=== PATIENT | female | born 1955 | race Caucasian/White ===

== ENCOUNTER 2020-05-07 14:37 | Outpatient (REF) | payer MEDICAID, SELFPAY ==
[2020-05-07 16:17] LABS: MANUAL DIFF FLAG NO
[2020-05-07 16:21] LABS: Basophils Absolute Auto 0.1 X10*3/uL (0.0-0.2); Basophils Percent Auto 0.7 % (0-2); Eosinophils Absolute Auto 0.2 X10*3/uL (0.0-0.4); Eosinophils Percent Auto 2.3 % (0-4); Hematocrit 40.5 % (37-47); Hemoglobin 13.3 g/dl (12.0-16.0); Imm Gran Abs Auto 0.03 X10*3/uL (0.00-0.03); Imm Gran Pct Auto 0.3 % (0.0-0.4); Lymphocytes Absolute Auto 1.9 X10*3/uL (1.2-4.9); Lymphocytes Percent Auto 21.7 % (20-40); Mean Corpuscular HGB Conc 32.8 g/dl (31.0-35.0); Mean Corpuscular Hemoglobin 29.1 pg (27.0-33.0); Mean Corpuscular Volume 88.6 fL (80-98); Mean Platelet Volume 10.9 fL (9.4-12.3); Monocytes Absolute Auto 0.7 X10*3/uL (0.1-1.2); Monocytes Percent Auto 7.9 % (2-11); Neutrophils Absolute Auto 5.8 X10*3/uL (2.0-8.3); Neutrophils Percent Auto 67.1 % (45-73); Platelet Count 181 X10*3/uL (160-400); Red Blood Count 4.57 X10*6/uL (4.20-5.50); Red Cell Distribution Width 13.6 % (11.0-16.0); White Blood Count 8.6 X10*3/uL (4.8-10.8)
[2020-05-07 16:51] LABS: Alanine Aminotransferase 21 U/L (0-31); Albumin Level 3.9 g/dL (3.5-5.0); Alkaline Phosphatase 86 U/L (39-117); Anion Gap 12 (12-20); Aspartate Amino Transferase 28 U/L (5-31); Bilirubin Total 0.6 mg/dL (0.0-1.0); Blood Urea Nitrogen 20 mg/dL (9-16); C Reactive Protein 0.75 mg/dL (< or = 0.50); Calcium 9.4 mg/dL (8.4-10.2); Carbon Dioxide 30 mmol/L (22-29); Chloride 102 mmol/L (96-108); Estimated Glomerular Filt Rate 50; Glucose Random 200 mg/dL (60-115); Potassium 4.4 mmol/L (3.3-5.1); Sodium 140 mmol/L (135-145); Total Protein 6.9 g/dL (6.5-8.0)
[2020-05-07 16:57] LABS: Erythrocyte Sedimentation Rate 18 MM/HR (0-20)
[2020-05-11 14:16] LABS: Vitamin D 25-OH, D2 <4 ng/mL; Vitamin D 25-OH, D3 58 ng/mL; Vitamin D 25-OH, Total 58 ng/mL (30-100)
== END 2020-05-07 14:38 | disposition home or self-care (01) ==
LOC: HO.LAB 14:37
PROVIDERS: PCP Family Medicine; Visit Provider Student in an Organized Health Care Education/Training Program
DX: M05.9 Rheumatoid arthritis with rheumatoid factor, unspecified (principal); M81.0 Age-related osteoporosis without current pathological fracture; I25.10 Atherosclerotic heart disease of native coronary artery without angina pectoris; Z79.52 Long term (current) use of systemic steroids; Z79.899 Other long term (current) drug therapy
CPT/HCPCS: 20610; 36415; 80053; 82306; 85025; 85652; 86140; 99212

== ENCOUNTER 2020-05-29 14:41 | Outpatient (REF) | payer MEDICAID, SELFPAY ==
--- NOTE | ~2020-05-29 | MM_ITS ---
EXAMINATION: BONE DENSITOMETRY CLINICAL INDICATION: Age-related osteoporosis without current pathological fracture. COMPARISON: This is the patient's baseline examination. TECHNIQUE: Using a [employer] DXA System (software version: 13.1) manufactured by [employer], dual-energy x-ray absorptiometry was performed of the lumbar spine and left hip. The images are of good technical quality. Summary results are attached. FINDINGS: AP SPINE L1-L4: BMD 1.402 g/cm2, Z-score 2.5, T-score 1.8, normal. LEFT FEMUR, NECK: BMD 1.051 g/cm2, Z-score 1.0, T-score 0.1, normal. LEFT FEMUR, TOTAL: BMD 0.941 g/cm2, Z-score 0.0, T-score -0.5, normal. IDENTIFIED RISK FACTORS: Rheumatoid arthritis, osteoporosis, recurrent falls, height loss, family history (parental hip fracture), history of fracture (adult), anticonvulsants, glucocorticoids (chronic), menopause. HISTORY OF FRACTURE: Other. MEDICATIONS: Calcium supplements or multivitamin, vitamin D. MM/XR DEXA axial skeleton IMPRESSION: 1. DIAGNOSIS: Normal bone density based on the lowest T-score value of -0.5 in the total femur applying World Health Organization criteria. 2. 10-YEAR FRACTURE RISK PREDICTION, FRAX: Major osteoporotic fracture (clinical spine, forearm, hip or shoulder) 36.6%. Hip fracture 0.6%. 3. Treatment Recommendations: NOF guidelines recommend consideration for treatment in postmenopausal women and men age 50 and older presenting with the following: -A hip or vertebral (clinical or morphometric) fracture. -T-score less than or equal to -2.5 at the femoral neck or spine after appropriate evaluation to exclude secondary causes. -Low bone mass at the hip or spine and a 10-year fracture probability by FRAX of greater than or equal to 3% for hip fracture or greater than or equal to 20% for major osteoporotic fracture based on the [place] adapted WHO algorithm. 4. Other Recommendations: All treatment decisions require clinical judgment and consideration of individual patient factors, including patient preferences, comorbidities, previous drug use, risk factors not captured in the FRAX model (e.g. frailty, falls, vitamin D deficiency, increased bone turnover, interval significant decline in bone density) and possible under or overestimation of fracture risk by FRAX. FUTURE SCAN RECOMMENDATION: People with diagnosed cases of osteoporosis or at high risk for fracture should have regular bone mineral density tests. For patients eligible for Medicare, routine testing is allowed once every 2 years. The testing frequency can be increased to one year for patients who have rapidly progressing disease, those who are receiving or discontinuing medical therapy to restore bone mass, or have additional risk factors.
== END 2020-05-29 14:42 | disposition home or self-care (01) ==
LOC: HO.MAMMO 14:41
PROVIDERS: Visit Provider Student in an Organized Health Care Education/Training Program
DX: M81.0 Age-related osteoporosis without current pathological fracture (principal); Z78.0 Asymptomatic menopausal state
CPT/HCPCS: 77080

== ENCOUNTER → 2020-06-16 14:04 | Outpatient (BNVA) | payer MEDICAID, SELFPAY | PROVIDERS: PCP Family Medicine; Visit Provider Internal Medicine | DX: R07.2 Precordial pain (principal); I25.10 Atherosclerotic heart disease of native coronary artery without angina pectoris; E11.8 Type 2 diabetes mellitus with unspecified complications; I10 Essential (primary) hypertension; M05.9 Rheumatoid arthritis with rheumatoid factor, unspecified | CPT/HCPCS: 93005; 99202 ==

== ENCOUNTER 2020-07-23 08:35 | Outpatient (REF) | payer MEDICAID, SELFPAY ==
--- NOTE | ~2020-07-23 | XR_ITS ---
EXAMINATION: XR HIP, LEFT XR KNEE, BILATERAL CLINICAL INFORMATION: Rheumatoid arthritis. Pain. COMPARISON: None TECHNIQUE: 2 views left hip. 3 views each bilateral knee. FINDINGS: LEFT HIP: There is severe loss of left hip joint space with subchondral cystic changes along the femoral head and the acetabulum and secondary periarticular spurring. There is no fracture or dislocation seen yet. The soft tissues are normal. There is atherosclerotic calcification of the vascular system. RIGHT KNEE: There is moderate loss of lateral compartment right knee joint space. The medial and patellofemoral compartment joint space is maintained. There is likely an old healed right proximal fibular fracture. There is an intramedullary femoral poncho and a cancellous screw through the proximal tibia for a fracture not seen on this exam. No abnormal joint effusion seen. There is a small anterior superior patellar enthesophyte. LEFT KNEE: There is mild reduction in tricompartment joint space. No bony erosive changes, fracture or dislocation seen. There is mild osteopenia. No abnormal joint effusion seen. XR/XR knee RT 3V IMPRESSION: Severe degenerative arthritic changes left hip joint without acute fracture or dislocation. Moderate degenerative arthritic changes lateral compartment right knee with an old healed proximal fibular fracture. There is intramedullary femoral poncho and a solitary cancellous screw through the proximal tibia for tibial fracture not in the [id number]. Mild degenerative changes in the tricompartments of left knee. No visible acute fracture or dislocation. Mild osteopenia.
--- NOTE | ~2020-07-23 | XR_ITS ---
EXAMINATION: XR HIP, LEFT XR KNEE, BILATERAL CLINICAL INFORMATION: Rheumatoid arthritis. Pain. COMPARISON: None TECHNIQUE: 2 views left hip. 3 views each bilateral knee. FINDINGS: LEFT HIP: There is severe loss of left hip joint space with subchondral cystic changes along the femoral head and the acetabulum and secondary periarticular spurring. There is no fracture or dislocation seen yet. The soft tissues are normal. There is atherosclerotic calcification of the vascular system. RIGHT KNEE: There is moderate loss of lateral compartment right knee joint space. The medial and patellofemoral compartment joint space is maintained. There is likely an old healed right proximal fibular fracture. There is an intramedullary femoral poncho and a cancellous screw through the proximal tibia for a fracture not seen on this exam. No abnormal joint effusion seen. There is a small anterior superior patellar enthesophyte. LEFT KNEE: There is mild reduction in tricompartment joint space. No bony erosive changes, fracture or dislocation seen. There is mild osteopenia. No abnormal joint effusion seen. XR/XR knee LT 3V IMPRESSION: Severe degenerative arthritic changes left hip joint without acute fracture or dislocation. Moderate degenerative arthritic changes lateral compartment right knee with an old healed proximal fibular fracture. There is intramedullary femoral poncho and a solitary cancellous screw through the proximal tibia for tibial fracture not in the [id number]. Mild degenerative changes in the tricompartments of left knee. No visible acute fracture or dislocation. Mild osteopenia.
--- NOTE | ~2020-07-23 | XR_ITS ---
EXAMINATION: XR HIP, LEFT XR KNEE, BILATERAL CLINICAL INFORMATION: Rheumatoid arthritis. Pain. COMPARISON: None TECHNIQUE: 2 views left hip. 3 views each bilateral knee. FINDINGS: LEFT HIP: There is severe loss of left hip joint space with subchondral cystic changes along the femoral head and the acetabulum and secondary periarticular spurring. There is no fracture or dislocation seen yet. The soft tissues are normal. There is atherosclerotic calcification of the vascular system. RIGHT KNEE: There is moderate loss of lateral compartment right knee joint space. The medial and patellofemoral compartment joint space is maintained. There is likely an old healed right proximal fibular fracture. There is an intramedullary femoral poncho and a cancellous screw through the proximal tibia for a fracture not seen on this exam. No abnormal joint effusion seen. There is a small anterior superior patellar enthesophyte. LEFT KNEE: There is mild reduction in tricompartment joint space. No bony erosive changes, fracture or dislocation seen. There is mild osteopenia. No abnormal joint effusion seen. XR/XR hip LT min 2V IMPRESSION: Severe degenerative arthritic changes left hip joint without acute fracture or dislocation. Moderate degenerative arthritic changes lateral compartment right knee with an old healed proximal fibular fracture. There is intramedullary femoral poncho and a solitary cancellous screw through the proximal tibia for tibial fracture not in the [id number]. Mild degenerative changes in the tricompartments of left knee. No visible acute fracture or dislocation. Mild osteopenia.
[2020-07-23 10:13] LABS: MANUAL DIFF FLAG NO
[2020-07-23 10:21] LABS: Basophils Absolute Auto 0.1 X10*3/uL (0.0-0.2); Basophils Percent Auto 0.7 % (0-2); Eosinophils Absolute Auto 0.1 X10*3/uL (0.0-0.4); Eosinophils Percent Auto 1.9 % (0-4); Hematocrit 39.7 % (37-47); Hemoglobin 12.8 g/dl (12.0-16.0); Imm Gran Abs Auto 0.03 X10*3/uL (0.00-0.03); Imm Gran Pct Auto 0.4 % (0.0-0.4); Lymphocytes Absolute Auto 1.5 X10*3/uL (1.2-4.9); Lymphocytes Percent Auto 21.4 % (20-40); Mean Corpuscular HGB Conc 32.2 g/dl (31.0-35.0); Mean Corpuscular Hemoglobin 29.5 pg (27.0-33.0); Mean Corpuscular Volume 91.5 fL (80-98); Mean Platelet Volume 10.4 fL (9.4-12.3); Monocytes Absolute Auto 0.6 X10*3/uL (0.1-1.2); Monocytes Percent Auto 8.4 % (2-11); Neutrophils Absolute Auto 4.7 X10*3/uL (2.0-8.3); Neutrophils Percent Auto 67.2 % (45-73); Platelet Count 135 X10*3/uL (160-400); Red Blood Count 4.34 X10*6/uL (4.20-5.50); Red Cell Distribution Width 13.5 % (11.0-16.0); White Blood Count 6.9 X10*3/uL (4.8-10.8)
[2020-07-23 10:52] LABS: Alanine Aminotransferase 22 U/L (0-31); Albumin Level 3.8 g/dL (3.5-5.0); Alkaline Phosphatase 82 U/L (39-117); Anion Gap 14 (12-20); Aspartate Amino Transferase 29 U/L (5-31); Bilirubin Total 0.6 mg/dL (0.0-1.0); Blood Urea Nitrogen 27 mg/dL (9-16); C Reactive Protein 0.95 mg/dL (< or = 0.50); Calcium 9.2 mg/dL (8.4-10.2); Carbon Dioxide 27 mmol/L (22-29); Chloride 106 mmol/L (96-108); Estimated Glomerular Filt Rate 49; Glucose Random 134 mg/dL (60-115); Potassium 4.4 mmol/L (3.3-5.1); Sodium 143 mmol/L (135-145); Total Protein 6.6 g/dL (6.5-8.0)
[2020-07-23 11:38] LABS: Erythrocyte Sedimentation Rate 23 MM/HR (0-20)
== END 2020-07-23 08:36 | disposition home or self-care (01) ==
LOC: HO.LAB 08:35
PROVIDERS: PCP Family Medicine; Visit Provider Student in an Organized Health Care Education/Training Program
DX: M05.9 Rheumatoid arthritis with rheumatoid factor, unspecified (principal); M81.0 Age-related osteoporosis without current pathological fracture
CPT/HCPCS: 36415; 73502; 73562; 80053; 85025; 85652; 86140; 99212

== ENCOUNTER 2020-08-06 10:01 | Outpatient (REF) | payer MEDICAID, SELFPAY ==
--- NOTE | ~2020-08-06 | XR_ITS ---
EXAMINATION: XR PELVIS CLINICAL INFORMATION: Pain COMPARISON: Previous left hip x-ray 07/23/2020 TECHNIQUE: AP view of the pelvis. FINDINGS: There is severe left hip arthritis with joint space narrowing, osteophyte formation and some subchondral cyst formation. There is mild arthritis of the right hip joint with small osteophytes. No fracture or dislocation is seen. Bones of the pelvis are unremarkable. There is evidence of atherosclerotic disease. XR/XR pelvis 1-2V IMPRESSION: Severe left hip arthritis.
== END 2020-08-06 10:02 | disposition home or self-care (01) ==
LOC: HO.HOSX 10:01
PROVIDERS: Visit Provider Orthopaedic Surgery
DX: M16.12 Unilateral primary osteoarthritis, left hip (principal); M25.562 Pain in left knee; M25.561 Pain in right knee; Z87.891 Personal history of nicotine dependence
CPT/HCPCS: 72170; 99202

== ENCOUNTER 2020-08-27 13:33 | Outpatient (REF) | payer MEDICAID, SELFPAY ==
[2020-08-27 14:52] LABS: MANUAL DIFF FLAG NO
[2020-08-27 14:55] LABS: Basophils Percent Auto 0.4 % (0-2); Eosinophils Absolute Auto 0.2 X10*3/uL (0.0-0.4); Eosinophils Percent Auto 2.2 % (0-4); Hematocrit 39.3 % (37-47); Hemoglobin 12.5 g/dl (12.0-16.0); Imm Gran Abs Auto 0.04 X10*3/uL (0.00-0.03); Imm Gran Pct Auto 0.5 % (0.0-0.4); Lymphocytes Absolute Auto 1.8 X10*3/uL (1.2-4.9); Lymphocytes Percent Auto 24.7 % (20-40); Mean Corpuscular HGB Conc 31.8 g/dl (31.0-35.0); Mean Corpuscular Volume 94.2 fL (80-98); Mean Platelet Volume 10.3 fL (9.4-12.3); Monocytes Absolute Auto 0.7 X10*3/uL (0.1-1.2); Neutrophils Absolute Auto 4.7 X10*3/uL (2.0-8.3); Neutrophils Percent Auto 63.2 % (45-73); Platelet Count 144 X10*3/uL (160-400); Red Blood Count 4.17 X10*6/uL (4.20-5.50); Red Cell Distribution Width 14.2 % (11.0-16.0); White Blood Count 7.4 X10*3/uL (4.8-10.8)
[2020-08-27 15:25] LABS: Alanine Aminotransferase 21 U/L (0-31); Albumin Level 3.9 g/dL (3.5-5.0); Alkaline Phosphatase 88 U/L (39-117); Anion Gap 11 (12-20); Aspartate Amino Transferase 35 U/L (5-31); Bilirubin Total 0.4 mg/dL (0.0-1.0); Blood Urea Nitrogen 28 mg/dL (9-16); C Reactive Protein 0.53 mg/dL (< or = 0.50); Calcium 9.5 mg/dL (8.4-10.2); Carbon Dioxide 29 mmol/L (22-29); Chloride 106 mmol/L (96-108); Estimated Glomerular Filt Rate 46; Glucose Random 70 mg/dL (60-115); Potassium 5.1 mmol/L (3.3-5.1); Sodium 141 mmol/L (135-145); Total Protein 6.8 g/dL (6.5-8.0)
[2020-08-27 15:39] LABS: Erythrocyte Sedimentation Rate 18 MM/HR (0-20)
== END 2020-08-27 13:34 | disposition home or self-care (01) ==
LOC: HO.LAB 13:33
PROVIDERS: PCP Family Medicine; Visit Provider Student in an Organized Health Care Education/Training Program
DX: M17.12 Unilateral primary osteoarthritis, left knee (principal); M17.11 Unilateral primary osteoarthritis, right knee; M16.12 Unilateral primary osteoarthritis, left hip; M05.9 Rheumatoid arthritis with rheumatoid factor, unspecified; F17.210 Nicotine dependence, cigarettes, uncomplicated; Z79.899 Other long term (current) drug therapy
CPT/HCPCS: 20610; 36415; 80053; 85025; 85652; 86140; 99212

== ENCOUNTER → 2020-09-25 08:31 | Outpatient (REF) | payer MEDICAID, SELFPAY ==
--- NOTE | ~2020-09-25 | NM_ITS ---
Myocardial perfusion study Indication: Precordial chest pain to evaluate for myocardial ischemia Technique: The patient was brought in for a Lexiscan perfusion study on 09/25/2020. Patient performed low-level exercise and was injected 0.4 mg of Lexiscan intravenously. Within a minute of injection, 25 mCi of sestamibi was given intravenously. Images were obtained using the SPECT gamma camera interlaced with the gating device. Images were obtained in supine position. Resting perfusion study was performed on 09/28/2020. Patient was administered 25 mCi of sestamibi intravenously at rest. Images were then obtained in supine position. Images obtained with and without CT attenuation. Total DLP 155 mGy-cm. Images were processed with the software and compared side to side in short axis, horizontal long axis and vertical long axis views. Findings: The stress perfusion study showed nonattenuated images show thinning and minimally reduced uptake in the distal anterior wall of the LV myocardium. Remainder of the LV myocardium is normally perfused. Attenuation corrected images show moderately reduced uptake in the apex and the distal anterior wall of the LV myocardium. The gated study shows normal LV systolic function with visually estimated LVEF of greater than 55%. LV cavity is normal in size. The gated study shows normal systolic wall thickening and contraction of segments. Resting study shows no change in perfusion pattern compared to stress perfusion study. Gating at rest reveals normal systolic wall motion with visually estimated ejection fraction at greater than 55%. The findings are consistent with no clear reversible defect suggestive of ischemia. Most likely normal myocardial perfusion. NM/NM lillie perf SPECT rest & str Impression: 1. Myocardial perfusion imaging study shows likely normal myocardial perfusion 2. Gated LVEF is greater than 55% 3. Transient ischemic dilatation not present EKG is nondiagnostic
--- NOTE | 2020-09-25 08:40 | CA_ITS ---
Transthoracic Echocardiogram Patient (Last, First, Middle): Lynda Horvath, Gender: Female Date of : 1955 Age: 64 Procedure Date: 09/25/2020 Procedure Type: Transthoracic Echocardiogram Location: OP Height: 154.94 cm Weight: 88.45 kg BSA: 1.87 m2 Heart Rate: bpm BP: 188 / 72 mmHg [place]: [facility] MD: Dimitrios Choudhary MD Symptoms: I25.10 - Atherosclerotic heart disease of [place] coronary... Study Quality: Fair ECG Rhythm: Sinus Conclusions: - The left ventricular systolic function is normal. The calculated ejection fraction is 61% by biplane method. - There is mild calcification of the aortic valve. - There is moderate posterior mitral annular calcification. Findings Procedure Information Contrast agent, definity, is being given per protocol without apparent complications. Left Ventricle Normal left ventricular cavity size. There is mildly increased left ventricular wall thickness. The left ventricular systolic function is normal. The calculated ejection fraction is 61% by biplane method. There is no evidence of regional wall motion abnormalities. E/E prime ratio is between 8 and 15 consistent with indeterminate filling pressures. Evidence suggests grade I (mild) diastolic dysfunction. Right Ventricle Normal right ventricular cavity size and systolic function. Atria Both atria are normal in size. Aortic Valve There is a normal trileaflet aortic valve. There is mild calcification of the aortic valve. There is no aortic valve stenosis. There is no aortic valve regurgitation. Mitral Valve There is moderate posterior mitral annular calcification. There is trace mitral valve regurgitation. There is no mitral valve stenosis. Pulmonic Valve The pulmonic valve was not well visualized. Tricuspid Valve There is trace tricuspid valve regurgitation. The pulmonary artery systolic pressure is normal. Great Vessels The aortic annulus, sinuses of valsalva, asc aorta, and aortic arch are normal in size. Venous The inferior vena cava is normal in size and collapses greater than 50% with inspiration. Pericardium/Pleural There is no evidence of pericardial effusion. Prior Study Comparison No prior study available for comparison. Measurements 2D Linear Measurements RVIDd: 2.76 RVIDd Index: 1.48 IVSd: 1.05 0.6-0.9/0.6-1.0 cm LVIDd: 4.63 3.9-5.3/4.2-5.9 cm LVIDd Index: 2.48 2.4-3.2/2.2-3.1 cm/m2 LVIDs: 3.14 2.0-3.6 cm LVPWd: 1.26 0.7-1.1 cm Ao Root: 2.70 2.1-3.5 cm LA Diam: 3.60 2.7-3.8/3.0-4.0 cm LAIDs Index: 1.93 1.5-2.3 cm/m2 LV Mass: 244.40 67-162/88-224 g LV Mass Index: 130.70 43-95/49-115 g/m2 LVOT Diam: 2.10 3.0+(-)1.3 cm 2D Systolic Function EF 4C: 53.40 >55% EF 2C: 68.80 >55% EF BiP: 61.20 >55% Mitral Valve MV Pk E: 0.78 MV PK A: 0.67 MV Decel Time: 281.00 E/A: 1.20 E'Lateral: 6.96 E'Medial: 5.33 E/E' Med: 14.60 E/E' Lat: 11.20 Aortic Valve AoV Pk Jonathon: 1.19 AoV Mn Jonathon: 0.87 AoV VTI: 0.29 AoV Pk Grad: 6.00 Aov Mn Grad: 3.00 CORBIN Cont.VTI: 2.01 LVOT LVOT Pk Jonathon: 0.72 LVOT Mn Jonathon: 0.48 LVOT VTI: 0.17 LVOT Pk Grad: 2.00 LVOT Mn Grad: 1.00 LVOT Diam: 2.10 LVOT Area: 3.46 Diastolic Function MV Pk E: 0.78 MV Pk A: 0.67 E/A: 1.20 E'Medial: 5.33 E/E' Med: 14.60 E' Laterial: 6.96 E/E' Lat: 11.20 Tricuspid Valve RA Press: 3.00 Great Vessels Aorta Ao Root-2D: 2.70 2.0-3.7 cm Ao Asc: 3.10 2.1-3.4 cm Ao Arch: 2.40 Updated in Other Vendor System with Status of Final Dimitrios Choudhary MD electronically signed on 09/26/2020 12:18:25 PM with status of Final
--- NOTE | 2020-09-25 08:40 | CA_ITS ---
Acquisition Time: 2020-09-25 09:50:34 Total Exercise Time: 00:02:00 Test Indications: Precordial Pain Medications: See Med Sheet Protocol: LEXISCAN Max HR: 082 BPM 52% of Pred: 157 BPM Max BP: 138/074 mmHG Max Work Load: 1.0 METS Pharmacological stress test with Lexiscan injection, while sitting and kicking her legs without anginal symptoms, without arrythmia, with normotensive response to injection, with nondiagnostic EKG for ischemia. In recovery she had shaking of her upper body and head that was treated wit Aminphylline 75mg IVP and 4 oz caffinated cola with resolution of symptom. Nuclear images pending. Test reviewed with Dr Choudhary. Referred By: Dimitrios Choudhary Overread By: YASHIRA MITCHELL
== END ==
LOC: HO.CARD 08:31
PROVIDERS: Visit Provider Internal Medicine
DX: R07.2 Precordial pain (principal); I25.10 Atherosclerotic heart disease of native coronary artery without angina pectoris
CPT/HCPCS: 78452; 93017; 93306; A9500; J0280; J2785; Q9957

== ENCOUNTER → 2020-10-26 10:45 | Outpatient (BNVA) | payer MEDICAID, SELFPAY | PROVIDERS: PCP Family Medicine; Visit Provider Internal Medicine | DX: I25.10 Atherosclerotic heart disease of native coronary artery without angina pectoris (principal); I10 Essential (primary) hypertension; R07.2 Precordial pain; E11.8 Type 2 diabetes mellitus with unspecified complications; M05.9 Rheumatoid arthritis with rheumatoid factor, unspecified | CPT/HCPCS: 99212 ==

== ENCOUNTER 2020-12-14 09:44 | Outpatient (REF) | payer MEDICAID, SELFPAY ==
[2020-12-14 12:12] LABS: MANUAL DIFF FLAG NO
[2020-12-14 12:29] LABS: Basophils Percent Auto 0.6 % (0-2); Eosinophils Absolute Auto 0.1 X10*3/uL (0.0-0.4); Hematocrit 34.9 % (37-47); Hemoglobin 10.9 g/dl (12.0-16.0); Imm Gran Abs Auto 0.03 X10*3/uL (0.00-0.03); Imm Gran Pct Auto 0.5 % (0.0-0.4); Lymphocytes Absolute Auto 1.2 X10*3/uL (1.2-4.9); Lymphocytes Percent Auto 17.9 % (20-40); Mean Corpuscular HGB Conc 31.2 g/dl (31.0-35.0); Mean Corpuscular Hemoglobin 30.7 pg (27.0-33.0); Mean Corpuscular Volume 98.3 fL (80-98); Mean Platelet Volume 10.6 fL (9.4-12.3); Monocytes Absolute Auto 0.5 X10*3/uL (0.1-1.2); Monocytes Percent Auto 7.9 % (2-11); Neutrophils Absolute Auto 4.6 X10*3/uL (2.0-8.3); Neutrophils Percent Auto 71.1 % (45-73); Platelet Count 167 X10*3/uL (160-400); Red Blood Count 3.55 X10*6/uL (4.20-5.50); Red Cell Distribution Width 12.8 % (11.0-16.0); White Blood Count 6.4 X10*3/uL (4.8-10.8)
[2020-12-14 13:02] LABS: Alanine Aminotransferase 23 U/L (0-31); Albumin Level 3.7 g/dL (3.5-5.0); Alkaline Phosphatase 105 U/L (39-117); Anion Gap 13 (12-20); Aspartate Amino Transferase 33 U/L (5-31); Bilirubin Total 0.3 mg/dL (0.0-1.0); Blood Urea Nitrogen 23 mg/dL (9-16); C Reactive Protein 0.82 mg/dL (< or = 0.50); Calcium 9.8 mg/dL (8.4-10.2); Carbon Dioxide 27 mmol/L (22-29); Chloride 103 mmol/L (96-108); Estimated Glomerular Filt Rate 40; Glucose Random 240 mg/dL (60-115); Sodium 137 mmol/L (135-145); Total Protein 6.4 g/dL (6.5-8.0)
[2020-12-14 13:11] LABS: Erythrocyte Sedimentation Rate 29 MM/HR (0-20)
== END 2020-12-14 09:45 | disposition home or self-care (01) ==
LOC: HO.LAB 09:44
PROVIDERS: PCP Family Medicine; Visit Provider Nurse Practitioner Family
DX: M05.9 Rheumatoid arthritis with rheumatoid factor, unspecified (principal); M81.0 Age-related osteoporosis without current pathological fracture
CPT/HCPCS: 36415; 80048; 80053; 85025; 85652; 86140; 93005; 99212; 99283

== ENCOUNTER 2020-12-14 14:39 | Emergency (ER) | payer MEDICAID, SELFPAY ==
[2020-12-14 15:25] VITALS: BP 169/60; PULSE 57; RESP 16; TEMP 36.2; O2SAT 95; BMI 36.6
--- NOTE | 2020-12-14 15:55 | PC.NURSE ---
PT DECLINES GETTING INTO HOSPITAL ATTIRE AND ED STRETCHER
--- NOTE | 2020-12-14 15:59 | ED.RECABL ---
HPI - Recheck/Abnormal Lab/Rx General Chief Complaint: Recheck/Abnormal Lab/Rx Stated Complaint: abnormal labs Time Seen by Provider: 12/14/20 15:58 Source: patient Mode of arrival: ambulatory Limitations: no limitations History of Present Illness HPI narrative: Potassium level was 6.0. as outpatient. No change in medications. Symptoms since prior visit: no new symptoms Related Data Home Medications Medication Instructions Recorded Confirmed acetaminophen 650 mg 650 mg PO Q8H 05/07/20 10/26/20 tablet,extended release (Tylenol Arthritis Pain) ascorbic acid (vitamin C) 250 mg 250 mg PO DAILY 05/07/20 10/26/20 tablet aspirin 81 mg tablet,delayed 81 mg PO DAILY 05/07/20 10/26/20 release (Adult Low Dose Aspirin) buspirone 7.5 mg tablet 7.5 mg PO BID 05/07/20 10/26/20 cholecalciferol (vitamin D3) 25 25 mcg PO DAILY 05/07/20 10/26/20 mcg (1,000 unit) capsule dicyclomine 20 mg tablet 20 mg PO QID 05/07/20 10/26/20 ezetimibe 10 mg tablet (Zetia) 10 mg PO DAILY 05/07/20 10/26/20 ferrous sulfate 325 mg (65 mg 325 mg PO DAILY 05/07/20 10/26/20 iron) tablet fluticasone propionate 110 2 puff INHALATION BID 05/07/20 10/26/20 mcg/actuation HFA aerosol inhaler (Flovent HFA) fluticasone propionate 50 2 spray INTRANASAL DAILY 05/07/20 10/26/20 mcg/actuation nasal spray,suspension gabapentin 300 mg capsule 300 mg PO TID 05/07/20 10/26/20 (Neurontin) insulin detemir U-100 100 unit/mL 10 unit SUBCUT DIRECTED ml 05/07/20 10/26/20 subcutaneous solution (Levemir U-100 Insulin) levothyroxine 200 mcg tablet 200 mcg PO DAILY 05/07/20 10/26/20 lisinopril 5 mg tablet 5 mg PO DAILY 05/07/20 10/26/20 metoprolol succinate 50 mg 50 mg PO DAILY 05/07/20 10/26/20 tablet,extended release 24 hr omeprazole 40 mg capsule,delayed 40 mg PO DAILY 05/07/20 10/26/20 release simvastatin 20 mg tablet 20 mg PO DAILY 05/07/20 10/26/20 Previous Rx's Medication Instructions Recorded prednisone 5 mg tablet 5 mg PO DAILY #30 tab 08/25/20 calcium carbonate-vitamin D3 600 1 tab PO DAILY #30 ea 09/22/20 mg (1,500 mg)-800 unit tablet baclofen 10 mg tablet 10 mg PO BID #60 tab 10/22/20 sulfasalazine 500 mg tablet 500 mg PO BID #60 tab 11/23/20 Allergies Allergy/AdvReac Type Severity Reaction Status Date / Time hydrocodone [From VICODIN] Allergy Severe vomiting Verified 12/14/20 10:35 metoclopramide [From REGLAN] Allergy Severe Anxiety Verified 12/14/20 10:35 oxycodone [OXYCODONE] Allergy Severe vomiting Verified 12/14/20 10:35 Penicillins [PENICILLINS] Allergy Severe swelling Verified 12/14/20 10:35 tramadol [From ULTRAM] Allergy Severe Vomiting Verified 12/14/20 10:35 codeine [Tylenol-Codeine] Allergy Intermediate vomiting Verified 12/14/20 10:35 Pt states no known food Allergy Unknown none Uncoded 12/14/20 10:35 allerg Review of Systems Constitutional: Constitutional: Reports no additional constitutional complaints Eyes: Eyes: Reports no additional eye complaints ENT: Denies dizziness Cardiovascular: Cardiovascular: Reports no additional cardiovascular complaints Respiratory: Respiratory: Reports as per HPI Gastrointestinal: Gastrointestinal: Reports no additional gastrointestinal complaints Genitourinary: Genitourinary: Reports no additional female genitourinary complaints Musculoskeletal: Musculoskeletal: Reports no additional musculoskeletal complaints Integumentary/Breasts: Skin/Breast: Denies rash Neurologic: Reports system reviewed and no additional complaints, except as documented, Denies dizziness and Denies Sensory deficit (Neuro) Psychiatric: Psychiatric: Denies anxiety [facility] Past Medical History Medical History Atherosclerotic cardiovascular disease COPD (chronic obstructive pulmonary disease) Coronary artery disease Essential hypertension Osteoporosis Seropositive rheumatoid arthritis Type 2 diabetes mellitus with unspecified complications Surgical History History of heart artery stent (~2005) Family History Family History Father CVD (cardiovascular disease) Mother CVD (cardiovascular disease) Heart attack Social History Social History Alcohol intake: former Patient Tobacco Use Status: Former Tobacco user Cigarettes Per Day: 20 Years Smoked: 15 e-Cigarette/Vaping Use: Never Used Advance Directives: No Advance Directives Information Provided: No Physical Exam Vital Signs: Vital Signs: Last Vital Signs Temp 97.1 F 12/14/20 15:25 Pulse 57 12/14/20 15:25 Resp 16 12/14/20 15:25 BP 169/60 H 12/14/20 15:25 Pulse Ox 95 12/14/20 15:25 Body Mass Index 36.6 Const: General: healthy appearing Nutritional Appearance: average body habitus Orientation/consciousness: oriented to person and patient oriented x3 Limitations: no limitations HENMT: Head: Yes normal to inspection Ears: external ears normal General nose exam: Normal external nose present Mouth: Normal oral and palatal mucosa present and oropharynx normal Throat: Yes posterior oropharynx normal Eyes: General: appearance normal, both eyes and all related structures Neck: Other: supple Neck: Yes normal visual inspection Chest: Chest palpation & inspection: normal inspection of the chest Resp: Auscultation: clear to auscultation bilaterally Cardio: Jugular venous distension: no JVD Rate: regular rate Rhythm: regular rhythm Heart sounds: S1 normal heart sound present and S2 normal heart sound present GI: Inspection: Yes normal to inspection Palpation (GI): Soft to palpation, nontender and No hepatosplenomegaly present Auscultation: normal bowel sounds : General: Yes no CVA tenderness Back/Spine/Pelvis: Back: no CVA tenderness Skin: Other: multiple areas of ecchymosis arms and legs Neuro: General: oriented to person and patient oriented x3 Cranial nerves: Yes CN's II-XII intact bilaterally Motor exam (neuro): 5/5 motor strength present throughout Sensory Exam: No Sensory deficit (Neuro) Extrem: General: Yes normal to inspection Psych: Appearance: grossly normal Course Reevaluation(s) Reevaluation #1: patient with no evidence of hyperkalemia, potassium is down Time: 17:44 MDM - Recheck/Abnormal Lab/Rx Lab Data Result diagrams: 12/14/20 16:27 Labs: Lab Results 12/14/20 Range/Units 16:27 Sodium 137 (135-145) mmol/L Potassium 5.1 (3.3-5.1) mmol/L Chloride 102 (96-108) mmol/L Carbon Dioxide 28 (22-29) mmol/L Anion Gap 12 (12-20) BUN 21 H (9-16) mg/dL Creatinine 1.33 (0.5-1.4) mg/dL Estim Creat Clear Calc 43.0 Estimated GFR 40 Random Glucose 280 H (60-115) mg/dL Calcium 9.4 (8.4-10.2) mg/dL Discharge Plan Discharge Clinical Impression: At high risk for hyperkalemia Patient Disposition: Home, Self-Care Instructions: Hyperkalemia (ED) Additional Instructions: i would discuss with your doctor stopping your lisinopril Prescriptions: No Action prednisone 5 mg tablet 5 mg PO DAILY Qty: 30 RF: 3 calcium carbonate-vitamin D3 600 mg(1,500mg) -800 unit tablet 1 tab PO DAILY Qty: 30 RF: 5 baclofen 10 mg tablet 10 mg PO BID Qty: 60 RF: 6 sulfasalazine 500 mg tablet 500 mg PO BID Qty: 60 RF: 3 aspirin [Adult Low Dose Aspirin] 81 mg tablet,delayed release (DR/EC) 81 mg PO DAILY RF: 0 buspirone 7.5 mg tablet 7.5 mg PO BID RF: 0 ferrous sulfate 325 mg (65 mg iron) tablet 325 mg PO DAILY RF: 0 cholecalciferol (vitamin D3) 25 mcg (1,000 unit) capsule 25 mcg PO DAILY RF: 0 ascorbic acid (vitamin C) 250 mg tablet 250 mg PO DAILY RF: 0 fluticasone propionate 50 mcg/actuation spray,suspension 2 spray intranasal DAILY RF: 0 Flovent HFA 110 mcg/actuation HFA aerosol inhaler 2 puff inhalation BID RF: 0 Levemir U-100 Insulin 100 unit/mL solution 10 unit subcut DIRECTED RF: 0 dicyclomine 20 mg tablet 20 mg PO QID RF: 0 omeprazole 40 mg capsule,delayed release(DR/EC) 40 mg PO DAILY RF: 0 gabapentin [Neurontin] 300 mg capsule 300 mg PO TID RF: 0 lisinopril 5 mg tablet 5 mg PO DAILY RF: 0 ezetimibe [Zetia] 10 mg tablet 10 mg PO DAILY RF: 0 simvastatin 20 mg tablet 20 mg PO DAILY RF: 0 levothyroxine 200 mcg tablet 200 mcg PO DAILY RF: 0 metoprolol succinate 50 mg tablet extended release 24 hr 50 mg PO DAILY RF: 0 acetaminophen [Tylenol Arthritis Pain] 650 mg tablet extended release 650 mg PO Q8H RF: 0
--- NOTE | 2020-12-14 16:02 | ECG_ITS ---
Test Reason : ABNORMAL LABS Blood Pressure : / mmHG Vent. Rate : 056 BPM Atrial Rate : 056 BPM P-R Int : 162 ms QRS Dur : 108 ms QT Int : 440 ms P-R-T Axes : 061 -40 040 degrees QTc Int : 424 ms Sinus bradycardia Left axis deviation Voltage criteria for left ventricular hypertrophy Abnormal ECG When compared with ECG of 28-OCT-2018 21:34, No significant change was found Referred By: Kevin Wyatt Electronically Signed By:DANIE RESENDEZ
[2020-12-14 16:54] LABS: Anion Gap 12 (12-20); Blood Urea Nitrogen 21 mg/dL (9-16); Calcium 9.4 mg/dL (8.4-10.2); Carbon Dioxide 28 mmol/L (22-29); Chloride 102 mmol/L (96-108); Estimated Glomerular Filt Rate 40; Glucose Random 280 mg/dL (60-115); Potassium 5.1 mmol/L (3.3-5.1); Sodium 137 mmol/L (135-145)
== END 2020-12-14 18:14 | disposition home or self-care (01) ==
PROVIDERS: Emergency Provider Emergency Medicine
DX: R79.89 Other specified abnormal findings of blood chemistry (principal); E11.9 Type 2 diabetes mellitus without complications; I25.10 Atherosclerotic heart disease of native coronary artery without angina pectoris; Z87.891 Personal history of nicotine dependence; Z79.4 Long term (current) use of insulin; Z79.899 Other long term (current) drug therapy
CPT/HCPCS: 36415; 80048; 93005; 99283

== ENCOUNTER 2020-12-21 12:48 | Outpatient (REF) | payer MEDICAID, SELFPAY ==
[2020-12-21 15:32] LABS: Estimated Average Glucose 189 mg/dL; Hemoglobin A1c % 8.2 %
== END 2020-12-21 12:49 | disposition home or self-care (01) ==
LOC: HO.LAB 12:48
PROVIDERS: PCP Family Medicine; Visit Provider Orthopaedic Surgery
DX: M16.12 Unilateral primary osteoarthritis, left hip (principal); E11.8 Type 2 diabetes mellitus with unspecified complications
CPT/HCPCS: 36415; 83036; 99212

== ENCOUNTER 2021-03-08 12:45 | Outpatient (REF) | payer MEDICAID, SELFPAY ==
[2021-03-08 12:57] LABS: MANUAL DIFF FLAG NO
[2021-03-08 13:32] LABS: Basophils Absolute Auto 0.1 X10*3/uL (0.0-0.2); Basophils Percent Auto 0.8 % (0-2); Eosinophils Absolute Auto 0.3 X10*3/uL (0.0-0.4); Eosinophils Percent Auto 3.4 % (0-4); Hematocrit 37.9 % (37.0-47.0); Hemoglobin 11.7 g/dl (12.0-16.0); Imm Gran Abs Auto 0.03 X10*3/uL (0.00-0.03); Imm Gran Pct Auto 0.3 % (0.0-0.4); Lymphocytes Absolute Auto 2.7 X10*3/uL (1.2-4.9); Lymphocytes Percent Auto 29.4 % (20-40); Mean Corpuscular HGB Conc 30.9 g/dl (31.0-35.0); Mean Corpuscular Hemoglobin 29.8 pg (27.0-33.0); Mean Corpuscular Volume 96.7 fL (80.0-98.0); Mean Platelet Volume 10.6 fL (9.4-12.3); Monocytes Absolute Auto 0.8 X10*3/uL (0.1-1.2); Monocytes Percent Auto 8.3 % (2-11); Neutrophils Absolute Auto 5.2 x10*3/uL (2.0-8.3); Neutrophils Percent Auto 57.8 % (45-73); Platelet Count 176 X10*3/uL (160-400); Red Blood Count 3.92 X10*6/uL (4.20-5.50); Red Cell Distribution Width 13.4 % (11.0-16.0); White Blood Count 9.1 X10*3/uL (4.8-10.8)
[2021-03-08 14:03] LABS: Alanine Aminotransferase 22 U/L (0-31); Albumin Level 3.9 g/dL (3.5-5.0); Alkaline Phosphatase 82 U/L (39-117); Anion Gap 11 (12-20); Aspartate Amino Transferase 33 U/L (5-31); Bilirubin Total 0.4 mg/dL (0.0-1.0); Blood Urea Nitrogen 20 mg/dL (9-16); C Reactive Protein 0.72 mg/dL (< or = 0.50); Calcium 9.2 mg/dL (8.4-10.2); Carbon Dioxide 29 mmol/L (22-29); Chloride 107 mmol/L (96-108); Estimated Glomerular Filt Rate 46; Glucose Random 51 mg/dL (60-115); Potassium 4.2 mmol/L (3.3-5.1); Sodium 143 mmol/L (135-145); Total Protein 6.7 g/dL (6.5-8.0)
[2021-03-08 14:18] LABS: Erythrocyte Sedimentation Rate 18 MM/HR (0-20)
== END 2021-03-08 12:46 | disposition home or self-care (01) ==
LOC: HO.LAB 12:45
PROVIDERS: Visit Provider Nurse Practitioner Family
DX: M05.9 Rheumatoid arthritis with rheumatoid factor, unspecified (principal)
CPT/HCPCS: 36415; 80053; 85025; 85652; 86140

== ENCOUNTER 2021-04-07 13:47 | Outpatient (REF) | payer MEDICAID, SELFPAY ==
[2021-04-08 05:03] LABS: HBS Num1 113.65 mIU/mL (0-7.99); ~HepC Num1 10.47 S/CO (0.00-0.79); ~Hepatitis B Surface Antibody REACTIVE (Nonreactive); ~Hepatitis C Antibody Reactive (Nonreactive)
[2021-04-08 05:17] LABS: HBc Num1 8.99 S/CO (0.00-0.79); HBsAGNum1 0.19 S/CO (0.00-0.99); Hepatitis A Antibody IgM 0.16 Index (0-0.79); Hepatitis B Surface Antigen Negative (Negative); ~Hepatitis A Antibody IgM Nonreactive (Nonreactive)
[2021-04-08 05:56] LABS: HBc Num2 8.89 S/CO
[2021-04-08 05:57] LABS: HBc Num3 9.05 S/CO; Hepatitis B Core Antibody Reactive (Nonreactive)
[2021-04-09 20:55] LABS: TS Negative Control Passed; TS Panel A 0; TS Panel B 0; TS Positive Control Passed; TSpotTB Negative (Negative)
== END 2021-04-07 13:48 | disposition home or self-care (01) ==
LOC: HO.LAB 13:47
PROVIDERS: PCP Family Medicine; Visit Provider Nurse Practitioner Family
DX: Z11.1 Encounter for screening for respiratory tuberculosis (principal); M05.9 Rheumatoid arthritis with rheumatoid factor, unspecified; M81.0 Age-related osteoporosis without current pathological fracture
CPT/HCPCS: 36415; 86481; 86704; 86706; 86709; 86803; 87340; 99212

== ENCOUNTER 2021-05-01 10:52 | Outpatient (REF) | payer MEDICAID, SELFPAY ==
[2021-05-01 11:38] LABS: Estimated Average Glucose 180 mg/dL; Hemoglobin A1c % 7.9 %
== END 2021-05-01 10:53 | disposition home or self-care (01) ==
LOC: HO.LAB 10:52
PROVIDERS: Visit Provider Orthopaedic Surgery
DX: Z01.812 Encounter for preprocedural laboratory examination (principal)
CPT/HCPCS: 36415; 83036

== ENCOUNTER → 2021-05-28 11:07 | Outpatient (BNVA) | payer MEDICAID, SELFPAY | PROVIDERS: PCP Internal Medicine Hypertension Specialist; Visit Provider Orthopaedic Surgery | DX: M16.12 Unilateral primary osteoarthritis, left hip (principal); I25.10 Atherosclerotic heart disease of native coronary artery without angina pectoris; E11.8 Type 2 diabetes mellitus with unspecified complications | CPT/HCPCS: 99212 ==

== ENCOUNTER 2021-06-24 04:10 | Emergency (ER) | payer MEDICAID, SELFPAY ==
--- NOTE | ~2021-06-24 | CT_ITS ---
EXAMINATION: CT ANGIOGRAM OF THE CHEST WITH AND WITHOUT CONTRAST (CT PULMONARY ANGIOGRAM FOR PE) CLINICAL INFORMATION: Reason for Exam L sided chest pain post fall 2 weeks ago COMPARISON: Chest x-ray 06/13/2016 TECHNIQUE: Prior to contrast administration, noncontrast localization images were obtained. Subsequently, multidetector volumetric imaging was performed from the thoracic inlet to below the diaphragms following the administration of 65 mL Omnipaque 350 intravenous contrast. No contrast reaction reported Sagittal, coronal, and MIP oblique sagittal reformatted images were obtained on the CT workstation, uploaded to PACS, and reviewed. This CT examination was performed using dose optimization techniques as appropriate, variously including the following: *Automated exposure control *Adjustment of mA and/or kV according to patient size (this includes techniques or standardized protocols for targeted exams where dose is matched to indication/reason for exam; i.e. extremities or head) *Use of iterative reconstruction technique Total exam dose-length product 470 mGy-cm FINDINGS: QUALITY OF STUDY/CONTRAST BOLUS: Satisfactory. PULMONARY ARTERIES: No central or segmental pulmonary emboli. THORACIC AORTA: No aneurysm or dissection. Scattered atherosclerotic calcifications noted. LUNG: There is curvilinear atelectasis in the right middle lobe. Thin wall cysts are noted in the right upper lobe. There is a 4 mm right middle lobe nodule on image [id number], unchanged from 06/20/2008 and consistent with a benign etiology. PLEURA: No pleural effusion or pneumothorax. MEDIASTINUM: Patient appears to be status post thyroidectomy. There are subcentimeter mediastinal lymph nodes within the range of normal variation. Cardiac size is within normal limits; no pericardial effusion. Coronary artery calcifications are present. CHEST WALL/AXILLA: No axillary or internal mammary lymphadenopathy. OSSEOUS STRUCTURES: Multilevel degenerative endplate changes are present in the spine. UPPER ABDOMEN: Thick-walled appearance of the stomach is nonspecific in the setting of luminal collapse. No reflux of contrast into the hepatic veins to suggest elevated right heart pressures. CT/CT angio chest PE protocol IMPRESSION: 1. No pulmonary embolus identified. 2. Thick-walled appearance of the collapsed stomach is nonspecific. In the proper clinical setting, gastritis can have this appearance. 3. Coronary artery calcifications. Correlation with cardiac risk factors is recommended. VTE: negative
[2021-06-24 04:13] VITALS: BP 165/70; PULSE 77; O2SAT 98
--- NOTE | 2021-06-24 04:26 | ECG_ITS ---
Test Reason : CHEST PAIN Blood Pressure : / mmHG Vent. Rate : 060 BPM Atrial Rate : 060 BPM P-R Int : 170 ms QRS Dur : 110 ms QT Int : 432 ms P-R-T Axes : 063 -36 036 degrees QTc Int : 432 ms Normal sinus rhythm Left axis deviation Incomplete right bundle branch block Moderate voltage criteria for LVH, may be normal variant ( R in aVL , [place] product ) Possible Anteroseptal infarct , age undetermined Abnormal ECG When compared with ECG of 14-DEC-2020 16:19, No significant change was found Referred By: Jessica Abrams Electronically Signed By:VANESSA MONTANO MD
[2021-06-24 04:27] VITALS: BMI 37.8
--- NOTE | 2021-06-24 04:27 | ED.CHESTPAIN ---
HPI - Chest Pain General Chief Complaint: Chest Pain Stated Complaint: cp Time Seen by Provider: 06/24/21 04:21 Source: patient Mode of arrival: EMS Limitations: no limitations History of Present Illness MD complaint: chest pain (L rib pain under breast after fall 2 weeks ago struck on table) Pertinent past history: coronary artery disease Onset (ago): week(s) (2) Timing of current episode: increasing Prior episodes: Yes Onset: during rest, during exertion and other (after fall) Pain location: left chest Pain radiation: none Severity: severe Quality: sharp Relieving factors: nothing Exacerbating factors: inspiration and palpation Context: trauma/injury Associated symptoms: dyspnea Treatment prior to arrival: none Related Data Home Medications Medication Instructions Recorded Confirmed acetaminophen 650 mg 650 mg PO Q8H 05/07/20 10/26/20 tablet,extended release (Tylenol Arthritis Pain) ascorbic acid (vitamin C) 250 mg 250 mg PO DAILY 05/07/20 10/26/20 tablet aspirin 81 mg tablet,delayed 81 mg PO DAILY 05/07/20 10/26/20 release (Adult Low Dose Aspirin) buspirone 7.5 mg tablet 7.5 mg PO BID 05/07/20 10/26/20 cholecalciferol (vitamin D3) 25 25 mcg PO DAILY 05/07/20 10/26/20 mcg (1,000 unit) capsule dicyclomine 20 mg tablet 20 mg PO QID 05/07/20 10/26/20 ezetimibe 10 mg tablet (Zetia) 10 mg PO DAILY 05/07/20 10/26/20 ferrous sulfate 325 mg (65 mg 325 mg PO DAILY 05/07/20 10/26/20 iron) tablet fluticasone propionate 110 2 puff INHALATION BID 05/07/20 10/26/20 mcg/actuation HFA aerosol inhaler (Flovent HFA) fluticasone propionate 50 2 spray INTRANASAL DAILY 05/07/20 10/26/20 mcg/actuation nasal spray,suspension gabapentin 300 mg capsule 300 mg PO TID 05/07/20 10/26/20 (Neurontin) levothyroxine 200 mcg tablet 200 mcg PO DAILY 05/07/20 10/26/20 lisinopril 5 mg tablet 5 mg PO DAILY 05/07/20 10/26/20 metoprolol succinate 50 mg 50 mg PO DAILY 05/07/20 10/26/20 tablet,extended release 24 hr omeprazole 40 mg capsule,delayed 40 mg PO DAILY 05/07/20 10/26/20 release simvastatin 20 mg tablet 20 mg PO DAILY 05/07/20 10/26/20 insulin aspart U-100 100 unit/mL 5 unit SUBCUT TID 04/07/21 (3 mL) subcutaneous pen (Novolog Flexpen U-100 Insulin aspart) Previous Rx's Medication Instructions Recorded nitroglycerin 0.4 mg sublingual 0.4 mg SUBLINGUAL Q5M PRN #20 tab 03/23/21 tablet calcium carbonate 600 mg-vitamin 1 tab PO DAILY #30 ea 04/07/21 D3 20 mcg (800 unit) tablet sulfasalazine 500 mg tablet 500 mg PO BID #60 tab 04/14/21 baclofen 10 mg tablet 10 mg PO BID #30 tab 05/25/21 prednisone 5 mg tablet 5 mg PO DAILY #30 tab 05/25/21 Allergies Allergy/AdvReac Type Severity Reaction Status Date / Time hydrocodone [From VICODIN] Allergy Severe vomiting Verified 04/07/21 14:12 metoclopramide [From REGLAN] Allergy Severe Anxiety Verified 04/07/21 14:12 oxycodone [OXYCODONE] Allergy Severe vomiting Verified 04/07/21 14:12 Penicillins [PENICILLINS] Allergy Severe swelling Verified 04/07/21 14:12 tramadol [From ULTRAM] Allergy Severe Vomiting Verified 04/07/21 14:12 codeine [Tylenol-Codeine] Allergy Intermediate vomiting Verified 04/07/21 14:12 Pt states no known food Allergy Unknown none Uncoded 04/07/21 14:12 allerg Review of Systems Review of Systems: Constitutional : No Weight loss, No Fever, No Chills ENT/Mouth : No sore throat, No Rhinorrhea Eyes: No Eye Pain, No Swelling Cardiovascular : pos Chest Pain, pos SOB, pos Dyspnea on Exertion, No Orthopnea, No Edema, No Palpitations Respiratory : No Cough, No Sputum Gastrointestinal : no Nausea, No Vomiting, No Diarrhea, No abdominal Pain, No Hematochezia, No Melena Genitourinary : No Dysuria, No Urinary Frequency Musculoskeletal : pos joint pain, No Myalgias, No Joint Swelling Skin : No Skin Lesions, No rash Neuro : pos Weakness, No Numbness, No Dizziness, No Headache, pos falls Psych : No Anxiety/Panic, No Depression Heme/Lymph: No Bruising, No Lymphadenopathy Endocrine : No Polyuria, No Polydipsia All other systems reviewed and are negative [facility] Past Medical History Medical History Atherosclerotic cardiovascular disease COPD (chronic obstructive pulmonary disease) Coronary artery disease Essential hypertension Osteoporosis Seropositive rheumatoid arthritis Type 2 diabetes mellitus with unspecified complications Surgical History History of heart artery stent (~2005) Family History Family History Father CVD (cardiovascular disease) Mother CVD (cardiovascular disease) Heart attack Social History Social History Alcohol intake: former Patient Tobacco Use Status: Former Tobacco user Cigarettes Per Day: 20 Years Smoked: 15 e-Cigarette/Vaping Use: Never Used Advance Directives: No Advance Directives Information Provided: No Physical Exam Vital Signs: Vital Signs: Last Vital Signs Temp 98.5 F 06/24/21 04:31 Pulse 58 06/24/21 04:31 Resp 18 06/24/21 05:02 BP 180/70 H 06/24/21 04:31 Pulse Ox 95 06/24/21 05:11 BMI result Body Mass Index 37.8 Appearance: Alert. Oriented X3. No acute distress. Eyes: Pupils equal, round and reactive to light. ENT: Pharynx normal. Neck: Normal inspection. Neck supple. CVS: Normal heart rate and rhythm. Pulses normal. Chest: ttp along L chest wall no trauma seen - under L breast lateral area Respiratory: No respiratory distress. Breath sounds diminished L base - splinting Abdomen: Soft and non-tender. Skin: Skin warm and dry. pale skin color. Normal skin turgor. bruises noted on both extremities new and old - states she falls a lot Extremities: trace pitting lower extremity edema. No calf ttp Neuro: Oriented X 3. No motor deficit. No sensory deficit. Course Course Course Narrative: K 5.8, will hydrate and given calcium and lokelma hx of same in past no acute findings on CTA to give reason for pain - repeat K and trop ordered for 8am will sign out to Dr. Aparicio MDM - Chest Pain MDM Narrative Medical decision making narrative: 65 yo female with hx of DM, OA, fatty liver, CAD here with c/o frequent falls - states two weeks ago she slipped and fell striking L ribs on a table it has become more painful and increasingly harder to breathe. She denies fever/cough. At this time she denies head injury or LOC - no other injuries she is not on oral anti-coagulants. At this time will obtain labs, EKG, IV morphine for pain - CTA given 2 weeks of symptoms to evaluate for rib fracture, pneumonia, possible VTE - dispo per results and findings. Lab Data Result diagrams: 06/24/21 04:43 06/24/21 04:43 Labs: Lab Results 06/24/21 06/24/21 06/24/21 Range/Units 04:38 04:43 04:43 WBC 4.9 (4.8-10.8) X10*3/uL RBC 4.01 L (4.20-5.50) X10*6/uL Hgb 12.1 (12.0-16.0) g/dl Hct 38.1 (37.0-47.0) % MCV 95.0 (80.0-98.0) fL MCH 30.2 (27.0-33.0) pg MCHC 31.8 (31.0-35.0) g/dl RDW 13.3 (11.0-16.0) % Plt Count 156 L (160-400) X10*3/uL MPV 9.5 (9.4-12.3) fL Immature Gran % (Auto) 0.4 (0.0-0.4) % Neut % (Auto) 74.7 H (45-73) % Lymph % (Auto) 15.0 L (20-40) % [place] % (Auto) 7.0 (2-11) % Eos % (Auto) 2.3 (0-4) % Baso % (Auto) 0.6 (0-2) % Lymph # (Auto) 0.7 L (1.2-4.9) X10*3/uL [place] # (Auto) 0.3 (0.1-1.2) X10*3/uL Eos # (Auto) 0.1 (0.0-0.4) X10*3/uL Baso # (Auto) 0.0 (0.0-0.2) X10*3/uL Abs Immat Gran (auto) 0.02 (0.00-0.03) X10*3/uL Absolute Neuts (auto) 3.6 (2.0-8.3) x10*3/uL Absolute Nucleated RBC 0.000 (0.0-0.012) X10*3/uL Nucleated RBC % (auto) 0.0 (0.0-0.2) /100WBC PT (9.9-13.0) SEC INR (0.9-1.1) APTT (24.1-38.0) SEC Sodium 138 (135-145) mmol/L Potassium 5.8 H D (3.3-5.1) mmol/L Chloride 106 (96-108) mmol/L Carbon Dioxide 22 (22-29) mmol/L Anion Gap 16 (12-20) BUN 31 H D (9-16) mg/dL Creatinine 1.39 (0.5-1.4) mg/dL Estim Creat Clear Calc 41.9 Estimated GFR 38 Random Glucose 224 H (60-115) mg/dL Calcium 9.3 (8.4-10.2) mg/dL Magnesium 2.0 (1.6-2.6) mg/dL Total Bilirubin 0.5 (0.0-1.0) mg/dL Direct Bilirubin 0.2 (0.0-0.5) mg/dL AST 32 H (5-31) U/L ALT 20 (0-31) U/L Alkaline Phosphatase 75 (39-117) U/L Troponin I High Sens (<3.5-17.0) ng/L Total Protein 6.9 (6.5-8.0) g/dL Albumin 4.0 (3.5-5.0) g/dL Lipase 11 (8-78) U/L COVID-19 (TARA) Negative (Negative) COVID-19 Clin Com See Note 06/24/21 06/24/21 Range/Units 04:43 04:43 WBC (4.8-10.8) X10*3/uL RBC (4.20-5.50) X10*6/uL Hgb (12.0-16.0) g/dl Hct (37.0-47.0) % MCV (80.0-98.0) fL MCH (27.0-33.0) pg MCHC (31.0-35.0) g/dl RDW (11.0-16.0) % Plt Count (160-400) X10*3/uL MPV (9.4-12.3) fL Immature Gran % (Auto) (0.0-0.4) % Neut % (Auto) (45-73) % Lymph % (Auto) (20-40) % [place] % (Auto) (2-11) % Eos % (Auto) (0-4) % Baso % (Auto) (0-2) % Lymph # (Auto) (1.2-4.9) X10*3/uL [place] # (Auto) (0.1-1.2) X10*3/uL Eos # (Auto) (0.0-0.4) X10*3/uL Baso # (Auto) (0.0-0.2) X10*3/uL Abs Immat Gran (auto) (0.00-0.03) X10*3/uL Absolute Neuts (auto) (2.0-8.3) x10*3/uL Absolute Nucleated RBC (0.0-0.012) X10*3/uL Nucleated RBC % (auto) (0.0-0.2) /100WBC PT 11.3 (9.9-13.0) SEC INR 1.0 (0.9-1.1) APTT 34.6 (24.1-38.0) SEC Sodium (135-145) mmol/L Potassium (3.3-5.1) mmol/L Chloride (96-108) mmol/L Carbon Dioxide (22-29) mmol/L Anion Gap (12-20) BUN (9-16) mg/dL Creatinine (0.5-1.4) mg/dL Estim Creat Clear Calc Estimated GFR Random Glucose (60-115) mg/dL Calcium (8.4-10.2) mg/dL Magnesium (1.6-2.6) mg/dL Total Bilirubin (0.0-1.0) mg/dL Direct Bilirubin (0.0-0.5) mg/dL AST (5-31) U/L ALT (0-31) U/L Alkaline Phosphatase (39-117) U/L Troponin I High Sens 6.1 (<3.5-17.0) ng/L Total Protein (6.5-8.0) g/dL Albumin (3.5-5.0) g/dL Lipase (8-78) U/L COVID-19 (TARA) (Negative) COVID-19 Clin Com ECG Data ECG #1: Attestation: I personally reviewed and interpreted this ECG as follows: ECG interpretation date: 06/24/21 ECG interpretation time: 04:28 Interpretation: Rate:60 Rhythm: NSR [place]: left, LVH Normal P waves. Normal JOSE FRANCISCO. Normal QRS complex. ST T wave : no ELIAS, nonspecific qTC: normal prior studies: no change from 11/2020 The study has been interpreted contemporaneously by me. Discharge Plan Discharge Clinical Impression: Rib pain, Acute hyperkalemia Patient Disposition: Still a Patient Additional Instructions: PULMONARY ARTERIES: No central or segmental pulmonary emboli.? THORACIC AORTA: No aneurysm or dissection. Scattered atherosclerotic calcifications noted. LUNG: There is curvilinear atelectasis in the right middle lobe. Thin wall cysts are noted in the right upper lobe. There is a 4 mm right middle lobe nodule on image [id number], unchanged from 06/20/2008 and consistent with a benign etiology. PLEURA: No pleural effusion or pneumothorax. MEDIASTINUM: Patient appears to be status post thyroidectomy. There are subcentimeter mediastinal lymph nodes within the range of normal variation. Cardiac size is within normal limits; no pericardial effusion. Coronary artery calcifications are present. CHEST WALL/AXILLA: No axillary or internal mammary lymphadenopathy. OSSEOUS STRUCTURES: Multilevel degenerative endplate changes are present in the spine.? UPPER ABDOMEN: Thick-walled appearance of the stomach is nonspecific in the setting of luminal collapse. No reflux of contrast into the hepatic veins to suggest elevated right heart pressures. Prescriptions: No Action nitroglycerin 0.4 mg tablet, sublingual 0.4 mg sublingual Q5M PRN (Reason: chest pain) Qty: 20 3RF Rx Instructions: do not exceed 3 doses per episode calcium carbonate-vitamin D3 600 mg-20 mcg (800 unit) tablet 1 tab PO DAILY Qty: 30 5RF sulfasalazine 500 mg tablet 500 mg PO BID Qty: 60 2RF prednisone 5 mg tablet 5 mg PO DAILY Qty: 30 3RF baclofen 10 mg tablet 10 mg PO BID Qty: 30 0RF aspirin [Adult Low Dose Aspirin] 81 mg tablet,delayed release (DR/EC) 81 mg PO DAILY 0RF buspirone 7.5 mg tablet 7.5 mg PO BID 0RF ferrous sulfate 325 mg (65 mg iron) tablet 325 mg PO DAILY 0RF cholecalciferol (vitamin D3) 25 mcg (1,000 unit) capsule 25 mcg PO DAILY 0RF ascorbic acid (vitamin C) 250 mg tablet 250 mg PO DAILY 0RF fluticasone propionate 50 mcg/actuation spray,suspension 2 spray intranasal DAILY 0RF Rx Instructions: administer into each nostril Flovent HFA 110 mcg/actuation HFA aerosol inhaler 2 puff inhalation BID 0RF dicyclomine 20 mg tablet 20 mg PO QID 0RF omeprazole 40 mg capsule,delayed release(DR/EC) 40 mg PO DAILY 0RF gabapentin [Neurontin] 300 mg capsule 300 mg PO TID 0RF lisinopril 5 mg tablet 5 mg PO DAILY 0RF ezetimibe [Zetia] 10 mg tablet 10 mg PO DAILY 0RF simvastatin 20 mg tablet 20 mg PO DAILY 0RF levothyroxine 200 mcg tablet 200 mcg PO DAILY 0RF metoprolol succinate 50 mg tablet extended release 24 hr 50 mg PO DAILY 0RF acetaminophen [Tylenol Arthritis Pain] 650 mg tablet extended release 650 mg PO Q8H 0RF insulin aspart U-100 [Novolog Flexpen U-100 Insulin] 100 unit/mL (3 mL) insulin pen 5 unit subcut TID 0RF
[2021-06-24 04:31] VITALS: BP 180/70; PULSE 58; RESP 14; TEMP 36.9; O2SAT 95
[2021-06-24 04:48] LABS: Basophils Percent Auto 0.6 % (0-2); Eosinophils Absolute Auto 0.1 X10*3/uL (0.0-0.4); Eosinophils Percent Auto 2.3 % (0-4); Hematocrit 38.1 % (37.0-47.0); Hemoglobin 12.1 g/dl (12.0-16.0); Imm Gran Abs Auto 0.02 X10*3/uL (0.00-0.03); Imm Gran Pct Auto 0.4 % (0.0-0.4); Lymphocytes Absolute Auto 0.7 X10*3/uL (1.2-4.9); MANUAL DIFF FLAG NO; Mean Corpuscular HGB Conc 31.8 g/dl (31.0-35.0); Mean Corpuscular Hemoglobin 30.2 pg (27.0-33.0); Mean Platelet Volume 9.5 fL (9.4-12.3); Monocytes Absolute Auto 0.3 X10*3/uL (0.1-1.2); Neutrophils Absolute Auto 3.6 x10*3/uL (2.0-8.3); Neutrophils Percent Auto 74.7 % (45-73); Platelet Count 156 X10*3/uL (160-400); Red Blood Count 4.01 X10*6/uL (4.20-5.50); Red Cell Distribution Width 13.3 % (11.0-16.0); White Blood Count 4.9 X10*3/uL (4.8-10.8)
[2021-06-24 04:53] LABS: Prothrombin Time 11.3 SEC (9.9-13.0)
[2021-06-24 04:56] LABS: Partial Thromboplastin Time 34.6 SEC (24.1-38.0)
[2021-06-24 05:02] VITALS: RESP 18
[2021-06-24] MEDS: Morphine Sulfate 4 MG/ML CARTRIDGE IVPUSH (05:02)
[2021-06-24] MEDS: ondansetron HCL 4 MG/2 ML VIAL IVPUSH (05:02)
[2021-06-24 05:06] LABS: COVID-19 Test Negative (Negative)
[2021-06-24 05:09] VITALS: O2SAT 91
[2021-06-24 05:10] LABS: Troponin-I High Sensitivity 6.1 ng/L (<3.5-17.0)
[2021-06-24 05:11] VITALS: O2SAT 95
[2021-06-24 05:13] LABS: Alanine Aminotransferase 20 U/L (0-31); Alkaline Phosphatase 75 U/L (39-117); Anion Gap 16 (12-20); Aspartate Amino Transferase 32 U/L (5-31); Bilirubin Direct 0.2 mg/dL (0.0-0.5); Bilirubin Total 0.5 mg/dL (0.0-1.0); Blood Urea Nitrogen 31 mg/dL (9-16); Calcium 9.3 mg/dL (8.4-10.2); Carbon Dioxide 22 mmol/L (22-29); Chloride 106 mmol/L (96-108); Creatinine Clr Calc Pharmacy 41.9; Estimated Glomerular Filt Rate 38; Glucose Random 224 mg/dL (60-115); Lipase 11 U/L (8-78); Potassium 5.8 mmol/L (3.3-5.1); Sodium 138 mmol/L (135-145); Total Protein 6.9 g/dL (6.5-8.0)
[2021-06-24] MEDS: Calcium Gluconate/NaCl,Iso-Osm 2 GM/100 ML PLAST..BAG IV (05:31)
[2021-06-24] MEDS: Sodium Zirconium Cyclosilicate 5 GM POWD.PACK PO (05:32)
[2021-06-24] MEDS: 0.9 % Sodium Chloride 500 ML IV (05:32)
[2021-06-24] MEDS: iohexoL 350 MG/ML 100 ML INFUS..BTL 65 ML IV (06:15)
[2021-06-24 07:06] VITALS: BP 169/60; PULSE 65; RESP 17; TEMP 36.8; O2SAT 97
[2021-06-24] MEDS: Lidocaine 4 % Patch ADH..PATCH 1 PATCH TRANSDERMA (07:19)
[2021-06-24 08:44] LABS: Troponin-I High Sensitivity 6.3 ng/L (<3.5-17.0)
== END 2021-06-24 10:19 | disposition home or self-care (01) ==
PROVIDERS: Emergency Medicine; Emergency Provider Emergency Medicine Emergency Medical Services; PCP Family Medicine
DX: R07.81 Pleurodynia (principal); E87.5 Hyperkalemia; Z91.81 History of falling; Z20.822 Contact with and (suspected) exposure to COVID-19; E11.9 Type 2 diabetes mellitus without complications; I10 Essential (primary) hypertension; Z79.4 Long term (current) use of insulin; Z79.02 Long term (current) use of antithrombotics/antiplatelets; Z79.899 Other long term (current) drug therapy
CPT/HCPCS: 36415; 71275; 80048; 80076; 83690; 83735; 84132; 84484; 85025; 85610; 85730; 87635; 93005; 96365; 96366; 96375; 99212; 99284; J0610; J2270; J2405; Q9967

== ENCOUNTER 2021-07-08 19:55 | Emergency (ER) | payer MEDICAID, SELFPAY ==
--- NOTE | ~2021-07-08 | CT_ITS ---
EXAMINATION: CT ABDOMEN AND PELVIS WITHOUT CONTRAST CLINICAL INFORMATION: Flank pain COMPARISON: 06/20/2008 TECHNIQUE: Multidetector volumetric imaging was performed from the superior aspect of the liver through the pubic symphysis. Sagittal and coronal reformatted images were obtained on the technologist's workstation. This CT examination was performed using dose optimization techniques as appropriate, variously including the following: *Automated exposure control *Adjustment of mA and/or kV according to patient size (this includes techniques or standardized protocols for targeted exams where dose is matched to indication/reason for exam; i.e. extremities or head) *Use of iterative reconstruction technique DLP: 1199 mGy-cm FINDINGS: LUNG BASES: 3 mm nodule image 2 left lung base. 1 cm area density right lung base anterior. This could be part of thickened atelectasis. Coronary calcifications are seen. LIVER, GALLBLADDER, AND BILIARY TREE: Corrugated liver. May be consistent with cirrhosis. No convincing evidence for lesion. Status post cholecystectomy PANCREAS: Calcifications in the head of the pancreatic region. There is some fullness in the body the pancreas. Image 23. Some of this could be due to adjacent vasculature. SPLEEN: Mild splenomegaly ADRENAL GLANDS: Unremarkable. KIDNEYS AND URETERS: The kidneys are nonhydronephrotic. Probable cystic change on the left BLADDER: Small air density within the bladder. Anterior. GASTROINTESTINAL TRACT: The bowel pattern is felt to be nonobstructing. There is no free fluid. ABDOMINAL WALL: There is herniation of omental fat. This is occurring approximately 4.5 cm above the umbilicus to the left of midline. The orifice is measuring 1.6 cm. LYMPH NODES: Normal. VASCULAR: Atherosclerotic change. No aneurysmal change PELVIC VISCERA: Unremarkable. OSSEOUS STRUCTURES: Degenerative change left greater than right hip CT/CT abdomen pelvis wo con IMPRESSION: No evidence of ureteral stone or obstruction. The bowel pattern is nonobstructing. There is no free fluid. Some nodular change in the lungs. On the right may be nodule associated with scarring. Recommend CT of the chest to fully evaluate. This may be done on an outpatient basis. Coronary calcifications extensive are noted. In the abdomen pelvis corrugated appearance to the liver most most consistent with cirrhosis. The spleen demonstrates mild splenomegaly. No free fluid. Calcification in the pancreatic head and some fullness in the region of the body the pancreas. Some of this could represent adjacent vasculature. Ultrasound would be recommended to fully evaluate versus MRI. Some air within the bladder of uncertain etiology. May represent recent catheterization. Cystitis cannot be excluded. Herniation of omental fat anterior abdominal wall as described. Again there is no obstruction. Fleischner guidelines were followed.
[2021-07-08 20:04] VITALS: BP 188/84; PULSE 70; O2SAT 95
[2021-07-08 20:08] VITALS: BP 193/70; PULSE 62; RESP 18; TEMP 37; O2SAT 94; BMI 27.6
--- NOTE | 2021-07-08 20:25 | ED.BACK ---
HPI - Back Pain/Injury General Chief Complaint: Back Pain/Injury Stated Complaint: pain Time Seen by Provider: 07/08/21 20:25 Source: patient Mode of arrival: EMS Limitations: no limitations History of Present Illness HPI Narrative: Patient complaining of left flank pain abdominal pain for last 2 days with nausea slight burning in the urine no diarrhea no vomiting no fever no chills no history of kidney stone Related Data Home Medications Medication Instructions Recorded Confirmed acetaminophen 650 mg 650 mg PO Q8H 05/07/20 06/24/21 tablet,extended release (Tylenol Arthritis Pain) ascorbic acid (vitamin C) 250 mg 250 mg PO DAILY 05/07/20 06/24/21 tablet aspirin 81 mg tablet,delayed 81 mg PO DAILY 05/07/20 06/24/21 release (Adult Low Dose Aspirin) buspirone 7.5 mg tablet 7.5 mg PO BID 05/07/20 06/24/21 cholecalciferol (vitamin D3) 25 25 mcg PO DAILY 05/07/20 06/24/21 mcg (1,000 unit) capsule dicyclomine 20 mg tablet 20 mg PO QID 05/07/20 06/24/21 ezetimibe 10 mg tablet (Zetia) 10 mg PO DAILY 05/07/20 06/24/21 ferrous sulfate 325 mg (65 mg 325 mg PO DAILY 05/07/20 06/24/21 iron) tablet fluticasone propionate 110 2 puff INHALATION BID 05/07/20 06/24/21 mcg/actuation HFA aerosol inhaler (Flovent HFA) fluticasone propionate 50 2 spray INTRANASAL DAILY 05/07/20 06/24/21 mcg/actuation nasal spray,suspension gabapentin 300 mg capsule 300 mg PO TID 05/07/20 06/24/21 (Neurontin) levothyroxine 200 mcg tablet 200 mcg PO DAILY 05/07/20 06/24/21 metoprolol succinate 50 mg 50 mg PO DAILY 05/07/20 06/24/21 tablet,extended release 24 hr omeprazole 40 mg capsule,delayed 40 mg PO DAILY 05/07/20 06/24/21 release simvastatin 20 mg tablet 20 mg PO DAILY 05/07/20 06/24/21 insulin aspart U-100 100 unit/mL 5 unit SUBCUT TID 04/07/21 06/24/21 (3 mL) subcutaneous pen (Novolog Flexpen U-100 Insulin aspart) Previous Rx's Medication Instructions Recorded nitroglycerin 0.4 mg sublingual 0.4 mg SUBLINGUAL Q5M PRN #20 tab 03/23/21 tablet calcium carbonate 600 mg-vitamin 1 tab PO DAILY #30 ea 04/07/21 D3 20 mcg (800 unit) tablet sulfasalazine 500 mg tablet 500 mg PO BID #60 tab 04/14/21 baclofen 10 mg tablet 10 mg PO BID #30 tab 05/25/21 prednisone 5 mg tablet 5 mg PO DAILY #30 tab 05/25/21 cefpodoxime 200 mg tablet 200 mg PO BID #14 tab 07/09/21 oxycodone-acetaminophen 5 mg-325 1 tab PO Q6H PRN #20 tab 07/09/21 mg tablet (Percocet) Allergies Allergy/AdvReac Type Severity Reaction Status Date / Time metoclopramide [From REGLAN] Allergy Severe Anxiety Verified 06/24/21 14:52 Penicillins [PENICILLINS] Allergy Severe swelling Verified 06/24/21 14:52 tramadol [From ULTRAM] Allergy Severe Vomiting Verified 06/24/21 14:52 codeine [Tylenol-Codeine] Allergy Intermediate vomiting Verified 06/24/21 14:52 Pt states no known food Allergy Unknown none Uncoded 06/24/21 14:52 allerg Review of Systems Review of Systems: Yes all other systems are reviewed and are negative PMFSH Past Medical History Medical History Atherosclerotic cardiovascular disease COPD (chronic obstructive pulmonary disease) Coronary artery disease Essential hypertension Osteoporosis Seropositive rheumatoid arthritis Type 2 diabetes mellitus with unspecified complications Surgical History History of heart artery stent (~2005) Family History Family History Father CVD (cardiovascular disease) Mother CVD (cardiovascular disease) Heart attack Social History Social History Alcohol intake: former Patient Tobacco Use Status: Former Tobacco user Cigarettes Per Day: 20 Years Smoked: 15 e-Cigarette/Vaping Use: Never Used Advance Directives: No Physical Exam Vital Signs: Vital Signs: Last Vital Signs Temp 98.1 F 07/08/21 22:45 Pulse 64 07/08/21 22:45 Resp 17 07/08/21 22:45 BP 175/75 H 07/08/21 22:45 Pulse Ox 94 07/08/21 22:45 BMI result Body Mass Index 27.6 Appearance: Alert. Oriented X3. No acute distress. ENT: Pharynx normal. Oral Mucosa moist Neck: Normal inspection. Neck supple. CVS: Normal heart rate and rhythm. Pulses normal. Respiratory: No respiratory distress. Equal air entry bilateral, no wheezing/rales/rhonchi Abdomen: Soft and nontender. Bowel sounds are present, no mass palpable, mild left CVA tenderness Skin: Skin warm and dry. Normal skin color. Normal skin turgor. Extremities: No lower extremity edema. No calf tenderness Neuro: Oriented X 3. MDM - Back Pain/Injury MDM Narrative Medical decision making narrative: Patient's CT scan negative for any acute pathology urine shows slight UTI patient was given IV Rocephin discharged on cefpodoxime Lab Data Attestation: I reviewed the patient's lab results. Result diagrams: 07/08/21 21:17 07/08/21 21:17 Labs: Lab Results 07/08/21 07/08/21 07/08/21 Range/Units 21:17 21:17 22:19 WBC 5.2 (4.8-10.8) X10*3/uL RBC 3.76 L (4.20-5.50) X10*6/uL Hgb 11.4 L (12.0-16.0) g/dl Hct 36.2 L (37.0-47.0) % MCV 96.3 (80.0-98.0) fL MCH 30.3 (27.0-33.0) pg MCHC 31.5 (31.0-35.0) g/dl RDW 13.8 (11.0-16.0) % Plt Count 128 L (160-400) X10*3/uL MPV 9.7 (9.4-12.3) fL Immature Gran % (Auto) 0.2 (0.0-0.4) % Neut % (Auto) 57.7 (45-73) % Lymph % (Auto) 26.6 (20-40) % [place] % (Auto) 10.1 (2-11) % Eos % (Auto) 4.4 H (0-4) % Baso % (Auto) 1.0 (0-2) % Lymph # (Auto) 1.4 (1.2-4.9) X10*3/uL [place] # (Auto) 0.5 (0.1-1.2) X10*3/uL Eos # (Auto) 0.2 (0.0-0.4) X10*3/uL Baso # (Auto) 0.1 (0.0-0.2) X10*3/uL Abs Immat Gran (auto) 0.01 (0.00-0.03) X10*3/uL Absolute Neuts (auto) 3.0 (2.0-8.3) x10*3/uL Absolute Nucleated RBC 0.000 (0.0-0.012) X10*3/uL Nucleated RBC % (auto) 0.0 (0.0-0.2) /100WBC Sodium 141 (135-145) mmol/L Potassium 4.4 D (3.3-5.1) mmol/L Chloride 108 (96-108) mmol/L Carbon Dioxide 27 (22-29) mmol/L Anion Gap 10 L (12-20) BUN 21 H (9-16) mg/dL Creatinine 1.09 (0.5-1.4) mg/dL Estim Creat Clear Calc 45.4 Estimated GFR 51 Random Glucose 137 H (60-115) mg/dL Calcium 8.9 (8.4-10.2) mg/dL Total Bilirubin 0.3 (0.0-1.0) mg/dL AST 25 (5-31) U/L ALT 15 (0-31) U/L Alkaline Phosphatase 61 (39-117) U/L Total Protein 5.8 L (6.5-8.0) g/dL Albumin 3.3 L (3.5-5.0) g/dL Lipase 9 (8-78) U/L Urine Color YELLOW Urine Appearance HAZY Urine pH 5.5 (5.0-8.0) Ur Specific [place] 1.015 (1.005-1.025) Urine Protein NEG (NEG-TRACE) MG/DL Urine Glucose (UA) NEG (NEG) MG/DL Urine Ketones NEG (NEG) MG/DL Urine Blood NEG (NEG) Urine Nitrite POS H (NEG) Ur Leukocyte Esterase TRACE H (NEG) Urine RBC 0 (0) /HPF Urine WBC 5-9 H (0-4) /HPF Ur Squamous Epith Cells 1+ /LPF Urine Bacteria 4+ /LPF Discharge Plan Discharge Clinical Impression: Renal colic, UTI (urinary tract infection) Patient Disposition: Home, Self-Care Instructions: Urinary Tract Infection in Women (ED), Renal Colic (ED) Additional Instructions: Drink plenty of fluids Take antibiotics as advised Take pain medication also Report to the ER/to PCP if not better Prescriptions: New cefpodoxime 200 mg tablet 200 mg PO BID Qty: 14 0RF Rx Instructions: must administer with a meal/food oxycodone-acetaminophen [Percocet] 5-325 mg tablet 1 tab PO Q6H PRN (Reason: pain) Qty: 20 0RF No Action nitroglycerin 0.4 mg tablet, sublingual 0.4 mg sublingual Q5M PRN (Reason: chest pain) Qty: 20 3RF Rx Instructions: do not exceed 3 doses per episode calcium carbonate-vitamin D3 600 mg-20 mcg (800 unit) tablet 1 tab PO DAILY Qty: 30 5RF sulfasalazine 500 mg tablet 500 mg PO BID Qty: 60 2RF prednisone 5 mg tablet 5 mg PO DAILY Qty: 30 3RF baclofen 10 mg tablet 10 mg PO BID Qty: 30 0RF aspirin [Adult Low Dose Aspirin] 81 mg tablet,delayed release (DR/EC) 81 mg PO DAILY 0RF buspirone 7.5 mg tablet 7.5 mg PO BID 0RF ferrous sulfate 325 mg (65 mg iron) tablet 325 mg PO DAILY 0RF cholecalciferol (vitamin D3) 25 mcg (1,000 unit) capsule 25 mcg PO DAILY 0RF ascorbic acid (vitamin C) 250 mg tablet 250 mg PO DAILY 0RF fluticasone propionate 50 mcg/actuation spray,suspension 2 spray intranasal DAILY 0RF Rx Instructions: administer into each nostril Flovent HFA 110 mcg/actuation HFA aerosol inhaler 2 puff inhalation BID 0RF dicyclomine 20 mg tablet 20 mg PO QID 0RF omeprazole 40 mg capsule,delayed release(DR/EC) 40 mg PO DAILY 0RF gabapentin [Neurontin] 300 mg capsule 300 mg PO TID 0RF ezetimibe [Zetia] 10 mg tablet 10 mg PO DAILY 0RF simvastatin 20 mg tablet 20 mg PO DAILY 0RF levothyroxine 200 mcg tablet 200 mcg PO DAILY 0RF metoprolol succinate 50 mg tablet extended release 24 hr 50 mg PO DAILY 0RF acetaminophen [Tylenol Arthritis Pain] 650 mg tablet extended release 650 mg PO Q8H 0RF insulin aspart U-100 [Novolog Flexpen U-100 Insulin] 100 unit/mL (3 mL) insulin pen 5 unit subcut TID 0RF Interventions: ED Discharge Assessment Last Done: 07/09/21 00:01 Discharge Date/Time: 07/09/21 00:25
[2021-07-08 20:28] VITALS: BP 179/54; PULSE 61; RESP 16; TEMP 37.1; O2SAT 94
[2021-07-08 21:20] LABS: MANUAL DIFF FLAG NO
[2021-07-08 21:22] VITALS: RESP 15
[2021-07-08 21:22] LABS: Basophils Absolute Auto 0.1 X10*3/uL (0.0-0.2); Eosinophils Absolute Auto 0.2 X10*3/uL (0.0-0.4); Eosinophils Percent Auto 4.4 % (0-4); Hematocrit 36.2 % (37.0-47.0); Hemoglobin 11.4 g/dl (12.0-16.0); Imm Gran Abs Auto 0.01 X10*3/uL (0.00-0.03); Imm Gran Pct Auto 0.2 % (0.0-0.4); Lymphocytes Absolute Auto 1.4 X10*3/uL (1.2-4.9); Lymphocytes Percent Auto 26.6 % (20-40); Mean Corpuscular HGB Conc 31.5 g/dl (31.0-35.0); Mean Corpuscular Hemoglobin 30.3 pg (27.0-33.0); Mean Corpuscular Volume 96.3 fL (80.0-98.0); Mean Platelet Volume 9.7 fL (9.4-12.3); Monocytes Absolute Auto 0.5 X10*3/uL (0.1-1.2); Monocytes Percent Auto 10.1 % (2-11); Neutrophils Percent Auto 57.7 % (45-73); Platelet Count 128 X10*3/uL (160-400); Red Blood Count 3.76 X10*6/uL (4.20-5.50); Red Cell Distribution Width 13.8 % (11.0-16.0); White Blood Count 5.2 X10*3/uL (4.8-10.8)
[2021-07-08] MEDS: ondansetron HCL 4 MG/2 ML VIAL IVPUSH (21:22)
[2021-07-08] MEDS: Morphine Sulfate 4 MG/ML CARTRIDGE IVPUSH (21:22)
[2021-07-08] MEDS: 0.9 % Sodium Chloride 1,000 ML 999 ML IV (21:23)
[2021-07-08 21:45] LABS: Alanine Aminotransferase 15 U/L (0-31); Albumin Level 3.3 g/dL (3.5-5.0); Alkaline Phosphatase 61 U/L (39-117); Anion Gap 10 (12-20); Aspartate Amino Transferase 25 U/L (5-31); Bilirubin Total 0.3 mg/dL (0.0-1.0); Blood Urea Nitrogen 21 mg/dL (9-16); Calcium 8.9 mg/dL (8.4-10.2); Carbon Dioxide 27 mmol/L (22-29); Chloride 108 mmol/L (96-108); Creatinine Clr Calc Pharmacy 45.4; Estimated Glomerular Filt Rate 51; Glucose Random 137 mg/dL (60-115); Lipase 9 U/L (8-78); Potassium 4.4 mmol/L (3.3-5.1); Sodium 141 mmol/L (135-145); Total Protein 5.8 g/dL (6.5-8.0)
[2021-07-08 22:28] LABS: Appearance Urine HAZY; Color Urine YELLOW; Glucose Urine UA NEG (NEG); Leukocyte Esterase Urine TRACE (NEG); Nitrite Urine POS (NEG); PH 5.5 (5.0-8.0); Specific Gravity - Urine 1.015 (1.005-1.025); UACC Culture Trigger YES; Urine Blood NEG (NEG); Urine Ketones NEG (NEG); Urine Protein NEG (NEG-TRACE)
[2021-07-08 22:38] LABS: Bacteria Urine 4+ /LPF; RBC Urine 0 /HPF (0); Squamous Epithelial Cell Urine 1+ /LPF
[2021-07-08 22:45] VITALS: BP 175/75; PULSE 64; RESP 17; TEMP 36.7; O2SAT 94
[2021-07-08] MEDS: cefTRIAXone sodium 1 GM in 0.9 % Sodium Chloride 50 ML IV (23:35)
== END 2021-07-09 00:25 | disposition home or self-care (01) ==
PROVIDERS: Emergency Provider Internal Medicine
DX: N23 Unspecified renal colic (principal); N39.0 Urinary tract infection, site not specified; M54.50 Low back pain, unspecified; Z79.899 Other long term (current) drug therapy; Z87.891 Personal history of nicotine dependence
CPT/HCPCS: 36415; 74176; 80053; 81001; 83690; 85025; 87086; 96361; 96365; 96375; 99284; J0696; J2270; J2405

== ENCOUNTER → 2021-07-20 10:32 | Outpatient (BNVA) | payer MEDICAID, SELFPAY | PROVIDERS: PCP Family Medicine; Visit Provider Nurse Practitioner Family | DX: M05.9 Rheumatoid arthritis with rheumatoid factor, unspecified (principal); M81.0 Age-related osteoporosis without current pathological fracture; Z79.52 Long term (current) use of systemic steroids; Z79.899 Other long term (current) drug therapy | CPT/HCPCS: 99212 ==

== ENCOUNTER → 2021-07-21 09:25 | Outpatient (BNVA) | payer MEDICAID, SELFPAY | PROVIDERS: PCP Internal Medicine; Visit Provider Orthopaedic Surgery | DX: Z13.89 Encounter for screening for other disorder (principal) ==

== ENCOUNTER → 2021-07-21 09:25 | Outpatient (BNVA) | payer MEDICAID, SELFPAY | PROVIDERS: PCP Internal Medicine; Visit Provider Orthopaedic Surgery | DX: Z13.89 Encounter for screening for other disorder (principal) ==

== ENCOUNTER 2021-07-23 18:13 | Emergency (ER) | payer MEDICAID, SELFPAY ==
--- NOTE | 2021-07-23 18:44 | ECG_ITS ---
Test Reason : CHEST PAIN Blood Pressure : / mmHG Vent. Rate : 064 BPM Atrial Rate : 064 BPM P-R Int : 150 ms QRS Dur : 112 ms QT Int : 410 ms P-R-T Axes : 071 -43 020 degrees QTc Int : 422 ms Normal sinus rhythm with sinus arrhythmia Left axis deviation Incomplete right bundle branch block Moderate voltage criteria for LVH, may be normal variant ( R in aVL , [place] product ) Cannot rule out Anteroseptal infarct (cited on or before 24-JUN-2021) Abnormal ECG When compared with ECG of 24-JUN-2021 04:21, No significant change was found Referred By: Lin Chapman Electronically Signed By:Edwardo Machado
[2021-07-23 18:45] VITALS: BP 202/62; PULSE 88; O2SAT 97
--- NOTE | 2021-07-23 18:46 | ED_ITS ---
HPI - General Adult General Chief complaint: Chest Pain Stated complaint: hyperkalemia - cp Time Seen by Provider: 07/23/21 18:40 Source: patient and EMS Mode of arrival: EMS Limitations: no limitations History of Present Illness HPI narrative: Patient comes to the emergency room complaining of chest pain. Patient has history of hyperkalemia. Patient called EMS due to chest pain, they are EKG showed peaked T-waves, she was given a g of calcium gluconate. When patient arrived to the emergency room, an EKG was done, there are no peaked T-waves on our EKG. I did not see the patient's EKG that EMS performed prior to arrival to the emergency room. Patient complaining of anxiety as well. Related Data Home Medications Medication Instructions Recorded Confirmed acetaminophen 650 mg 650 mg PO Q8H 05/07/20 07/21/21 tablet,extended release (Tylenol Arthritis Pain) ascorbic acid (vitamin C) 250 mg 250 mg PO DAILY 05/07/20 07/21/21 tablet aspirin 81 mg tablet,delayed 81 mg PO DAILY 05/07/20 07/21/21 release (Adult Low Dose Aspirin) buspirone 7.5 mg tablet 7.5 mg PO BID 05/07/20 07/21/21 cholecalciferol (vitamin D3) 25 25 mcg PO DAILY 05/07/20 07/21/21 mcg (1,000 unit) capsule dicyclomine 20 mg tablet 20 mg PO QID 05/07/20 07/21/21 ezetimibe 10 mg tablet (Zetia) 10 mg PO DAILY 05/07/20 07/21/21 ferrous sulfate 325 mg (65 mg 325 mg PO DAILY 05/07/20 07/21/21 iron) tablet fluticasone propionate 110 2 puff INHALATION BID 05/07/20 07/21/21 mcg/actuation HFA aerosol inhaler (Flovent HFA) fluticasone propionate 50 2 spray INTRANASAL DAILY 05/07/20 07/21/21 mcg/actuation nasal spray,suspension gabapentin 300 mg capsule 300 mg PO TID 05/07/20 07/21/21 (Neurontin) levothyroxine 200 mcg tablet 200 mcg PO DAILY 05/07/20 07/21/21 metoprolol succinate 50 mg 50 mg PO DAILY 05/07/20 07/21/21 tablet,extended release 24 hr omeprazole 40 mg capsule,delayed 40 mg PO DAILY 05/07/20 07/21/21 release simvastatin 20 mg tablet 20 mg PO DAILY 05/07/20 07/21/21 insulin aspart U-100 100 unit/mL 5 unit SUBCUT TID 04/07/21 07/21/21 (3 mL) subcutaneous pen (Novolog Flexpen U-100 Insulin aspart) Previous Rx's Medication Instructions Recorded nitroglycerin 0.4 mg sublingual 0.4 mg SUBLINGUAL Q5M PRN #20 tab 03/23/21 tablet calcium carbonate 600 mg-vitamin 1 tab PO DAILY #30 ea 04/07/21 D3 20 mcg (800 unit) tablet sulfasalazine 500 mg tablet 500 mg PO BID #60 tab 04/14/21 prednisone 5 mg tablet 5 mg PO DAILY #30 tab 05/25/21 baclofen 10 mg tablet 10 mg PO BID #60 tab 07/20/21 levofloxacin 500 mg tablet 500 mg PO DAILY #7 tab 07/24/21 Allergies Allergy/AdvReac Type Severity Reaction Status Date / Time metoclopramide [From REGLAN] Allergy Severe Anxiety Verified 07/20/21 11:03 Penicillins [PENICILLINS] Allergy Severe swelling Verified 07/20/21 11:03 tramadol [From ULTRAM] Allergy Severe Vomiting Verified 07/20/21 11:03 codeine [Tylenol-Codeine] Allergy Intermediate vomiting Verified 07/20/21 11:03 Pt states no known food Allergy Unknown none Uncoded 07/20/21 11:03 allerg Review of Systems Review of Systems: Constitutional : No Weight loss, No Fever, No Chills, No Night Sweats, No Fatigue, No Malaise ENT/Mouth : No Hearing loss, No Ear Pain, No Nasal Congestion, No Sinus Pain, No Hoarseness, No sore throat, No Rhinorrhea, No Swallowing Difficulty Eyes: No Eye Pain, No Swelling, No Redness, No Foreign Body, No Discharge, No Vision Changes Cardiovascular : No Chest Pain, No SOB, No Dyspnea on Exertion, No Orthopnea, No Edema, No Palpitations Respiratory : No Cough, No Sputum, No Wheezing, No Smoke Exposure, No Dyspnea Gastrointestinal : No Nausea, No Vomiting, No Diarrhea, No Constipation, No abdominal Pain, No Hematochezia, No Melena Genitourinary : no irregular bleeding, No Dysuria, No Urinary Frequency, No Hematuria, No Urinary Incontinence, No Urgency, No Flank Pain, No Urinary Flow Changes, No Hesitancy Musculoskeletal : No joint pain, No Myalgias, No Joint Swelling Skin : No Skin Lesions, No rash Neuro : No Weakness, No Numbness, No Paresthesias, No Loss of Consciousness, No Dizziness, No Headache Psych : No Anxiety/Panic, No Depression, No SI/HI/AH/VH, No Social Issues, Heme/Lymph: No Bruising, No Bleeding,No Lymphadenopathy Endocrine : No Polyuria, No Polydipsia, No Temperature Intolerance [facility] Past Medical History Medical History Atherosclerotic cardiovascular disease COPD (chronic obstructive pulmonary disease) Coronary artery disease Essential hypertension Osteoporosis Seropositive rheumatoid arthritis Type 2 diabetes mellitus with unspecified complications Surgical History History of heart artery stent (~2005) Family History Family History Father CVD (cardiovascular disease) Mother CVD (cardiovascular disease) Heart attack Social History Social History Alcohol intake: former Patient Tobacco Use Status: Former Tobacco user Cigarettes Per Day: 20 Years Smoked: 15 e-Cigarette/Vaping Use: Never Used Advance Directives: No Advance Directives Information Provided: Yes Patient : No Physical Exam ED Vital Signs: Vital Signs - 24 hr 07/23/21 18:54 07/23/21 22:08 07/23/21 23:57 Temperature 98.3 F 98.3 F Pulse Rate 69 78 66 Respiratory Rate 18 17 14 Blood Pressure 200/69 H 194/78 H 185/83 H Pulse Oximetry 96 93 93 07/23/21 23:58 Temperature 98.2 F Pulse Rate 66 Respiratory Rate 14 Blood Pressure 185/66 H Pulse Oximetry 91 L BMI result Body Mass Index 36.8 Const Other: Appearance: Alert. Oriented X3. No acute distress. Eyes: Pupils equal, round and reactive to light. ENT: Pharynx normal. Neck: Normal inspection. Neck supple. No lymph nodes noted. No crepitus CVS: Normal heart rate and rhythm. Pulses normal. Normal S1 and S2 Respiratory: No respiratory distress. Breath sounds normal. No Wheezing. No rales Abdomen: Soft and nontender. No rigidity. No distention. Skin: Skin warm and dry. Patient looks tanned Extremities: No lower extremity edema. No Lacerations. No Rash Neuro: Oriented X 3. No motor deficit. No sensory deficit. Moving all extremities. No slurred speech. CN 2 through 12 grossly intact Psych: calm, cooperative, anxious Course Course Course Narrative: Patient's potassium is within normal limits, EKG does not show any peaked T- waves. However, patient has hypoglycemia, and ongoing UTI, hypomagnesemia and hypertension. Patient has not taking any of her medications today. Patient's potassium was repleted. Patient was given IV ceftriaxone for UTI. Patient's blood glucose improved with food. Patient was given 2.5 mg of IV metoprolol, blood pressure in the 160s, heart rate 66. Patient instructed to start taking his medications tomorrow. Medical Decision Making Lab Data Result diagrams: 07/23/21 19:32 07/23/21 19:32 Labs: Lab Results 07/23/21 07/23/21 07/23/21 Range/Units 19:32 19:32 19:32 WBC 6.0 (4.8-10.8) X10*3/uL RBC 3.98 L (4.20-5.50) X10*6/uL Hgb 11.8 L (12.0-16.0) g/dl Hct 37.8 (37.0-47.0) % MCV 95.0 (80.0-98.0) fL MCH 29.6 (27.0-33.0) pg MCHC 31.2 (31.0-35.0) g/dl RDW 13.2 (11.0-16.0) % Plt Count 145 L (160-400) X10*3/uL MPV 10.1 (9.4-12.3) fL Immature Gran % (Auto) 0.3 (0.0-0.4) % Neut % (Auto) 58.2 (45-73) % Lymph % (Auto) 27.3 (20-40) % [place] % (Auto) 9.3 (2-11) % Eos % (Auto) 4.1 H (0-4) % Baso % (Auto) 0.8 (0-2) % Lymph # (Auto) 1.7 (1.2-4.9) X10*3/uL [place] # (Auto) 0.6 (0.1-1.2) X10*3/uL Eos # (Auto) 0.3 (0.0-0.4) X10*3/uL Baso # (Auto) 0.1 (0.0-0.2) X10*3/uL Abs Immat Gran (auto) 0.02 (0.00-0.03) X10*3/uL Absolute Neuts (auto) 3.5 (2.0-8.3) x10*3/uL Absolute Nucleated RBC 0.000 (0.0-0.012) X10*3/uL Nucleated RBC % (auto) 0.0 (0.0-0.2) /100WBC Sodium 143 (135-145) mmol/L Potassium 4.4 (3.3-5.1) mmol/L Chloride 109 H (96-108) mmol/L Carbon Dioxide 27 (22-29) mmol/L Anion Gap 11 L (12-20) BUN 17 H (9-16) mg/dL Creatinine 0.93 (0.5-1.4) mg/dL Estim Creat Clear Calc 61.8 Estimated GFR > 60 POC Glucose (60-115) mg/dL Random Glucose 59 L* (60-115) mg/dL Calcium 10.1 D (8.4-10.2) mg/dL Magnesium 1.4 L* (1.6-2.6) mg/dL Total Bilirubin 0.4 (0.0-1.0) mg/dL Direct Bilirubin 0.2 (0.0-0.5) mg/dL AST 21 (5-31) U/L ALT 12 (0-31) U/L Alkaline Phosphatase 63 (39-117) U/L Troponin I High Sens 27.8 H D (<3.5-17.0) ng/L Total Protein 5.8 L (6.5-8.0) g/dL Albumin 3.3 L (3.5-5.0) g/dL TSH 0.35 (0.32-4.0) uIU/mL Random Cortisol ug/dL Urine Color Urine Appearance Urine pH (5.0-8.0) Ur Specific [place] (1.005-1.025) Urine Protein (NEG-TRACE) MG/DL Urine Glucose (UA) (NEG) MG/DL Urine Ketones (NEG) MG/DL Urine Blood (NEG) Urine Nitrite (NEG) Ur Leukocyte Esterase (NEG) Urine RBC (0) /HPF Urine WBC (0-4) /HPF Ur Squamous Epith Cells /LPF Urine Bacteria /LPF COVID-19 ([facility]ARA) (Negative) COVID-19 Clin Com 07/23/21 07/23/21 07/23/21 Range/Units 19:32 19:32 20:42 WBC (4.8-10.8) X10*3/uL RBC (4.20-5.50) X10*6/uL Hgb (12.0-16.0) g/dl Hct (37.0-47.0) % MCV (80.0-98.0) fL MCH (27.0-33.0) pg MCHC (31.0-35.0) g/dl RDW (11.0-16.0) % Plt Count (160-400) X10*3/uL MPV (9.4-12.3) fL Immature Gran % (Auto) (0.0-0.4) % Neut % (Auto) (45-73) % Lymph % (Auto) (20-40) % [place] % (Auto) (2-11) % Eos % (Auto) (0-4) % Baso % (Auto) (0-2) % Lymph # (Auto) (1.2-4.9) X10*3/uL [place] # (Auto) (0.1-1.2) X10*3/uL Eos # (Auto) (0.0-0.4) X10*3/uL Baso # (Auto) (0.0-0.2) X10*3/uL Abs Immat Gran (auto) (0.00-0.03) X10*3/uL Absolute Neuts (auto) (2.0-8.3) x10*3/uL Absolute Nucleated RBC (0.0-0.012) X10*3/uL Nucleated RBC % (auto) (0.0-0.2) /100WBC Sodium (135-145) mmol/L Potassium (3.3-5.1) mmol/L Chloride (96-108) mmol/L Carbon Dioxide (22-29) mmol/L Anion Gap (12-20) BUN (9-16) mg/dL Creatinine (0.5-1.4) mg/dL Estim Creat Clear Calc Estimated GFR POC Glucose (60-115) mg/dL Random Glucose (60-115) mg/dL Calcium (8.4-10.2) mg/dL Magnesium (1.6-2.6) mg/dL Total Bilirubin (0.0-1.0) mg/dL Direct Bilirubin (0.0-0.5) mg/dL AST (5-31) U/L ALT (0-31) U/L Alkaline Phosphatase (39-117) U/L Troponin I High Sens (<3.5-17.0) ng/L Total Protein (6.5-8.0) g/dL Albumin (3.5-5.0) g/dL TSH (0.32-4.0) uIU/mL Random Cortisol 6.5 ug/dL Urine Color YELLOW Urine Appearance CLEAR Urine pH 6.0 (5.0-8.0) Ur Specific [place] 1.015 (1.005-1.025) Urine Protein TRACE (NEG-TRACE) MG/DL Urine Glucose (UA) NEG (NEG) MG/DL Urine Ketones NEG (NEG) MG/DL Urine Blood NEG (NEG) Urine Nitrite POS H (NEG) Ur Leukocyte Esterase NEG (NEG) Urine RBC 0-2 (0) /HPF Urine WBC 0-2 (0-4) /HPF Ur Squamous Epith Cells 2+ /LPF Urine Bacteria 1+ /LPF COVID-19 (TARA) Negative (Negative) COVID-19 Clin Com See Note 07/23/21 07/24/21 Range/Units 21:58 00:02 WBC (4.8-10.8) X10*3/uL RBC (4.20-5.50) X10*6/uL Hgb (12.0-16.0) g/dl Hct (37.0-47.0) % MCV (80.0-98.0) fL MCH (27.0-33.0) pg MCHC (31.0-35.0) g/dl RDW (11.0-16.0) % Plt Count (160-400) X10*3/uL MPV (9.4-12.3) fL Immature Gran % (Auto) (0.0-0.4) % Neut % (Auto) (45-73) % Lymph % (Auto) (20-40) % [place] % (Auto) (2-11) % Eos % (Auto) (0-4) % Baso % (Auto) (0-2) % Lymph # (Auto) (1.2-4.9) X10*3/uL [place] # (Auto) (0.1-1.2) X10*3/uL Eos # (Auto) (0.0-0.4) X10*3/uL Baso # (Auto) (0.0-0.2) X10*3/uL Abs Immat Gran (auto) (0.00-0.03) X10*3/uL Absolute Neuts (auto) (2.0-8.3) x10*3/uL Absolute Nucleated RBC (0.0-0.012) X10*3/uL Nucleated RBC % (auto) (0.0-0.2) /100WBC Sodium (135-145) mmol/L Potassium (3.3-5.1) mmol/L Chloride (96-108) mmol/L Carbon Dioxide (22-29) mmol/L Anion Gap (12-20) BUN (9-16) mg/dL Creatinine (0.5-1.4) mg/dL Estim Creat Clear Calc Estimated GFR POC Glucose 100 190 H (60-115) mg/dL Random Glucose (60-115) mg/dL Calcium (8.4-10.2) mg/dL Magnesium (1.6-2.6) mg/dL Total Bilirubin (0.0-1.0) mg/dL Direct Bilirubin (0.0-0.5) mg/dL AST (5-31) U/L ALT (0-31) U/L Alkaline Phosphatase (39-117) U/L Troponin I High Sens (<3.5-17.0) ng/L Total Protein (6.5-8.0) g/dL Albumin (3.5-5.0) g/dL TSH (0.32-4.0) uIU/mL Random Cortisol ug/dL Urine Color Urine Appearance Urine pH (5.0-8.0) Ur Specific [place] (1.005-1.025) Urine Protein (NEG-TRACE) MG/DL Urine Glucose (UA) (NEG) MG/DL Urine Ketones (NEG) MG/DL Urine Blood (NEG) Urine Nitrite (NEG) Ur Leukocyte Esterase (NEG) Urine RBC (0) /HPF Urine WBC (0-4) /HPF Ur Squamous Epith Cells /LPF Urine Bacteria /LPF COVID-19 ([facility]ARA) (Negative) COVID-19 Clin Com Discharge Plan Discharge Clinical Impression: Hypoglycemia, Urinary tract infection, Hypomagnesemia, Hypertension Patient Disposition: Home, Self-Care Instructions: Urinary Tract Infection in Women (ED), Hypertension (ED) Additional Instructions: Please follow-up with your primary care physician tomorrow. If you have any worsening or new symptoms, please return to the emergency room or call 911 Prescriptions: New levofloxacin 500 mg tablet 500 mg PO DAILY Qty: 7 0RF No Action nitroglycerin 0.4 mg tablet, sublingual 0.4 mg sublingual Q5M PRN (Reason: chest pain) Qty: 20 3RF Rx Instructions: do not exceed 3 doses per episode calcium carbonate-vitamin D3 600 mg-20 mcg (800 unit) tablet 1 tab PO DAILY Qty: 30 5RF sulfasalazine 500 mg tablet 500 mg PO BID Qty: 60 2RF prednisone 5 mg tablet 5 mg PO DAILY Qty: 30 3RF aspirin [Adult Low Dose Aspirin] 81 mg tablet,delayed release (DR/EC) 81 mg PO DAILY 0RF buspirone 7.5 mg tablet 7.5 mg PO BID 0RF ferrous sulfate 325 mg (65 mg iron) tablet 325 mg PO DAILY 0RF cholecalciferol (vitamin D3) 25 mcg (1,000 unit) capsule 25 mcg PO DAILY 0RF ascorbic acid (vitamin C) 250 mg tablet 250 mg PO DAILY 0RF fluticasone propionate 50 mcg/actuation spray,suspension 2 spray intranasal DAILY 0RF Rx Instructions: administer into each nostril Flovent HFA 110 mcg/actuation HFA aerosol inhaler 2 puff inhalation BID 0RF dicyclomine 20 mg tablet 20 mg PO QID 0RF omeprazole 40 mg capsule,delayed release(DR/EC) 40 mg PO DAILY 0RF gabapentin [Neurontin] 300 mg capsule 300 mg PO TID 0RF ezetimibe [Zetia] 10 mg tablet 10 mg PO DAILY 0RF simvastatin 20 mg tablet 20 mg PO DAILY 0RF levothyroxine 200 mcg tablet 200 mcg PO DAILY 0RF metoprolol succinate 50 mg tablet extended release 24 hr 50 mg PO DAILY 0RF acetaminophen [Tylenol Arthritis Pain] 650 mg tablet extended release 650 mg PO Q8H 0RF insulin aspart U-100 [Novolog Flexpen U-100 Insulin] 100 unit/mL (3 mL) insulin pen 5 unit subcut TID 0RF baclofen 10 mg tablet 10 mg PO BID Qty: 60 2RF
[2021-07-23 18:54] VITALS: BP 200/69; PULSE 69; RESP 18; TEMP 36.8; O2SAT 96; BMI 36.8
[2021-07-23] MEDS: 0.9 % Sodium Chloride 1,000 ML 999 ML IVCONT (18:59)
[2021-07-23 19:38] LABS: MANUAL DIFF FLAG NO
[2021-07-23 19:42] LABS: Basophils Absolute Auto 0.1 X10*3/uL (0.0-0.2); Basophils Percent Auto 0.8 % (0-2); Eosinophils Absolute Auto 0.3 X10*3/uL (0.0-0.4); Eosinophils Percent Auto 4.1 % (0-4); Hematocrit 37.8 % (37.0-47.0); Hemoglobin 11.8 g/dl (12.0-16.0); Imm Gran Abs Auto 0.02 X10*3/uL (0.00-0.03); Imm Gran Pct Auto 0.3 % (0.0-0.4); Lymphocytes Absolute Auto 1.7 X10*3/uL (1.2-4.9); Lymphocytes Percent Auto 27.3 % (20-40); Mean Corpuscular HGB Conc 31.2 g/dl (31.0-35.0); Mean Corpuscular Hemoglobin 29.6 pg (27.0-33.0); Mean Platelet Volume 10.1 fL (9.4-12.3); Monocytes Absolute Auto 0.6 X10*3/uL (0.1-1.2); Monocytes Percent Auto 9.3 % (2-11); Neutrophils Absolute Auto 3.5 x10*3/uL (2.0-8.3); Neutrophils Percent Auto 58.2 % (45-73); Platelet Count 145 X10*3/uL (160-400); Red Blood Count 3.98 X10*6/uL (4.20-5.50); Red Cell Distribution Width 13.2 % (11.0-16.0)
[2021-07-23 19:55] LABS: COVID-19 Test Negative (Negative)
[2021-07-23 20:00] VITALS: PULSE 67
[2021-07-23 20:01] LABS: Troponin-I High Sensitivity 27.8 ng/L (<3.5-17.0)
[2021-07-23 20:03] LABS: Alanine Aminotransferase 12 U/L (0-31); Albumin Level 3.3 g/dL (3.5-5.0); Alkaline Phosphatase 63 U/L (39-117); Anion Gap 11 (12-20); Aspartate Amino Transferase 21 U/L (5-31); Bilirubin Direct 0.2 mg/dL (0.0-0.5); Bilirubin Total 0.4 mg/dL (0.0-1.0); Blood Urea Nitrogen 17 mg/dL (9-16); Calcium 10.1 mg/dL (8.4-10.2); Carbon Dioxide 27 mmol/L (22-29); Chloride 109 mmol/L (96-108); Creatinine Clr Calc Pharmacy 61.8; Estimated Glomerular Filt Rate > 60; Glucose Random 59 mg/dL (60-115); Magnesium 1.4 mg/dL (1.6-2.6); Potassium 4.4 mmol/L (3.3-5.1); Sodium 143 mmol/L (135-145); Total Protein 5.8 g/dL (6.5-8.0)
[2021-07-23 20:36] LABS: Cortisol Random 6.5 ug/dL
[2021-07-23 20:40] LABS: TSH reflex Free T4 0.35 uIU/mL (0.32-4.0)
[2021-07-23 20:52] LABS: Appearance Urine CLEAR; Color Urine YELLOW; Glucose Urine UA NEG (NEG); Leukocyte Esterase Urine NEG (NEG); Nitrite Urine POS (NEG); Specific Gravity - Urine 1.015 (1.005-1.025); UACC Culture Trigger YES; Urine Blood NEG (NEG); Urine Ketones NEG (NEG); Urine Protein TRACE MG/DL (NEG-TRACE)
[2021-07-23 21:01] LABS: Bacteria Urine 1+ /LPF; RBC Urine 0-2 /HPF (0); Squamous Epithelial Cell Urine 2+ /LPF
[2021-07-23 21:02] LABS: WBC Urine 0-2 /HPF (0-4)
[2021-07-23] MEDS: Acetaminophen 325 MG TABLET 650 MG PO (21:03)
[2021-07-23] MEDS: Magnesium Sulfate/H2O 2 GM/50 ML PIGGYBACK IV (21:57)
[2021-07-23 22:02] LABS: Glucose, Whole Blood 100 mg/dL (60-115)
[2021-07-23 22:08] VITALS: BP 194/78; PULSE 78; RESP 17; TEMP 36.8; O2SAT 93
[2021-07-23] MEDS: levoFLOXacin/D5W 500 MG/100 ML PIGGYBACK 100 MG IV (22:15)
[2021-07-23] MEDS: Metoprolol Tartrate 5 MG/5 ML VIAL 2.5 MG IVPUSH (22:15)
[2021-07-23 23:57] VITALS: BP 185/83; PULSE 66; RESP 14; O2SAT 93
[2021-07-23 23:58] VITALS: BP 185/66; PULSE 66; RESP 14; TEMP 36.8; O2SAT 91
[2021-07-24 00:06] LABS: Glucose, Whole Blood 190 mg/dL (60-115)
[2021-07-24] MEDS: oxyCODONE HCl Immed Release 5 MG TABLET PO (00:29)
== END 2021-07-24 00:39 | disposition home or self-care (01) ==
PROVIDERS: Emergency Provider Emergency Medicine
DX: E11.649 Type 2 diabetes mellitus with hypoglycemia without coma (principal); N39.0 Urinary tract infection, site not specified; E83.42 Hypomagnesemia; I10 Essential (primary) hypertension; I25.10 Atherosclerotic heart disease of native coronary artery without angina pectoris; J44.9 Chronic obstructive pulmonary disease, unspecified; Z79.82 Long term (current) use of aspirin; Z79.899 Other long term (current) drug therapy; Z95.5 Presence of coronary angioplasty implant and graft; Z20.822 Contact with and (suspected) exposure to COVID-19
CPT/HCPCS: 36415; 80048; 80076; 81001; 82088; 82533; 82947; 83735; 84443; 84484; 85025; 87086; 87635; 93005; 96361; 96365; 96366; 96375; 99284; J1956; J3475

== ENCOUNTER 2021-08-12 09:32 | Outpatient (REF) | payer MEDICAID, SELFPAY | END 2021-08-12 09:33 | disposition home or self-care (01) | LOC: HO.HOSX 09:32 | PROVIDERS: Visit Provider Physician Assistant | DX: Z01.818 Encounter for other preprocedural examination (principal); M16.12 Unilateral primary osteoarthritis, left hip | CPT/HCPCS: 99212 ==

== ENCOUNTER 2021-08-17 06:17 | Inpatient (IN) | payer MEDICAID, SELFPAY ==
[2021-08-10 13:01] VITALS: BP 186/77; PULSE 58; RESP 16; O2SAT 94; BMI 35.9
--- NOTE | 2021-08-10 13:27 | P.CONAN_ITS ---
Documented by User: Jyoti Medina NP 08/13/21 08:38 HPI - Anesthesia Eval Consult details Narrative: 65yo F for Left Hip Total Replacement PCP cleared Cardiology cleared BP up at [facility]. Recently had lisinopril D/C'd d/t hyperkalemia. Pt has reached out to PCP for adjusting regimen. (BP at recent office visits WNL). Also instructed patient to record home BP's and bring DOS. PMFSH Active Problems Active Problems: All Active Problems (Updated 08/10/21 @ 13:26 by Becca Rios RN) Precordial chest pain (Acute) Osteoarthritis of left hip (Acute) Osteoarthritis of left hip (Acute) Osteoarthritis of left knee (Acute) Osteoarthritis of right knee (Acute) Osteoarthritis of right hip (Acute) Preoperative cardiovascular examination (Acute) Hyperkalemia (Acute) Essential hypertension (Acute) Type 2 diabetes mellitus with unspecified complications (Acute) Atherosclerotic cardiovascular disease (Acute) Coronary artery disease (Acute) Osteoporosis (Acute) Seropositive rheumatoid arthritis (Acute) Past Medical History Medical History Atherosclerotic cardiovascular disease COPD (chronic obstructive pulmonary disease) Coronary artery disease Edema Essential hypertension Osteoporosis Seropositive rheumatoid arthritis Type 2 diabetes mellitus with unspecified complications Ventral hernia Family History Family History Father CVD (cardiovascular disease) Mother CVD (cardiovascular disease) Heart attack Family history of problems with anesthesia: No Surgical History Surgical History History of heart artery stent (~2005) History of partial hysterectomy History of surgery on lower extremity Hx laparoscopic cholecystectomy Hx of appendectomy Hx of colonoscopy Hx of hernia repair Hx of partial thyroidectomy History of Problems with Anesthesia: No Social History Social History Housing Other:: mobile home Are you a primary director of medicare to a significant other at home: No Do you presently have visiting nurse or other home services: No Alcohol intake: former Patient Tobacco Use Status: Former Tobacco user Quit Date: 2005 Tobacco use type: Cigarette Cigarettes Per Day: 20 Years Smoked: 15 e-Cigarette/Vaping Use: Never Used Substance Use Frequency: Daily Have you been hit, kicked, punched, or otherwise hurt by someone within the past year? If so, by whom?: No Spiritual Healthcare Practices: no Zoroastrianism Healthcare Practices: no Cultural Healthcare Practices: no Are you DNR?: No Advance Directives: No Advance Directives Information Provided: Yes Advance Directives on File: No Recently lost weight without trying: No Narrative Narrative: No recent illness No CP/SOB with minimal activity. Activity limited to pain Meds Allergies Allergy/AdvReac Type Severity Reaction Status Date / Time metoclopramide [From REGLAN] Allergy Severe Anxiety Verified 08/17/21 07:35 Penicillins [PENICILLINS] Allergy Severe swelling Verified 08/17/21 07:35 tramadol [From ULTRAM] Allergy Severe Vomiting Verified 08/17/21 07:35 codeine [Tylenol-Codeine] Allergy Intermediate vomiting Verified 08/17/21 07:35 Home Medications Medication Instructions Recorded Confirmed Last Taken Type acetaminophen 650 mg 650 mg PO Q6H PRN 05/07/20 08/10/21 Unknown History tablet,extended release (Tylenol Arthritis Pain) ascorbic acid (vitamin C) 250 mg 250 mg PO DAILY 05/07/20 08/10/21 Unknown History tablet aspirin 81 mg tablet,delayed 81 mg PO DAILY 05/07/20 08/10/21 08/10/21 History release (Adult Low Dose Aspirin) buspirone 7.5 mg tablet 7.5 mg PO BID 05/07/20 08/10/21 08/17/21 05:30 History cholecalciferol (vitamin D3) 25 25 mcg PO DAILY 05/07/20 08/10/21 Unknown History mcg (1,000 unit) capsule dicyclomine 20 mg tablet 20 mg PO QID 05/07/20 08/10/21 08/17/21 05:30 History ezetimibe 10 mg tablet (Zetia) 10 mg PO DAILY 05/07/20 08/10/21 Unknown History ferrous sulfate 325 mg (65 mg 325 mg PO DAILY 05/07/20 08/10/21 Unknown History iron) tablet fluticasone propionate 110 2 puff INHALATION BID 05/07/20 08/10/21 Unknown History mcg/actuation HFA aerosol inhaler (Flovent HFA) fluticasone propionate 50 2 spray INTRANASAL DAILY 05/07/20 08/10/21 Unknown History mcg/actuation nasal spray,suspension gabapentin 300 mg capsule 300 mg PO TID 05/07/20 08/10/21 08/17/21 05:30 History (Neurontin) metoprolol succinate 50 mg 50 mg PO DAILY 05/07/20 08/10/21 08/17/21 05:30 History tablet,extended release 24 hr omeprazole 40 mg capsule,delayed 40 mg PO DAILY 05/07/20 08/10/21 08/17/21 05:30 History release simvastatin 20 mg tablet 20 mg PO BEDTIME 05/07/20 08/10/21 Unknown History insulin aspart U-100 100 unit/mL 5 unit SUBCUT TID 04/07/21 08/10/21 Unknown History (3 mL) subcutaneous pen (Novolog Flexpen U-100 Insulin aspart) insulin degludec 100 unit/mL (3 65 unit SUBCUT BEDTIME 08/10/21 08/10/21 Unknown History mL) subcutaneous pen (Tresiba FlexTouch U-100 insulin) magnesium citrate 125 mg capsule 250 mg PO DAILY 08/10/21 08/10/21 Unknown History levothyroxine 125 mcg tablet 250 mcg PO DAILY 08/17/21 08/17/21 08/17/21 05:30 History Exam Exam Date and Time: August 10, 2021 1327 Height,Weight and Vital Signs: Height 5 ft 1 in Weight 86.2 kg Last Vital Signs Pulse 58 08/10/21 13:01 Resp 16 08/10/21 13:01 BP 186/77 H 08/10/21 13:01 Pulse Ox 94 08/10/21 13:01 Pertinent Lab Results Pertinent Lab Results: Laboratory Tests 07/23/21 07/23/21 08/10/21 19:32 19:32 14:24 WBC 6.0 Hgb 11.8 L Hct 37.8 Plt Count 145 L Sodium 141 Potassium 4.7 Chloride 105 Carbon Dioxide 30 H BUN 17 H Creatinine 0.93 Narrative Narrative: EKG 07/2021 Vent. Rate : 064 BPM ? ? Atrial Rate : 064 BPM ?? P-R Int : 150 ms? QRS Dur : 112 ms ? ? QT Int : 410 ms ? ? ? P-R-T Axes : 071 -43 020 degrees ?? QTc Int : 422 ms ? Normal sinus rhythm with sinus arrhythmia Left axis deviation Incomplete right bundle branch block Moderate voltage criteria for LVH, may be normal variant ( R in aVL , Steens product ) Cannot rule out Anteroseptal infarct (cited on or before 24-JUN-2021) Abnormal ECG When compared with ECG of 24-JUN-2021 04:21, No significant change was found Airway Mallampati Class: I TM Dist: >3cm Neck ROM: Full Loose/Missing/Broken Teeth: Yes (Edentulous) Heart: RRR Lungs: CTAB Assessment and Plan Assessment Anesthesia Assessment: Anesthesia Plan Discussed and PAT Visit Final Anesthetic Review Family History of Problems with Anesthesia: No History of Problems with Anesthesia: No Documented by User: Duc Mitchell MD 08/17/21 08:53 [facility] Past Medical History Medical History Atherosclerotic cardiovascular disease COPD (chronic obstructive pulmonary disease) Coronary artery disease Edema Essential hypertension Osteoporosis Seropositive rheumatoid arthritis Type 2 diabetes mellitus with unspecified complications Ventral hernia Family History Family History Father CVD (cardiovascular disease) Mother CVD (cardiovascular disease) Heart attack Surgical History Surgical History History of heart artery stent (~2005) History of partial hysterectomy History of surgery on lower extremity Hx laparoscopic cholecystectomy Hx of appendectomy Hx of colonoscopy Hx of hernia repair Hx of partial thyroidectomy Social History Social History Housing Other:: mobile home Are you a primary director of medicare to a significant other at home: No Do you presently have visiting nurse or other home services: No Alcohol intake: former Patient Tobacco Use Status: Former Tobacco user Quit Date: 2005 Tobacco use type: Cigarette Cigarettes Per Day: 20 Years Smoked: 15 e-Cigarette/Vaping Use: Never Used Substance Use Frequency: Daily Have you been hit, kicked, punched, or otherwise hurt by someone within the past year? If so, by whom?: No Spiritual Healthcare Practices: no Zoroastrianism Healthcare Practices: no Cultural Healthcare Practices: no Are you DNR?: No Advance Directives: No Advance Directives Information Provided: Yes Advance Directives on File: No Recently lost weight without trying: No Meds Allergies Allergy/AdvReac Type Severity Reaction Status Date / Time metoclopramide [From REGLAN] Allergy Severe Anxiety Verified 08/17/21 07:35 Penicillins [PENICILLINS] Allergy Severe swelling Verified 08/17/21 07:35 tramadol [From ULTRAM] Allergy Severe Vomiting Verified 08/17/21 07:35 codeine [Tylenol-Codeine] Allergy Intermediate vomiting Verified 08/17/21 07:35 Home Medications Medication Instructions Recorded Confirmed Last Taken Type acetaminophen 650 mg 650 mg PO Q6H PRN 05/07/20 08/10/21 Unknown History tablet,extended release (Tylenol Arthritis Pain) ascorbic acid (vitamin C) 250 mg 250 mg PO DAILY 05/07/20 08/10/21 Unknown History tablet aspirin 81 mg tablet,delayed 81 mg PO DAILY 05/07/20 08/10/21 08/10/21 History release (Adult Low Dose Aspirin) buspirone 7.5 mg tablet 7.5 mg PO BID 05/07/20 08/10/21 08/17/21 05:30 History cholecalciferol (vitamin D3) 25 25 mcg PO DAILY 05/07/20 08/10/21 Unknown History mcg (1,000 unit) capsule dicyclomine 20 mg tablet 20 mg PO QID 05/07/20 08/10/21 08/17/21 05:30 History ezetimibe 10 mg tablet (Zetia) 10 mg PO DAILY 05/07/20 08/10/21 Unknown History ferrous sulfate 325 mg (65 mg 325 mg PO DAILY 05/07/20 08/10/21 Unknown History iron) tablet fluticasone propionate 110 2 puff INHALATION BID 05/07/20 08/10/21 Unknown History mcg/actuation HFA aerosol inhaler (Flovent HFA) fluticasone propionate 50 2 spray INTRANASAL DAILY 05/07/20 08/10/21 Unknown History mcg/actuation nasal spray,suspension gabapentin 300 mg capsule 300 mg PO TID 05/07/20 08/10/21 08/17/21 05:30 History (Neurontin) metoprolol succinate 50 mg 50 mg PO DAILY 05/07/20 08/10/21 08/17/21 05:30 History tablet,extended release 24 hr omeprazole 40 mg capsule,delayed 40 mg PO DAILY 05/07/20 08/10/21 08/17/21 05:30 History release simvastatin 20 mg tablet 20 mg PO BEDTIME 05/07/20 08/10/21 Unknown History insulin aspart U-100 100 unit/mL 5 unit SUBCUT TID 04/07/21 08/10/21 Unknown History (3 mL) subcutaneous pen (Novolog Flexpen U-100 Insulin aspart) insulin degludec 100 unit/mL (3 65 unit SUBCUT BEDTIME 08/10/21 08/10/21 Unknown History mL) subcutaneous pen (Tresiba FlexTouch U-100 insulin) magnesium citrate 125 mg capsule 250 mg PO DAILY 08/10/21 08/10/21 Unknown History levothyroxine 125 mcg tablet 250 mcg PO DAILY 08/17/21 08/17/21 08/17/21 05:30 History Exam Airway Denture: Upper and Lower Assessment and Plan Final Anesthetic Review NPO: Yes ASA Class: III Final Preanesthetic Review: No Changes in Pt Med Stat, Meds/Allgs Chart Reviewed, Consent Obtained/Reviewed and Anes Risks/Benef Reviewed Patient Risk: Intermediate Procedure Risk: Low Anesthetic Plan Anesthetic Plan: GA Disposition: Standard PACU
[2021-08-10 15:17] LABS: Anion Gap 11 (12-20); Carbon Dioxide 30 mmol/L (22-29); Chloride 105 mmol/L (96-108); Potassium 4.7 mmol/L (3.3-5.1); Sodium 141 mmol/L (135-145)
[2021-08-10 15:46] LABS: MRSA Nasal PCR NEGATIVE (Negative); SA Nasal PCR NEGATIVE (Negative)
[2021-08-17] VITALS (15 sets, daily range): BP systolic 130–198; BP diastolic 58–113; PULSE 62–98; RESP 12–20; TEMP 36.1–37.1; O2SAT 95–99
--- NOTE | ~2021-08-17 | XR_ITS ---
EXAMINATION: XR CHEST CLINICAL INFORMATION: Atelectasis COMPARISON: 06/13/2016 TECHNIQUE: Frontal view of the chest was obtained. FINDINGS: Lung volumes are low. Streaky opacities at the bases favor atelectasis. No dense consolidation. No effusion. No pneumothorax. The cardiomediastinal silhouette is within normal limits. XR/XR chest 1V IMPRESSION: Streaky basilar atelectasis. No dense consolidation.
--- NOTE | ~2021-08-17 | XR_ITS ---
EXAMINATION: XR PELVIS CLINICAL INFORMATION: Evaluation of total hip arthroplasty COMPARISON: None TECHNIQUE: AP view of the pelvis. FINDINGS: Total left hip bipolar prosthesis present. No fracture or destructive lesion. Alignment is anatomic. Vascular calcifications are noted. XR/XR pelvis 1-2V IMPRESSION: Unremarkable left ROMIE.
--- NOTE | ~2021-08-17 | XR_ITS ---
EXAMINATION: XR CHEST CLINICAL INFORMATION: Shortness of breath COMPARISON: 08/20/2021 TECHNIQUE: Frontal view of the chest was obtained. FINDINGS: The lungs are mildly hypoinflated. No focal consolidation is seen. No evidence of pneumothorax, pleural effusion, or overt pulmonary edema. The cardiomediastinal contour is unremarkable. No acute osseous findings are seen. XR/XR chest 1V IMPRESSION: No acute cardiopulmonary findings.
[2021-08-17 06:58] LABS: COVID-19 Test Negative (Negative)
[2021-08-17] MEDS: oxyCODONE HCl ER 10 MG TAB.ER.12H PO ×2 (07:07→19:50)
--- NOTE | 2021-08-17 07:15 | PHA.MEDREC ---
Pharmacy Consult ? Medication Reconciliation Pharmacy has reviewed the medication reconciliation completed by nursing. Sangeeta Bland, BonnieD
[2021-08-17 07:25] LABS: Glucose, Whole Blood 211 mg/dL (60-115)
--- NOTE | 2021-08-17 07:31 | MHC.SHP ---
Pre-Procedural Eval Section A Date of Service: 08/17/21 The patient is an INPATIENT: No Changes since office visit: Yes Patient answered all questions; No Cold of Flu in the past 2 weeks, No New Medical Problems and No Changes in Medication The History & Physical has been completed within 30 days and I have reviewed it.: Yes Section B Chief Complaint: LT ROMIE Allergies: Allergies Allergy/AdvReac Type Severity Reaction Status Date / Time metoclopramide [From REGLAN] Allergy Severe Anxiety Verified 08/12/21 09:46 Penicillins [PENICILLINS] Allergy Severe swelling Verified 08/12/21 09:46 tramadol [From ULTRAM] Allergy Severe Vomiting Verified 08/12/21 09:46 codeine [Tylenol-Codeine] Allergy Intermediate vomiting Verified 08/12/21 09:46 Plan I have reviewed the history and physical and performed a pertinent physical examination on my patient. No changes have occurred unless specified.
[2021-08-17] MEDS: Lactated Ringers 1,000 ML 100 ML IVCONT ×3 (07:33→19:48)
--- NOTE | 2021-08-17 09:22 | P.BOP_ITS ---
Brief Operative Note Date of Service: 08/17/21 Pre-op diagnosis: Left hip OA Post-op diagnosis: same Procedure: Left ROMIE Implants: [place] Trident2 48 MDM with Accolade 2 #4 127deg + 3 MDM Surgeon: Kingsley Robles MD Anesthesia: GETA and local Was an Armature And Rotor Winder used for this Procedure?: Yes Armature And Rotor Winder: Lucero Castrejon Estimated blood loss (mL): 150 IV fluids (mL): 1,000 Pathology: other Condition: stable Disposition: PACU
--- NOTE | 2021-08-17 09:47 | P.OP_ITS ---
Operative Note Operative Note Date of Service: 08/17/21 Narrative: Date of Service: 08/17/21 Pre-op diagnosis: Left hip OA Post-op diagnosis: same Procedure: Left ROMIE Implants: [place] Trident2 48 MDM with Accolade 2 #4 127deg + 3 MDM Surgeon: Kingsley Robles MD Anesthesia: GETA and local Was an Roof Service Technician used for this Procedure?: Yes Roof Service Technician: Lucero Castrejon Estimated blood loss (mL): 150 IV fluids (mL): 1,000 Pathology: other Condition: stable Disposition: PACU Procedure in detail: Patient was brought into the operating room and placed in the right lateral decubitus position. All bony prominences were well padded and the limb was prepped and draped in standard sterile fashion. Time-out was called to identify proper site procedure proper surgeon IV antibiotics and 1 g of transaxemic acid were administered. I began by making a curvilinear incision over the posterolateral aspect of the greater trochanter. Dissection was taken down to the tensor fascia which was incised in line with the incision and a Charnley retractor was placed. Cautery was used to maintain hemostasis. A werewolf device was also used. The hip was internally rotated and the external rotators were identified. The vessels were cauterized and a full-thickness capsular/external rotator layer was developed starting just proximal to the piriformis. This layer was tagged and a dull Hohmann retractor was placed underneath the neck in the hip was dislocated. A neck cut was made 1 cm proximal to the lesser trochanter and the head and neck were removed and measured as a 44mm on the back table. The head was eburnated and deformed.I started with a 40 mm reamer and sequentially reamed up to a size 47 and impacted a 48mm at approximately 45 degrees of inclination and 25 degrees of version. I then placed a MDM liner and turned my attention to the femur. I identified the piriformis insertion and used this as a starting point for my mahinie cutter. The medius tendon was protected with a Hibs retractor. I then used a Charnley awl to identify the canal and a curved curette to remove the lateral bone. I irrigated copiously. I then sequentially broached in the patient's natural version to a size #4 and placed my trial implants. Using a trail head I took the hip through range of motion. I was very satisfied with the stability and length. Therefore I removed all instrumentation and copiously irrigated. I placed my final femoral implant and again took the hip through range of motion and was satisfied with the stability and length using a + 3 MDM. I then irrigated for 3 minutes with iodine and placed 1 g of local tranaxemic acid. I then performed a capsular closure with 2.0 fiberwire, Adria's fascia with 0 Vicryl, subcuticular with 2-0 Vicryl and the skin with constanza. Patient was placed into a sterile dressing. Radiographs were obtained at the completion of the case and I was satisfied with the component position. Patient was extubated brought to the recovery room in stable condition.
[2021-08-17] MEDS: Ketorolac Tromethamine 30 MG/ML VIAL 15 MG IVPUSH (09:59)
--- NOTE | 2021-08-17 12:47 | HO.PM.IMCN ---
History of Present Illness Data of Consult Service Date: 08/17/21 <Chey Molina NP - Last Filed: 08/17/21 13:54> Primary Care Provider: Cristina Christopher MD <Chey Molina NP - Last Filed: 08/17/21 13:54> HPI 65-year-old woman with history of coronary artery disease, hypertension, diabetes admitted by Orthopedic surgery and is status post left total hip arthroplasty. She is fresh postop and still quite sleepy she denies pain at this time her vital signs are stable she is currently resting comfortably in bed. <Chey Molina NP - Last Filed: 08/17/21 13:54> Review of Systems Review of Systems: Denies any recent fever chills or decrease in appetite respiratory denies any shortness of breath coverage production cardiovascular denies chest pain gastrointestinal denies any dysphagia abdominal pain nausea vomiting or diarrhea genitourinary denies any dysuria frequency or hematuria musculoskeletal minimal pain at this time, fresh postop neuropsych denies any weakness or seizures all other systems reviewed are negative <Chey Molina NP - Last Filed: 08/17/21 13:54> [facility] Medical History: Medical History Atherosclerotic cardiovascular disease COPD (chronic obstructive pulmonary disease) Coronary artery disease Edema Essential hypertension Osteoporosis Seropositive rheumatoid arthritis Type 2 diabetes mellitus with unspecified complications Ventral hernia <Chey Molina NP - Last Filed: 08/17/21 13:54> Family History: Family History Father CVD (cardiovascular disease) Mother CVD (cardiovascular disease) Heart attack <Chey Molina NP - Last Filed: 08/17/21 13:54> Surgical History: Surgical History History of heart artery stent (~2005) History of partial hysterectomy History of surgery on lower extremity Hx laparoscopic cholecystectomy Hx of appendectomy Hx of colonoscopy Hx of hernia repair Hx of partial thyroidectomy <Chey Molina NP - Last Filed: 08/17/21 13:54> Social History: Social History (Reviewed 08/17/21 @ 08:52 by DucMARCO A Paige Household Members: Spouse Housing: House Housing Other:: mobile home Are you a primary patient care nursing assistant to a significant other at home: No Do you presently have visiting nurse or other home services: No Alcohol intake: former Patient Tobacco Use Status: Former Tobacco user Quit Date: 2005 Tobacco use type: Cigarette Cigarettes Per Day: 20 Years Smoked: 15 e-Cigarette/Vaping Use: Never Used Use of substances other than those prescribed or required for medical reasons: No Substance Use Frequency: Daily Currently Displaying Signs/Symptoms of Drug Intoxication Withdrawal: No Have you been hit, kicked, punched, or otherwise hurt by someone within the past year? If so, by whom?: No Do you feel safe in your current relationship?: Yes Is there a partner from a previous relationship who is making you feel unsafe now?: No Are you made to feel afraid or neglected: No Spiritual Healthcare Practices: no Mandaen Healthcare Practices: no Cultural Healthcare Practices: no Are you DNR?: No Advance Directives: No Advance Directives Information Provided: Yes Advance Directives on File: No Do you have thoughts of harming others: None Do you have a plan to hurt others: No Plan Recently lost weight without trying: No Nutrition Risks: No Nutritional Risk Patient : No : No Poor oral hygiene: No service: No Current occupational status: disabled <Chey Molina NP - Last Filed: 08/17/21 13:54> Meds Allergies/Adverse reactions: Allergies Allergy/AdvReac Type Severity Reaction Status Date / Time metoclopramide [From REGLAN] Allergy Severe Anxiety Verified 08/17/21 07:35 Penicillins [PENICILLINS] Allergy Severe swelling Verified 08/17/21 07:35 tramadol [From ULTRAM] Allergy Severe Vomiting Verified 08/17/21 07:35 codeine [Tylenol-Codeine] Allergy Intermediate vomiting Verified 08/17/21 07:35 <Chey Molina NP - Last Filed: 08/17/21 13:54> Active Medications: Current Medications Acetaminophen (Acetaminophen 325 Mg Tablet) 650 mg PO Q6H PRN PRN Reason: Pain, Mild (Pain Scale 1-3) Aspirin (Aspirin 325 Mg Tablet) 325 mg PO BID RASHIDA Celecoxib (Celecoxib 200 Mg Capsule) 200 mg PO BID RASHIDA Docusate Sodium (Docusate Sodium 100 Mg Capsule) 100 mg PO BID RASHIDA Hydromorphone HCl (Hydromorphone Hcl 0.5 Mg/0.5 Ml Syringe) 0.25 mg IVPUSH Q4H PRN; Protocol PRN Reason: Pain, Severe (Pain Scale 7-10) Lactated Ringer's (Lr) 1,000 mls @ 100 mls/hr IVCONT .Q10H [facility] Last Admin: 08/17/21 10:21 Dose: 100 mls/hr Documented by: Cefazolin Sodium/Dextrose (Ancef) 2 gm in 50 mls @ 100 mls/hr IV POSTOP [facility] Ondansetron HCl (Ondansetron Hcl 4 Mg/2 Ml Vial) 4 mg IVPUSH Q8H PRN PRN Reason: Nausea and Vomiting Oxycodone HCl (Oxycodone Hcl Immed Release 5 Mg Tablet) 10 mg PO Q4H PRN PRN Reason: Pain, Moderate (Pain Scale 4-6 Oxycodone HCl (Oxycodone Hcl Er 10 Mg Tab.Er.12h) 10 mg PO BID [facility] Sodium Chloride (0.9 % Sodium Chloride Flush 3 Ml Syringe) 3 ml IVFLUSH QSHIFT [facility] <Chey Molina NP - Last Filed: 08/17/21 13:54> Home medications: Home Medications Medication Instructions Recorded Confirmed Last Taken Type acetaminophen 650 mg 650 mg PO Q6H PRN 05/07/20 08/10/21 Unknown History tablet,extended release (Tylenol Arthritis Pain) ascorbic acid (vitamin C) 250 mg 250 mg PO DAILY 05/07/20 08/10/21 Unknown History tablet aspirin 81 mg tablet,delayed 81 mg PO DAILY 05/07/20 08/10/21 08/10/21 History release (Adult Low Dose Aspirin) buspirone 7.5 mg tablet 7.5 mg PO BID 05/07/20 08/10/21 08/17/21 05:30 History cholecalciferol (vitamin D3) 25 25 mcg PO DAILY 05/07/20 08/10/21 Unknown History mcg (1,000 unit) capsule dicyclomine 20 mg tablet 20 mg PO QID 05/07/20 08/10/21 08/17/21 05:30 History ezetimibe 10 mg tablet (Zetia) 10 mg PO DAILY 05/07/20 08/10/21 Unknown History ferrous sulfate 325 mg (65 mg 325 mg PO DAILY 05/07/20 08/10/21 Unknown History iron) tablet fluticasone propionate 110 2 puff INHALATION BID 05/07/20 08/10/21 Unknown History mcg/actuation HFA aerosol inhaler (Flovent HFA) fluticasone propionate 50 2 spray INTRANASAL DAILY 05/07/20 08/10/21 Unknown History mcg/actuation nasal spray,suspension gabapentin 300 mg capsule 300 mg PO TID 05/07/20 08/10/21 08/17/21 05:30 History (Neurontin) metoprolol succinate 50 mg 50 mg PO DAILY 05/07/20 08/10/21 08/17/21 05:30 History tablet,extended release 24 hr omeprazole 40 mg capsule,delayed 40 mg PO DAILY 05/07/20 08/10/21 08/17/21 05:30 History release simvastatin 20 mg tablet 20 mg PO BEDTIME 05/07/20 08/10/21 Unknown History insulin aspart U-100 100 unit/mL 5 unit SUBCUT TID 04/07/21 08/10/21 Unknown History (3 mL) subcutaneous pen (Novolog Flexpen U-100 Insulin aspart) insulin degludec 100 unit/mL (3 65 unit SUBCUT BEDTIME 08/10/21 08/10/21 Unknown History mL) subcutaneous pen (Tresiba FlexTouch U-100 insulin) magnesium citrate 125 mg capsule 250 mg PO DAILY 08/10/21 08/10/21 Unknown History levothyroxine 125 mcg tablet 250 mcg PO DAILY 08/17/21 08/17/21 08/17/21 05:30 History <Chey Molina NP - Last Filed: 08/17/21 13:54> Physical Exam Vital Signs and Narrative: Vital Signs: Last Vital Signs Temp 97.9 F 08/17/21 11:57 Pulse 68 08/17/21 11:57 Resp 18 08/17/21 11:57 BP 140/76 H 08/17/21 11:57 Pulse Ox 98 08/17/21 11:57 BMI result Body Mass Index 35.9 <Chey Molina NP - Last Filed: 08/17/21 13:54> Appearing in no acute distress, sleepy head is normocephalic atraumatic eyes pupils are PERRLA sclera is anicteric mouth throat mucous membranes are intact and moist neck is supple no lymphadenopathy, no JVD noted lung sounds are clear to auscultation heart regular rate rhythm, clear S1, S2 positive bowel sounds, abdomen is soft, nontender neuro patient is alert x3, no focal deficits surgical dressing in place, surgical wound not visualized <Chey Molina NP - Last Filed: 08/17/21 13:54> Results Labs CBC and Chem 7: : 08/19/21 06:17 08/19/21 06:17 <Chey Molina NP - Last Filed: 08/17/21 13:54> Labs: Laboratory Results - last 24 hr 08/17/21 08/17/21 06:25 06:50 POC Glucose 211 H COVID-19 (TARA) Negative COVID-19 Clin Com See Note <Chey Molina NP - Last Filed: 08/17/21 13:54> Assessment and Plan (1) S/P total hip arthroplasty: Status: Acute <Chey Molina NP - Last Filed: 08/17/21 13:54> Plan 65 yea old women admitted by orthopedic surgery and is status post LTHA Left total hip arthroplasty. Management as per surgical team Pain management Diabetes mellitus Sliding scale, ADA diet Hypothyroidism Continue levothyroxine CAD Continue BB GERD PPI DVT prophyalxis with full dose aspirin Full code <Chey Molina NP - Last Filed: 08/17/21 13:54>
[2021-08-17 16:17] LABS: Glucose, Whole Blood 210 mg/dL (60-115)
[2021-08-17] MEDS: Dicyclomine HCl 10 MG CAPSULE 20 MG PO ×2 (17:22→19:49)
[2021-08-17] MEDS: Gabapentin 300 MG CAPSULE PO ×2 (17:22→19:50)
[2021-08-17] MEDS: Insulin Lispro 100 UNIT/ML 3 ML VIAL SUBCUT ×3 (17:23→21:00)
[2021-08-17] MEDS: oxyCODONE HCl Immed Release 5 MG TABLET 10 MG PO (17:24)
[2021-08-17] MEDS: busPIRone HCl 5 MG TABLET 7.5 MG PO (19:49)
[2021-08-17] MEDS: Celecoxib 200 MG CAPSULE PO (19:50)
[2021-08-17] MEDS: Docusate Sodium 100 MG CAPSULE PO (19:50)
[2021-08-17] MEDS: 0.9 % Sodium Chloride Flush 3 ML SYRINGE IVFLUSH (19:51)
[2021-08-17 20:06] LABS: Glucose, Whole Blood 287 mg/dL (60-115)
[2021-08-17] MEDS: Insulin Glargine,Hum.rec.anlog 100 UNIT/ML 10 ML VIAL 45 UNIT SUBCUT (21:01)
[2021-08-18] VITALS (9 sets, daily range): BP systolic 117–147; BP diastolic 56–66; PULSE 80–98; RESP 17–20; TEMP 36.1–36.7; O2SAT 90–98
[2021-08-18] MEDS: HYDROmorphone HCl 0.5 MG/0.5 ML SYRINGE 0.25 MG IVPUSH ×3 (03:52→16:32)
[2021-08-18] MEDS: Lactated Ringers 1,000 ML 100 ML IVCONT ×2 (04:30→17:06)
[2021-08-18] MEDS: Levothyroxine Sodium 125 MCG TABLET 250 MCG PO (05:40)
[2021-08-18] MEDS: Omeprazole 40 MG CAPSULE.DR PO (05:41)
--- NOTE | 2021-08-18 05:50 | PC.NURSE ---
Pt unable to void with a purewick, voided small amount on an orthe bedpan, still feeling distended, bladder scan =369 ml, Dr. Love was notifed, Staright cath done aseptically and had 800ml out, pt felt relief after.
[2021-08-18 06:19] LABS: MANUAL DIFF FLAG NO
[2021-08-18 06:41] LABS: Basophils Percent Auto 0.5 % (0-2); Eosinophils Absolute Auto 0.1 X10*3/uL (0.0-0.4); Eosinophils Percent Auto 1.4 % (0-4); Hematocrit 33.8 % (37.0-47.0); Hemoglobin 10.5 g/dl (12.0-16.0); Imm Gran Abs Auto 0.06 X10*3/uL (0.00-0.03); Imm Gran Pct Auto 0.7 % (0.0-0.4); Lymphocytes Absolute Auto 1.4 X10*3/uL (1.2-4.9); Lymphocytes Percent Auto 15.2 % (20-40); Mean Corpuscular HGB Conc 31.1 g/dl (31.0-35.0); Mean Corpuscular Hemoglobin 29.6 pg (27.0-33.0); Mean Corpuscular Volume 95.2 fL (80.0-98.0); Monocytes Percent Auto 10.9 % (2-11); Neutrophils Absolute Auto 6.3 x10*3/uL (2.0-8.3); Neutrophils Percent Auto 71.3 % (45-73); Platelet Count 132 X10*3/uL (160-400); Red Blood Count 3.55 X10*6/uL (4.20-5.50); Red Cell Distribution Width 13.1 % (11.0-16.0); White Blood Count 8.9 X10*3/uL (4.8-10.8)
--- NOTE | 2021-08-18 06:49 | HO.POSTANES ---
Post Anesthesia Evaluation Post Anesthesia Evaluation Vital Signs: Vital Signs Temp Pulse Resp BP Pulse Ox 08/18/21 04:00 97.1 F 83 17 147/65 H 97 08/17/21 23:24 97.2 F 70 17 130/58 L 96 08/17/21 19:00 98.7 F 98 18 198/81 H 97 Anesthesia: General Mental Status: Awake Pain Control: Satisfactory Nausea/Vomiting: None Hydration: Adequate Anesthesia-Related Issues: No Anes. Related Issues
[2021-08-18 06:55] LABS: Anion Gap 12 (12-20); Blood Urea Nitrogen 26 mg/dL (9-16); Calcium 8.1 mg/dL (8.4-10.2); Carbon Dioxide 26 mmol/L (22-29); Chloride 106 mmol/L (96-108); Creatinine Clr Calc Pharmacy 51.9; Estimated Glomerular Filt Rate 51; Glucose Fasting 172 mg/dL (60-99); Potassium 4.2 mmol/L (3.3-5.1); Sodium 140 mmol/L (135-145)
[2021-08-18 07:46] LABS: Glucose, Whole Blood 162 mg/dL (60-115)
--- NOTE | 2021-08-18 07:46 | PM.PNORT ---
Subjective Subjective Date of Service: 08/18/21 Interval history: POD1 s/p LT ROMIE patient is resting comfortably in bed. Pain is well managed. No overnight events. No additional complaints. Physical Exam Vital Signs: Vital Signs: Last Vital Signs Temp 97.1 F 08/18/21 07:08 Pulse 86 08/18/21 07:08 Resp 20 08/18/21 07:08 BP 145/66 H 08/18/21 07:08 Pulse Ox 95 08/18/21 07:08 BMI result Body Mass Index 35.9 Const: General: cooperative, healthy appearing and no acute distress Resp: Effort & Inspection: normal respiratory effort and able to speak in complete sentences Cardio: Rate: regular rate Peripheral pulses: Peripheral pulses 2+ throughout GI: Palpation (GI): Soft to palpation Skin: Lesions: no lesions Rashes: no rashes Extrem: Other: Lt hip Aquacel is clean, dry, and intact. Patient is able to dorsiflex and plantarflx. NVI. Procedures Date of Service Date of Service: 08/18/21 Progress Note: A&P Assessment and plan (1) S/P total hip arthroplasty: Status: Acute Plan Continue pain mgmnt Begin ASA for dvt ppx begin PT for LTHA Dispo planning-Pending PT eval, pain mgmnt Time Spent With Patient Time: Total time spent is greater than 50% in coordination of care (as documented) at patient's floor/unit and/or counseling patient: Quality Stroke Does the patient have a stroke diagnosis?: No VTE Prior VTE?: No VTE Risk Level:: Surgical - very high VTE Device Contraindication: N/A - Device Ordered VTE Drug Contraindication: N/A - Med Ordered
[2021-08-18] MEDS: Fluticasone Propionate 100 MCG BLST.W.DEV 2 PUFF INHALE ×2 (08:17→21:10)
[2021-08-18] MEDS: Calcium + Vitamin D 250 MG TABLET 500 MG PO (09:59)
[2021-08-18] MEDS: Gabapentin 300 MG CAPSULE PO ×3 (09:59→21:17)
[2021-08-18] MEDS: Magnesium Oxide 400 MG TABLET 200 MG PO (09:59)
[2021-08-18] MEDS: Celecoxib 200 MG CAPSULE PO ×2 (09:59→21:19)
[2021-08-18] MEDS: Docusate Sodium 100 MG CAPSULE PO ×2 (09:59→21:17)
[2021-08-18] MEDS: Cholecalciferol (Vitamin D3) 25 MCG TABLET PO (10:00)
[2021-08-18] MEDS: Aspirin 325 MG TABLET PO ×2 (10:00→21:17)
[2021-08-18] MEDS: busPIRone HCl 5 MG TABLET 7.5 MG PO ×2 (10:00→21:19)
[2021-08-18] MEDS: Ezetimibe 10 MG TABLET PO (10:00)
[2021-08-18] MEDS: Ferrous Sulfate 324 MG TABLET.DR PO (10:00)
[2021-08-18] MEDS: oxyCODONE HCl ER 10 MG TAB.ER.12H PO ×2 (10:02→21:17)
[2021-08-18] MEDS: Fluticasone Propionate Nasal 16 GM SPRAY 2 SPRAY NOSTRIL-B (10:07)
[2021-08-18] MEDS: Dicyclomine HCl 10 MG CAPSULE 20 MG PO ×4 (10:11→21:17)
[2021-08-18] MEDS: Metoprolol Succinate ER 50 MG TAB.ER.24H PO (10:12)
[2021-08-18] MEDS: Tamsulosin HCL 0.4 MG CAPSULE PO (10:47)
[2021-08-18 11:37] LABS: Glucose, Whole Blood 176 mg/dL (60-115)
--- NOTE | 2021-08-18 12:10 | MHC.CM.PN ---
Addendum entered by Brenda Donis 08/18/21 14:49: no bed avaiability at the following facitlites [facility] , [facility], [facility], [facility], [facility], [facility] reviewing Original Note: nurse disease case manager rn note electronic medical record reviewed , met with patient she lives with her and uses a walker at home also has cane available . she reported her is her health care proxy requested copy to be brought to the hospitva , she recived the covid vacination x4 patient reported she has had a history of bipolar but has no longer seening a psychiatrist or therapist and has not been on any medications , she has had noio inpatient psych stays, she has no vna , no dme services. evaluated by physical therapy and ot both recomending short term rehab, patients first choice would be [facility] or [facility], if not available she would like to know what her other choices are. referrals to her [facility] choice s and other sent . discharge plan- str s/p ltha' will need less than 30 day length of stay order requested copy of hcp covid vac x3 transportation action bls
[2021-08-18] MEDS: Insulin Lispro 100 UNIT/ML 3 ML VIAL SUBCUT ×3 (12:35→21:20)
--- NOTE | 2021-08-18 13:01 | MHC.CLN ---
NUTRITION CHANGED DIET TO DIABETIC 1800 KCALS. PATIENT WITH DX DM AND TAKES INSULIN.
[2021-08-18 15:50] LABS: Glucose, Whole Blood 162 mg/dL (60-115)
[2021-08-18 19:59] LABS: Glucose, Whole Blood 177 mg/dL (60-115)
[2021-08-18] MEDS: Insulin Glargine,Hum.rec.anlog 100 UNIT/ML 10 ML VIAL 45 UNIT SUBCUT (21:19)
[2021-08-19] VITALS (10 sets, daily range): BP systolic 100–134; BP diastolic 49–65; PULSE 72–96; RESP 16–20; TEMP 36.1–37.3; O2SAT 91–98
--- NOTE | 2021-08-19 02:16 | PC.NURSE ---
when checking midnight vs. dumper called to my attention that pts o2 sats was 88 percent. whe asked pt to cough and D/B WHEN THAT DIDNT WORK and oxygen was still only 90 % we asked pt to use incentive spirometer. and she was able to come up to 94 percent. about 2 hours later pt was upset because she felt someone came to room and it was dark and she got little upset. nursing super. came and spoke with pts. we place sign on door so in future no one come with out lights on.
[2021-08-19 03:10] LABS: Glucose, Whole Blood 118 mg/dL (60-115)
[2021-08-19] MEDS: oxyCODONE HCl Immed Release 5 MG TABLET 10 MG PO ×4 (03:40→20:18)
[2021-08-19] MEDS: Levothyroxine Sodium 125 MCG TABLET 250 MCG PO (05:01)
[2021-08-19] MEDS: Omeprazole 40 MG CAPSULE.DR PO (05:02)
[2021-08-19] MEDS: HYDROmorphone HCl 0.5 MG/0.5 ML SYRINGE 0.25 MG IVPUSH (05:11)
[2021-08-19 06:38] LABS: MANUAL DIFF FLAG NO
[2021-08-19 06:52] LABS: Basophils Absolute Auto 0.1 X10*3/uL (0.0-0.2); Basophils Percent Auto 0.7 % (0-2); Eosinophils Absolute Auto 0.2 X10*3/uL (0.0-0.4); Eosinophils Percent Auto 3.2 % (0-4); Hematocrit 34.8 % (37.0-47.0); Hemoglobin 10.4 g/dl (12.0-16.0); Imm Gran Abs Auto 0.03 X10*3/uL (0.00-0.03); Imm Gran Pct Auto 0.4 % (0.0-0.4); Lymphocytes Absolute Auto 1.2 X10*3/uL (1.2-4.9); Lymphocytes Percent Auto 16.7 % (20-40); Mean Corpuscular HGB Conc 29.9 g/dl (31.0-35.0); Mean Corpuscular Hemoglobin 29.1 pg (27.0-33.0); Mean Corpuscular Volume 97.5 fL (80.0-98.0); Mean Platelet Volume 11.2 fL (9.4-12.3); Monocytes Absolute Auto 0.9 X10*3/uL (0.1-1.2); Monocytes Percent Auto 12.1 % (2-11); Neutrophils Absolute Auto 4.9 x10*3/uL (2.0-8.3); Neutrophils Percent Auto 66.9 % (45-73); Platelet Count 117 X10*3/uL (160-400); Red Blood Count 3.57 X10*6/uL (4.20-5.50); Red Cell Distribution Width 13.2 % (11.0-16.0); White Blood Count 7.3 X10*3/uL (4.8-10.8)
--- NOTE | 2021-08-19 07:06 | P.PNIM_ITS ---
Subjective Subjective Date of Service: 08/19/21 Interval History: hip sx Review of Systems still has hip soarness Denies any chest pain or shortness of breath or abdominal pain or fever or chills Physical Exam Vital Signs: Vital Signs: Last Vital Signs vital reviewed from yesterday. BMI result Body Mass Index 35.9 Appearance: Alert.? Oriented X3.? not in distress.? cvs: [id number], [id number] , no murmur res: clear to auscultation ,no rhonchii or wheezing abd: no rebound or guarding ,nt, bs present. ext pulses present , no cyanosis , left hip soarness. neuro: axo3 , nonfocal. Objective Data Active Medications Acetaminophen (Acetaminophen 325 Mg Tablet) 650 mg PO Q6H PRN PRN Reason: Pain, Mild (Pain Scale 1-3) Aspirin (Aspirin 325 Mg Tablet) 325 mg PO BID [facility] Last Admin: 08/18/21 21:17 Dose: 325 mg Documented by: STARR Buspirone HCl (Buspirone Hcl 5 Mg Tablet) 7.5 mg PO BID [facility] Last Admin: 08/18/21 21:19 Dose: 7.5 mg Documented by: STARR Calcium Carbonate/Cholecalciferol (Calcium + Vitamin D 250 Mg Tablet) 500 mg PO DAILY [facility] Last Admin: 08/18/21 09:59 Dose: 500 mg Documented by: JEREMI Celecoxib (Celecoxib 200 Mg Capsule) 200 mg PO BID [facility] Last Admin: 08/18/21 21:19 Dose: 200 mg Documented by: STARR Dextrose (Dextrose 50 % 25 Gm/50 Ml Syringe) 25 gm IVPUSH Q15M PRN; Protocol PRN Reason: per Hypoglycemia Standing Ord. Dicyclomine HCl (Dicyclomine Hcl 10 Mg Capsule) 20 mg PO QID [facility] Last Admin: 08/18/21 21:17 Dose: 20 mg Documented by: STARR Docusate Sodium (Docusate Sodium 100 Mg Capsule) 100 mg PO BID [facility] Last Admin: 08/18/21 21:17 Dose: 100 mg Documented by: STARR Ezetimibe (Ezetimibe 10 Mg Tablet) 10 mg PO DAILY [facility] Last Admin: 08/18/21 10:00 Dose: 10 mg Documented by: JEREMI Ferrous Sulfate (Ferrous Sulfate 324 Mg Tablet.) 324 mg PO DAILY [facility] Last Admin: 08/18/21 10:00 Dose: 324 mg Documented by: JEREMI Fluticasone Propionate (Fluticasone Propionate 100 Mcg Blst.W.Dev) 2 puff INHALE RBID [facility] Last Admin: 08/18/21 21:10 Dose: 2 puff Documented by: JEROD Fluticasone Propionate (Fluticasone Propionate Nasal 16 Gm [place]) 2 spray NOSTRIL-B DAILY [facility] Last Admin: 08/18/21 10:07 Dose: 2 spray Documented by: JEREMI Gabapentin (Gabapentin 300 Mg Capsule) 300 mg PO TID [facility] Last Admin: 08/18/21 21:17 Dose: 300 mg Documented by: STARR Glucose (Glucose Gel 15 Gm Gel..Gram.) 15 gm PO Q15M PRN; Protocol PRN Reason: per Hypoglycemia Standing Ord. Hydromorphone HCl (Hydromorphone Hcl 0.5 Mg/0.5 Ml Syringe) 0.25 mg IVPUSH Q4H PRN; Protocol PRN Reason: Pain, Severe (Pain Scale 7-10) Last Admin: 08/19/21 05:11 Dose: 0.25 mg Documented by: STARR Insulin Glargine (Insulin Glargine,Hum.Rec.Anlog 100 Unit/Ml 10 Ml Vial) 45 unit SUBCUT BEDTIME [facility] Last Admin: 08/18/21 21:19 Dose: 45 unit Documented by: STARR Insulin Human Lispro (Insulin Lispro 100 Unit/Ml 3 Ml Vial) 5 unit SUBCUT TIDAC [facility] Last Admin: 08/18/21 17:06 Dose: Not Given Documented by: STARR Non-Admin Reason: pt refused Insulin Human Lispro (Insulin Lispro 100 Unit/Ml 3 Ml Vial) 0 unit SUBCUT QIDACHS [facility]; Protocol Last Admin: 08/18/21 21:20 Dose: 2 unit Documented by: STARR Levothyroxine Sodium (Levothyroxine Sodium 125 Mcg Tablet) 250 mcg PO DAILY@0600 [facility] Last Admin: 08/19/21 05:01 Dose: 250 mcg Documented by: STARR Magnesium Oxide (Magnesium Oxide 400 Mg Tablet) 200 mg PO DAILY [facility] Last Admin: 08/18/21 09:59 Dose: 200 mg Documented by: JEREMI Metoprolol Succinate (Metoprolol Succinate Er 50 Mg Tab.Er.24h) 50 mg PO DAILY [facility]; Protocol Last Admin: 08/18/21 10:12 Dose: 50 mg Documented by: JEREMI Nitroglycerin (Nitroglycerin 0.4 Mg Tab.Subl) 0.4 mg SUBLINGUAL Q5M PRN PRN Reason: chest pain Omeprazole (Omeprazole 40 Mg Capsule.Dr) 40 mg PO DAILY@0630 [facility] Last Admin: 08/19/21 05:02 Dose: 40 mg Documented by: STARR Ondansetron HCl (Ondansetron Hcl 4 Mg/2 Ml Vial) 4 mg IVPUSH Q8H PRN PRN Reason: Nausea and Vomiting Oxycodone HCl (Oxycodone Hcl Immed Release 5 Mg Tablet) 10 mg PO Q4H PRN PRN Reason: Pain, Moderate (Pain Scale 4-6 Last Admin: 08/19/21 03:40 Dose: 10 mg Documented by: STARR Oxycodone HCl (Oxycodone Hcl Er 10 Mg Tab.Er.12h) 10 mg PO BID [facility] Last Admin: 08/18/21 21:17 Dose: 10 mg Documented by: STARR Sodium Chloride (0.9 % Sodium Chloride Flush 3 Ml Syringe) 3 ml IVFLUSH QSHIFT [facility] Last Admin: 08/19/21 00:34 Dose: Not Given Documented by: STARR Non-Admin Reason: IV Running Tamsulosin HCl (Tamsulosin Hcl 0.4 Mg Capsule) 0.4 mg PO DAILY [facility] Last Admin: 08/18/21 10:47 Dose: 0.4 mg Documented by: JEREMI Vitamin D (Cholecalciferol (Vitamin D3) 25 Mcg Tablet) 25 mcg PO DAILY [facility] Last Admin: 08/18/21 10:00 Dose: 25 mcg Documented by: JEREMI Labs CBC & Chem 7: 08/19/21 06:17 08/19/21 06:17 Labs: Laboratory Results - last 24 hr 08/18/21 08/18/21 08/18/21 07:11 11:27 15:17 MCV MCH MCHC RDW Plt Count MPV Immature Gran % (Auto) Neut % (Auto) Lymph % (Auto) [place] % (Auto) Eos % (Auto) Baso % (Auto) Lymph # (Auto) [place] # (Auto) Eos # (Auto) Baso # (Auto) Abs Immat Gran (auto) Absolute Neuts (auto) Absolute Nucleated RBC Nucleated RBC % (auto) POC Glucose 162 H 176 H 162 H 08/18/21 08/19/21 08/19/21 19:19 03:05 06:17 MCV 97.5 MCH 29.1 MCHC 29.9 L RDW 13.2 Plt Count 117 L MPV 11.2 Immature Gran % (Auto) 0.4 Neut % (Auto) 66.9 Lymph % (Auto) 16.7 L [place] % (Auto) 12.1 H Eos % (Auto) 3.2 Baso % (Auto) 0.7 Lymph # (Auto) 1.2 [place] # (Auto) 0.9 Eos # (Auto) 0.2 Baso # (Auto) 0.1 Abs Immat Gran (auto) 0.03 Absolute Neuts (auto) 4.9 Absolute Nucleated RBC 0.000 Nucleated RBC % (auto) 0.0 POC Glucose 177 H 118 H Assessment and Plan (1) S/P total hip arthroplasty: Status: Acute (2) Type 2 diabetes mellitus with unspecified complications: Status: Acute Plan 65 yea old women admitted by orthopedic surgery and is status post LTHA Left total hip arthroplasty. Management as per surgical team Pain management Diabetes mellitus: fs 120-180 Sliding scale, ADA diet Hypothyroidism Continue levothyroxine CAD Continue BB GERD PPI DVT prophyalxis with full dose aspirin Full code inpatient need :left hip arthroplasty Quality Stroke Does the patient have a stroke diagnosis?: No VTE Prior VTE?: No VTE Risk Level:: Surgical - very high VTE Device Contraindication: N/A - Device Ordered VTE Drug Contraindication: N/A - Med Ordered
[2021-08-19 07:10] LABS: Anion Gap 12 (12-20); Blood Urea Nitrogen 24 mg/dL (9-16); Calcium 8.2 mg/dL (8.4-10.2); Carbon Dioxide 24 mmol/L (22-29); Chloride 106 mmol/L (96-108); Creatinine Clr Calc Pharmacy 53.9; Estimated Glomerular Filt Rate 53; Glucose Fasting 86 mg/dL (60-99); Potassium 4.3 mmol/L (3.3-5.1); Sodium 138 mmol/L (135-145)
[2021-08-19 07:53] LABS: Glucose, Whole Blood 69 mg/dL (60-115)
--- NOTE | 2021-08-19 07:58 | P.PNIM_ITS ---
Subjective Subjective Date of Service: 08/19/21 Interval History: hip surgery Review of Systems still has hip soarness Denies any chest pain or shortness of breath or abdominal pain or fever or chills Physical Exam Vital Signs: Vital Signs: Last Vital Signs Temp 97 F 08/19/21 07:41 Pulse 89 08/19/21 07:41 Resp 17 08/19/21 07:41 BP 134/65 08/19/21 07:41 Pulse Ox 98 08/19/21 07:41 BMI result Body Mass Index 35.9 Appearance: Alert.? Oriented X3.? not in distress.? cvs: rrr, [id number] , no murmur res: clear to auscultation ,no rhonchii or wheezing abd: no rebound or guarding ,nt, bs present. ext pulses present , no cyanosis , left hip soarness. neuro: axo3 , nonfocal. Objective Data Active Medications Acetaminophen (Acetaminophen 325 Mg Tablet) 650 mg PO Q6H PRN PRN Reason: Pain, Mild (Pain Scale 1-3) Aspirin (Aspirin 325 Mg Tablet) 325 mg PO BID [facility] Last Admin: 08/18/21 21:17 Dose: 325 mg Documented by: STARR Buspirone HCl (Buspirone Hcl 5 Mg Tablet) 7.5 mg PO BID [facility] Last Admin: 08/18/21 21:19 Dose: 7.5 mg Documented by: STARR Calcium Carbonate/Cholecalciferol (Calcium + Vitamin D 250 Mg Tablet) 500 mg PO DAILY [facility] Last Admin: 08/18/21 09:59 Dose: 500 mg Documented by: JEREMI Celecoxib (Celecoxib 200 Mg Capsule) 200 mg PO BID [facility] Last Admin: 08/18/21 21:19 Dose: 200 mg Documented by: STARR Dextrose (Dextrose 50 % 25 Gm/50 Ml Syringe) 25 gm IVPUSH Q15M PRN; Protocol PRN Reason: per Hypoglycemia Standing Ord. Dicyclomine HCl (Dicyclomine Hcl 10 Mg Capsule) 20 mg PO QID [facility] Last Admin: 08/18/21 21:17 Dose: 20 mg Documented by: STARR Docusate Sodium (Docusate Sodium 100 Mg Capsule) 100 mg PO BID [facility] Last Admin: 08/18/21 21:17 Dose: 100 mg Documented by: STARR Ezetimibe (Ezetimibe 10 Mg Tablet) 10 mg PO DAILY [facility] Last Admin: 08/18/21 10:00 Dose: 10 mg Documented by: JEREMI Ferrous Sulfate (Ferrous Sulfate 324 Mg Tablet.Dr) 324 mg PO DAILY [facility] Last Admin: 08/18/21 10:00 Dose: 324 mg Documented by: JEREMI Fluticasone Propionate (Fluticasone Propionate 100 Mcg Blst.W.Dev) 2 puff INHALE RBID [facility] Last Admin: 08/18/21 21:10 Dose: 2 puff Documented by: JEROD Fluticasone Propionate (Fluticasone Propionate Nasal 16 Gm [place]) 2 spray NOSTRIL-B DAILY [facility] Last Admin: 08/18/21 10:07 Dose: 2 spray Documented by: JEREMI Gabapentin (Gabapentin 300 Mg Capsule) 300 mg PO TID [facility] Last Admin: 08/18/21 21:17 Dose: 300 mg Documented by: STARR Glucose (Glucose Gel 15 Gm Gel..Gram.) 15 gm PO Q15M PRN; Protocol PRN Reason: per Hypoglycemia Standing Ord. Hydromorphone HCl (Hydromorphone Hcl 0.5 Mg/0.5 Ml Syringe) 0.25 mg IVPUSH Q4H PRN; Protocol PRN Reason: Pain, Severe (Pain Scale 7-10) Last Admin: 08/19/21 05:11 Dose: 0.25 mg Documented by: STARR Insulin Glargine (Insulin Glargine,Hum.Rec.Anlog 100 Unit/Ml 10 Ml Vial) 45 unit SUBCUT BEDTIME [facility] Last Admin: 08/18/21 21:19 Dose: 45 unit Documented by: STARR Insulin Human Lispro (Insulin Lispro 100 Unit/Ml 3 Ml Vial) 5 unit SUBCUT TIDAC [facility] Last Admin: 08/19/21 07:55 Dose: Not Given Documented by: FALGUNI Non-Admin Reason: No Insulin Coverage Insulin Human Lispro (Insulin Lispro 100 Unit/Ml 3 Ml Vial) 0 unit SUBCUT QIDACHS [facility]; Protocol Last Admin: 08/19/21 07:56 Dose: Not Given Documented by: FALGUNI Non-Admin Reason: No Insulin Coverage Levothyroxine Sodium (Levothyroxine Sodium 125 Mcg Tablet) 250 mcg PO DAILY@0600 [facility] Last Admin: 08/19/21 05:01 Dose: 250 mcg Documented by: STARR Magnesium Oxide (Magnesium Oxide 400 Mg Tablet) 200 mg PO DAILY [facility] Last Admin: 08/18/21 09:59 Dose: 200 mg Documented by: JEREMI Metoprolol Succinate (Metoprolol Succinate Er 50 Mg Tab.Er.24h) 50 mg PO DAILY [facility]; Protocol Last Admin: 08/18/21 10:12 Dose: 50 mg Documented by: JEREMI Nitroglycerin (Nitroglycerin 0.4 Mg Tab.Subl) 0.4 mg SUBLINGUAL Q5M PRN PRN Reason: chest pain Omeprazole (Omeprazole 40 Mg Capsule.Dr) 40 mg PO DAILY@0630 [facility] Last Admin: 08/19/21 05:02 Dose: 40 mg Documented by: STARR Ondansetron HCl (Ondansetron Hcl 4 Mg/2 Ml Vial) 4 mg IVPUSH Q8H PRN PRN Reason: Nausea and Vomiting Oxycodone HCl (Oxycodone Hcl Immed Release 5 Mg Tablet) 10 mg PO Q4H PRN PRN Reason: Pain, Moderate (Pain Scale 4-6 Last Admin: 08/19/21 03:40 Dose: 10 mg Documented by: STARR Oxycodone HCl (Oxycodone Hcl Er 10 Mg Tab.Er.12h) 10 mg PO BID [facility] Last Admin: 08/18/21 21:17 Dose: 10 mg Documented by: STARR Sodium Chloride (0.9 % Sodium Chloride Flush 3 Ml Syringe) 3 ml IVFLUSH QSHIFT [facility] Last Admin: 08/19/21 00:34 Dose: Not Given Documented by: STARR Non-Admin Reason: IV Running Tamsulosin HCl (Tamsulosin Hcl 0.4 Mg Capsule) 0.4 mg PO DAILY [facility] Last Admin: 08/18/21 10:47 Dose: 0.4 mg Documented by: JEREMI Vitamin D (Cholecalciferol (Vitamin D3) 25 Mcg Tablet) 25 mcg PO DAILY [facility] Last Admin: 08/18/21 10:00 Dose: 25 mcg Documented by: JEREMI Labs CBC & Chem 7: 08/19/21 06:17 08/19/21 06:17 Labs: Laboratory Results - last 24 hr 08/18/21 08/18/21 08/18/21 11:27 15:17 19:19 MCV MCH MCHC RDW Plt Count MPV Immature Gran % (Auto) Neut % (Auto) Lymph % (Auto) [place] % (Auto) Eos % (Auto) Baso % (Auto) Lymph # (Auto) [place] # (Auto) Eos # (Auto) Baso # (Auto) Abs Immat Gran (auto) Absolute Neuts (auto) Absolute Nucleated RBC Nucleated RBC % (auto) Anion Gap Estim Creat Clear Calc Estimated GFR POC Glucose 176 H 162 H 177 H Fasting Glucose Calcium 08/19/21 08/19/21 08/19/21 03:05 06:17 06:17 MCV 97.5 MCH 29.1 MCHC 29.9 L RDW 13.2 Plt Count 117 L MPV 11.2 Immature Gran % (Auto) 0.4 Neut % (Auto) 66.9 Lymph % (Auto) 16.7 L [place] % (Auto) 12.1 H Eos % (Auto) 3.2 Baso % (Auto) 0.7 Lymph # (Auto) 1.2 [place] # (Auto) 0.9 Eos # (Auto) 0.2 Baso # (Auto) 0.1 Abs Immat Gran (auto) 0.03 Absolute Neuts (auto) 4.9 Absolute Nucleated RBC 0.000 Nucleated RBC % (auto) 0.0 Anion Gap 12 Estim Creat Clear Calc 53.9 Estimated GFR 53 POC Glucose 118 H Fasting Glucose 86 Calcium 8.2 L 08/19/21 07:44 MCV MCH MCHC RDW Plt Count MPV Immature Gran % (Auto) Neut % (Auto) Lymph % (Auto) [place] % (Auto) Eos % (Auto) Baso % (Auto) Lymph # (Auto) [place] # (Auto) Eos # (Auto) Baso # (Auto) Abs Immat Gran (auto) Absolute Neuts (auto) Absolute Nucleated RBC Nucleated RBC % (auto) Anion Gap Estim Creat Clear Calc Estimated GFR POC Glucose 69 Fasting Glucose Calcium Assessment and Plan (1) S/P total hip arthroplasty: Status: Acute (2) Type 2 diabetes mellitus with unspecified complications: Status: Acute Plan 65 yea old women admitted by orthopedic surgery and is status post LTHA Left total hip arthroplasty. Management as per surgical team Pain management Diabetes mellitus: fs 120-180 Sliding scale, ADA diet Hypothyroidism Continue levothyroxine CAD Continue BB GERD PPI asthma hx: continue home meds incentive spirometry, chest physiotherapy, nebs, taper down oxygen. DVT prophyalxis with full dose aspirin Full code inpatient need :left hip arthroplasty Quality Stroke Does the patient have a stroke diagnosis?: No VTE Prior VTE?: No VTE Risk Level:: Surgical - very high VTE Device Contraindication: N/A - Device Ordered VTE Drug Contraindication: N/A - Med Ordered
[2021-08-19] MEDS: Celecoxib 200 MG CAPSULE PO ×2 (08:24→20:18)
[2021-08-19] MEDS: Calcium + Vitamin D 250 MG TABLET 500 MG PO (08:25)
[2021-08-19] MEDS: Aspirin 325 MG TABLET PO ×2 (08:25→20:16)
[2021-08-19] MEDS: Dicyclomine HCl 10 MG CAPSULE 20 MG PO ×4 (08:25→20:17)
[2021-08-19] MEDS: Metoprolol Succinate ER 50 MG TAB.ER.24H PO (08:25)
[2021-08-19] MEDS: Cholecalciferol (Vitamin D3) 25 MCG TABLET PO (08:25)
[2021-08-19] MEDS: Gabapentin 300 MG CAPSULE PO ×3 (08:26→20:17)
[2021-08-19] MEDS: Magnesium Oxide 400 MG TABLET 200 MG PO (08:26)
[2021-08-19] MEDS: Docusate Sodium 100 MG CAPSULE PO ×2 (08:26→20:18)
[2021-08-19] MEDS: oxyCODONE HCl ER 10 MG TAB.ER.12H PO ×2 (08:26→21:52)
[2021-08-19] MEDS: Tamsulosin HCL 0.4 MG CAPSULE PO (08:26)
[2021-08-19] MEDS: Ezetimibe 10 MG TABLET PO (08:26)
[2021-08-19] MEDS: Ferrous Sulfate 324 MG TABLET.DR PO (08:27)
[2021-08-19] MEDS: busPIRone HCl 5 MG TABLET 7.5 MG PO ×2 (08:27→20:17)
[2021-08-19] MEDS: 0.9 % Sodium Chloride Flush 3 ML SYRINGE IVFLUSH ×3 (08:30→21:57)
[2021-08-19] MEDS: Fluticasone Propionate 100 MCG BLST.W.DEV 2 PUFF INHALE ×2 (08:40→20:20)
[2021-08-19 09:42] LABS: Glucose, Whole Blood 96 mg/dL (60-115)
[2021-08-19] MEDS: Fluticasone Propionate Nasal 16 GM SPRAY 2 SPRAY NOSTRIL-B (10:31)
--- NOTE | 2021-08-19 10:40 | P.CDIC_ITS ---
CDI Concurrent Query Documentation Clarification: PHYSICIAN'S DOCUMENTATION REQUEST Date of Query: 08/19/21 1041 Patient Name: Lynda Horvath Admit Date: 08/17/21 Dear Doctor, A review of the medical record indicates additional documentation may be needed. Please review below and update the documentation accordingly. Clinical Indicators: Risk Factors/Clinical Indicators/Treatments Per MD progress note 08/18/21: Diabetes mellitus: finger stick 120-180 Sliding scale, ADA diet Please clarify the following regarding Diabetes Mellitus (DM): Complications of DM: * Hyperglycemia * No complications of DM * Other complication ? please specify * Unable to determine Use of terms such as suspected, likely, concern for, or probable (associated with a specific diagnosis that is being evaluated, monitored, or treated as if it exists) are acceptable and can be coded in the inpatient setting, when documented at the time of discharge. Thank you, Tiara Alarcon RN Extension: [phone] Please use your independent medical judgment in providing your response. THIS QUERY IS PART OF THE PERMANENT MEDICAL RECORD Provider Response: Other (No complications of DM) Other Diagnosis: No complications of DM
[2021-08-19 11:19] LABS: COVID-19 Test Negative (Negative); IDNOW Serial# 16C4AD1C
[2021-08-19 11:29] LABS: Glucose, Whole Blood 103 mg/dL (60-115)
--- NOTE | 2021-08-19 11:56 | PC.NURSE ---
patient ambulated to bathroom,was not able to void,bladder scanned for 181 ml,no abd discomfort reported.
[2021-08-19] MEDS: Albuterol/Iprat 2.5/0.5MG 3 ML AMPUL.NEB INHALE ×2 (15:49→20:20)
[2021-08-19 15:56] LABS: Glucose, Whole Blood 188 mg/dL (60-115)
[2021-08-19] MEDS: Insulin Lispro 100 UNIT/ML 3 ML VIAL SUBCUT ×2 (17:39→21:52)
[2021-08-19 20:50] LABS: Glucose, Whole Blood 170 mg/dL (60-115)
[2021-08-19] MEDS: Insulin Glargine,Hum.rec.anlog 100 UNIT/ML 10 ML VIAL 45 UNIT SUBCUT (21:52)
[2021-08-20] VITALS (14 sets, daily range): BP systolic 105–138; BP diastolic 52–74; PULSE 74–96; RESP 16–18; TEMP 36–36.7; O2SAT 85–97
[2021-08-20] MEDS: oxyCODONE HCl Immed Release 5 MG TABLET 10 MG PO ×3 (04:36→16:17)
[2021-08-20] MEDS: Levothyroxine Sodium 125 MCG TABLET 250 MCG PO (05:42)
[2021-08-20] MEDS: Omeprazole 40 MG CAPSULE.DR PO (05:42)
--- NOTE | 2021-08-20 06:16 | PC.NURSE ---
pt around 4 am got frightening because patient across the [place] was yelling. she was afraid to stay alone in room and we had her ouside sitting in recliner. after little while she felt better and we brought her back to her room.She had no coplaints after that.
[2021-08-20 06:17] LABS: MANUAL DIFF FLAG NO
[2021-08-20 06:24] LABS: Basophils Percent Auto 0.5 % (0-2); Eosinophils Absolute Auto 0.3 X10*3/uL (0.0-0.4); Eosinophils Percent Auto 4.6 % (0-4); Hematocrit 30.4 % (37.0-47.0); Hemoglobin 9.2 g/dl (12.0-16.0); Imm Gran Abs Auto 0.02 X10*3/uL (0.00-0.03); Imm Gran Pct Auto 0.4 % (0.0-0.4); Lymphocytes Absolute Auto 0.8 X10*3/uL (1.2-4.9); Lymphocytes Percent Auto 13.8 % (20-40); Mean Corpuscular HGB Conc 30.3 g/dl (31.0-35.0); Mean Corpuscular Hemoglobin 29.4 pg (27.0-33.0); Mean Corpuscular Volume 97.1 fL (80.0-98.0); Mean Platelet Volume 11.3 fL (9.4-12.3); Monocytes Absolute Auto 0.6 X10*3/uL (0.1-1.2); Monocytes Percent Auto 10.6 % (2-11); Neutrophils Percent Auto 70.1 % (45-73); Platelet Count 126 X10*3/uL (160-400); Red Blood Count 3.13 X10*6/uL (4.20-5.50); Red Cell Distribution Width 13.2 % (11.0-16.0); White Blood Count 5.7 X10*3/uL (4.8-10.8)
[2021-08-20 06:49] LABS: Anion Gap 12 (12-20); Blood Urea Nitrogen 28 mg/dL (9-16); Calcium 8.3 mg/dL (8.4-10.2); Carbon Dioxide 26 mmol/L (22-29); Chloride 106 mmol/L (96-108); Creatinine Clr Calc Pharmacy 53.4; Estimated Glomerular Filt Rate 52; Glucose Fasting 207 mg/dL (60-99); Potassium 4.4 mmol/L (3.3-5.1); Sodium 140 mmol/L (135-145)
[2021-08-20] MEDS: Fluticasone Propionate 100 MCG BLST.W.DEV 2 PUFF INHALE ×2 (07:41→20:49)
[2021-08-20] MEDS: Albuterol/Iprat 2.5/0.5MG 3 ML AMPUL.NEB INHALE ×4 (07:41→20:49)
[2021-08-20 07:45] LABS: Glucose, Whole Blood 182 mg/dL (60-115)
[2021-08-20] MEDS: Insulin Lispro 100 UNIT/ML 3 ML VIAL SUBCUT ×5 (07:54→20:03)
[2021-08-20] MEDS: 0.9 % Sodium Chloride Flush 3 ML SYRINGE IVFLUSH ×3 (07:55→19:41)
[2021-08-20] MEDS: Calcium + Vitamin D 250 MG TABLET 500 MG PO (07:55)
[2021-08-20] MEDS: Ferrous Sulfate 324 MG TABLET.DR PO (07:56)
[2021-08-20] MEDS: Celecoxib 200 MG CAPSULE PO ×2 (07:56→19:40)
[2021-08-20] MEDS: Gabapentin 300 MG CAPSULE PO ×3 (07:56→19:40)
[2021-08-20] MEDS: Aspirin 325 MG TABLET PO ×2 (07:56→19:41)
[2021-08-20] MEDS: Tamsulosin HCL 0.4 MG CAPSULE PO (07:56)
[2021-08-20] MEDS: Metoprolol Succinate ER 50 MG TAB.ER.24H PO (07:56)
[2021-08-20] MEDS: Docusate Sodium 100 MG CAPSULE PO ×2 (07:56→19:41)
[2021-08-20] MEDS: Cholecalciferol (Vitamin D3) 25 MCG TABLET PO (07:56)
[2021-08-20] MEDS: Ezetimibe 10 MG TABLET PO (07:56)
[2021-08-20] MEDS: Dicyclomine HCl 10 MG CAPSULE 20 MG PO ×4 (07:57→19:40)
[2021-08-20] MEDS: Magnesium Oxide 400 MG TABLET 200 MG PO (07:57)
[2021-08-20] MEDS: busPIRone HCl 5 MG TABLET 7.5 MG PO ×2 (07:58→19:38)
[2021-08-20] MEDS: oxyCODONE HCl ER 10 MG TAB.ER.12H PO ×2 (09:30→19:39)
[2021-08-20] MEDS: Fluticasone Propionate Nasal 16 GM SPRAY 2 SPRAY NOSTRIL-B (09:31)
[2021-08-20 11:25] LABS: Glucose, Whole Blood 196 mg/dL (60-115)
--- NOTE | 2021-08-20 13:41 | HO.PM.IMPN ---
Subjective Subjective Date of Service: 08/21/21 Interval History: hip surgery,atelactasis Review of Systems still has hip soarness Denies any chest pain or shortness of breath or abdominal pain or fever or chills Physical Exam Vital Signs: Vital Signs: Last Vital Signs Temp 96.8 F 08/20/21 12:00 Pulse 74 08/20/21 12:00 Resp 18 08/20/21 12:00 BP 105/52 L 08/20/21 12:00 Pulse Ox 96 08/20/21 12:00 BMI result Body Mass Index 35.9 ? Appearance: Alert.? Oriented X3.? not in distress.? cvs: rrr, [id number] , no murmur res: clear to auscultation ,no rhonchii or wheezing abd: no rebound or guarding ,nt, bs present. ext pulses present , no cyanosis , left hip soarness. neuro: axo3 , nonfocal Objective Data Active Medications Acetaminophen (Acetaminophen 325 Mg Tablet) 650 mg PO Q6H PRN PRN Reason: Pain, Mild (Pain Scale 1-3) Albuterol/Ipratropium (Albuterol/Iprat 2.5/0.5mg 3 Ml Ampul.Neb) 3 ml INHALE RQ4H WHILE AWAKE COUNT INCLUDES [facility] Last Admin: 08/20/21 11:20 Dose: 3 ml Documented by: ELLEN Aspirin (Aspirin 325 Mg Tablet) 325 mg PO BID [facility]CLUD[facility] Last Admin: 08/20/21 07:56 Dose: 325 mg Documented by: DARIEN Buspirone HCl (Buspirone Hcl 5 Mg Tablet) 7.5 mg PO BID [facility] Last Admin: 08/20/21 07:58 Dose: 7.5 mg Documented by: DARIEN Calcium Carbonate/Cholecalciferol (Calcium + Vitamin D 250 Mg Tablet) 500 mg PO DAILY [facility] Last Admin: 08/20/21 07:55 Dose: 500 mg Documented by: DARIEN Celecoxib (Celecoxib 200 Mg Capsule) 200 mg PO BID [facility]CLUD[facility] Last Admin: 08/20/21 07:56 Dose: 200 mg Documented by: DARIEN Dextrose (Dextrose 50 % 25 Gm/50 Ml Syringe) 25 gm IVPUSH Q15M PRN; Protocol PRN Reason: per Hypoglycemia Standing Ord. Dicyclomine HCl (Dicyclomine Hcl 10 Mg Capsule) 20 mg PO QID [facility] Last Admin: 08/20/21 07:57 Dose: 20 mg Documented by: DARIEN Docusate Sodium (Docusate Sodium 100 Mg Capsule) 100 mg PO BID COUNT [facility] Last Admin: 08/20/21 07:56 Dose: 100 mg Documented by: DARIEN Ezetimibe (Ezetimibe 10 Mg Tablet) 10 mg PO DAILY COUNT [facility] Last Admin: 08/20/21 07:56 Dose: 10 mg Documented by: DARIEN Ferrous Sulfate (Ferrous Sulfate 324 Mg Tablet.Dr) 324 mg PO DAILY COUNT [facility]CLUD[facility] Last Admin: 08/20/21 07:56 Dose: 324 mg Documented by: DARIEN Fluticasone Propionate (Fluticasone Propionate 100 Mcg Blst.W.Dev) 2 puff INHALE RBID COUNT INCLUDES [facility] Last Admin: 08/20/21 07:41 Dose: 2 puff Documented by: BLAANGELITO Fluticasone Propionate (Fluticasone Propionate Nasal 16 Gm Dairy) 2 spray NOSTRIL-B DAILY COUNT [facility]CLUDES [facility] Last Admin: 08/20/21 09:31 Dose: 2 spray Documented by: DARIEN Gabapentin (Gabapentin 300 Mg Capsule) 300 mg PO TID COUNT [facility]CLUDES [facility] Last Admin: 08/20/21 07:56 Dose: 300 mg Documented by: DARIEN Glucose (Glucose Gel 15 Gm Gel..Gram.) 15 gm PO Q15M PRN; Protocol PRN Reason: per Hypoglycemia Standing Ord. Hydromorphone HCl (Hydromorphone Hcl 0.5 Mg/0.5 Ml Syringe) 0.25 mg IVPUSH Q4H PRN; Protocol PRN Reason: Pain, Severe (Pain Scale 7-10) Last Admin: 08/19/21 05:11 Dose: 0.25 mg Documented by: STARR Insulin Glargine (Insulin Glargine,Hum.Rec.Anlog 100 Unit/Ml 10 Ml Vial) 45 unit SUBCUT BEDTIME COUNT [facility]CLUDES [facility] Last Admin: 08/19/21 21:52 Dose: 45 unit Documented by: STARR Insulin Human Lispro (Insulin Lispro 100 Unit/Ml 3 Ml Vial) 5 unit SUBCUT TIDAC COUNT INCLUDES [facility] Last Admin: 08/20/21 11:40 Dose: 5 unit Documented by: DARIEN Insulin Human Lispro (Insulin Lispro 100 Unit/Ml 3 Ml Vial) 0 unit SUBCUT QIDACHS COUNT [facility]CLUDES [facility]; Protocol Last Admin: 08/20/21 11:40 Dose: 2 unit Documented by: DARIEN Levothyroxine Sodium (Levothyroxine Sodium 125 Mcg Tablet) 250 mcg PO DAILY@0600 [facility] Last Admin: 08/20/21 05:42 Dose: 250 mcg Documented by: STARR Magnesium Oxide (Magnesium Oxide 400 Mg Tablet) 200 mg PO DAILY COUNT [facility]CLUD[facility] Last Admin: 08/20/21 07:57 Dose: 200 mg Documented by: DARIEN Metoprolol Succinate (Metoprolol Succinate Er 50 Mg Tab.Er.24h) 50 mg PO DAILY COUNT [facility]CLUDES [facility]; Protocol Last Admin: 08/20/21 07:56 Dose: 50 mg Documented by: DARIEN Nitroglycerin (Nitroglycerin 0.4 Mg Tab.Subl) 0.4 mg SUBLINGUAL Q5M PRN PRN Reason: chest pain Omeprazole (Omeprazole 40 Mg Capsule.Dr) 40 mg PO DAILY@0630 [facility]CLUDES [facility] Last Admin: 08/20/21 05:42 Dose: 40 mg Documented by: STARR Ondansetron HCl (Ondansetron Hcl 4 Mg/2 Ml Vial) 4 mg IVPUSH Q8H PRN PRN Reason: Nausea and Vomiting Oxycodone HCl (Oxycodone Hcl Immed Release 5 Mg Tablet) 10 mg PO Q4H PRN PRN Reason: Pain, Moderate (Pain Scale 4-6 Last Admin: 08/20/21 09:34 Dose: 10 mg Documented by: DARIEN Oxycodone HCl (Oxycodone Hcl Er 10 Mg Tab.Er.12h) 10 mg PO BID COUNT INCLUDES [facility] Last Admin: 08/20/21 09:30 Dose: 10 mg Documented by: DARIEN Sodium Chloride (0.9 % Sodium Chloride Flush 3 Ml Syringe) 3 ml IVFLUSH QSHIFT COUNT INCLUDES [facility] Last Admin: 08/20/21 07:55 Dose: 3 ml Documented by: DARIEN Tamsulosin HCl (Tamsulosin Hcl 0.4 Mg Capsule) 0.4 mg PO DAILY COUNT INCLUDES [facility] Last Admin: 08/20/21 07:56 Dose: 0.4 mg Documented by: DARIEN Vitamin D (Cholecalciferol (Vitamin D3) 25 Mcg Tablet) 25 mcg PO DAILY COUNT INCLUDES [facility] Last Admin: 08/20/21 07:56 Dose: 25 mcg Documented by: DARIEN Labs CBC & Chem 7: 08/21/21 10:28 08/20/21 05:40 Labs: Laboratory Results - last 24 hr 08/19/21 08/19/21 08/20/21 15:48 19:14 05:40 MCV 97.1 MCH 29.4 MCHC 30.3 L RDW 13.2 Plt Count 126 L MPV 11.3 Immature Gran % (Auto) 0.4 Neut % (Auto) 70.1 Lymph % (Auto) 13.8 L [place] % (Auto) 10.6 Eos % (Auto) 4.6 H Baso % (Auto) 0.5 Lymph # (Auto) 0.8 L [place] # (Auto) 0.6 Eos # (Auto) 0.3 Baso # (Auto) 0.0 Abs Immat Gran (auto) 0.02 Absolute Neuts (auto) 4.0 Absolute Nucleated RBC 0.000 Nucleated RBC % (auto) 0.0 Anion Gap Estim Creat Clear Calc Estimated GFR POC Glucose 188 H 170 H Fasting Glucose Calcium 08/20/21 08/20/21 08/20/21 05:40 07:40 11:21 MCV MCH MCHC RDW Plt Count MPV Immature Gran % (Auto) Neut % (Auto) Lymph % (Auto) [place] % (Auto) Eos % (Auto) Baso % (Auto) Lymph # (Auto) [place] # (Auto) Eos # (Auto) Baso # (Auto) Abs Immat Gran (auto) Absolute Neuts (auto) Absolute Nucleated RBC Nucleated RBC % (auto) Anion Gap 12 Estim Creat Clear Calc 53.4 Estimated GFR 52 POC Glucose 182 H 196 H Fasting Glucose 207 H Calcium 8.3 L Assessment and Plan (1) S/P total hip arthroplasty: Status: Acute (2) Essential hypertension: Status: Acute Plan 65 yea old women admitted by orthopedic surgery and is status post LTHA Left total hip arthroplasty. Management as per surgical team Pain management Diabetes mellitus: fs 120-180 Sliding scale, ADA diet Hypothyroidism Continue levothyroxine CAD Continue BB GERD PPI asthma hx/has atelcatsis on cxr: continue home meds encouraged again?incentive spirometry, chest physiotherapy, nebs, taper off oxygen. DVT prophyalxis with full dose aspirin Full code inpatient need :left hip arthroplasty,waiting for rehab Quality Stroke Does the patient have a stroke diagnosis?: No VTE Prior VTE?: No VTE Risk Level:: Surgical - very high VTE Device Contraindication: N/A - Device Ordered VTE Drug Contraindication: N/A - Med Ordered
[2021-08-20 15:28] LABS: Glucose, Whole Blood 149 mg/dL (60-115)
--- NOTE | 2021-08-20 16:50 | MHC.CM.PN ---
AGAIN SEVERAL TIME SENT OUT MORE REFERRALS NO BED AVAILABILITY , NOW SENDING TOWARD [facility] , INFORMED ORTHOPEDIC SURGCIAL PA TO FOLLOW UP WITH [facility] [place] , INFORMED PATIENT
[2021-08-20] MEDS: Acetaminophen 325 MG TABLET 650 MG PO (19:38)
[2021-08-20 19:48] LABS: Glucose, Whole Blood 174 mg/dL (60-115)
[2021-08-20] MEDS: Insulin Glargine,Hum.rec.anlog 100 UNIT/ML 10 ML VIAL 45 UNIT SUBCUT (20:03)
[2021-08-21] VITALS (12 sets, daily range): BP systolic 94–144; BP diastolic 47–65; PULSE 64–122; RESP 14–20; TEMP 36.1–37.1; O2SAT 90–98
[2021-08-21 03:38] LABS: Glucose, Whole Blood 137 mg/dL (60-115)
[2021-08-21] MEDS: oxyCODONE HCl Immed Release 5 MG TABLET 10 MG PO (04:26)
--- NOTE | 2021-08-21 04:28 | PC.NURSE ---
Addendum entered by Tamara Bailon RN 08/21/21 04:41: Pt's Ivline has pain in the site, pt wanted it out and removed, pt refused another IV line placed. Original Note: Pt seen on bed at the start of the shift at 1930, alert and but with flat affect and verbalized feeling upset which causing her headache but not able to tell why, sleepy and confused, is visiting but no apparent reason why pt is upset, c/o left hip pain, O2 sat was noted to be 85-90% RA, encouraged to use Incentive Spirometry, but still unable to improve O2 sats, O2 at 2L/minvia NC placed, O2sats improved to 95%, scheduled meds and prn tylenol given, slept after. Early am, pt woke up confused,trying to get OOB by herself, scared and shaking, saying she had a nightmare, pt was reoriented, assisted to the BR and pt still vague and slow, voided small amount in the BR, RPE=484, bladder scan =305, straight cath done aseptically and got 200 ml, clear and yellow urine, pt was more alert and responding more appropriately after, IS performed , pt c/o 6/10 left hip pain, offered tylenol but refused, prn Oxycodone tab given.
[2021-08-21] MEDS: Omeprazole 40 MG CAPSULE.DR PO (05:56)
[2021-08-21] MEDS: Levothyroxine Sodium 125 MCG TABLET 250 MCG PO (05:56)
[2021-08-21] MEDS: Fluticasone Propionate 100 MCG BLST.W.DEV 2 PUFF INHALE ×2 (07:37→21:24)
[2021-08-21] MEDS: Albuterol/Iprat 2.5/0.5MG 3 ML AMPUL.NEB INHALE ×4 (07:37→21:02)
[2021-08-21 07:39] LABS: Glucose, Whole Blood 138 mg/dL (60-115)
[2021-08-21] MEDS: Calcium + Vitamin D 250 MG TABLET 500 MG PO (08:23)
[2021-08-21] MEDS: Celecoxib 200 MG CAPSULE PO ×2 (08:23→20:06)
[2021-08-21] MEDS: Docusate Sodium 100 MG CAPSULE PO ×2 (08:24→20:05)
[2021-08-21] MEDS: Gabapentin 300 MG CAPSULE PO ×3 (08:24→20:05)
[2021-08-21] MEDS: Aspirin 325 MG TABLET PO ×2 (08:24→20:04)
[2021-08-21] MEDS: Tamsulosin HCL 0.4 MG CAPSULE PO (08:24)
[2021-08-21] MEDS: Magnesium Oxide 400 MG TABLET 200 MG PO (08:25)
[2021-08-21] MEDS: busPIRone HCl 5 MG TABLET 7.5 MG PO ×2 (08:25→20:05)
[2021-08-21] MEDS: oxyCODONE HCl ER 10 MG TAB.ER.12H PO ×2 (08:25→20:06)
[2021-08-21] MEDS: Ferrous Sulfate 324 MG TABLET.DR PO (08:26)
[2021-08-21] MEDS: Dicyclomine HCl 10 MG CAPSULE 20 MG PO ×4 (08:26→20:06)
[2021-08-21] MEDS: Metoprolol Succinate ER 50 MG TAB.ER.24H PO (08:26)
[2021-08-21] MEDS: Cholecalciferol (Vitamin D3) 25 MCG TABLET PO (08:26)
[2021-08-21] MEDS: Insulin Lispro 100 UNIT/ML 3 ML VIAL SUBCUT (08:27)
[2021-08-21] MEDS: Ezetimibe 10 MG TABLET PO (08:28)
--- NOTE | 2021-08-21 10:18 | P.PNOP_ITS ---
Subjective Subjective Date of Service: 08/21/21 Interval history: POD 4 s/p LT ROMIE no overnight events resting in bed has been out of bed with PT Physical Exam Vital Signs: Vital Signs: Last Vital Signs Temp 97.8 F 08/21/21 07:24 Pulse 87 08/21/21 07:40 Resp 18 08/21/21 07:40 BP 120/57 L 08/21/21 07:24 Pulse Ox 91 L 08/21/21 07:24 BMI result Body Mass Index 35.9 Const: General: cooperative, healthy appearing and no acute distress Resp: Effort & Inspection: normal respiratory effort and able to speak in complete sentences Cardio: Rate: regular rate Peripheral pulses: Peripheral pulses 2+ throughout GI: Palpation (GI): Soft to palpation Skin: General skin exam: no rashes or lesions noted Extrem: Other: incision clean dry and intact. [place] intact. No erythema or effusion. Calf supple nontender. Neurovascularly intact. Procedures Date of Service Date of Service: 08/21/21 Progress Note: A&P Assessment and plan (1) S/P total hip arthroplasty: Status: Acute Assessment and Plan: * Continue pain mgmnt * Begin Aspirin for dvt ppx * Continue PT/OT * Dispo planning-Pending Rehab placement Time Spent With Patient Time: Total time spent is greater than 50% in coordination of care (as documented) at patient's floor/unit and/or counseling patient: Quality Stroke Does the patient have a stroke diagnosis?: No VTE Prior VTE?: No VTE Risk Level:: Surgical - very high VTE Device Contraindication: N/A - Device Ordered VTE Drug Contraindication: N/A - Med Ordered
[2021-08-21 10:37] LABS: Hematocrit 28.7 % (37.0-47.0); Hemoglobin 8.9 g/dl (12.0-16.0)
[2021-08-21 11:59] LABS: Glucose, Whole Blood 61 mg/dL (60-115)
[2021-08-21 15:58] LABS: Glucose, Whole Blood 123 mg/dL (60-115)
[2021-08-21 19:35] LABS: Glucose, Whole Blood 157 mg/dL (60-115)
[2021-08-22] VITALS (9 sets, daily range): BP systolic 98–134; BP diastolic 49–62; PULSE 73–94; RESP 16–20; TEMP 36.1–37.1; O2SAT 2–99
--- NOTE | 2021-08-22 03:26 | PC.NURSE ---
Pt had a POC =157, previous blood sugar trends during the day noted were 138,61,123, Dr. Love was made aware and said to hold all insulin for the night.
[2021-08-22] MEDS: Acetaminophen 325 MG TABLET 650 MG PO (05:19)
[2021-08-22] MEDS: Levothyroxine Sodium 125 MCG TABLET 250 MCG PO (05:19)
[2021-08-22] MEDS: Omeprazole 40 MG CAPSULE.DR PO (05:19)
--- NOTE | 2021-08-22 06:04 | PC.NURSE ---
Early am, pt woke up and c/o pain and swelling of both hands, ROM exercise instructed and demostrated, warm and ice pack provided alternately, prn tylenol given.
[2021-08-22] MEDS: Fluticasone Propionate 100 MCG BLST.W.DEV 2 PUFF INHALE ×2 (07:09→20:38)
[2021-08-22] MEDS: Albuterol/Iprat 2.5/0.5MG 3 ML AMPUL.NEB INHALE ×3 (07:09→20:37)
--- NOTE | 2021-08-22 07:29 | P.PNIM_ITS ---
Subjective Subjective Date of Service: 08/22/21 Interval History: hip surgery,atelactasis, anemia, poor oral intake Review of Systems patient is saying that she is not eating, also was not hydrating herself well has decline in the urine output. ? Urinary retention also it Physical Exam Vital Signs: Vital Signs: Last Vital Signs Temp 97.0 F 08/22/21 03:37 Pulse 86 08/22/21 07:09 Resp 18 08/22/21 07:09 BP 134/62 08/22/21 03:37 Pulse Ox 94 08/22/21 03:37 BMI result Body Mass Index 35.9 ? Appearance: Alert.? Oriented X3.? not in distress.? cvs: rrr, [id number] , no murmur res: clear to auscultation ,no rhonchii or wheezing abd: no rebound or guarding ,nt, bs present. ext pulses present , no cyanosis , left hip soarness. neuro: axo3 , nonfocal Objective Data Active Medications Acetaminophen (Acetaminophen 325 Mg Tablet) 650 mg PO Q6H PRN PRN Reason: Pain, Mild (Pain Scale 1-3) Last Admin: 08/22/21 05:19 Dose: 650 mg Documented by: ANNETTE Albuterol/Ipratropium (Albuterol/Iprat 2.5/0.5mg 3 Ml Ampul.Neb) 3 ml INHALE RQ4H WHILE AWAKE [facility] Last Admin: 08/22/21 07:09 Dose: 3 ml Documented by: ELLEN Aspirin (Aspirin 325 Mg Tablet) 325 mg PO BID [facility] Last Admin: 08/21/21 20:04 Dose: 325 mg Documented by: ANNETTE Buspirone HCl (Buspirone Hcl 5 Mg Tablet) 7.5 mg PO BID [facility] Last Admin: 08/21/21 20:05 Dose: 7.5 mg Documented by: ANNETTE Comments: Calcium Carbonate/Cholecalciferol (Calcium + Vitamin D 250 Mg Tablet) 500 mg PO DAILY [facility] Last Admin: 08/21/21 08:23 Dose: 500 mg Documented by: ANNETTE Celecoxib (Celecoxib 200 Mg Capsule) 200 mg PO BID [facility] Last Admin: 08/21/21 20:06 Dose: 200 mg Documented by: ANNETTE Dextrose (Dextrose 50 % 25 Gm/50 Ml Syringe) 25 gm IVPUSH Q15M PRN; Protocol PRN Reason: per Hypoglycemia Standing Ord. Dicyclomine HCl (Dicyclomine Hcl 10 Mg Capsule) 20 mg PO QID [facility] Last Admin: 08/21/21 20:06 Dose: 20 mg Documented by: ANNETTE Docusate Sodium (Docusate Sodium 100 Mg Capsule) 100 mg PO BID [facility] Last Admin: 08/21/21 20:05 Dose: 100 mg Documented by: ANNETTE Ezetimibe (Ezetimibe 10 Mg Tablet) 10 mg PO DAILY [facility] Last Admin: 08/21/21 08:28 Dose: 10 mg Documented by: ANNETTE Ferrous Sulfate (Ferrous Sulfate 324 Mg Tablet.Dr) 324 mg PO DAILY [facility] Last Admin: 08/21/21 08:26 Dose: 324 mg Documented by: ANNETTE Fluticasone Propionate (Fluticasone Propionate 100 Mcg Blst.W.Dev) 2 puff INHALE RBID [facility] Last Admin: 08/22/21 07:09 Dose: 2 puff Documented by: ELLEN Fluticasone Propionate (Fluticasone Propionate Nasal 16 Gm Eros) 2 spray NOSTRIL-B DAILY [facility] Last Admin: 08/21/21 08:49 Dose: Not Given Documented by: ANNETTE Non-Admin Reason: Previously Administered Gabapentin (Gabapentin 300 Mg Capsule) 300 mg PO TID [facility] Last Admin: 08/21/21 20:05 Dose: 300 mg Documented by: ANNETTE Glucose (Glucose Gel 15 Gm Gel..Gram.) 15 gm PO Q15M PRN; Protocol PRN Reason: per Hypoglycemia Standing Ord. Hydromorphone HCl (Hydromorphone Hcl 0.5 Mg/0.5 Ml Syringe) 0.25 mg IVPUSH Q4H PRN; Protocol PRN Reason: Pain, Severe (Pain Scale 7-10) Last Admin: 08/19/21 05:11 Dose: 0.25 mg Documented by: STARR Insulin Glargine (Insulin Glargine,Hum.Rec.Anlog 100 Unit/Ml 10 Ml Vial) 45 unit SUBCUT BEDTIME [facility] Last Admin: 08/21/21 21:07 Dose: Not Given Documented by: ANNETTE Non-Admin Reason: held as per Dr. Love Insulin Human Lispro (Insulin Lispro 100 Unit/Ml 3 Ml Vial) 5 unit SUBCUT TIDAC [facility] Last Admin: 08/21/21 16:54 Dose: Not Given Documented by: TOMAS Non-Admin Reason: No Insulin Coverage Insulin Human Lispro (Insulin Lispro 100 Unit/Ml 3 Ml Vial) 0 unit SUBCUT QIDACHS [facility]; Protocol Last Admin: 08/21/21 21:08 Dose: Not Given Documented by: ANNETTE Non-Admin Reason: held as per Dr. Love Levothyroxine Sodium (Levothyroxine Sodium 125 Mcg Tablet) 250 mcg PO DAILY@0600 [facility] Last Admin: 08/22/21 05:19 Dose: 250 mcg Documented by: ANNETTE Magnesium Oxide (Magnesium Oxide 400 Mg Tablet) 200 mg PO DAILY [facility] Last Admin: 08/21/21 08:25 Dose: 200 mg Documented by: ANNETTE Metoprolol Succinate (Metoprolol Succinate Er 50 Mg Tab.Er.24h) 50 mg PO DAILY [facility]; Protocol Last Admin: 08/21/21 08:26 Dose: 50 mg Documented by: ANNETTE Nitroglycerin (Nitroglycerin 0.4 Mg Tab.Subl) 0.4 mg SUBLINGUAL Q5M PRN PRN Reason: chest pain Omeprazole (Omeprazole 40 Mg Capsule.Dr) 40 mg PO DAILY@0630 [facility] Last Admin: 08/22/21 05:19 Dose: 40 mg Documented by: ANNETTE Ondansetron HCl (Ondansetron Hcl 4 Mg/2 Ml Vial) 4 mg IVPUSH Q8H PRN PRN Reason: Nausea and Vomiting Oxycodone HCl (Oxycodone Hcl Immed Release 5 Mg Tablet) 10 mg PO Q4H PRN PRN Reason: Pain, Moderate (Pain Scale 4-6 Last Admin: 08/21/21 04:26 Dose: 10 mg Documented by: ANNETTE Oxycodone HCl (Oxycodone Hcl Er 10 Mg Tab.Er.12h) 10 mg PO BID [facility] Last Admin: 08/21/21 20:06 Dose: 10 mg Documented by: ANNETTE Sodium Chloride (0.9 % Sodium Chloride Flush 3 Ml Syringe) 3 ml IVFLUSH QSHIFT [facility] Last Admin: 08/22/21 00:05 Dose: Not Given Documented by: ANNETTE Non-Admin Reason: No Access Tamsulosin HCl (Tamsulosin Hcl 0.4 Mg Capsule) 0.4 mg PO DAILY [facility] Last Admin: 08/21/21 08:24 Dose: 0.4 mg Documented by: ANNETTE Vitamin D (Cholecalciferol (Vitamin D3) 25 Mcg Tablet) 25 mcg PO DAILY [facility] Last Admin: 08/21/21 08:26 Dose: 25 mcg Documented by: ANNETTE Labs CBC & Chem 7: 08/22/21 08:31 08/22/21 08:31 Labs: Laboratory Results - last 24 hr 08/21/21 08/21/21 08/21/21 07:34 11:31 15:43 POC Glucose 138 H 61 123 H 08/21/21 19:04 POC Glucose 157 H Assessment and Plan (1) QING (acute kidney injury): Status: Acute Plan 65 yea old women admitted by orthopedic surgery and is status post LTHA Left total hip arthroplasty. Management as per surgical team Pain management posop anemia Diabetes mellitus: fs 120-200 Sliding scale, ADA diet Hypothyroidism Continue levothyroxine CAD hold BB due to softer bloodpresure GERD PPI asthma hx/has atelcatsis on cxr: continue home meds encouraged again?incentive spirometry, chest physiotherapy, nebs, taper off oxygen. qing: multifactorial( decreased p.o. intake, softer blood pressure, Possible urinary retention) monitor PVRs, IV hydration gentle, encouraged for p.o. intake, will also added albumin since she has not eaten drinking well. Monitor BMP in the morning. DVT prophyalxis with full dose aspirin Full code inpatient need :left hip arthroplasty,qing Quality Stroke Does the patient have a stroke diagnosis?: No VTE Prior VTE?: No VTE Risk Level:: Surgical - very high VTE Device Contraindication: N/A - Device Ordered VTE Drug Contraindication: N/A - Med Ordered
[2021-08-22 07:44] LABS: Glucose, Whole Blood 212 mg/dL (60-115)
[2021-08-22] MEDS: Insulin Lispro 100 UNIT/ML 3 ML VIAL SUBCUT ×5 (07:59→21:32)
[2021-08-22] MEDS: Aspirin 325 MG TABLET PO ×2 (08:00→21:30)
[2021-08-22] MEDS: 0.9 % Sodium Chloride Flush 3 ML SYRINGE IVFLUSH (08:00)
[2021-08-22] MEDS: Magnesium Oxide 400 MG TABLET 200 MG PO (08:01)
[2021-08-22] MEDS: Celecoxib 200 MG CAPSULE PO (08:01)
[2021-08-22] MEDS: Calcium + Vitamin D 250 MG TABLET 500 MG PO (08:01)
[2021-08-22] MEDS: Ezetimibe 10 MG TABLET PO (08:02)
[2021-08-22] MEDS: busPIRone HCl 5 MG TABLET 7.5 MG PO ×2 (08:02→21:30)
[2021-08-22] MEDS: Cholecalciferol (Vitamin D3) 25 MCG TABLET PO (08:02)
[2021-08-22] MEDS: Tamsulosin HCL 0.4 MG CAPSULE PO (08:02)
[2021-08-22] MEDS: Fluticasone Propionate Nasal 16 GM SPRAY 2 SPRAY NOSTRIL-B (08:03)
[2021-08-22] MEDS: Docusate Sodium 100 MG CAPSULE PO ×2 (08:03→21:31)
[2021-08-22] MEDS: Ferrous Sulfate 324 MG TABLET.DR PO (08:03)
[2021-08-22] MEDS: Dicyclomine HCl 10 MG CAPSULE 20 MG PO ×4 (08:03→21:42)
[2021-08-22] MEDS: Metoprolol Succinate ER 50 MG TAB.ER.24H PO (08:04)
[2021-08-22] MEDS: oxyCODONE HCl ER 10 MG TAB.ER.12H PO ×2 (08:04→21:32)
[2021-08-22] MEDS: Gabapentin 300 MG CAPSULE PO ×3 (08:04→21:31)
--- NOTE | 2021-08-22 08:31 | PM.PNORT ---
Subjective Subjective Date of Service: 08/22/21 Interval history: late entry Patient seen at 0800 08/22/21 POD 5 s/p LT T-[place]LL[place] No overnight events patient is resting in bed, worked with PT monday. went outside. having some pain in the hip, denies sob, cp, palpitatons Physical Exam Vital Signs: Vital Signs: Last Vital Signs Temp 97.3 F 08/22/21 23:18 Pulse 91 08/22/21 23:18 Resp 16 08/22/21 23:18 BP 109/49 L 08/22/21 23:18 Pulse Ox 95 08/22/21 23:18 BMI result Body Mass Index 35.9 Const: General: cooperative, healthy appearing and no acute distress Resp: Effort & Inspection: normal respiratory effort and able to speak in complete sentences Cardio: Rate: regular rate Peripheral pulses: Peripheral pulses 2+ throughout GI: Palpation (GI): Soft to palpation Skin: General skin exam: no rashes or lesions noted Extrem: Other: incision clean dry and intact. [place] intact. No erythema or effusion. Calf supple nontender. Neurovascularly intact. Procedures Date of Service Date of Service: 08/22/21 Progress Note: A&P Assessment and plan (1) S/P total hip arthroplasty: Status: Acute Assessment and Plan: continue pain mgmnt- d/c iv dilaudid PT/OT LT ROMIE asa for dvt ppx dispo pending STR Time Spent With Patient Time: Total time spent is greater than 50% in coordination of care (as documented) at patient's floor/unit and/or counseling patient: Quality Stroke Does the patient have a stroke diagnosis?: No VTE Prior VTE?: No VTE Risk Level:: Surgical - very high VTE Device Contraindication: N/A - Device Ordered VTE Drug Contraindication: N/A - Med Ordered
[2021-08-22 08:45] LABS: MANUAL DIFF FLAG NO
[2021-08-22 08:47] LABS: Basophils Percent Auto 0.6 % (0-2); Eosinophils Absolute Auto 0.1 X10*3/uL (0.0-0.4); Hematocrit 27.9 % (37.0-47.0); Hemoglobin 8.5 g/dl (12.0-16.0); Imm Gran Abs Auto 0.02 X10*3/uL (0.00-0.03); Imm Gran Pct Auto 0.4 % (0.0-0.4); Lymphocytes Absolute Auto 0.6 X10*3/uL (1.2-4.9); Lymphocytes Percent Auto 13.2 % (20-40); Mean Corpuscular HGB Conc 30.5 g/dl (31.0-35.0); Mean Corpuscular Hemoglobin 29.3 pg (27.0-33.0); Mean Corpuscular Volume 96.2 fL (80.0-98.0); Mean Platelet Volume 10.8 fL (9.4-12.3); Monocytes Absolute Auto 0.6 X10*3/uL (0.1-1.2); Monocytes Percent Auto 11.7 % (2-11); Neutrophils Absolute Auto 3.4 x10*3/uL (2.0-8.3); Neutrophils Percent Auto 71.1 % (45-73); Platelet Count 127 X10*3/uL (160-400); Red Cell Distribution Width 13.3 % (11.0-16.0); White Blood Count 4.7 X10*3/uL (4.8-10.8)
[2021-08-22 09:19] LABS: Anion Gap 13 (12-20); Blood Urea Nitrogen 48 mg/dL (9-16); Carbon Dioxide 22 mmol/L (22-29); Chloride 104 mmol/L (96-108); Creatinine Clr Calc Pharmacy 41.7; Estimated Glomerular Filt Rate 39; Glucose Random 249 mg/dL (60-115); Potassium 4.2 mmol/L (3.3-5.1); Sodium 135 mmol/L (135-145)
[2021-08-22] MEDS: Tamsulosin HCL 0.4 MG CAPSULE 0.8 MG PO (10:10)
[2021-08-22] MEDS: levoFLOXacin 250 MG TABLET PO (10:10)
--- NOTE | 2021-08-22 10:12 | MHC.CM.PN ---
SNF REFERRALS UPDATED W/CLINICALS AND RESENT, CM HAD INTEREST FROM [facility] YESTERDAY 08/20 HOWEVER THEY WERE UNABLE TO OFFER PT A BED, SNF'S ARE REPORTING THEY ARE UNABLE TO OFFER A BED D/T AVAILABILITY AND BEING CAPPED FOR W/E. CM WILL CONT TO FOLLOW REFERRALS FOR PLACEMENT.
[2021-08-22 11:20] LABS: Glucose, Whole Blood 164 mg/dL (60-115)
[2021-08-22] MEDS: Albumin Human 25 % 100 ML IV ×2 (11:38→12:50)
[2021-08-22 14:58] LABS: Appearance Urine CLEAR; Color Urine YELLOW; Glucose Urine UA NEG (NEG); Leukocyte Esterase Urine NEG (NEG); Nitrite Urine NEG (NEG); PH 5.5 (5.0-8.0); Urine Blood NEG (NEG); Urine Ketones NEG (NEG); Urine Protein NEG (NEG-TRACE)
[2021-08-22 16:07] LABS: Glucose, Whole Blood 130 mg/dL (60-115)
[2021-08-22] MEDS: Lactated Ringers 500 ML 70 ML IVCONT (17:25)
[2021-08-22 20:06] LABS: Glucose, Whole Blood 194 mg/dL (60-115)
[2021-08-22] MEDS: hydrOXYzine HCL 25 MG TABLET PO (21:31)
[2021-08-22] MEDS: Insulin Glargine,Hum.rec.anlog 100 UNIT/ML 10 ML VIAL 45 UNIT SUBCUT (21:32)
[2021-08-22 23:04] LABS: Troponin-I High Sensitivity 519.8 ng/L (<3.5-17.0)
[2021-08-22] MEDS: Nitroglycerin 0.4 MG TAB.SUBL SUBLINGUAL (23:23)
--- NOTE | 2021-08-22 23:35 | PM.EVENT ---
Event Note Date of Service: 08/22/21 Event Note: pt complained of CP. EKG done showed ST changes significant for ACS. Troponin found to be 519. Discussed case with cardiology. will start with heparin subq, trend trop. CBC reviewed showed drop in HGB over the hospital course. will order 1 unit of pRBC. BP soft, will order 1L of LR. Pt otherwise hemodynamically stable.
[2021-08-22] MEDS: Lactated Ringers 1,000 ML 999 ML IV (23:45)
[2021-08-23] VITALS (11 sets, daily range): BP systolic 107–141; BP diastolic 55–85; PULSE 81–102; RESP 17–20; TEMP 35.9–36.8; O2SAT 95; BMI 39.5
--- NOTE | 2021-08-23 | ECG_ITS ---
Test Reason : NESTEMI Blood Pressure : / mmHG Vent. Rate : 092 BPM Atrial Rate : 092 BPM P-R Int : 172 ms QRS Dur : 112 ms QT Int : 376 ms P-R-T Axes : 077 -40 069 degrees QTc Int : 464 ms Normal sinus rhythm Left axis deviation Moderate voltage criteria for LVH, may be normal variant ( R in aVL , [place] product ) Septal infarct (cited on or before 24-JUN-2021) Abnormal ECG When compared with ECG of 23-JUL-2021 18:44, Questionable change in initial forces of Anterior leads Referred By: Bertram Nguyễn Electronically Signed By:TIRSO VALDES
--- NOTE | 2021-08-23 | ECG_ITS ---
Test Reason : CP Blood Pressure : / mmHG Vent. Rate : 091 BPM Atrial Rate : 091 BPM P-R Int : 150 ms QRS Dur : 114 ms QT Int : 388 ms P-R-T Axes : 074 -40 040 degrees QTc Int : 477 ms Normal sinus rhythm Left axis deviation Moderate voltage criteria for LVH, may be normal variant ( R in aVL , [place] product ) Anterior infarct (cited on or before 24-JUN-2021) Mild ST depression lateral leads Abnormal ECG When compared with ECG of 23-AUG-2021 09:45, No significant change was found Referred By: Bertram Nguyễn Electronically Signed By:TIRSO VALDES
--- NOTE | 2021-08-23 | PC.NURSE ---
pt at 8 pm c/o neck and chest pain and left ear, pt not sure if radiated chest pain to ear or not she said pain was 7/10 i notified md order was to do ekg and troponin was ordered. pt anxious so asked md if maybe some medication to relax her, she is anxious person at baseline . aterax was ordered and given while waiting for results of troponin. vs temp 97.8 HR 91 o2 sat 95 % on 2 L bp 109/49 md also asked to give nitro 0.4 mg and given and bolus 1L of LR GIVEN pain better like 510 but still is present.pt will be place on tele floor and heparin drip is ordered
[2021-08-23 00:02] LABS: Hematocrit 24.1 % (37.0-47.0); Hemoglobin 7.5 g/dl (12.0-16.0); Mean Corpuscular HGB Conc 31.1 g/dl (31.0-35.0); Mean Corpuscular Hemoglobin 29.5 pg (27.0-33.0); Mean Corpuscular Volume 94.9 fL (80.0-98.0); Mean Platelet Volume 10.3 fL (9.4-12.3); Platelet Count 139 X10*3/uL (160-400); Red Blood Count 2.54 X10*6/uL (4.20-5.50); Red Cell Distribution Width 13.2 % (11.0-16.0); White Blood Count 4.5 X10*3/uL (4.8-10.8)
[2021-08-23 00:06] LABS: INTERNATIONAL NORM RATIO 1.2 (0.9-1.1); Prothrombin Time 13.1 SEC (9.9-13.0)
[2021-08-23 00:09] LABS: PTT Heparin Drip 31.1 SEC (53-77.9)
[2021-08-23 02:30] LABS: Troponin-I High Sensitivity 683.1 ng/L (<3.5-17.0)
[2021-08-23] MEDS: Atorvastatin Calcium 80 MG TABLET PO (03:02)
[2021-08-23 04:45] LABS: Hematocrit 27.9 % (37.0-47.0); Hemoglobin 8.9 g/dl (12.0-16.0); Mean Corpuscular HGB Conc 31.9 g/dl (31.0-35.0); Mean Corpuscular Hemoglobin 29.4 pg (27.0-33.0); Mean Corpuscular Volume 92.1 fL (80.0-98.0); Mean Platelet Volume 10.8 fL (9.4-12.3); Platelet Count 143 X10*3/uL (160-400); Red Blood Count 3.03 X10*6/uL (4.20-5.50); Red Cell Distribution Width 14.6 % (11.0-16.0); White Blood Count 5.1 X10*3/uL (4.8-10.8)
[2021-08-23 04:47] LABS: INTERNATIONAL NORM RATIO 1.2 (0.9-1.1); Prothrombin Time 13.1 SEC (9.9-13.0)
[2021-08-23] MEDS: Heparin Sodium,Porcine/1/2NS 25,000 UNIT/250 ML IV.SOLN 12.07 UNIT IVCONT (05:00)
[2021-08-23] MEDS: Heparin Sodium,Porcine 5,000 UNIT/ML VIAL 6900 UNIT IVPUSH (05:04)
[2021-08-23] MEDS: Levothyroxine Sodium 125 MCG TABLET 250 MCG PO (05:08)
[2021-08-23] MEDS: Omeprazole 40 MG CAPSULE.DR PO (05:08)
--- NOTE | 2021-08-23 07:00 | CA_ITS ---
Transthoracic Echocardiogram Patient (Last, First, Middle): Lynda Horvath, Gender: Female Date of : 1955 Age: 65 Procedure Date: 08/23/2021 Procedure Type: Transthoracic Echocardiogram Location: S3E Height: 154.94 cm Weight: 86.18 kg BSA: 1.85 m2 Heart Rate: bpm BP: 107 / [address] Engineer: REY Referring MD: Sid Love MD Symptoms: NSTEMI Study Quality: Technically Difficult/contrast ECG Rhythm: Sinus Conclusions: - Even with contrast, wall motion assessment is suboptimal. In some views, apex appears akinetic. Possible inferior hypokinesis. Estimated LVEF > 50%. - There is moderate mitral annular calcification. Findings Procedure Information Contrast agent, definity, is being given per protocol without apparent complications. Left Ventricle Normal left ventricular cavity size. There is mildly increased left ventricular wall thickness. E/E prime ratio is >15, consistent with elevated filling pressures. Evidence suggests grade II (moderate) diastolic dysfunction. Even with contrast, wall motion assessment is suboptimal. In some views, apex appears akinetic. Possible inferior hypokinesis. Estimated LVEF > 50%. Right Ventricle Normal right ventricular cavity size and systolic function. Atria Both atria are normal in size. Aortic Valve There is a normal trileaflet aortic valve. There is no aortic valve stenosis. There is no aortic valve regurgitation. Mitral Valve There is moderate mitral annular calcification. There is trace mitral valve regurgitation. There is no mitral valve stenosis. Pulmonic Valve The pulmonic valve is likely normal. Tricuspid Valve There is trace tricuspid valve regurgitation. The pulmonary artery systolic pressure is normal. Great Vessels The asc aorta is normal in size. Small plaque is seen in the sino tubular ridge. Venous The inferior vena cava is normal in size and collapses greater than 50% with inspiration. Pericardium/Pleural There is no evidence of pericardial effusion. Prior Study Comparison Changes noted compared to prior study dated: 09/25/2020. See comments on wall motion. Measurements 2D Linear Measurements IVSd: 1.09 0.6-0.9/0.6-1.0 cm LVIDd: 4.37 3.9-5.3/4.2-5.9 cm LVIDs: 3.14 2.0-3.6 cm LVPWd: 1.23 0.7-1.1 cm LA Diam: 3.60 2.7-3.8/3.0-4.0 cm LVOT Diam: 2.10 3.0+(-)1.3 cm 2D Systolic Function EF 4C: 56.00 >55% EF 2C: 46.00 >55% EF BiP: 52.00 >55% Mitral Valve MV Pk E: 1.30 MV PK A: 0.98 MV Decel Time: 180.00 E/A: 1.30 E'Lateral: 12.20 E'Medial: 6.20 E/E' Med: 21.00 E/E' Lat: 10.70 MVA PHT: 4.15 Aortic Valve AoV Pk Jonathon: 1.38 AoV Mn Jonathon: 0.93 AoV VTI: 0.26 AoV Pk Grad: 8.00 Aov Mn Grad: 4.00 CORBIN Cont.VTI: 2.44 LVOT LVOT Pk Jonathon: 0.94 LVOT Mn Jonathon: 0.68 LVOT VTI: 0.18 LVOT Pk Grad: 3.00 LVOT Mn Grad: 2.00 LVOT Diam: 2.10 LVOT Area: 3.46 Diastolic Function MV Pk E: 1.30 MV Pk A: 0.98 E/A: 1.30 E'Medial: 6.20 E/E' Med: 21.00 E' Laterial: 12.20 E/E' Lat: 10.70 Right Ventricle TAPSE (mm): 20.40 TVS' Jonathon: 10.30 Tricuspid Valve TR Pk Jonathon: 2.26 TR Pk Grad: 20.00 RA Press: 8.00 RVSP: 28.00 Great Vessels Aorta Sinus of Valsalva: 3.03 2.0-3.[address] [place]: 2.56 1.7-3.4 cm Ao Asc: 3.20 2.1-3.4 cm Updated in Other Vendor System with Status of Final Dimitrios Choudhary MD electronically signed on 08/25/2021 4:49:20 PM with status of Final
--- NOTE | 2021-08-23 07:17 | PC.NURSE ---
note cont. on chest pain at 2323 nitro 0.4 mg sub given with some relief and per heparin protocol labs were drawn to start heparin drip but h/h is low ant order receved to give unit of blood first draw another set of labs after blood is finished so blood finished at 4 am and labs drawn after. heparin drip start at 5 am at this time pt states she has no chest pain . bolus of 1 liter of LR WAS GIVEn PRIOR TRANSFUSION to keep blood pressure since pt receved nitro.
[2021-08-23 07:45] LABS: Glucose, Whole Blood 266 mg/dL (60-115)
[2021-08-23] MEDS: Insulin Lispro 100 UNIT/ML 3 ML VIAL SUBCUT (08:13)
--- NOTE | 2021-08-23 08:37 | PM.PNORT ---
Subjective Subjective Date of Service: 08/23/21 Interval history: POD 6 s/p LT ROMIE Overnight patient had chest pain --EKG done + for NSTEMI She is resting in bed, denies CP at the moment Physical Exam Vital Signs: Vital Signs: Last Vital Signs Temp 98.2 F 08/23/21 07:38 Pulse 90 08/23/21 07:38 Resp 17 08/23/21 07:38 BP 113/59 L 08/23/21 07:38 Pulse Ox 95 08/23/21 07:38 BMI result Body Mass Index 35.9 Extrem: Other: incision clean dry and intact. [place] intact. No erythema or effusion. Calf supple nontender. Neurovascularly intact. Procedures Date of Service Date of Service: 08/23/21 Progress Note: A&P Assessment and plan (1) S/P total hip arthroplasty: Status: Acute Assessment and Plan: pain mgmnt dvt ppx PT/OT -pt being transferred to [facility] for cardiac cath Time Spent With Patient Time: Total time spent is greater than 50% in coordination of care (as documented) at patient's floor/unit and/or counseling patient: Quality Stroke Does the patient have a stroke diagnosis?: No VTE Prior VTE?: No VTE Risk Level:: Surgical - very high VTE Device Contraindication: N/A - Device Ordered VTE Drug Contraindication: N/A - Med Ordered
--- NOTE | 2021-08-23 08:55 | P.PNIM_ITS ---
Subjective Subjective Date of Service: 08/23/21 Interval History: nsetmi Physical Exam Vital Signs: Vital Signs: Last Vital Signs Temp 98.2 F 08/23/21 07:38 Pulse 90 08/23/21 07:38 Resp 17 08/23/21 07:38 BP 113/59 L 08/23/21 07:38 Pulse Ox 95 08/23/21 07:38 BMI result Body Mass Index 35.9 Objective Data Active Medications Acetaminophen (Acetaminophen 325 Mg Tablet) 650 mg PO Q6H PRN PRN Reason: Pain, Mild (Pain Scale 1-3) Last Admin: 08/22/21 05:19 Dose: 650 mg Documented by: CASTILMan Albuterol/Ipratropium (Albuterol/Iprat 2.5/0.5mg 3 Ml Ampul.Neb) 3 ml INHALE RQ4H WHILE AWAKE [facility] Last Admin: 08/23/21 07:32 Dose: Not Given Documented by: ELLEN Non-Admin Reason: Patient Refused Aspirin (Aspirin 325 Mg Tablet) 325 mg PO BID [facility] Last Admin: 08/22/21 21:30 Dose: 325 mg Documented by: STARR Atorvastatin Calcium (Atorvastatin Calcium 80 Mg Tablet) 80 mg PO BEDTIME [facility] Last Admin: 08/23/21 03:02 Dose: 80 mg Documented by: STARR Buspirone HCl (Buspirone Hcl 5 Mg Tablet) 7.5 mg PO BID [facility] Last Admin: 08/22/21 21:30 Dose: 7.5 mg Documented by: STARR Calcium Carbonate/Cholecalciferol (Calcium + Vitamin D 250 Mg Tablet) 500 mg PO DAILY [facility] Last Admin: 08/22/21 08:01 Dose: 500 mg Documented by: TOMAS Dextrose (Dextrose 50 % 25 Gm/50 Ml Syringe) 25 gm IVPUSH Q15M PRN; Protocol PRN Reason: per Hypoglycemia Standing Ord. Dicyclomine HCl (Dicyclomine Hcl 10 Mg Capsule) 20 mg PO QID [facility] Last Admin: 08/22/21 21:42 Dose: 20 mg Documented by: STARR Docusate Sodium (Docusate Sodium 100 Mg Capsule) 100 mg PO BID [facility] Last Admin: 08/22/21 21:31 Dose: 100 mg Documented by: STARR Ezetimibe (Ezetimibe 10 Mg Tablet) 10 mg PO DAILY [facility] Last Admin: 08/22/21 08:02 Dose: 10 mg Documented by: TOMAS Ferrous Sulfate (Ferrous Sulfate 324 Mg Tablet.) 324 mg PO DAILY [facility] Last Admin: 08/22/21 08:03 Dose: 324 mg Documented by: TOMAS Fluticasone Propionate (Fluticasone Propionate 100 Mcg Blst.W.Dev) 2 puff INHALE RBID [facility] Last Admin: 08/23/21 07:32 Dose: Not Given Documented by: ELLEN Non-Admin Reason: Patient Refused Fluticasone Propionate (Fluticasone Propionate Nasal 16 Gm Mitchell) 2 spray NOSTRIL-B DAILY [facility] Last Admin: 08/22/21 08:03 Dose: 2 spray Documented by: TOMAS Gabapentin (Gabapentin 300 Mg Capsule) 300 mg PO TID [facility] Last Admin: 08/22/21 21:31 Dose: 300 mg Documented by: STARR Glucose (Glucose Gel 15 Gm Gel..Gram.) 15 gm PO Q15M PRN; Protocol PRN Reason: per Hypoglycemia Standing Ord. Heparin Sodium (Porcine) (Heparin Sodium,Porcine 5,000 Unit/Ml Vial) 3,400 unit 40 unit/kg (3400 unit) IVPUSH PROTOCOL BOLUS PRN; Protocol PRN Reason: 40 unit/kg - Heparin Protocol Heparin Sodium (Porcine) (Heparin Sodium,Porcine 5,000 Unit/Ml Vial) 6,900 unit 80 unit/kg (6900 unit) IVPUSH PROTOCOL BOLUS PRN; Protocol PRN Reason: 80 unit/kg - Heparin Protocol Hydroxyzine HCl (Hydroxyzine Hcl 25 Mg Tablet) 25 mg PO Q8H PRN PRN Reason: anxiety/restlessness Last Admin: 08/22/21 21:31 Dose: 25 mg Documented by: STARR Heparin Sodium/Sodium Chloride () 25,000 unit in 250 mls @ 0 mls/hr IVCONT .Q0M [facility]; Protocol Last Admin: 08/23/21 05:00 Dose: 14 units/kg/hr, 12.07 mls/hr Documented by: STARR Cosigned by: PIPPA Insulin Glargine (Insulin Glargine,Hum.Rec.Anlog 100 Unit/Ml 10 Ml Vial) 45 unit SUBCUT BEDTIME [facility] Last Admin: 08/22/21 21:32 Dose: 45 unit Documented by: STARR Insulin Human Lispro (Insulin Lispro 100 Unit/Ml 3 Ml Vial) 5 unit SUBCUT TIDAC [facility] Last Admin: 08/23/21 08:14 Dose: Not Given Documented by: TOMAS Non-Admin Reason: Dopctors order Insulin Human Lispro (Insulin Lispro 100 Unit/Ml 3 Ml Vial) 0 unit SUBCUT QIDACHS [facility]; Protocol Last Admin: 08/23/21 08:13 Dose: 6 unit Documented by: TOMAS Levofloxacin (Levofloxacin 250 Mg Tablet) 250 mg PO Q24H [facility] Last Admin: 08/22/21 10:10 Dose: 250 mg Documented by: TOMAS Levothyroxine Sodium (Levothyroxine Sodium 125 Mcg Tablet) 250 mcg PO DAILY@0600 [facility] Last Admin: 08/23/21 05:08 Dose: 250 mcg Documented by: STARR Magnesium Oxide (Magnesium Oxide 400 Mg Tablet) 200 mg PO DAILY [facility] Last Admin: 08/22/21 08:01 Dose: 200 mg Documented by: TOMAS Metoprolol Succinate (Metoprolol Succinate Er 25 Mg Tab.Er.24h) 25 mg PO DAILY [facility]; Protocol Nitroglycerin (Nitroglycerin 0.4 Mg Tab.Subl) 0.4 mg SUBLINGUAL Q5M PRN PRN Reason: chest pain Last Admin: 08/22/21 23:23 Dose: 0.4 mg Documented by: STARR Omeprazole (Omeprazole 40 Mg Capsule.Dr) 40 mg PO DAILY@0630 [facility] Last Admin: 08/23/21 05:08 Dose: 40 mg Documented by: STARR Ondansetron HCl (Ondansetron Hcl 4 Mg/2 Ml Vial) 4 mg IVPUSH Q8H PRN PRN Reason: Nausea and Vomiting Oxycodone HCl (Oxycodone Hcl Immed Release 5 Mg Tablet) 10 mg PO Q4H PRN PRN Reason: Pain, Moderate (Pain Scale 4-6 Last Admin: 08/21/21 04:26 Dose: 10 mg Documented by: ANNETTE Oxycodone HCl (Oxycodone Hcl Er 10 Mg Tab.Er.12h) 10 mg PO BID [facility] Last Admin: 08/22/21 21:32 Dose: 10 mg Documented by: STARR Sodium Chloride (0.9 % Sodium Chloride Flush 3 Ml Syringe) 3 ml IVFLUSH QSHIFT [facility] Last Admin: 08/23/21 08:14 Dose: Not Given Documented by: TOMAS Non-Admin Reason: IV Running Tamsulosin HCl (Tamsulosin Hcl 0.4 Mg Capsule) 0.8 mg PO DAILY [facility] Last Admin: 08/22/21 10:10 Dose: 0.8 mg Documented by: TOMAS Vitamin D (Cholecalciferol (Vitamin D3) 25 Mcg Tablet) 25 mcg PO DAILY [facility] Last Admin: 08/22/21 08:02 Dose: 25 mcg Documented by: TOMAS Labs CBC & Chem 7: 08/23/21 04:29 08/22/21 08:31 Labs: Laboratory Results - last 24 hr 08/22/21 08/22/21 08/22/21 08:31 11:08 14:48 MCV MCH MCHC RDW Plt Count MPV Absolute Nucleated RBC Nucleated RBC % (auto) PT INR aPTT Heparin Protocol Anion Gap 13 Estim Creat Clear Calc 41.7 Estimated GFR 39 POC Glucose 164 H Random Glucose 249 H Calcium 8.0 L Troponin I High Sens Urine Color YELLOW Urine Appearance CLEAR Urine pH 5.5 Ur Specific [place] 1.010 Urine Protein NEG Urine Glucose (UA) NEG Urine Ketones NEG Urine Blood NEG Urine Nitrite NEG Ur Leukocyte Esterase NEG Blood Type Antibody Screen Crossmatch 08/22/21 08/22/21 08/22/21 15:22 19:56 21:48 MCV MCH MCHC RDW Plt Count MPV Absolute Nucleated RBC Nucleated RBC % (auto) PT INR aPTT Heparin Protocol Anion Gap Estim Creat Clear Calc Estimated GFR POC Glucose 130 H 194 H Random Glucose Calcium Troponin I High Sens 519.8 H* D Urine Color Urine Appearance Urine pH Ur Specific [place] Urine Protein Urine Glucose (UA) Urine Ketones Urine Blood Urine Nitrite Ur Leukocyte Esterase Blood Type Antibody Screen Crossmatch 08/22/21 08/22/21 08/22/21 23:52 23:52 23:52 MCV 94.9 MCH 29.5 MCHC 31.1 RDW 13.2 Plt Count 139 L MPV 10.3 Absolute Nucleated RBC 0.000 Nucleated RBC % (auto) 0.0 PT 13.1 H INR 1.2 H aPTT Heparin Protocol 31.1 L Anion Gap Estim Creat Clear Calc Estimated GFR POC Glucose Random Glucose Calcium Troponin I High Sens Urine Color Urine Appearance Urine pH Ur Specific [place] Urine Protein Urine Glucose (UA) Urine Ketones Urine Blood Urine Nitrite Ur Leukocyte Esterase Blood Type A Negative Antibody Screen NEGATIVE Crossmatch See Detail 08/23/21 08/23/21 08/23/21 01:40 04:29 04:29 MCV 92.1 MCH 29.4 MCHC 31.9 RDW 14.6 Plt Count 143 L MPV 10.8 Absolute Nucleated RBC 0.000 Nucleated RBC % (auto) 0.0 PT 13.1 H INR 1.2 H aPTT Heparin Protocol Anion Gap Estim Creat Clear Calc Estimated GFR POC Glucose Random Glucose Calcium Troponin I High Sens 683.1 H* Urine Color Urine Appearance Urine pH Ur Specific [place] Urine Protein Urine Glucose (UA) Urine Ketones Urine Blood Urine Nitrite Ur Leukocyte Esterase Blood Type Antibody Screen Crossmatch 08/23/21 08/23/21 05:59 07:40 MCV MCH MCHC RDW Plt Count MPV Absolute Nucleated RBC Nucleated RBC % (auto) PT INR aPTT Heparin Protocol Anion Gap Estim Creat Clear Calc Estimated GFR POC Glucose 266 H Random Glucose Calcium Troponin I High Sens 1754.0 H* D Urine Color Urine Appearance Urine pH Ur Specific [place] Urine Protein Urine Glucose (UA) Urine Ketones Urine Blood Urine Nitrite Ur Leukocyte Esterase Blood Type Antibody Screen Crossmatch Quality Stroke Does the patient have a stroke diagnosis?: No VTE Prior VTE?: No VTE Risk Level:: Surgical - very high VTE Device Contraindication: N/A - Device Ordered VTE Drug Contraindication: N/A - Med Ordered
[2021-08-23 09:12] LABS: Anion Gap 16 (12-20); Blood Urea Nitrogen 41 mg/dL (9-16); Calcium 8.3 mg/dL (8.4-10.2); Carbon Dioxide 21 mmol/L (22-29); Chloride 104 mmol/L (96-108); Creatinine Clr Calc Pharmacy 47.2; Estimated Glomerular Filt Rate 45; Glucose Random 278 mg/dL (60-115); Potassium 4.3 mmol/L (3.3-5.1); Sodium 137 mmol/L (135-145)
--- NOTE | 2021-08-23 09:18 | P.CONCA_ITS ---
History of Present Illness History of Present Illness Date of Service: 08/23/21 Chief complaint: LT ROMIE Narrative: This is a cardiology consultation regarding NSTEMI. It seems that yesterday, she had complained of chest pain and then that led to further evaluation by hospitalist service. Elevated troponins as well as abnormal EKG per note. Patient underwent recent hip surgery about a week ago. Otherwise, patient states that she does not really have any chest pain at this time but generally weak and tired and exhausted. She is on IV heparin drip. She was seen in the office in June this year for preoperative evaluation. There is a history of drug-eluting stent to the LAD in 2004. She had a repeat cardiac catheterization 2011. That showed diffuse moderate irregularities in LAD but no significant InStent restenoses in prior stent. She had nonsignificant disease in circumflex and RCA. Moderate disease in PDA. Last stress test was from 2020 which showed normal perfusion. Review of Systems Review of Systems: Yes all other systems are reviewed and are negative Constitutional: Constitutional: Reports as per HPI, Reports fatigue and Re ports weakness Eyes: Eyes: Reports as per HPI ENT: Reports as per HPI Cardiovascular: Cardiovascular: Reports as per HPI, Denies acrocyanosis, Denies cool extremities, Denies chest pain, Denies leg edema, Denies lightheadedness, Denies palpitations and Denies dyspnea Respiratory: Respiratory: Reports as per HPI, Reports no additional respiratory complaints and Denies dyspnea Gastrointestinal: Gastrointestinal: Reports as per HPI and Reports no additi onal gastrointestinal complaints Genitourinary: Genitourinary: Reports as per HPI Musculoskeletal: Musculoskeletal: Reports no additional musculoskeletal complaints and Reports as per HPI Integumentary/Breasts: Skin/Breast: Reports system reviewed and no additional complaints, except as docu Neurologic: Reports system reviewed and no additional complaints, except as documented, Reports as per HPI and Reports weakness Psychiatric: Psychiatric: Reports no additional psychiatric complaints and Reports as per HPI Endocrine: Endocrine: Reports no additional endocrine complaints, Reports as per HPI, Reports fatigue and Denies palpitations Hematologic/Lymphatic: Hematologic/Lymphatic: Reports no additional hematologic/lymphatic complaints and Reports as per HPI Allergic/Immunologic: Allergic/Immunologic: Reports no additional allergic/immunologic complaints and Reports as per HPI [facility] Past Medical History Medical History Atherosclerotic cardiovascular disease COPD (chronic obstructive pulmonary disease) Coronary artery disease Edema Essential hypertension Osteoporosis Seropositive rheumatoid arthritis Type 2 diabetes mellitus with unspecified complications Ventral hernia Family History Family History Father CVD (cardiovascular disease) Mother CVD (cardiovascular disease) Heart attack Surgical History Surgical History History of heart artery stent (~2005) History of partial hysterectomy History of surgery on lower extremity Hx laparoscopic cholecystectomy Hx of appendectomy Hx of colonoscopy Hx of hernia repair Hx of partial thyroidectomy Social History Social History Household Members: Spouse Housing: House Housing Other:: mobile home Are you a primary daytime caregiver to a significant other at home: No Do you presently have visiting nurse or other home services: No Alcohol intake: former Patient Tobacco Use Status: Former Tobacco user Quit Date: 2005 Tobacco use type: Cigarette Cigarettes Per Day: 20 Years Smoked: 15 e-Cigarette/Vaping Use: Never Used Use of substances other than those prescribed or required for medical reasons: No Substance Use Frequency: Daily Currently Displaying Signs/Symptoms of Drug Intoxication Withdrawal: No Have you been hit, kicked, punched, or otherwise hurt by someone within the past year? If so, by whom?: No Do you feel safe in your current relationship?: Yes Is there a partner from a previous relationship who is making you feel unsafe now?: No Are you made to feel afraid or neglected: No Spiritual Healthcare Practices: no Quaker Healthcare Practices: no Cultural Healthcare Practices: no Are you DNR?: No Advance Directives: No Advance Directives Information Provided: Yes Advance Directives on File: No Do you have thoughts of harming others: None Do you have a plan to hurt others: No Plan Recently lost weight without trying: No Nutrition Risks: No Nutritional Risk Patient : No : No Poor oral hygiene: No service: No Current occupational status: disabled Meds Allergies Allergy/AdvReac Type Severity Reaction Status Date / Time metoclopramide [From REGLAN] Allergy Severe Anxiety Verified 08/17/21 07:35 Penicillins [PENICILLINS] Allergy Severe swelling Verified 08/17/21 07:35 tramadol [From ULTRAM] Allergy Severe Vomiting Verified 08/17/21 07:35 codeine [Tylenol-Codeine] Allergy Intermediate vomiting Verified 08/17/21 07:35 Active Medications: Current Medications Acetaminophen (Acetaminophen 325 Mg Tablet) 650 mg PO Q6H PRN PRN Reason: Pain, Mild (Pain Scale 1-3) Last Admin: 08/22/21 05:19 Dose: 650 mg Documented by: Albuterol/Ipratropium (Albuterol/Iprat 2.5/0.5mg 3 Ml Ampul.Neb) 3 ml INHALE RQ4H WHILE AWAKE [facility] Last Admin: 08/23/21 07:32 Dose: Not Given Documented by: Aspirin (Aspirin 325 Mg Tablet) 325 mg PO BID [facility] Last Admin: 08/22/21 21:30 Dose: 325 mg Documented by: Atorvastatin Calcium (Atorvastatin Calcium 80 Mg Tablet) 80 mg PO BEDTIME [facility] Last Admin: 08/23/21 03:02 Dose: 80 mg Documented by: Buspirone HCl (Buspirone Hcl 5 Mg Tablet) 7.5 mg PO BID [facility] Last Admin: 08/22/21 21:30 Dose: 7.5 mg Documented by: Calcium Carbonate/Cholecalciferol (Calcium + Vitamin D 250 Mg Tablet) 500 mg PO DAILY [facility] Last Admin: 08/22/21 08:01 Dose: 500 mg Documented by: Dextrose (Dextrose 50 % 25 Gm/50 Ml Syringe) 25 gm IVPUSH Q15M PRN; Protocol PRN Reason: per Hypoglycemia Standing Ord. Dicyclomine HCl (Dicyclomine Hcl 10 Mg Capsule) 20 mg PO QID [facility] Last Admin: 08/22/21 21:42 Dose: 20 mg Documented by: Docusate Sodium (Docusate Sodium 100 Mg Capsule) 100 mg PO BID [facility] Last Admin: 08/22/21 21:31 Dose: 100 mg Documented by: Ezetimibe (Ezetimibe 10 Mg Tablet) 10 mg PO DAILY [facility] Last Admin: 08/22/21 08:02 Dose: 10 mg Documented by: Ferrous Sulfate (Ferrous Sulfate 324 Mg Tablet.) 324 mg PO DAILY [facility] Last Admin: 08/22/21 08:03 Dose: 324 mg Documented by: Fluticasone Propionate (Fluticasone Propionate 100 Mcg Blst.W.Dev) 2 puff INHALE RBID [facility] Last Admin: 08/23/21 07:32 Dose: Not Given Documented by: Fluticasone Propionate (Fluticasone Propionate Nasal 16 Gm [place]) 2 spray NOSTRIL-B DAILY [facility] Last Admin: 08/22/21 08:03 Dose: 2 spray Documented by: Gabapentin (Gabapentin 300 Mg Capsule) 300 mg PO TID [facility] Last Admin: 08/22/21 21:31 Dose: 300 mg Documented by: Glucose (Glucose Gel 15 Gm Gel..Gram.) 15 gm PO Q15M PRN; Protocol PRN Reason: per Hypoglycemia Standing Ord. Heparin Sodium (Porcine) (Heparin Sodium,Porcine 5,000 Unit/Ml Vial) 3,400 unit 40 unit/kg (3400 unit) IVPUSH PROTOCOL BOLUS PRN; Protocol PRN Reason: 40 unit/kg - Heparin Protocol Heparin Sodium (Porcine) (Heparin Sodium,Porcine 5,000 Unit/Ml Vial) 6,900 unit 80 unit/kg (6900 unit) IVPUSH PROTOCOL BOLUS PRN; Protocol PRN Reason: 80 unit/kg - Heparin Protocol Hydroxyzine HCl (Hydroxyzine Hcl 25 Mg Tablet) 25 mg PO Q8H PRN PRN Reason: anxiety/restlessness Last Admin: 08/22/21 21:31 Dose: 25 mg Documented by: Heparin Sodium/Sodium Chloride () 25,000 unit in 250 mls @ 0 mls/hr IVCONT .Q0M [facility]; Protocol Last Admin: 08/23/21 05:00 Dose: 14 units/kg/hr, 12.07 mls/hr Documented by: Insulin Glargine (Insulin Glargine,Hum.Rec.Anlog 100 Unit/Ml 10 Ml Vial) 45 unit SUBCUT BEDTIME [facility] Last Admin: 08/22/21 21:32 Dose: 45 unit Documented by: Insulin Human Lispro (Insulin Lispro 100 Unit/Ml 3 Ml Vial) 5 unit SUBCUT TIDAC [facility] Last Admin: 08/23/21 08:14 Dose: Not Given Documented by: Insulin Human Lispro (Insulin Lispro 100 Unit/Ml 3 Ml Vial) 0 unit SUBCUT QIDACHS [facility]; Protocol Last Admin: 08/23/21 08:13 Dose: 6 unit Documented by: Levofloxacin (Levofloxacin 250 Mg Tablet) 250 mg PO Q24H [facility] Last Admin: 08/22/21 10:10 Dose: 250 mg Documented by: Levothyroxine Sodium (Levothyroxine Sodium 125 Mcg Tablet) 250 mcg PO DAILY@0600 [facility] Last Admin: 08/23/21 05:08 Dose: 250 mcg Documented by: Magnesium Oxide (Magnesium Oxide 400 Mg Tablet) 200 mg PO DAILY [facility] Last Admin: 08/22/21 08:01 Dose: 200 mg Documented by: Metoprolol Succinate (Metoprolol Succinate Er 25 Mg Tab.Er.24h) 25 mg PO DAILY [facility]; Protocol Nitroglycerin (Nitroglycerin 0.4 Mg Tab.Subl) 0.4 mg SUBLINGUAL Q5M PRN PRN Reason: chest pain Last Admin: 08/22/21 23:23 Dose: 0.4 mg Documented by: Omeprazole (Omeprazole 40 Mg Capsule.Dr) 40 mg PO DAILY@629 [facility] Last Admin: 08/23/21 05:08 Dose: 40 mg Documented by: Ondansetron HCl (Ondansetron Hcl 4 Mg/2 Ml Vial) 4 mg IVPUSH Q8H PRN PRN Reason: Nausea and Vomiting Oxycodone HCl (Oxycodone Hcl Immed Release 5 Mg Tablet) 10 mg PO Q4H PRN PRN Reason: Pain, Moderate (Pain Scale 4-6 Last Admin: 08/21/21 04:26 Dose: 10 mg Documented by: Oxycodone HCl (Oxycodone Hcl Er 10 Mg Tab.Er.12h) 10 mg PO BID [facility] Last Admin: 08/22/21 21:32 Dose: 10 mg Documented by: Sodium Chloride (0.9 % Sodium Chloride Flush 3 Ml Syringe) 3 ml IVFLUSH QSHIFT [facility] Last Admin: 08/23/21 08:14 Dose: Not Given Documented by: Tamsulosin HCl (Tamsulosin Hcl 0.4 Mg Capsule) 0.8 mg PO DAILY [facility] Last Admin: 08/22/21 10:10 Dose: 0.8 mg Documented by: Vitamin D (Cholecalciferol (Vitamin D3) 25 Mcg Tablet) 25 mcg PO DAILY [facility] Last Admin: 08/22/21 08:02 Dose: 25 mcg Documented by: Home Medications Medication Instructions Recorded Confirmed Last Taken Type acetaminophen 650 mg 650 mg PO Q6H PRN 05/07/20 08/10/21 Unknown History tablet,extended release (Tylenol Arthritis Pain) ascorbic acid (vitamin C) 250 mg 250 mg PO DAILY 05/07/20 08/10/21 Unknown History tablet aspirin 81 mg tablet,delayed 81 mg PO DAILY 05/07/20 08/10/21 08/10/21 History release (Adult Low Dose Aspirin) buspirone 7.5 mg tablet 7.5 mg PO BID 05/07/20 08/10/21 08/17/21 05:30 History cholecalciferol (vitamin D3) 25 25 mcg PO DAILY 05/07/20 08/10/21 Unknown History mcg (1,000 unit) capsule dicyclomine 20 mg tablet 20 mg PO QID 05/07/20 08/10/21 08/17/21 05:30 History ezetimibe 10 mg tablet (Zetia) 10 mg PO DAILY 05/07/20 08/10/21 Unknown History ferrous sulfate 325 mg (65 mg 325 mg PO DAILY 05/07/20 08/10/21 Unknown History iron) tablet fluticasone propionate 110 2 puff INHALATION BID 05/07/20 08/10/21 Unknown History mcg/actuation HFA aerosol inhaler (Flovent HFA) fluticasone propionate 50 2 spray INTRANASAL DAILY 05/07/20 08/10/21 Unknown History mcg/actuation nasal spray,suspension gabapentin 300 mg capsule 300 mg PO TID 05/07/20 08/10/21 08/17/21 05:30 History (Neurontin) metoprolol succinate 50 mg 50 mg PO DAILY 05/07/20 08/10/21 08/17/21 05:30 History tablet,extended release 24 hr omeprazole 40 mg capsule,delayed 40 mg PO DAILY 05/07/20 08/10/21 08/17/21 05:30 History release simvastatin 20 mg tablet 20 mg PO BEDTIME 05/07/20 08/10/21 Unknown History insulin aspart U-100 100 unit/mL 5 unit SUBCUT TID 04/07/21 08/10/21 Unknown History (3 mL) subcutaneous pen (Novolog Flexpen U-100 Insulin aspart) insulin degludec 100 unit/mL (3 65 unit SUBCUT BEDTIME 08/10/21 08/10/21 Unknown History mL) subcutaneous pen (Tresiba FlexTouch U-100 insulin) magnesium citrate 125 mg capsule 250 mg PO DAILY 08/10/21 08/10/21 Unknown History levothyroxine 125 mcg tablet 250 mcg PO DAILY 08/17/21 08/17/21 08/17/21 05:30 History Physical Exam Vital Signs: Vital Signs: Last Vital Signs Temp 98.2 F 08/23/21 07:38 Pulse 90 08/23/21 07:38 Resp 17 08/23/21 07:38 BP 113/59 L 08/23/21 07:38 Pulse Ox 95 08/23/21 07:38 BMI result Body Mass Index 35.9 Const: General: comfortable and no acute distress Orientation/consciousness: patient oriented x3 HEENT: Other: Unremarkable Head: Yes normal to inspection Neck: Neck: Yes normal visual inspection Chest: Chest palpation & inspection: normal inspection of the chest Resp: Auscultation: clear to auscultation bilaterally Cardio: Palpation: normal PMI Heart sounds: S1 normal heart sound present, S2 normal heart sound present, no gallops, no murmurs and no rubs GI: Palpation (GI): Soft to palpation Back/Spine/Pelvis: Other: unremarkable Skin: General skin exam: no rashes or lesions noted Neuro: General: patient oriented x3 Extrem: General: Yes normal to inspection Psych: Mental Status: mental status grossly normal Objective Labs and Meds Result diagrams: 08/23/21 04:29 08/23/21 07:44 Lab results: Laboratory Results - last 24 hr 08/22/21 08/22/21 08/22/21 08:31 11:08 14:48 WBC RBC Hgb Hct MCV MCH MCHC RDW Plt Count MPV Absolute Nucleated RBC Nucleated RBC % (auto) PT INR aPTT Heparin Protocol Sodium 135 Potassium 4.2 Chloride 104 Carbon Dioxide 22 Anion Gap 13 BUN 48 H D Creatinine 1.36 Estim Creat Clear Calc 41.7 Estimated GFR 39 POC Glucose 164 H Random Glucose 249 H Calcium 8.0 L Troponin I High Sens Urine Color YELLOW Urine Appearance CLEAR Urine pH 5.5 Ur Specific Bandy 1.010 Urine Protein NEG Urine Glucose (UA) NEG Urine Ketones NEG Urine Blood NEG Urine Nitrite NEG Ur Leukocyte Esterase NEG Blood Type Antibody Screen Crossmatch 08/22/21 08/22/21 08/22/21 15:22 19:56 21:48 WBC RBC Hgb Hct MCV MCH MCHC RDW Plt Count MPV Absolute Nucleated RBC Nucleated RBC % (auto) PT INR aPTT Heparin Protocol Sodium Potassium Chloride Carbon Dioxide Anion Gap BUN Creatinine Estim Creat Clear Calc Estimated GFR POC Glucose 130 H 194 H Random Glucose Calcium Troponin I High Sens 519.8 H* D Urine Color Urine Appearance Urine pH Ur Specific Bandy Urine Protein Urine Glucose (UA) Urine Ketones Urine Blood Urine Nitrite Ur Leukocyte Esterase Blood Type Antibody Screen Crossmatch 08/22/21 08/22/21 08/22/21 23:52 23:52 23:52 WBC 4.5 L RBC 2.54 L Hgb 7.5 L Hct 24.1 L MCV 94.9 MCH 29.5 MCHC 31.1 RDW 13.2 Plt Count 139 L MPV 10.3 Absolute Nucleated RBC 0.000 Nucleated RBC % (auto) 0.0 PT 13.1 H INR 1.2 H aPTT Heparin Protocol 31.1 L Sodium Potassium Chloride Carbon Dioxide Anion Gap BUN Creatinine Estim Creat Clear Calc Estimated GFR POC Glucose Random Glucose Calcium Troponin I High Sens Urine Color Urine Appearance Urine pH Ur Specific Bandy Urine Protein Urine Glucose (UA) Urine Ketones Urine Blood Urine Nitrite Ur Leukocyte Esterase Blood Type A Negative Antibody Screen NEGATIVE Crossmatch See Detail 08/23/21 08/23/21 08/23/21 01:40 04:29 04:29 WBC 5.1 RBC 3.03 L Hgb 8.9 L Hct 27.9 L MCV 92.1 MCH 29.4 MCHC 31.9 RDW 14.6 Plt Count 143 L MPV 10.8 Absolute Nucleated RBC 0.000 Nucleated RBC % (auto) 0.0 PT 13.1 H INR 1.2 H aPTT Heparin Protocol Sodium Potassium Chloride Carbon Dioxide Anion Gap BUN Creatinine Estim Creat Clear Calc Estimated GFR POC Glucose Random Glucose Calcium Troponin I High Sens 683.1 H* Urine Color Urine Appearance Urine pH Ur Specific Bandy Urine Protein Urine Glucose (UA) Urine Ketones Urine Blood Urine Nitrite Ur Leukocyte Esterase Blood Type Antibody Screen Crossmatch 08/23/21 08/23/21 08/23/21 05:59 07:40 07:44 WBC RBC Hgb Hct MCV MCH MCHC RDW Plt Count MPV Absolute Nucleated RBC Nucleated RBC % (auto) PT INR aPTT Heparin Protocol Sodium 137 Potassium 4.3 Chloride 104 Carbon Dioxide 21 L Anion Gap 16 BUN 41 H Creatinine 1.20 Estim Creat Clear Calc 47.2 Estimated GFR 45 POC Glucose 266 H Random Glucose 278 H Calcium 8.3 L Troponin I High Sens 1754.0 H* D Urine Color Urine Appearance Urine pH Ur Specific Bandy Urine Protein Urine Glucose (UA) Urine Ketones Urine Blood Urine Nitrite Ur Leukocyte Esterase Blood Type Antibody Screen Crossmatch ECG Interpretation: EKG is not showing up in expanse- paper copy-sinus rhythm with lateral ST depression-seems changed compared to last month's EKG. Imaging Radiologist's impression: Impressions Chest X-Ray 08/23/21 02:45 IMPRESSION: No acute cardiopulmonary findings. Assessment and Plan (1) NSTEMI (non-ST elevated myocardial infarction): Status: Acute Plan Cardiac studies reviewed. EKG with sinus rhythm and lateral ST depression in 1/aVL. Repeat requested. In the lab work, hemoglobin is 8.9. Went as low as 7.5. Previously 11.8 last month. High sensitivity troponins are 519; 683; 1754. Creatinine 1.2. Around her baseline. At this time, we will treat her for NSTEMI. Could be secondary related to recent surgery as well as anemia. Will give her some additional blood trans fusion to bring the hemoglobin up even higher. Otherwise, continue IV heparin drip. Aspirin. High-dose statins. Home dose of beta-blockers. Echocardiogram for LVEF and wall motion. She will need diagnostic cardiac catheterization and will need to be transferred to [facility] for that. Will make arrangements accordingly. Procedures Date of Service Date of Service: 08/23/21
--- NOTE | 2021-08-23 10:25 | MHC.CM.PN ---
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 cardiology is arrangng this [facility] to transport when bed is available
[2021-08-23 11:33] LABS: Hematocrit 29.7 % (37.0-47.0); Hemoglobin 9.4 g/dl (12.0-16.0)
[2021-08-23 11:38] LABS: Glucose, Whole Blood 139 mg/dL (60-115)
[2021-08-23] MEDS: Tamsulosin HCL 0.4 MG CAPSULE 0.8 MG PO (11:44)
[2021-08-23] MEDS: Aspirin Enteric Coated 81 MG TABLET.DR 162 MG PO (11:44)
[2021-08-23] MEDS: Gabapentin 300 MG CAPSULE PO ×2 (11:44→13:59)
[2021-08-23] MEDS: Metoprolol Succinate ER 50 MG TAB.ER.24H PO (11:44)
[2021-08-23] MEDS: busPIRone HCl 5 MG TABLET 7.5 MG PO (11:45)
[2021-08-23] MEDS: Cholecalciferol (Vitamin D3) 25 MCG TABLET PO (11:45)
[2021-08-23] MEDS: Magnesium Oxide 400 MG TABLET 200 MG PO (11:45)
[2021-08-23] MEDS: Calcium + Vitamin D 250 MG TABLET 500 MG PO (11:45)
[2021-08-23] MEDS: Docusate Sodium 100 MG CAPSULE PO (11:47)
[2021-08-23] MEDS: Ezetimibe 10 MG TABLET PO (11:48)
[2021-08-23] MEDS: Ferrous Sulfate 324 MG TABLET.DR PO (11:48)
[2021-08-23] MEDS: oxyCODONE HCl ER 10 MG TAB.ER.12H PO (11:48)
--- NOTE | 2021-08-23 11:54 | P.DS_ITS ---
DS: Providers Provider Date of Service: 08/23/21 Date of admission: 08/17/21 06:17 Primary care physician: Cristina Christopher MD Consults: 08/17/21 11:36 Consult to Hospitalist Routine Consulting Provider: Hospitalist Reason For Exam: medical managment 08/23/21 08:29 Consult to Cardiology Routine Consulting Provider[place] [facility] Reason for consultation: nstemi Has provider been notified: No DS: Diagnosis Discharge Diagnosis (1) NSTEMI (non-ST elevated myocardial infarction): Status: Acute DS: Summary Hospital Course Hospital Course: ?65-year-old woman with history of coronary artery disease, hypertension, diabetes admitted by Orthopedic surgery and is status post left total hip arthroplasty. hospital course: 65-year-old male we female history of coronary artery disease status post stent in 2005: initially admitted for left hip arthroplasty- hospital course she was found to have atelectasis was started on incentive spirometry and chest physiotherapy as well as also had postop anemia- patient complaint of chest pain overnight and found to have NSTEMI-patient was started on IV heparin, continue aspirin, metoprolol, high-dose statin therapy- patient is to go to [facility] for further cardiac interventions. Continue PT PTT protocol as the patient is on heparin drip. echo is done results still pending, mild feet swelling, she received fluids ( during this admission) -continue to moniter closely, currently asymptomatic. Postop anemia: Patient received 2 PRBC, after 1st PRBC her hemoglobin is around 9.4/29.7: patient denies any blood in stool or any vomiting with bleeding or melena, Likely postop anemia. Patient is getting 2nd unit of blood, monitor CBC closely in [facility]. atelactasis : continue incentive spirometry and chest physiotherapy. 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 patient will need DVT prophylaxis upon discharge from [facility] also since patient has recent hip surgery(08/17/21). urinary retention and mild QING: seems to be improv improving with starting Flomax, Ortez, given gentle hydration also yesterday.consider urology eval if needed. Above management discussed with the patient and her in detail length they understand and in agreement with the above plan. Time spent 50 minute. Time Spent with Patient Time attestation: Total time spent providing and/or coordinating discharge services: Discharge coordination time: Greater than 30 minutes Quality: Safe Use of Opioids Does Pt have an Active Cancer Diagnosis on the Problem List?: No Quality: Stroke Does the patient have a stroke diagnosis?: No Physical Exam Vital Signs: Vital Signs: Last Vital Signs Temp 97.9 F 08/23/21 11:39 Pulse 94 08/23/21 11:39 Resp 20 08/23/21 11:39 BP 119/70 08/23/21 11:39 Pulse Ox 95 08/23/21 09:15 BMI result Body Mass Index 39.5 Appearance: Alert.? Oriented X3.? not in distress.? cvs: rrr, [id number] , no murmur res: clear to auscultation ,no rhonchii or wheezing abd: no rebound or guarding ,nt, bs present. ext pulses present , no cyanosis ,mild feet swellin. left hip area:incision clean dry and intact.? [place] intact.? No erythema or? effusion.? Calf supple nontender,has Mild eccymosis neuro: axo3 , nonfocal. DS: Data Data Completed and Pending Completed studies during hospitalization [Text1]: Pending at discharge 08/17/21 09:05 Surgical [PTH] Routine Labs on day of discharge: Laboratory Results - last 24 hr 08/22/21 08/22/21 08/22/21 14:48 15:22 19:56 WBC RBC Hgb Hct MCV MCH MCHC RDW Plt Count MPV Absolute Nucleated RBC Nucleated RBC % (auto) PT INR aPTT Heparin Protocol Sodium Potassium Chloride Carbon Dioxide Anion Gap BUN Creatinine Estim Creat Clear Calc Estimated GFR POC Glucose 130 H 194 H Random Glucose Calcium Troponin I High Sens Urine Color YELLOW Urine Appearance CLEAR Urine pH 5.5 Ur Specific [place] 1.010 Urine Protein NEG Urine Glucose (UA) NEG Urine Ketones NEG Urine Blood NEG Urine Nitrite NEG Ur Leukocyte Esterase NEG Blood Type Antibody Screen Crossmatch 08/22/21 08/22/21 08/22/21 21:48 23:52 23:52 WBC 4.5 L RBC 2.54 L Hgb 7.5 L Hct 24.1 L MCV 94.9 MCH 29.5 MCHC 31.1 RDW 13.2 Plt Count 139 L MPV 10.3 Absolute Nucleated RBC 0.000 Nucleated RBC % (auto) 0.0 PT 13.1 H INR 1.2 H aPTT Heparin Protocol 31.1 L Sodium Potassium Chloride Carbon Dioxide Anion Gap BUN Creatinine Estim Creat Clear Calc Estimated GFR POC Glucose Random Glucose Calcium Troponin I High Sens 519.8 H* D Urine Color Urine Appearance Urine pH Ur Specific [place] Urine Protein Urine Glucose (UA) Urine Ketones Urine Blood Urine Nitrite Ur Leukocyte Esterase Blood Type Antibody Screen Crossmatch 08/22/21 08/23/21 08/23/21 23:52 01:40 04:29 WBC 5.1 RBC 3.03 L Hgb 8.9 L Hct 27.9 L MCV 92.1 MCH 29.4 MCHC 31.9 RDW 14.6 Plt Count 143 L MPV 10.8 Absolute Nucleated RBC 0.000 Nucleated RBC % (auto) 0.0 PT INR aPTT Heparin Protocol Sodium Potassium Chloride Carbon Dioxide Anion Gap BUN Creatinine Estim Creat Clear Calc Estimated GFR POC Glucose Random Glucose Calcium Troponin I High Sens 683.1 H* Urine Color Urine Appearance Urine pH Ur Specific [place] Urine Protein Urine Glucose (UA) Urine Ketones Urine Blood Urine Nitrite Ur Leukocyte Esterase Blood Type A Negative Antibody Screen NEGATIVE Crossmatch See Detail 08/23/21 08/23/21 08/23/21 04:29 05:59 07:40 WBC RBC Hgb Hct MCV MCH MCHC RDW Plt Count MPV Absolute Nucleated RBC Nucleated RBC % (auto) PT 13.1 H INR 1.2 H aPTT Heparin Protocol Sodium Potassium Chloride Carbon Dioxide Anion Gap BUN Creatinine Estim Creat Clear Calc Estimated GFR POC Glucose 266 H Random Glucose Calcium Troponin I High Sens 1754.0 H* D Urine Color Urine Appearance Urine pH Ur Specific [place] Urine Protein Urine Glucose (UA) Urine Ketones Urine Blood Urine Nitrite Ur Leukocyte Esterase Blood Type Antibody Screen Crossmatch 08/23/21 08/23/21 08/23/21 07:44 11:25 11:27 WBC RBC Hgb 9.4 L Hct 29.7 L MCV MCH MCHC RDW Plt Count MPV Absolute Nucleated RBC Nucleated RBC % (auto) PT INR aPTT Heparin Protocol Sodium 137 Potassium 4.3 Chloride 104 Carbon Dioxide 21 L Anion Gap 16 BUN 41 H Creatinine 1.20 Estim Creat Clear Calc 47.2 Estimated GFR 45 POC Glucose 139 H Random Glucose 278 H Calcium 8.3 L Troponin I High Sens Urine Color Urine Appearance Urine pH Ur Specific [place] Urine Protein Urine Glucose (UA) Urine Ketones Urine Blood Urine Nitrite Ur Leukocyte Esterase Blood Type Antibody Screen Crossmatch Additional Comments Additional comments: XR/XR chest 1V IMPRESSION: No acute cardiopulmonary findings. ?XR/XR pelvis 1-2V IMPRESSION: Unremarkable left ROMIE. Discharge Plan Discharge Patient Disposition: Xfer Acute Care Hospital Discharge Diagnosis: s/p LT ROMIE , nstemi,qing possible sec to urinary retention,anemia Referrals: Lucero Castrejon PA-C [Physician Tax Services Specialist] - 2 Weeks (09/02/21 12:30 [facility] Lucero Castrejon PA-C) Discharge Medications: New oxycodone 5 mg Tablet 5 mg PO Q4H PRN (Reason: Pain, Moderate (Pain Scale 4-6) 7 Days Qty: 42 0RF atorvastatin 80 mg Tablet 80 mg PO BEDTIME Qty: 1 0RF tamsulosin 0.4 mg Capsule 0.8 mg PO DAILY Qty: 1 0RF heparin(porcine) in 0.45% NaCl 25,000 unit/250 mL Parenteral Solution 25,000 unit continuous IV infusion .Q0M Qty: 250 0RF Continued nitroglycerin 0.4 mg tablet, sublingual 0.4 mg sublingual Q5M PRN (Reason: chest pain) Qty: 20 3RF Rx Instructions: do not exceed 3 doses per episode calcium carbonate-vitamin D3 600 mg-20 mcg (800 unit) tablet 1 tab PO DAILY Qty: 30 5RF prednisone 5 mg tablet 5 mg PO DAILY Qty: 30 3RF sulfasalazine 500 mg tablet 500 mg PO BID Qty: 60 2RF Tresiba FlexTouch U-100 100 unit/mL (3 mL) Insulin Pen 65 unit SUBCUT BEDTIME 0RF magnesium citrate 125 mg Capsule 250 mg PO DAILY 0RF levothyroxine 125 mcg tablet 250 mcg PO DAILY 0RF aspirin [Adult Low Dose Aspirin] 81 mg tablet,delayed release (DR/EC) 81 mg PO DAILY 0RF buspirone 7.5 mg tablet 7.5 mg PO BID 0RF ferrous sulfate 325 mg (65 mg iron) tablet 325 mg PO DAILY 0RF cholecalciferol (vitamin D3) 25 mcg (1,000 unit) capsule 25 mcg PO DAILY 0RF ascorbic acid (vitamin C) 250 mg tablet 250 mg PO DAILY 0RF fluticasone propionate 50 mcg/actuation spray,suspension 2 spray intranasal DAILY 0RF Rx Instructions: administer into each nostril Flovent HFA 110 mcg/actuation HFA aerosol inhaler 2 puff inhalation BID 0RF dicyclomine 20 mg tablet 20 mg PO QID 0RF omeprazole 40 mg capsule,delayed release(DR/EC) 40 mg PO DAILY 0RF gabapentin [Neurontin] 300 mg capsule 300 mg PO TID 0RF ezetimibe [Zetia] 10 mg tablet 10 mg PO DAILY 0RF metoprolol succinate 50 mg tablet extended release 24 hr 50 mg PO DAILY 0RF acetaminophen [Tylenol Arthritis Pain] 650 mg tablet extended release 650 mg PO Q6H PRN (Reason: Pain) 0RF insulin aspart U-100 [Novolog Flexpen U-100 Insulin] 100 unit/mL (3 mL) insulin pen 5 unit subcut TID 0RF baclofen 10 mg tablet 10 mg PO BID Qty: 60 2RF Discontinued simvastatin 20 mg tablet 20 mg PO BEDTIME 0RF Discharge Orders: Discharge Order (Routine); Ordered 08/23/21 Ordered By: Bertram Nguyễn Diet: regular diet Activity on Discharge: Use cane or walker Stand Alone Forms: Patient Portal Discharge page Care Plan Goals: patient found to have NSTEMI, history of CAD status post stent in 2005- for NSTEMI patient was started on IV heparin, statin high-dose, beta-jorje continue home dose, aspirin- patient needs to go to [facility] for for further cardiac interventions. please see ortho recommendations below: the ortho: Restore function of joint Health Concerns: none Plan of Treatment: Physical Therapy Pain management DVT prophylaxis Assessment: * Physical Therapy for Total hip arthroplasty: wbat, posterior precautions, gait training, ROM, strength * Limit stair climbing * No showering, no tub bath-keep dressing clean, dry and intact * No driving x6 weeks * Continue Aspirin twice a day x 6 weeks * Follow up with [facility] [place] [facility] [place]: * --you will also have your first out patient PT eval on the day of your post op appt-so please plan on being in the office that day for an extended period of time.
[2021-08-23 12:06] LABS: PTT Heparin Drip 76.5 SEC (53-77.9)
[2021-08-23] MEDS: Milk of Magnesia 30 ML ORAL.SUSP 15 ML PO (13:58)
[2021-08-23] MEDS: Nitroglycerin 2 % Oint 1 GM Packet 0.5 INCH TRANSDERMA (13:58)
[2021-08-23] MEDS: polyethylene glycoL 3350 17 GM POWD.PACK PO (13:58)
[2021-08-23] MEDS: Morphine Sulfate 2 MG/ML CARTRIDGE 1 MG IVPUSH (13:59)
== END 2021-08-23 15:50 | disposition short-term general hospital (02) | DRG 324 ==
LOC: HO.SSSA 06:28 → HO.S3 11:20
PROVIDERS: Internal Medicine; Physician Assistant; Admitting Provider Orthopaedic Surgery; PCP Family Medicine; Visit Provider Orthopaedic Surgery
PROC: (CPT 27130; principal; 2021-08-17 07:30)
DX: M16.12 Unilateral primary osteoarthritis, left hip (principal); I21.4 Non-ST elevation (NSTEMI) myocardial infarction; N17.9 Acute kidney failure, unspecified; E03.9 Hypothyroidism, unspecified; I25.10 Atherosclerotic heart disease of native coronary artery without angina pectoris; J44.9 Chronic obstructive pulmonary disease, unspecified; M05.9 Rheumatoid arthritis with rheumatoid factor, unspecified; J98.11 Atelectasis; K21.9 Gastro-esophageal reflux disease without esophagitis; Z87.891 Personal history of nicotine dependence; D64.89 Other specified anemias; R33.9 Retention of urine, unspecified; Z95.5 Presence of coronary angioplasty implant and graft; Z88.0 Allergy status to penicillin; Z88.5 Allergy status to narcotic agent; Z88.8 Allergy status to other drugs, medicaments and biological substances; Z79.4 Long term (current) use of insulin; Z79.51 Long term (current) use of inhaled steroids; Z79.52 Long term (current) use of systemic steroids; Z79.890 Hormone replacement therapy; Z79.899 Other long term (current) drug therapy
CPT/HCPCS: 36415; 71045; 72170; 80048; 80051; 81003; 82947; 84484; 85014; 85018; 85025; 85027; 85610; 85730; 86850; 86900; 86901; 86923; 87635; 87640; 87641; 88304; 88311; 93005; 93306; 94640; 97110; 97116; 97162; 97166; 97530; 97535; C1776; J0131; J0690; J1100; J1170; J1885; J2250; J2270; J2370; J2405; J2550; J3010; P9016; P9047; Q9957

== ENCOUNTER 2021-09-18 15:11 | Emergency (ER) | payer MEDICAID, SELFPAY ==
--- NOTE | ~2021-09-18 | CT_ITS ---
EXAMINATION: CT HIP WITHOUT CONTRAST, LEFT CLINICAL INFORMATION: Recent left hip surgery. Pain with fall. Unable to weight-bear. COMPARISON: CT dated 07/08/2021. TECHNIQUE: Multidetector image imaging was obtained through the left hip without contrast. Multiplanar reformatted images in coronal and sagittal orientations were submitted. This CT examination was performed using dose optimization techniques as appropriate, variously including the following: *Automated exposure control. *Adjustment of mA and/or kV according to patient size (this includes techniques or standardized protocols for targeted exams where dose is matched to indication/reason for exam; i.e. extremities or head). *Use of iterative reconstruction technique. DLP: 370 mGy-cm FINDINGS: The left hip prosthesis appears appropriately situated. No appreciable proximal femoral or acetabular fractures are identified. Imaged portion of the left innominate bone is intact. Relative anteversion of the acetabular cup likely corresponds to the expected postoperative result, though radiographs since the left total hip arthroplasty are not available for comparison. Bone mineralization is normal. No osseous lesions are identified. Mild osteoarthritis at the left SI joint. Pubic symphysis is normal. There is calcific atherosclerosis in the iliac and femoral arteries. Intrapelvic soft tissues are unremarkable. There is a fluid collection in the subcutaneous fat superficial to the iliotibial band at the lateral hip, measuring 7 x 3.5 x 10.5 cm, likely corresponding to a postoperative seroma or hematoma. Significant lateral subcutaneous edema is noted. No appreciable joint effusion. CT/CT hip LT wo con IMPRESSION: 1. No acute fracture or malalignment at the left hip status post total hip arthroplasty. 2. A 10.5 cm collection in the lateral subcutaneous fat along the surgical tract, most consistent with a postoperative seroma or hematoma. No effusion.
--- NOTE | ~2021-09-18 | XR_ITS ---
EXAMINATION: XR HIP, LEFT CLINICAL INFORMATION: Fall with left hip pain COMPARISON: CT abdomen pelvis 07/08/2021, single view pelvis 08/17/2021 TECHNIQUE: Single view pelvis with 2 additional views of the left hip. FINDINGS: Left hip total prosthesis is present and in good/unchanged position. No acute fractures or dislocations are seen extensive vascular calcifications are present. XR/XR hip LT w PEL1V IMPRESSION: No evidence of a traumatic injury after fall. Normal-appearing left hip prosthesis.
[2021-09-18 15:23] VITALS: BP 128/68; BP 138/68; PULSE 62; PULSE 66; RESP 18; TEMP 36.3; O2SAT 97; O2SAT 98; BMI 37.5
--- NOTE | 2021-09-18 16:13 | ED.BACK ---
HPI - Back Pain/Injury General Chief Complaint: Back Pain/Injury <Mirlande Rico NP - Last Filed: 09/18/21 20:41> Stated Complaint: L HIP PAIN S/P FALL,REPLACEMENT THE ,-DEFORMIT <Mirlande Rico NP - Last Filed: 09/18/21 20:41> Time Seen by Provider: 09/18/21 15:39 <Mirlande Rico NP - Last Filed: 09/18/21 20:41> Source: patient and EMS <Mirlande Rico NP - Last Filed: 09/18/21 20:41> Mode of arrival: EMS <Mirlande Rico NP - Last Filed: 09/18/21 20:41> Limitations: no limitations <Mirlande Rico NP - Last Filed: 09/18/21 20:41> History of Present Illness HPI Narrative: 65-year-old female with a history of arthritis, hypertension, coronary disease here with reports of left hip pain after a fall which occurred last evening. Patient tells me she had a left total hip [address] Robles. She was walking in last night with her walker when she tripped causing her to fall on the left hip. No head strike or loss of consciousness. Since the fall she has been unable to bear weight due to pain. Pain radiates from the left hip into the left groin. There is no reports of back pain. patient is on aspirin only. She took her home oxycodone 5 mg with continued pain <Mirlande Rico NP - Last Filed: 09/18/21 20:41> Related Data Home Medications: Home Medications Medication Instructions Recorded Confirmed acetaminophen 650 mg 650 mg PO Q6H PRN Pain 05/07/20 08/10/21 tablet,extended release (Tylenol Arthritis Pain) ascorbic acid (vitamin C) 250 mg 250 mg PO DAILY 05/07/20 08/10/21 tablet aspirin 81 mg tablet,delayed 81 mg PO DAILY 05/07/20 08/10/21 release (Adult Low Dose Aspirin) buspirone 7.5 mg tablet 7.5 mg PO BID 05/07/20 08/10/21 cholecalciferol (vitamin D3) 25 25 mcg PO DAILY 05/07/20 08/10/21 mcg (1,000 unit) capsule dicyclomine 20 mg tablet 20 mg PO QID 05/07/20 08/10/21 ezetimibe 10 mg tablet (Zetia) 10 mg PO DAILY 05/07/20 08/10/21 ferrous sulfate 325 mg (65 mg 325 mg PO DAILY 05/07/20 08/10/21 iron) tablet fluticasone propionate 110 2 puff inhalation BID 05/07/20 08/10/21 mcg/actuation HFA aerosol inhaler (Flovent HFA) fluticasone propionate 50 2 spray intranasal DAILY 05/07/20 08/10/21 mcg/actuation nasal spray,suspension gabapentin 300 mg capsule 300 mg PO TID 05/07/20 08/10/21 (Neurontin) metoprolol succinate 50 mg 50 mg PO DAILY 05/07/20 08/10/21 tablet,extended release 24 hr omeprazole 40 mg capsule,delayed 40 mg PO DAILY 05/07/20 08/10/21 release insulin aspart U-100 100 unit/mL 5 unit subcut TID 04/07/21 08/10/21 (3 mL) subcutaneous pen (Novolog Flexpen U-100 Insulin aspart) insulin degludec 100 unit/mL (3 65 unit subcut BEDTIME 08/10/21 08/10/21 mL) subcutaneous pen (Tresiba FlexTouch U-100 insulin) magnesium citrate 125 mg capsule 250 mg PO DAILY 08/10/21 08/10/21 levothyroxine 125 mcg tablet 250 mcg PO DAILY 08/17/21 08/17/21 Previous Rx's Medication Instructions Recorded nitroglycerin 0.4 mg sublingual 0.4 mg sublingual Q5M PRN chest 03/23/21 tablet pain #20 tabs calcium carbonate 600 mg-vitamin 1 tab PO DAILY #30 ea 04/07/21 D3 20 mcg (800 unit) tablet prednisone 5 mg tablet 5 mg PO DAILY #30 tabs 05/25/21 baclofen 10 mg tablet 10 mg PO BID #60 tabs 07/20/21 sulfasalazine 500 mg tablet 500 mg PO BID #60 tabs 08/11/21 oxycodone 5 mg tablet 5 mg PO Q4H PRN Pain, Moderate 08/20/21 (Pain Scale 4-6 7 days #42 tabs atorvastatin 80 mg tablet 80 mg PO BEDTIME #1 tab 08/23/21 docusate sodium 100 mg capsule 100 mg PO DAILY #30 caps 08/23/21 (Colace) heparin (porcine) 25,000 unit/250 25,000 unit (250 mL) continuous IV 08/23/21 mL in 0.45 % sodium chloride IV infusion .Q0M #250 mL soln nitroglycerin 2 % transdermal 0.5 inch transdermal RQ6H WHILE 08/23/21 ointment (Nitro-Bid) AWAKE #1 g polyethylene glycol 3350 17 17 g PO DAILY #238 grams 08/23/21 gram/dose oral powder (Miralax) tamsulosin 0.4 mg capsule 0.8 mg PO DAILY #1 cap 08/23/21 <Mirlande Rico NP - Last Filed: 09/18/21 20:41> Allergies/Adverse Reactions: Allergies Allergy/AdvReac Type Severity Reaction Status Date / Time metoclopramide [From REGLAN] Allergy Severe Anxiety Verified 09/02/21 13:38 Penicillins [PENICILLINS] Allergy Severe swelling Verified 09/02/21 13:38 tramadol [From ULTRAM] Allergy Severe Vomiting Verified 09/02/21 13:38 codeine [Tylenol-Codeine] Allergy Intermediate vomiting Verified 09/02/21 13:38 <Mirlande Rico NP - Last Filed: 09/18/21 20:41> Review of Systems Review of Systems: Yes all other systems are reviewed and are negative <Mirlande Rico NP - Last Filed: 09/18/21 20:41> Constitutional: Constitutional: Reports no additional constitutional complaints, Denies body ache(s), Denies chills, Denies fever(s), Denies headache(s) and Denies weakness <SAMUEL Wasserman Last Filed: 09/18/21 20:41> Eyes: Eyes: Reports no additional eye complaints and Denies change in vision <Mirlande Rico NP - Last Filed: 09/18/21 20:41> ENT: Reports system reviewed and no additional complaints, except as documented, Denies dizziness, Denies headache(s), Denies nasal congestion, Denies nasal discharge and Denies neck pain <SAMUEL Wasserman Last Filed: 09/18/21 20:41> Cardiovascular: Cardiovascular: Reports no additional cardiovascular complaints, Denies chest pain, Denies leg edema and Denies dyspnea <Mirlande Rico NP - Last Filed: 09/18/21 20:41> Respiratory: Respiratory: Reports no additional respiratory complaints, Denies cough and Denies dyspnea <Mirlande Rico NP - Last Filed: 09/18/21 20:41> Gastrointestinal: Gastrointestinal: Reports no additional gastrointestinal complaints, Denies abdominal pain, Denies diarrhea, Denies nausea and Denies vomiting <Mirlande Rico NP - Last Filed: 09/18/21 20:41> Genitourinary: Genitourinary: Reports no additional female genitourinary complaints and Denies urinary incontinence <Mirlande Rico NP - Last Filed: 09/18/21 20:41> Musculoskeletal: Musculoskeletal: Reports no additional musculoskeletal complaints, Denies back pain, Reports arthralgias, Reports joint swelling, Denies neck pain, Denies numbness and Denies tingling <Mirlande Rico NP - Last Filed: 09/18/21 20:41> Integumentary/Breasts: Skin/Breast: Reports system reviewed and no additional complaints, except as docu and Denies rash <Mirlande Rico NP - Last Filed: 09/18/21 20:41> Neurologic: Denies Abnormal speech present, Denies dizziness, Denies headache(s), Denies numbness, Denies tingling and Denies weakness <Mirlande Rico NP - Last Filed: 09/18/21 20:41> [facility] Past Medical History Attestation statement: The following information was validated with the patient. <Mirlande Rico NP - Last Filed: 09/18/21 20:41> Source: old records reviewed and nursing notes reviewed <Mirlande Rico NP - Last Filed: 09/18/21 20:41> Medical History: Medical History Atherosclerotic cardiovascular disease COPD (chronic obstructive pulmonary disease) Coronary artery disease Edema Essential hypertension Osteoporosis Seropositive rheumatoid arthritis Type 2 diabetes mellitus with unspecified complications Ventral hernia <Mirlande Rico NP - Last Filed: 09/18/21 20:41> Surgical History: Surgical History History of heart artery stent (~2005) History of hip replacement History of partial hysterectomy History of surgery on lower extremity Hx laparoscopic cholecystectomy Hx of appendectomy Hx of colonoscopy Hx of hernia repair Hx of partial thyroidectomy <Mirlande Rico NP - Last Filed: 09/18/21 20:41> Family History Family History: Family History Father CVD (cardiovascular disease) Mother CVD (cardiovascular disease) Heart attack <Mirlande Rico NP - Last Filed: 09/18/21 20:41> Social History Social History: Social History Household Members: Spouse Housing: House Housing Other:: mobile home Are you a primary rn care transition to a significant other at home: No Do you presently have visiting nurse or other home services: No Alcohol intake: former Patient Tobacco Use Status: Never used Tobacco Tobacco use type: Cigarette Cigarettes Per Day: 20 Years Smoked: 15 e-Cigarette/Vaping Use: Never Used Use of substances other than those prescribed or required for medical reasons: Yes Substance Use Type: Marijuana Substance Use Frequency: Daily Last Used Substance: Days (ago) Any prior treatment program specific to substance use: No Advance Directives: No Advance Directives Information Provided: No service: No Current occupational status: disabled <Mirlande Rico NP - Last Filed: 09/18/21 20:41> Physical Exam Vital Signs: Vital Signs: Last Vital Signs Temp 97.3 F 09/18/21 15:23 Pulse 62 09/18/21 15:23 Resp 18 09/18/21 15:23 BP 138/68 09/18/21 15:23 Pulse Ox 98 09/18/21 15:23 O2 Del Method 09/18/21 15:23 BMI result Body Mass Index 37.5 <Mirlande Rico NP - Last Filed: 09/18/21 20:41> Vital Signs: Last Vital Signs Temp 97.3 F 09/18/21 15:23 Pulse 62 09/18/21 15:23 Resp 18 09/18/21 15:23 BP 138/68 09/18/21 15:23 Pulse Ox 98 09/18/21 15:23 O2 Del Method 09/18/21 15:23 BMI result Body Mass Index 37.5 <SARAH Hayes - Last Filed: 09/19/21 01:43> Const: General: cooperative, healthy appearing, comfortable and no acute distress <Mirlande Rico NP - Last Filed: 09/18/21 20:41> Orientation/consciousness: patient oriented x3 <Mirlande Rico NP - Last Filed: 09/18/21 20:41> Limitations: no limitations <Mirlande Rico NP - Last Filed: 09/18/21 20:41> HEENT: Head: Yes normal to inspection <Mirlande Rico NP - Last Filed: 09/18/21 20:41> Ears: hearing grossly normal bilaterally <Mirlande Rico NP - Last Filed: 09/18/21 20:41> General nose exam: Normal external nose present <Mirlande Rico NP - Last Filed: 09/18/21 20:41> Face and sinus: Yes normal facial exam <Mirlande Rico NP - Last Filed: 09/18/21 20:41> Mouth: Normal oral and palatal mucosa present <Mirlande Rico NP - Last Filed: 09/18/21 20:41> Throat: Yes posterior oropharynx normal <Mirlande Rico NP - Last Filed: 09/18/21 20:41> Eyes: General: appearance normal, both eyes and all related structures <Mirlande Rico NP - Last Filed: 09/18/21 20:41> Pupils: Equal, round and reactive pupils present <Mirlande Rico NP - Last Filed: 09/18/21 20:41> Neck: Neck: Yes normal visual inspection <Mirlande Rico NP - Last Filed: 09/18/21 20:41> Chest: Chest palpation & inspection: normal inspection of the chest <Mirlande Rico NP - Last Filed: 09/18/21 20:41> Resp: Effort & Inspection: normal respiratory effort <Mirlande Rico NP - Last Filed: 09/18/21 20:41> Auscultation: clear to auscultation bilaterally <Mirlande Rico NP - Last Filed: 09/18/21 20:41> Cardio: Rate: regular rate <Mirlande Rico NP - Last Filed: 09/18/21 20:41> Rhythm: regular rhythm <Mirlande Rico NP - Last Filed: 09/18/21 20:41> Peripheral pulses: Peripheral pulses 2+ throughout <Mirlande Rico NP - Last Filed: 09/18/21 20:41> GI: Inspection: Yes normal to inspection <Mirlande Rico NP - Last Filed: 09/18/21 20:41> Palpation (GI): Soft to palpation and nontender <Mirlande Rico NP - Last Filed: 09/18/21 20:41> Auscultation: normal bowel sounds <Mirlande Rico NP - Last Filed: 09/18/21 20:41> Back/Spine/Pelvis: Thoracic/Lumbar Spine: thoracic and lumbar spine normal to inspection <Mirlande Rico NP - Last Filed: 09/18/21 20:41> Skin: General skin exam: no rashes or lesions noted <Mirlande Rico NP - Last Filed: 09/18/21 20:41> Neuro: General: patient oriented x3, moves all extremities, no focal motor deficits and normal sensation to monofilament <Mirlande Rico NP - Last Filed: 09/18/21 20:41> Cranial nerves: Yes CN's II-XII intact bilaterally, Yes Equal, round and reactive pupils present, Yes Bilaterally intact EOM present, Yes Nystagmus not present, Yes Normal facial strength present and Yes Midline tongue present <Mirlande Rico NP - Last Filed: 09/18/21 20:41> Cognition (Neuro): normal cognition <Mirlande Rico NP - Last Filed: 09/18/21 20:41> Speech: No Abnormal speech present <SAMUEL Wasserman Last Filed: 09/18/21 20:41> Motor exam (neuro): 5/5 motor strength present throughout <SAMUEL Wasserman Last Filed: 09/18/21 20:41> Extrem: Other: there is pain to the left lateral hip. Pain is worsened with abduction of the hip and internal rotation. There is no shortening or deformity noted. Palpable DP and PT pulses. No obvious ecchymosis, crepitus or swelling over the lateral hip. There is no back pain on palpation. <SAMUEL Wasserman Last Filed: 09/18/21 20:41> General: Yes normal to inspection <SAMUEL Wasserman Last Filed: 09/18/21 20:41> Course Course Course Narrative: x-ray shows no acute finding. Patient unable to weightbear due to pain. Will check CT to rule out occult fracture <Mirlande Rico NP - Last Filed: 09/18/21 20:41> Reevaluation(s) Reevaluation #1: 2014- CT shows IMPRESSION: 1. No acute fracture or malalignment at the left hip status post total hip arthroplasty. ? 2. A 10.5 cm collection in the lateral subcutaneous fat along the surgical tract, most consistent with a postoperative seroma or hematoma. No effusion. Patient tells me she can't go home. She is having a lot of pain. She feels like she needs to go to short-term rehab. Will check labs, COVID screen. Will order physical therapy evaluation and case management consult. Placed in physician observation pending disposition <SAMUEL Wasserman Last Filed: 09/18/21 20:41> Reevaluation #2: Sign out night team pending labs with plans for physician observation <SAMUEL Wasserman Last Filed: 09/18/21 20:41> Time: 21:00 <SAMUEL Wasserman Last Filed: 09/18/21 20:41> Reevaluation #3: Patients glucose 43 will be given orange juice and sugar and repeat POC will be done by nursing <SARAH Hayes - Last Filed: 09/19/21 01:43> Time: 21:43 <SARAH Hayes - Last Filed: 09/19/21 01:43> Additional Reevaluation(s): Point of care at this time 91 after patient ate. Patient no longer wants to go to acute rehab, she tells me she would like to go home and would not like to be in the hospital for another 2nd. I explained to patient that she should be in the hospital for further evaluation and management as she was hypoglycemic with a point of care 43. Patient very rude to nursing and myself, and refusing. She is screaming at us saying she would like to leave even if is a risk of leaving. I explained to her potential risks of patient leaves against medical advice. She tells me I can not be scared . I explained to the patient concerned as she cannot walk well she tells me she does not care and her will come get her. Because of this patient will be leaving against medical advice I do not feel it is safe for patient to leave when she is unable to ambulate, she tells me she does not care and her will come get her. I also was concerned about patient's hematoma on CT, patient tells me she does not care and she needs to leave. Nurse Lesa at bedside and I discussed all this with patient. Patient verbalized understanding of risks versus benefits. At this time patient will be discharged home, refusing, further evaluation and treatment as necessary, observation overnight and short-term rehab. <SARAH Hayes - Last Filed: 09/19/21 01:43> MDM - Back Pain/Injury Medical Records Attestation: I reviewed the patient's medical records. <Mirlande Rico NP - Last Filed: 09/18/21 20:41> Lab Data Attestation: I reviewed the patient's lab results. <Mirlande Rico NP - Last Filed: 09/18/21 20:41> Result diagrams: : 09/18/21 20:46 09/18/21 20:46 <Mirlande Rico NP - Last Filed: 09/18/21 20:41> Labs: Lab Results 09/18/21 09/18/21 09/18/21 Range/Units 20:46 20:46 20:46 WBC 6.7 (4.8-10.8) X10*3/uL RBC 3.36 L (4.20-5.50) X10*6/uL Hgb 10.3 L (12.0-16.0) g/dl Hct 33.4 L (37.0-47.0) % MCV 99.4 H (80.0-98.0) fL MCH 30.7 (27.0-33.0) pg MCHC 30.8 L (31.0-35.0) g/dl RDW 16.6 H (11.0-16.0) % Plt Count 140 L (160-400) X10*3/uL MPV 11.0 (9.4-12.3) fL Immature Gran % (Auto) 0.3 (0.0-0.4) % Neut % (Auto) 67.6 (45-73) % Lymph % (Auto) 17.4 L (20-40) % [place] % (Auto) 11.3 H (2-11) % Eos % (Auto) 2.7 (0-4) % Baso % (Auto) 0.7 (0-2) % Lymph # (Auto) 1.2 (1.2-4.9) X10*3/uL [place] # (Auto) 0.8 (0.1-1.2) X10*3/uL Eos # (Auto) 0.2 (0.0-0.4) X10*3/uL Baso # (Auto) 0.1 (0.0-0.2) X10*3/uL Abs Immat Gran (auto) 0.02 (0.00-0.03) X10*3/uL Absolute Neuts (auto) 4.6 (2.0-8.3) x10*3/uL Absolute Nucleated RBC 0.000 (0.0-0.012) X10*3/uL Nucleated RBC % (auto) 0.0 (0.0-0.2) /100WBC Sodium 141 (135-145) mmol/L Potassium 3.5 (3.3-5.1) mmol/L Chloride 107 (96-108) mmol/L Carbon Dioxide 24 (22-29) mmol/L Anion Gap 14 (12-20) BUN 16 D (9-16) mg/dL Creatinine 0.81 (0.5-1.4) mg/dL Estim Creat Clear Calc 71.7 Estimated GFR > 60 POC Glucose (60-115) mg/dL Random Glucose 43 L* (60-115) mg/dL Calcium 8.5 (8.4-10.2) mg/dL COVID-19 (TARA) Negative (Negative) COVID-19 Clin Com See Note 09/18/21 Range/Units 22:40 WBC (4.8-10.8) X10*3/uL RBC (4.20-5.50) X10*6/uL Hgb (12.0-16.0) g/dl Hct (37.0-47.0) % MCV (80.0-98.0) fL MCH (27.0-33.0) pg MCHC (31.0-35.0) g/dl RDW (11.0-16.0) % Plt Count (160-400) X10*3/uL MPV (9.4-12.3) fL Immature Gran % (Auto) (0.0-0.4) % Neut % (Auto) (45-73) % Lymph % (Auto) (20-40) % [place] % (Auto) (2-11) % Eos % (Auto) (0-4) % Baso % (Auto) (0-2) % Lymph # (Auto) (1.2-4.9) X10*3/uL [place] # (Auto) (0.1-1.2) X10*3/uL Eos # (Auto) (0.0-0.4) X10*3/uL Baso # (Auto) (0.0-0.2) X10*3/uL Abs Immat Gran (auto) (0.00-0.03) X10*3/uL Absolute Neuts (auto) (2.0-8.3) x10*3/uL Absolute Nucleated RBC (0.0-0.012) X10*3/uL Nucleated RBC % (auto) (0.0-0.2) /100WBC Sodium (135-145) mmol/L Potassium (3.3-5.1) mmol/L Chloride (96-108) mmol/L Carbon Dioxide (22-29) mmol/L Anion Gap (12-20) BUN (9-16) mg/dL Creatinine (0.5-1.4) mg/dL Estim Creat Clear Calc Estimated GFR POC Glucose 47 L* (60-115) mg/dL Random Glucose (60-115) mg/dL Calcium (8.4-10.2) mg/dL COVID-19 (TARA) (Negative) COVID-19 Clin Com <Mirlande Rico, [employer]ATOR - Last Filed: 09/18/21 20:41> Lab Results 09/18/21 09/18/21 09/18/21 Range/Units 20:46 20:46 20:46 WBC 6.7 (4.8-10.8) X10*3/uL RBC 3.36 L (4.20-5.50) X10*6/uL Hgb 10.3 L (12.0-16.0) g/dl Hct 33.4 L (37.0-47.0) % MCV 99.4 H (80.0-98.0) fL MCH 30.7 (27.0-33.0) pg MCHC 30.8 L (31.0-35.0) g/dl RDW 16.6 H (11.0-16.0) % Plt Count 140 L (160-400) X10*3/uL MPV 11.0 (9.4-12.3) fL Immature Gran % (Auto) 0.3 (0.0-0.4) % Neut % (Auto) 67.6 (45-73) % Lymph % (Auto) 17.4 L (20-40) % [place] % (Auto) 11.3 H (2-11) % Eos % (Auto) 2.7 (0-4) % Baso % (Auto) 0.7 (0-2) % Lymph # (Auto) 1.2 (1.2-4.9) X10*3/uL [place] # (Auto) 0.8 (0.1-1.2) X10*3/uL Eos # (Auto) 0.2 (0.0-0.4) X10*3/uL Baso # (Auto) 0.1 (0.0-0.2) X10*3/uL Abs Immat Gran (auto) 0.02 (0.00-0.03) X10*3/uL Absolute Neuts (auto) 4.6 (2.0-8.3) x10*3/uL Absolute Nucleated RBC 0.000 (0.0-0.012) X10*3/uL Nucleated RBC % (auto) 0.0 (0.0-0.2) /100WBC Sodium 141 (135-145) mmol/L Potassium 3.5 (3.3-5.1) mmol/L Chloride 107 (96-108) mmol/L Carbon Dioxide 24 (22-29) mmol/L Anion Gap 14 (12-20) BUN 16 D (9-16) mg/dL Creatinine 0.81 (0.5-1.4) mg/dL Estim Creat Clear Calc 71.7 Estimated GFR > 60 POC Glucose (60-115) mg/dL Random Glucose 43 L* (60-115) mg/dL Calcium 8.5 (8.4-10.2) mg/dL COVID-19 (TARA) Negative (Negative) COVID-19 Clin Com See Note 09/18/21 Range/Units 22:40 WBC (4.8-10.8) X10*3/uL RBC (4.20-5.50) X10*6/uL Hgb (12.0-16.0) g/dl Hct (37.0-47.0) % MCV (80.0-98.0) fL MCH (27.0-33.0) pg MCHC (31.0-35.0) g/dl RDW (11.0-16.0) % Plt Count (160-400) X10*3/uL MPV (9.4-12.3) fL Immature Gran % (Auto) (0.0-0.4) % Neut % (Auto) (45-73) % Lymph % (Auto) (20-40) % [place] % (Auto) (2-11) % Eos % (Auto) (0-4) % Baso % (Auto) (0-2) % Lymph # (Auto) (1.2-4.9) X10*3/uL [place] # (Auto) (0.1-1.2) X10*3/uL Eos # (Auto) (0.0-0.4) X10*3/uL Baso # (Auto) (0.0-0.2) X10*3/uL Abs Immat Gran (auto) (0.00-0.03) X10*3/uL Absolute Neuts (auto) (2.0-8.3) x10*3/uL Absolute Nucleated RBC (0.0-0.012) X10*3/uL Nucleated RBC % (auto) (0.0-0.2) /100WBC Sodium (135-145) mmol/L Potassium (3.3-5.1) mmol/L Chloride (96-108) mmol/L Carbon Dioxide (22-29) mmol/L Anion Gap (12-20) BUN (9-16) mg/dL Creatinine (0.5-1.4) mg/dL Estim Creat Clear Calc Estimated GFR POC Glucose 47 L* (60-115) mg/dL Random Glucose (60-115) mg/dL Calcium (8.4-10.2) mg/dL COVID-19 (TARA) (Negative) COVID-19 Clin Com <SARAH Hayes - Last Filed: 09/19/21 01:43> Imaging Data hipspelvis xray: Attestation: I personally reviewed and interpreted this imaging study as follows: <Mirlande Rico NP - Last Filed: 09/18/21 20:41> Radiologist's impression: [place] [address] XRay Report Signed Patient: Lynda Horvath MR#: [id number] : 1955 Acct:[id number] Age/Sex: 65 / F ADM Date: 09/18/21 Loc: HO.ED Attending Dr: Ordering Physician: Mirlande Rico NP Date of Service: 09/18/21 Procedure(s): XR hip LT w PEL1V Accession Number(s): [id number] cc: Mirlande Rico NP~ EXAMINATION: XR HIP, LEFT CLINICAL INFORMATION: Fall with left hip pain COMPARISON: CT abdomen pelvis 07/08/2021, single view pelvis 08/17/2021 TECHNIQUE: Single view pelvis with 2 additional views of the left hip. FINDINGS: Left hip total prosthesis is present and in good/unchanged position. No acute fractures or dislocations are seen extensive vascular calcifications are present. XR/XR hip LT w PEL1V IMPRESSION: No evidence of a traumatic injury after fall. Normal-appearing left hip prosthesis. ? <Mirlande Rico NP - Last Filed: 09/18/21 20:41> Ct hip left: Attestation: I personally reviewed and interpreted this imaging study as follows: <Mirlande Rico NP - Last Filed: 09/18/21 20:41> Radiologist's impression: [place] [address] CT Scan Report Signed Patient: Lynda Horvath MR#: [id number] : 1955 Acct:[id number] Age/Sex: 65 / F ADM Date: 09/18/21 Loc: HO.ED Attending Dr: Ordering Physician: Mirlande Rico NP Date of Service: 09/18/21 Procedure(s): CT hip LT wo con Accession Number(s): [id number] cc: Mirlande Rico NP~ EXAMINATION: CT HIP WITHOUT CONTRAST, LEFT CLINICAL INFORMATION: Recent left hip surgery. Pain with fall. Unable to weight-bear.? COMPARISON: CT dated 07/08/2021. TECHNIQUE: Multidetector image imaging was obtained through the left hip without contrast. Multiplanar reformatted images in coronal and sagittal orientations were submitted. This CT examination was performed using dose optimization techniques as appropriate, variously including the following: *Automated exposure control. *Adjustment of mA and/or kV according to patient size (this includes techniques or standardized protocols for targeted exams where dose is matched to indication/reason for exam; i.e. extremities or head). *Use of iterative reconstruction technique. DLP: 370 mGy-cm FINDINGS: The left hip prosthesis appears appropriately situated. No appreciable proximal femoral or acetabular fractures are identified. Imaged portion of the left innominate bone is intact. Relative anteversion of the acetabular cup likely corresponds to the expected postoperative result, though radiographs since the left total hip arthroplasty are not available for comparison. Bone mineralization is normal. No osseous lesions are identified. Mild osteoarthritis at the left SI joint. Pubic symphysis is normal. There is calcific atherosclerosis in the iliac and femoral arteries. Intrapelvic soft tissues are unremarkable. There is a fluid collection in the subcutaneous fat superficial to the iliotibial band at the lateral hip, measuring 7 x 3.5 x 10.5 cm, likely corresponding to a postoperative seroma or hematoma. Significant lateral subcutaneous edema is noted. No appreciable joint effusion. CT/CT hip LT wo con IMPRESSION: 1. No acute fracture or malalignment at the left hip status post total hip arthroplasty. ? 2. A 10.5 cm collection in the lateral subcutaneous fat along the surgical tract, most consistent with a postoperative seroma or hematoma. No effusion. <Mirlande Rico NP - Last Filed: 09/18/21 20:41> Critical Care Time Critical Care Time Critical Care Time: No <SARAH Hayes - Last Filed: 09/19/21 01:43> Discharge Plan Discharge Clinical Impression: Hematoma of left hip, Fall, Hypoglycemia, Left against medical advice <Mirlande Rico NP - Last Filed: 09/18/21 20:41> Patient Disposition: Home, Self-Care <Mirlande Rico NP - Last Filed: 09/18/21 20:41> Additional Instructions: Take your medications as prescribed. If you were prescribed antibiotics today, it is important that you take your medication to their entirety, do not skip any doses, do not finish them early. Follow-up with your primary care provider this week. Please follow-up with your noted to have a hematoma. Return to the emergency department with new or worsening symptoms. Such as fevers, chills, chest pain, shortness of breath, nausea, vomiting, dizziness, headache, vision changes, lethargy, severe extremity pain, inability to move the extremity In case of emergency call 911 You are choosing to leave against medical advice during the hospital your noted to have a hematoma overlying your affected hip, your also noted to be hypoglycemic meeting your sugars were very low which could also contribute to falling, we advised you to stay for observation and acute rehab. You refuse. I explained risks and benefits and he verbalized understanding and still wanted to leave. At this time he will be discharged against medical advice <Mirlande Rico NP - Last Filed: 09/18/21 20:41> Prescriptions: No Action nitroglycerin 0.4 mg tablet, sublingual 0.4 mg sublingual Q5M PRN (Reason: chest pain) Qty: 20 3RF Rx Instructions: do not exceed 3 doses per episode calcium carbonate-vitamin D3 600 mg-20 mcg (800 unit) tablet 1 tab PO DAILY Qty: 30 5RF prednisone 5 mg tablet 5 mg PO DAILY Qty: 30 3RF sulfasalazine 500 mg tablet 500 mg PO BID Qty: 60 2RF Tresiba FlexTouch U-100 100 unit/mL (3 mL) Insulin Pen 65 unit SUBCUT BEDTIME magnesium citrate 125 mg Capsule 250 mg PO DAILY levothyroxine 125 mcg tablet 250 mcg PO DAILY oxycodone 5 mg Tablet 5 mg PO Q4H PRN (Reason: Pain, Moderate (Pain Scale 4-6) 7 Days Qty: 42 0RF atorvastatin 80 mg Tablet 80 mg PO BEDTIME Qty: 1 0RF tamsulosin 0.4 mg Capsule 0.8 mg PO DAILY Qty: 1 0RF heparin(porcine) in 0.45% NaCl 25,000 unit/250 mL Parenteral Solution 25,000 unit continuous IV infusion .Q0M Qty: 250 0RF docusate sodium [Colace] 100 mg capsule 100 mg PO DAILY Qty: 30 0RF polyethylene glycol 3350 [Miralax] 17 gram/dose powder 17 g PO DAILY Qty: 238 0RF Nitro-Bid 2 % Ointment 0.5 inch transdermal RQ6H WHILE AWAKE Qty: 1 0RF aspirin [Adult Low Dose Aspirin] 81 mg tablet,delayed release (DR/EC) 81 mg PO DAILY buspirone 7.5 mg tablet 7.5 mg PO BID ferrous sulfate 325 mg (65 mg iron) tablet 325 mg PO DAILY cholecalciferol (vitamin D3) 25 mcg (1,000 unit) capsule 25 mcg PO DAILY ascorbic acid (vitamin C) 250 mg tablet 250 mg PO DAILY fluticasone propionate 50 mcg/actuation spray,suspension 2 spray intranasal DAILY Rx Instructions: administer into each nostril Flovent HFA 110 mcg/actuation HFA aerosol inhaler 2 puff inhalation BID dicyclomine 20 mg tablet 20 mg PO QID omeprazole 40 mg capsule,delayed release(DR/EC) 40 mg PO DAILY gabapentin [Neurontin] 300 mg capsule 300 mg PO TID ezetimibe [Zetia] 10 mg tablet 10 mg PO DAILY metoprolol succinate 50 mg tablet extended release 24 hr 50 mg PO DAILY acetaminophen [Tylenol Arthritis Pain] 650 mg tablet extended release 650 mg PO Q6H PRN (Reason: Pain) insulin aspart U-100 [Novolog Flexpen U-100 Insulin] 100 unit/mL (3 mL) insulin pen 5 unit subcut TID baclofen 10 mg tablet 10 mg PO BID Qty: 60 2RF <Mirlande Rico NP - Last Filed: 09/18/21 20:41> Referrals: Cristina Christopher MD [Primary Care Provider] - 2 days Kingsley Robles MD [Physician] - 1 week <Mirlande Rico NP - Last Filed: 09/18/21 20:41> Stand Alone Forms: Against Medical Advice <Mirlande Rico NP - Last Filed: 09/18/21 20:41>
[2021-09-18 20:55] LABS: MANUAL DIFF FLAG NO
[2021-09-18 21:02] LABS: Basophils Absolute Auto 0.1 X10*3/uL (0.0-0.2); Basophils Percent Auto 0.7 % (0-2); Eosinophils Absolute Auto 0.2 X10*3/uL (0.0-0.4); Eosinophils Percent Auto 2.7 % (0-4); Hematocrit 33.4 % (37.0-47.0); Hemoglobin 10.3 g/dl (12.0-16.0); Imm Gran Abs Auto 0.02 X10*3/uL (0.00-0.03); Imm Gran Pct Auto 0.3 % (0.0-0.4); Lymphocytes Absolute Auto 1.2 X10*3/uL (1.2-4.9); Lymphocytes Percent Auto 17.4 % (20-40); Mean Corpuscular HGB Conc 30.8 g/dl (31.0-35.0); Mean Corpuscular Hemoglobin 30.7 pg (27.0-33.0); Mean Corpuscular Volume 99.4 fL (80.0-98.0); Monocytes Absolute Auto 0.8 X10*3/uL (0.1-1.2); Monocytes Percent Auto 11.3 % (2-11); Neutrophils Absolute Auto 4.6 x10*3/uL (2.0-8.3); Neutrophils Percent Auto 67.6 % (45-73); Platelet Count 140 X10*3/uL (160-400); Red Blood Count 3.36 X10*6/uL (4.20-5.50); Red Cell Distribution Width 16.6 % (11.0-16.0); White Blood Count 6.7 X10*3/uL (4.8-10.8)
[2021-09-18 21:23] LABS: COVID-19 Test Negative (Negative)
[2021-09-18 21:38] LABS: Anion Gap 14 (12-20); Blood Urea Nitrogen 16 mg/dL (9-16); Calcium 8.5 mg/dL (8.4-10.2); Carbon Dioxide 24 mmol/L (22-29); Chloride 107 mmol/L (96-108); Creatinine Clr Calc Pharmacy 71.7; Estimated Glomerular Filt Rate > 60; Glucose Random 43 mg/dL (60-115); Potassium 3.5 mmol/L (3.3-5.1); Sodium 141 mmol/L (135-145)
[2021-09-18 22:44] LABS: Glucose, Whole Blood 47 mg/dL (60-115)
[2021-09-19 01:39] LABS: Glucose, Whole Blood 91 mg/dL (60-115)
[2021-09-19 03:15] VITALS: BP 177/89; PULSE 57; RESP 18; TEMP 36.9; O2SAT 97
--- NOTE | 2021-09-19 04:33 | PC.NURSE ---
IV fluids charted against and not given per pt refusal earlier in the night. prior to this RN receiving report and assuming care the pt was informed of the need for IV placement (pt currently has no IV access) and the recommendation of IVF admin. Pt appeared to be distressed and not looking forward to receiving an IV and threatened to leave/requested dc home (please see PA documentation for full details). Pt ultimately agreeable to stay for CM/PT at this time due to not having a reliable ride home and understanding that it is not safe for her to dc home at this time. Katarina blanca is in reach
[2021-09-19 09:01] VITALS: BP 147/61; PULSE 60; RESP 16; TEMP 36.8; O2SAT 99
--- NOTE | 2021-09-19 09:13 | PHA.MEDREC ---
Pharmacy Consult ? Medication Reconciliation Pharmacy has completed the medication reconciliation.
[2021-09-19 09:26] LABS: Glucose, Whole Blood 41 mg/dL (60-115)
[2021-09-19 09:26] LABS: Glucose, Whole Blood 53 mg/dL (60-115)
[2021-09-19] MEDS: oxyCODONE HCl Immed Release 5 MG TABLET 10 MG PO (10:18)
[2021-09-19 11:18] LABS: Glucose, Whole Blood 148 mg/dL (60-115)
--- NOTE | 2021-09-19 16:06 | PC.NURSE ---
Pt rang mabel blanca, author entered room where pt stated i want to go home, i want to start my PT/OT back at home, my acute care assistant Tee, is on the way and I will sign the paperwork when he gets here . I asked the patient is she wishes to discharge, to which she answered, yes . Patric Laird notified via [facility] connect at [phone]
[2021-09-19 16:36] VITALS: BP 159/60; PULSE 67; RESP 16; TEMP 36.1; O2SAT 96
[2021-09-19] MEDS: oxyCODONE HCl Immed Release 5 MG TABLET PO ×2 (17:22→22:22)
[2021-09-19] MEDS: Aspirin Enteric Coated 81 MG TABLET.DR PO (17:22)
[2021-09-19] MEDS: lisinopriL 5 MG TABLET PO (17:23)
[2021-09-19] MEDS: Ezetimibe 10 MG TABLET PO (17:24)
[2021-09-19] MEDS: hydroCHLOROthiazide 25 MG TABLET PO (17:24)
[2021-09-19] MEDS: Dicyclomine HCl 10 MG CAPSULE 20 MG PO ×2 (17:24→21:54)
[2021-09-19] MEDS: Gabapentin 300 MG CAPSULE PO ×2 (17:25→21:55)
[2021-09-19] MEDS: Metoprolol Succinate ER 50 MG TAB.ER.24H PO (17:25)
[2021-09-19] MEDS: polyethylene glycoL 3350 17 GM POWD.PACK PO (17:26)
[2021-09-19] MEDS: Docusate Sodium 100 MG CAPSULE PO (17:30)
[2021-09-19 18:06] LABS: Glucose, Whole Blood 183 mg/dL (60-115)
[2021-09-19] MEDS: Melatonin 3 MG TABLET 6 MG PO (21:54)
[2021-09-19] MEDS: busPIRone HCl 5 MG TABLET 7.5 MG PO (21:55)
[2021-09-19] MEDS: Atorvastatin Calcium 80 MG TABLET PO (21:56)
[2021-09-19] MEDS: traZODone HCL 50 MG TABLET PO (21:57)
[2021-09-19] MEDS: Baclofen 10 MG TABLET PO (21:57)
[2021-09-19] MEDS: Ticagrelor 90 MG TABLET PO (21:57)
[2021-09-19] MEDS: sulfaSALAzine 500 MG TABLET PO (21:58)
[2021-09-19] MEDS: Insulin Glargine,Hum.rec.anlog 100 UNIT/ML 10 ML VIAL 44 UNIT SUBCUT (21:58)
[2021-09-19] MEDS: LORazepam 1 MG TABLET PO (22:22)
--- NOTE | 2021-09-19 22:53 | PC.NURSE ---
Addendum entered by Samia Hankins LPN 09/19/21 23:01: call blanca within reach Original Note: Pt observation continues during shift. Pt last poc 248, pt ate 75% of dinner, stated she did enjoy some items served for dinner. Pt rec 44 units of lantus at HS. pt was visited by her caregiver during shift. Pt was tearful at times as she wished to be moved to a room with a television and a hospital bed. Allowed pt to express her frustration, and reassured her that we are doing our best to get her in a more comfortable room. Offloaded heels, and left hip with pillows with positive effect. Pt wishes to got to [facility] as soon as possible. Pt given oxycodone 5mg for 8/10 bilateral leg pain, and ativan 1mg for anxiety. Pt has been oob x4 this shift. pt is able to safely transfer oob with assist of 1 with a rolling walker, and WC to bathroom. Demonstrates safety awareness with proper use of bathroom grab bars. Pt currently sleeping, no acute distress.
--- NOTE | 2021-09-20 00:24 | PC.NURSE ---
patient out of bed, ambulated to bathroom with assistance and using walker.
[2021-09-20 01:05] LABS: Glucose, Whole Blood 256 mg/dL (60-115)
--- NOTE | 2021-09-20 05:54 | PC.NURSE ---
pt a&o, no sob or chest pain. pt was able to ambulate with assist to bathroom. pt does use a walker. Pt change into hospital bed. Will medicated per May.
[2021-09-20] MEDS: Levothyroxine Sodium 125 MCG TABLET 250 MCG PO (06:08)
[2021-09-20] MEDS: Omeprazole 20 MG CAPSULE.DR PO ×2 (06:08→21:25)
[2021-09-20 07:27] VITALS: BP 134/71; PULSE 68; RESP 16; O2SAT 98
[2021-09-20 07:59] LABS: Glucose, Whole Blood 54 mg/dL (60-115)
[2021-09-20] MEDS: oxyCODONE HCl Immed Release 5 MG TABLET PO ×3 (08:16→21:22)
[2021-09-20] MEDS: Fluticasone Propionate 100 MCG BLST.W.DEV 2 PUFF INHALE ×2 (08:49→19:29)
[2021-09-20 08:50] VITALS: PULSE 67; RESP 18; O2SAT 98
[2021-09-20] MEDS: Aspirin Enteric Coated 81 MG TABLET.DR PO (09:10)
[2021-09-20] MEDS: Ezetimibe 10 MG TABLET PO (09:11)
[2021-09-20] MEDS: Gabapentin 300 MG CAPSULE PO ×3 (09:11→21:23)
[2021-09-20] MEDS: Docusate Sodium 100 MG CAPSULE PO (09:11)
[2021-09-20] MEDS: hydroCHLOROthiazide 25 MG TABLET PO (09:12)
[2021-09-20] MEDS: Dicyclomine HCl 10 MG CAPSULE 20 MG PO ×4 (09:13→21:22)
[2021-09-20] MEDS: Metoprolol Succinate ER 50 MG TAB.ER.24H PO (09:13)
[2021-09-20] MEDS: lisinopriL 5 MG TABLET PO (09:14)
[2021-09-20] MEDS: busPIRone HCl 5 MG TABLET 7.5 MG PO ×2 (09:15→21:23)
[2021-09-20] MEDS: Baclofen 10 MG TABLET PO ×2 (09:15→21:22)
[2021-09-20] MEDS: Ticagrelor 90 MG TABLET PO ×2 (09:18→21:22)
[2021-09-20] MEDS: Calcium + Vitamin D 250 MG TABLET 500 MG PO (09:19)
[2021-09-20] MEDS: Ferrous Sulfate 324 MG TABLET.DR PO (09:20)
[2021-09-20] MEDS: Cholecalciferol (Vitamin D3) 25 MCG TABLET PO (09:20)
[2021-09-20] MEDS: Fluticasone Propionate Nasal 16 GM SPRAY 2 SPRAY NOSTRIL-B (09:21)
[2021-09-20] MEDS: Magnesium Oxide 400 MG TABLET 200 MG PO (09:21)
[2021-09-20] MEDS: Tamsulosin HCL 0.4 MG CAPSULE 0.8 MG PO (09:22)
[2021-09-20] MEDS: predniSONE 5 MG TABLET PO (09:22)
[2021-09-20 10:20] VITALS: PULSE 67
[2021-09-20] MEDS: Ascorbic Acid 250 MG TABLET PO (10:22)
[2021-09-20] MEDS: LORazepam 1 MG TABLET PO ×2 (10:22→18:14)
[2021-09-20] MEDS: sulfaSALAzine 500 MG TABLET PO ×2 (10:29→21:56)
[2021-09-20] MEDS: Nystatin Powder 15 GM BOTTLE 1 APPL TOPICAL ×2 (10:29→21:24)
[2021-09-20 10:43] VITALS: BP 117/59; PULSE 60; RESP 16; O2SAT 98
[2021-09-20 13:36] LABS: Glucose, Whole Blood 193 mg/dL (60-115)
[2021-09-20 18:48] VITALS: BP 132/60; PULSE 68; RESP 18; TEMP 36.9; O2SAT 97
[2021-09-20 19:00] LABS: Glucose, Whole Blood 289 mg/dL (60-115)
[2021-09-20 19:38] VITALS: PULSE 68; RESP 18; O2SAT 97
[2021-09-20] MEDS: Insulin Glargine,Hum.rec.anlog 100 UNIT/ML 10 ML VIAL 44 UNIT SUBCUT (21:19)
[2021-09-20] MEDS: traZODone HCL 50 MG TABLET PO (21:20)
[2021-09-20] MEDS: Atorvastatin Calcium 80 MG TABLET PO (21:21)
[2021-09-20] MEDS: Melatonin 3 MG TABLET 6 MG PO (21:23)
--- NOTE | 2021-09-20 22:04 | PC.NURSE ---
pt observation continues during shift. Pt alert, oriented x3. Pt verbalizes that she is more comfortable now that she has a hospital bed in her room. Pt continues to ambulate to bathroom with assist of 1. pt given oxycodone 5mg x 2 doses during shift for 8/10 bilateral leg pain. pt also given ativan 1mg after pt awoke from a nap with a panic attack. Upon reassessment, pt verbalized that she felt much calmer. pt spouse visited for dinner. pt now resting comfortably. TM
--- NOTE | 2021-09-21 04:58 | PC.NURSE ---
pt is sleeping at this time. No sign of distress. Will continue to monitor.
[2021-09-21] MEDS: Levothyroxine Sodium 125 MCG TABLET 250 MCG PO (05:55)
[2021-09-21] MEDS: Omeprazole 20 MG CAPSULE.DR PO (05:55)
[2021-09-21 07:09] LABS: Glucose, Whole Blood 31 mg/dL (60-115)
[2021-09-21 07:28] LABS: Glucose, Whole Blood 32 mg/dL (60-115)
[2021-09-21 07:28] LABS: Glucose, Whole Blood 33 mg/dL (60-115)
[2021-09-21 07:35] LABS: Glucose, Whole Blood 57 mg/dL (60-115)
[2021-09-21 07:39] VITALS: PULSE 62; RESP 16; O2SAT 96
[2021-09-21] MEDS: Fluticasone Propionate 100 MCG BLST.W.DEV 2 PUFF INHALE (07:39)
[2021-09-21 08:58] LABS: Glucose, Whole Blood 193 mg/dL (60-115)
--- NOTE | 2021-09-21 09:10 | PC.NURSE ---
report taken from mark rn, pt eating breatkfast, poc after eating is 193. pt a+ox3, steady gait to bathroom and back to room 4 in [facility] [place].
[2021-09-21] MEDS: Aspirin Enteric Coated 81 MG TABLET.DR PO (09:25)
[2021-09-21] MEDS: Dicyclomine HCl 10 MG CAPSULE 20 MG PO (09:25)
[2021-09-21] MEDS: Ticagrelor 90 MG TABLET PO (09:26)
[2021-09-21] MEDS: Calcium + Vitamin D 250 MG TABLET 500 MG PO (09:26)
[2021-09-21 09:27] VITALS: BP 123/68; PULSE 70; RESP 17; TEMP 36.7; O2SAT 95
[2021-09-21] MEDS: hydroCHLOROthiazide 25 MG TABLET PO (09:27)
[2021-09-21] MEDS: Gabapentin 300 MG CAPSULE PO (09:27)
[2021-09-21] MEDS: Ascorbic Acid 250 MG TABLET PO (09:27)
[2021-09-21] MEDS: Docusate Sodium 100 MG CAPSULE PO (09:27)
[2021-09-21] MEDS: Magnesium Oxide 400 MG TABLET 200 MG PO (09:28)
[2021-09-21] MEDS: Ferrous Sulfate 324 MG TABLET.DR PO (09:28)
[2021-09-21] MEDS: predniSONE 5 MG TABLET PO (09:28)
[2021-09-21] MEDS: Baclofen 10 MG TABLET PO (09:29)
[2021-09-21] MEDS: Metoprolol Succinate ER 50 MG TAB.ER.24H PO (09:29)
[2021-09-21] MEDS: Tamsulosin HCL 0.4 MG CAPSULE 0.8 MG PO (09:29)
[2021-09-21] MEDS: Ezetimibe 10 MG TABLET PO (09:29)
[2021-09-21] MEDS: busPIRone HCl 5 MG TABLET 7.5 MG PO (09:30)
[2021-09-21] MEDS: lisinopriL 5 MG TABLET PO (09:30)
[2021-09-21] MEDS: Cholecalciferol (Vitamin D3) 25 MCG TABLET PO (09:30)
[2021-09-21] MEDS: Nystatin Powder 15 GM BOTTLE 1 APPL TOPICAL (09:31)
[2021-09-21] MEDS: Fluticasone Propionate Nasal 16 GM SPRAY 2 SPRAY NOSTRIL-B (09:31)
[2021-09-21] MEDS: sulfaSALAzine 500 MG TABLET PO (09:34)
[2021-09-21] MEDS: oxyCODONE HCl Immed Release 5 MG TABLET PO (09:37)
--- NOTE | 2021-09-21 12:41 | MHC.CM.ED ---
Received case management consult over the weekend. Patient came to ER after a fall. Work up essentially negative. Physical therapy eval completed. Rehab is being recommended. Met with patient in regards to discharge planning. Patient lives with her and is active with [facility]. Patient has been to [facility] and requests referral be made there. Referral made via [facility]. Per [place], patient completed her full rehab and would not be eiligible to return. T/W explained this to patient. Patient stated but I fell. jail facilities offered to patient. Patient not interested at this time. Patient requesting to be discharged home and for T/W to speak with her . T/W spoke with Tee via telephone at [phone]. Tee requested referrals be made to [facility]. Referrals made via [facility]. Neither facility is able to offer a bed. Per Tee, patient has been to [facility] in the past but had a bad experience there and doesn't want to return to any [facility] facility. Tee will be at ER around 130pm to transport patient home. Patient, Tee, June RN and Vanessa SMITH aware. Continue to monitor for d/c needs.
--- NOTE | 2021-09-21 13:03 | PC.NURSE ---
PT DISCHARGED HOME WITH . PT AMBULATED WITH WALKER, SLOW STEADY GAIT.
== END 2021-09-21 13:07 | disposition home or self-care (01) ==
PROVIDERS: Nurse Practitioner Family; Emergency Provider Emergency Medicine Emergency Medical Services; PCP Family Medicine
DX: S70.02XA Contusion of left hip, initial encounter (principal); S50.812A Abrasion of left forearm, initial encounter; S80.12XA Contusion of left lower leg, initial encounter; S80.11XA Contusion of right lower leg, initial encounter; X58.XXXA Exposure to other specified factors, initial encounter; W01.0XXA Fall on same level from slipping, tripping and stumbling without subsequent striking against object, initial encounter; E11.649 Type 2 diabetes mellitus with hypoglycemia without coma; I10 Essential (primary) hypertension; Z96.642 Presence of left artificial hip joint; Z79.4 Long term (current) use of insulin; Z20.822 Contact with and (suspected) exposure to COVID-19; Y93.89 Activity, other specified; Y92.129 Unspecified place in nursing home as the place of occurrence of the external cause; Y99.9 Unspecified external cause status
CPT/HCPCS: 73502; 73700; 80048; 82947; 85025; 87635; 94640; 96360; 97161; 99285

== ENCOUNTER 2021-10-27 14:07 | Outpatient (REF) | payer MEDICAID, SELFPAY ==
[2021-10-27 14:56] LABS: Anion Gap 17 (12-20); Blood Urea Nitrogen 18 mg/dL (9-16); Calcium 9.1 mg/dL (8.4-10.2); Carbon Dioxide 26 mmol/L (22-29); Chloride 99 mmol/L (96-108); Estimated Glomerular Filt Rate 46; Glucose Random 194 mg/dL (60-115); Potassium 4.4 mmol/L (3.3-5.1); Sodium 138 mmol/L (135-145)
[2021-10-27 14:57] LABS: Troponin-I High Sensitivity 16.9 ng/L (<3.5-17.0)
== END 2021-10-27 14:08 | disposition home or self-care (01) ==
LOC: HO.LAB 14:07
PROVIDERS: PCP Internal Medicine; Visit Provider Nurse Practitioner Family
DX: R07.89 Other chest pain (principal); I25.10 Atherosclerotic heart disease of native coronary artery without angina pectoris; I21.4 Non-ST elevation (NSTEMI) myocardial infarction; I10 Essential (primary) hypertension; Z98.890 Other specified postprocedural states
CPT/HCPCS: 36415; 80048; 84484; 93005; 99212

== ENCOUNTER 2021-11-08 11:52 | Outpatient (REF) | payer MEDICAID, SELFPAY ==
--- NOTE | ~2021-11-08 | XR_ITS ---
EXAMINATION: XR PELVIS CLINICAL INFORMATION: Hip pain. COMPARISON: Radiographs dated 09/18/2021. TECHNIQUE: AP view of the pelvis. FINDINGS: There is mild bony demineralization. The right acetabular joint space is well-maintained, and the right femoral head appears smooth. There is an intact left hip total arthroplasty, without hardware failure, loosening or periprosthetic fracture. The sacroiliac joints are intact, as is the pubic symphysis. There are iliofemoral atherosclerotic calcifications. There are pelvic phleboliths. A calcified right buttock granuloma is seen. XR/XR pelvis 1-2V IMPRESSION: 1. No unusual degenerative change is seen of the right hip. 2. There is an intact left hip total arthroplasty.
== END 2021-11-08 11:53 | disposition home or self-care (01) ==
LOC: HO.HOSX 11:52
PROVIDERS: Visit Provider Orthopaedic Surgery
DX: M25.551 Pain in right hip (principal); M25.552 Pain in left hip
CPT/HCPCS: 72170

== ENCOUNTER 2021-12-03 14:12 | Outpatient (REF) | payer MEDICAID, SELFPAY ==
[2021-12-03 14:33] LABS: MANUAL DIFF FLAG NO
[2021-12-03 14:41] LABS: Basophils Absolute Auto 0.1 X10*3/uL (0.0-0.2); Basophils Percent Auto 0.7 % (0-2); Eosinophils Absolute Auto 0.3 X10*3/uL (0.0-0.4); Eosinophils Percent Auto 4.1 % (0-4); Hematocrit 40.6 % (37.0-47.0); Hemoglobin 13.1 g/dl (12.0-16.0); Imm Gran Abs Auto 0.03 X10*3/uL (0.00-0.03); Imm Gran Pct Auto 0.4 % (0.0-0.4); Lymphocytes Absolute Auto 1.6 X10*3/uL (1.2-4.9); Lymphocytes Percent Auto 19.7 % (20-40); Mean Corpuscular HGB Conc 32.3 g/dl (31.0-35.0); Mean Corpuscular Volume 93.1 fL (80.0-98.0); Mean Platelet Volume 10.1 fL (9.4-12.3); Monocytes Absolute Auto 0.7 X10*3/uL (0.1-1.2); Neutrophils Absolute Auto 5.5 x10*3/uL (2.0-8.3); Neutrophils Percent Auto 67.1 % (45-73); Platelet Count 163 X10*3/uL (160-400); Red Blood Count 4.36 X10*6/uL (4.20-5.50); Red Cell Distribution Width 13.2 % (11.0-16.0); White Blood Count 8.2 X10*3/uL (4.8-10.8)
[2021-12-03 15:04] LABS: Alanine Aminotransferase 23 U/L (0-31); Aspartate Amino Transferase 30 U/L (5-31)
== END 2021-12-03 14:13 | disposition home or self-care (01) ==
LOC: HO.LAB 14:12
PROVIDERS: PCP Internal Medicine; Visit Provider Nurse Practitioner Family
DX: M05.9 Rheumatoid arthritis with rheumatoid factor, unspecified (principal); M81.0 Age-related osteoporosis without current pathological fracture; Z96.649 Presence of unspecified artificial hip joint
CPT/HCPCS: 36415; 84450; 84460; 85025; 99212

== ENCOUNTER 2021-12-30 14:00 | Outpatient (RCR) | payer MEDICAID, SELFPAY ==
[2021-12-10 09:03] VITALS: BP 142/82; PULSE 60; O2SAT 95
== END 2022-02-14 13:28 | disposition home or self-care (01) ==
LOC: HO.PTWFD 14:00
PROVIDERS: PCP Internal Medicine; Visit Provider Orthopaedic Surgery
DX: Z96.642 Presence of left artificial hip joint (principal)
CPT/HCPCS: 97110; 97161; 97535

== ENCOUNTER 2022-03-28 12:51 | Outpatient (REF) | payer MEDICAID, SELFPAY ==
[2022-03-28 14:00] LABS: MANUAL DIFF FLAG NO
[2022-03-28 14:07] LABS: Basophils Absolute Auto 0.1 X10*3/uL (0.0-0.2); Basophils Percent Auto 0.8 % (0-2); Eosinophils Absolute Auto 0.3 X10*3/uL (0.0-0.4); Eosinophils Percent Auto 3.7 % (0-4); Hematocrit 41.3 % (37.0-47.0); Hemoglobin 13.5 g/dl (12.0-16.0); Imm Gran Abs Auto 0.03 X10*3/uL (0.00-0.03); Imm Gran Pct Auto 0.4 % (0.0-0.4); Lymphocytes Absolute Auto 1.2 X10*3/uL (1.2-4.9); Lymphocytes Percent Auto 15.6 % (20-40); Mean Corpuscular HGB Conc 32.7 g/dl (31.0-35.0); Mean Corpuscular Hemoglobin 30.9 pg (27.0-33.0); Mean Corpuscular Volume 94.5 fL (80.0-98.0); Mean Platelet Volume 10.5 fL (9.4-12.3); Monocytes Absolute Auto 0.6 X10*3/uL (0.1-1.2); Monocytes Percent Auto 8.1 % (2-11); Neutrophils Absolute Auto 5.6 x10*3/uL (2.0-8.3); Neutrophils Percent Auto 71.4 % (45-73); Platelet Count 160 X10*3/uL (160-400); Red Blood Count 4.37 X10*6/uL (4.20-5.50); Red Cell Distribution Width 12.5 % (11.0-16.0); White Blood Count 7.9 X10*3/uL (4.8-10.8)
[2022-03-28 14:48] LABS: Alanine Aminotransferase 23 U/L (0-31); Aspartate Amino Transferase 37 U/L (5-31); Blood Urea Nitrogen 25 mg/dL (9-16); Estimated Glomerular Filt Rate 48
[2022-03-28 14:54] LABS: Vitamin D 25-OH Total 59.3 ng/mL (>30)
[2022-03-28 14:57] LABS: Erythrocyte Sedimentation Rate 11 MM/HR (0-20)
== END 2022-03-28 12:52 | disposition home or self-care (01) ==
LOC: HO.WFDLDS 12:51
PROVIDERS: Visit Provider Nurse Practitioner Family
DX: M05.9 Rheumatoid arthritis with rheumatoid factor, unspecified (principal); Z79.899 Other long term (current) drug therapy
CPT/HCPCS: 36415; 82306; 82565; 84450; 84460; 84520; 85025; 85652; 86140

== ENCOUNTER 2022-06-06 12:38 | Outpatient (REF) | payer MEDICAID, SELFPAY ==
[2022-06-06 14:03] LABS: MANUAL DIFF FLAG NO
[2022-06-06 14:11] LABS: Basophils Absolute Auto 0.1 X10*3/uL (0.0-0.2); Basophils Percent Auto 0.7 % (0-2); Eosinophils Absolute Auto 0.3 X10*3/uL (0.0-0.4); Eosinophils Percent Auto 3.5 % (0-4); Hematocrit 45.3 % (37.0-47.0); Hemoglobin 15.3 g/dl (12.0-16.0); Imm Gran Abs Auto 0.06 X10*3/uL (0.00-0.03); Imm Gran Pct Auto 0.6 % (0.0-0.4); Lymphocytes Percent Auto 21.2 % (20-40); Mean Corpuscular HGB Conc 33.8 g/dl (31.0-35.0); Mean Corpuscular Hemoglobin 30.2 pg (27.0-33.0); Mean Corpuscular Volume 89.3 fL (80.0-98.0); Mean Platelet Volume 10.7 fL (9.4-12.3); Monocytes Absolute Auto 0.7 X10*3/uL (0.1-1.2); Neutrophils Absolute Auto 6.4 x10*3/uL (2.0-8.3); Platelet Count 179 X10*3/uL (160-400); Red Blood Count 5.07 X10*6/uL (4.20-5.50); Red Cell Distribution Width 13.2 % (11.0-16.0); White Blood Count 9.5 X10*3/uL (4.8-10.8)
[2022-06-06 14:51] LABS: Erythrocyte Sedimentation Rate 9 MM/HR (0-20)
[2022-06-06 14:55] LABS: Alanine Aminotransferase 33 U/L (0-31); Albumin Level 3.9 g/dL (3.5-5.0); Alkaline Phosphatase 118 U/L (39-117); Anion Gap 15 (12-20); Aspartate Amino Transferase 38 U/L (5-31); Blood Urea Nitrogen 26 mg/dL (9-16); C Reactive Protein 0.57 mg/dL (< or = 0.50); Calcium 9.6 mg/dL (8.4-10.2); Carbon Dioxide 28 mmol/L (22-29); Chloride 99 mmol/L (96-108); Estimated Glomerular Filt Rate 39; Glucose Random 263 mg/dL (60-115); Potassium 4.2 mmol/L (3.3-5.1); Sodium 138 mmol/L (135-145); Total Protein 6.5 g/dL (6.5-8.0)
== END 2022-06-06 12:39 | disposition home or self-care (01) ==
LOC: HO.LAB 12:38
PROVIDERS: PCP Internal Medicine; Visit Provider Nurse Practitioner Family
DX: M05.9 Rheumatoid arthritis with rheumatoid factor, unspecified (principal); M81.0 Age-related osteoporosis without current pathological fracture
CPT/HCPCS: 36415; 80053; 85025; 85652; 86140; 99212

== ENCOUNTER → 2022-06-30 11:00 | Outpatient (BNVA) | payer MEDICAID, SELFPAY | PROVIDERS: PCP Internal Medicine; Visit Provider Internal Medicine | DX: I25.119 Atherosclerotic heart disease of native coronary artery with unspecified angina pectoris (principal); I21.4 Non-ST elevation (NSTEMI) myocardial infarction; I10 Essential (primary) hypertension; E78.5 Hyperlipidemia, unspecified; Z95.5 Presence of coronary angioplasty implant and graft; Z96.642 Presence of left artificial hip joint | CPT/HCPCS: 36415; 80061; 99212 ==

== ENCOUNTER 2022-06-30 11:44 | Outpatient (REF) | payer MEDICAID, SELFPAY ==
[2022-06-30 12:50] LABS: Cholesterol 138 mg/dL; HDL Cholesterol 40 mg/dL; LDL Cholesterol Calculated 73 mg/dl; Triglycerides 125 mg/dL
== END 2022-06-30 11:45 | disposition home or self-care (01) ==
LOC: HO.LAB 11:44
PROVIDERS: PCP Internal Medicine; Visit Provider Internal Medicine
DX: I25.10 Atherosclerotic heart disease of native coronary artery without angina pectoris (principal); E11.8 Type 2 diabetes mellitus with unspecified complications; I10 Essential (primary) hypertension; E78.5 Hyperlipidemia, unspecified; Z79.899 Other long term (current) drug therapy
CPT/HCPCS: 36415; 80061

== ENCOUNTER 2022-07-29 12:45 | Outpatient (REF) | payer MEDICAID, SELFPAY ==
--- NOTE | ~2022-07-29 | MM_ITS ---
EXAMINATION: BONE DENSITOMETRY CLINICAL INDICATION: Age-related osteoporosis without current pathological fracture. COMPARISON: Baseline BD dated 05/29/2020, spine. This is the patient's baseline examination for the right hip. TECHNIQUE: Using a [employer] DXA System (software version: 13.1) manufactured by [employer], dual-energy x-ray absorptiometry was performed of the lumbar spine and right hip. The images are of good technical quality. Summary results are attached. FINDINGS: AP SPINE L1-L4 (excluding L2 and L3): The data of L1-L4 has been changed to exclude the L2 and L3 vertebral bodies, because degenerative changes at these levels may cause overestimation of lumbar spine density. Current: BMD 1.347 g/cm2, Z-score 3.0, T-score 1.5, normal, 0.9% decrease from baseline (<5% change is not significant). Baseline: BMD 1.359 g/cm2. RIGHT FEMUR, NECK: Current: BMD 0.822 g/cm2, Z-score -0.2, T-score -1.6, osteopenia. RIGHT FEMUR, TOTAL: Current: BMD 0.860 g/cm2, Z-score 0.0, T-score -1.2, osteopenia. IDENTIFIED RISK FACTORS: Secondary osteoporosis, rheumatoid arthritis, osteoporosis, recurrent falls, height loss, history of fracture (adult), anticonvulsant, glucocorticoids (chronic), thiazide, menopause. HISTORY OF FRACTURE: Lower leg. MEDICATIONS: Calcium supplements or multivitamin, vitamin D. MM/XR DEXA axial skeleton IMPRESSION: 1. DIAGNOSIS: Osteopenia based on the lowest T-score value of -1.6 in the femoral neck applying World Health Organization criteria. 2. 10-YEAR FRACTURE RISK PREDICTION, FRAX: Major osteoporotic fracture (clinical spine, forearm, hip or shoulder) 28.7%. Hip fracture 4.3%. 3. Treatment Recommendations: NOF guidelines recommend consideration for treatment in postmenopausal women and men age 50 and older presenting with the following: -A hip or vertebral (clinical or morphometric) fracture. -T-score less than or equal to -2.5 at the femoral neck or spine after appropriate evaluation to exclude secondary causes. -Low bone mass at the hip or spine and a 10-year fracture probability by FRAX of greater than or equal to 3% for hip fracture or greater than or equal to 20% for major osteoporotic fracture based on the [place] adapted WHO algorithm. 4. Other Recommendations: All treatment decisions require clinical judgment and consideration of individual patient factors, including patient preferences, comorbidities, previous drug use, risk factors not captured in the FRAX model (e.g. frailty, falls, vitamin D deficiency, increased bone turnover, interval significant decline in bone density) and possible under or overestimation of fracture risk by FRAX. Additional medical evaluation for secondary cause of low bone mineral density may be appropriate. FUTURE SCAN RECOMMENDATION: People with diagnosed cases of osteoporosis or at high risk for fracture should have regular bone mineral density tests. For patients eligible for Medicare, routine testing is allowed once every 2 years. The testing frequency can be increased to one year for patients who have rapidly progressing disease, those who are receiving or discontinuing medical therapy to restore bone mass, or have additional risk factors.
== END 2022-07-29 12:46 | disposition home or self-care (01) ==
LOC: HO.MAMMO 12:45
PROVIDERS: PCP Internal Medicine; Visit Provider Nurse Practitioner Family
DX: Z13.820 Encounter for screening for osteoporosis (principal); Z78.0 Asymptomatic menopausal state; M81.0 Age-related osteoporosis without current pathological fracture
CPT/HCPCS: 77080

== ENCOUNTER 2022-08-08 12:53 | Outpatient (REF) | payer MEDICAID, SELFPAY ==
[2022-08-08 16:34] LABS: Alanine Aminotransferase 23 U/L (0-31); Albumin Level 3.6 g/dL (3.5-5.0); Alkaline Phosphatase 114 U/L (39-117); Anion Gap 13 (12-20); Aspartate Amino Transferase 34 U/L (5-31); Bilirubin Total 0.7 mg/dL (0.0-1.0); Blood Urea Nitrogen 23 mg/dL (9-16); C Reactive Protein 0.45 mg/dL (< or = 0.50); Calcium 9.2 mg/dL (8.4-10.2); Carbon Dioxide 28 mmol/L (22-29); Chloride 103 mmol/L (96-108); Estimated Glomerular Filt Rate > 60; Glucose Random 76 mg/dL (60-115); Phosphorus 3.6 mg/dL (2.7-4.5); Sodium 140 mmol/L (135-145); Total Protein 6.2 g/dL (6.5-8.0)
[2022-08-08 16:36] LABS: Erythrocyte Sedimentation Rate 16 MM/HR (0-20)
== END 2022-08-08 12:54 | disposition home or self-care (01) ==
LOC: HO.LAB 12:53
PROVIDERS: PCP Internal Medicine; Visit Provider Nurse Practitioner Family
DX: M05.9 Rheumatoid arthritis with rheumatoid factor, unspecified (principal); M85.80 Other specified disorders of bone density and structure, unspecified site; M81.0 Age-related osteoporosis without current pathological fracture
CPT/HCPCS: 36415; 80053; 82306; 84100; 85652; 86140; 99212

== ENCOUNTER 2022-11-11 11:18 | Outpatient (AMB) | payer MEDICAID, SELFPAY ==
--- NOTE | 2022-11-11 11:19 | MHC.OFFVIS ---
Intake Intake Visit Reasons: RA/call at [phone] Intake Note: Telehealth follow up for RA. Knapsack Sprayer Required: No Accompanied by: Self / Same As Patient Allergies metoclopramide [From REGLAN] Allergy (Severe, Verified 11/11/22 11:25) Anxiety Penicillins [PENICILLINS] Allergy (Severe, Verified 11/11/22 11:25) swelling tramadol [From ULTRAM] Allergy (Severe, Verified 11/11/22 11:25) Vomiting codeine [Tylenol-Codeine] Allergy (Intermediate, Verified 11/11/22 11:25) vomiting Medication List - Last Reconciled 11/11/22 by Brandon Nguyen MD aspirin (Adult Low Dose Aspirin) 81 mg PO DAILY atorvastatin 80 mg PO BEDTIME buspirone 7.5 mg PO BID cholecalciferol (vitamin D3) 25 mcg PO BID dicyclomine 20 mg PO QID docusate sodium (Colace) 100 mg PO DAILY ezetimibe (Zetia) 10 mg PO DAILY ferrous sulfate 325 mg PO DAILY fluticasone propionate 50 mcg/actuation 2 sprays intranasal DAILY fluticasone propionate 110 mcg/actuation (Flovent HFA) 2 puffs inhalation BID gabapentin (Neurontin) 300 mg PO TID hydrochlorothiazide 25 mg PO DAILY insulin degludec (Tresiba FlexTouch U-200 insulin) 64 units subcut BEDTIME levothyroxine 250 mcg PO DAILY lisinopril 2.5 mg PO DAILY lorazepam 1 mg PO BID PRN magnesium citrate 250 mg PO DAILY melatonin 5 mg PO BEDTIME metoprolol succinate ER 50 mg PO DAILY nitroglycerin 0.4 mg sublingual Q5M PRN nystatin 1 appl topical BID omeprazole 20 mg PO BID prednisone 5 mg (2 x 2.5 mg) PO DAILY sulfasalazine 500 mg PO BID ticagrelor (Brilinta) 90 mg PO BID tiotropium bromide (Spiriva with HandiHaler) 1 cap inhalation DAILY trazodone 100 mg PO BID [wrist splint Wear nightly and as much as possible throughout the day] HPI HPI Comments History of Present Illness Details 66-year-old female with seropositive RA presents for a tele health follow-up visit. She states that her son came home a few days ago and she and her have been sick for the last 3-4 days with cough, sore throat, no fever. She states that her arthritis is doing worse overall. She is currently on sulfasalazine 500 mg Twice daily and prednisone 5 mg daily. She states that she would like to lower the prednisone dose. Mentions that she has bilateral carpal tunnel symptoms in both hands worse on the left. She drops objects from her left hand if she isn't looking at them. She is scheduled for an EMG in February of 2023. She had a wrist splint at home prescribed many years ago but she lost it. She took alendronate a few doses but it caused worsening fatigue. [facility] Medical History (Updated 11/11/22 @ 12:26 by Brandon Nguyen MD) Atherosclerotic cardiovascular disease COPD (chronic obstructive pulmonary disease) Coronary artery disease Edema Essential hypertension Exposure to hepatitis B Hepatitis C Lesion of vulva Seropositive rheumatoid arthritis Type 2 diabetes mellitus with unspecified complications Ulcerative colitis Ventral hernia Surgical History History of heart artery stent (~2005) History of hip replacement History of partial hysterectomy History of surgery on lower extremity Hx laparoscopic cholecystectomy Hx of appendectomy Hx of colonoscopy Hx of hernia repair Hx of partial thyroidectomy Family History Father CVD (cardiovascular disease) Mother CVD (cardiovascular disease) Heart attack Social History Household Members: Spouse Housing: House Housing Other:: mobile home Are you a primary care transport nurse to a significant other at home: No Do you presently have visiting nurse or other home services: No Alcohol intake: former Patient Tobacco Use Status: Never used Tobacco Cigarettes Per Day: 20 Years Smoked: 15 e-Cigarette/Vaping Use: Never Used Substance Use Type: Marijuana service: No Current occupational status: disabled Review of Systems ENT Reports sore throat Resp Reports cough Musc Reports arthralgias Physical Exam Const Other: This was a phone only visit General: cooperative Orientation/consciousness: patient oriented x3 Resp Effort & Inspection: normal respiratory effort and able to speak in complete sentences Neuro General: patient oriented x3 Results Reviewed Results Reviewed: Laboratory Tests 03/28/22 06/06/22 06/06/22 12:56 14:02 14:02 06/06/22 14:02 Date of Service: 07/29/22 Procedure(s): XR DEXA axial skeleton Accession Number(s): [id number] EXAMINATION: BONE DENSITOMETRY CLINICAL INDICATION: Age-related osteoporosis without current pathological fracture. COMPARISON: Baseline BD dated 05/29/2020, spine. This is the patient's baseline examination for the right hip. TECHNIQUE: Using a [employer] DXA System (software version: 13.1) manufactured by [employer], dual-energy x-ray absorptiometry was performed of the lumbar spine and right hip. The images are of good technical quality. Summary results are attached. FINDINGS: AP SPINE L1-L4 (excluding L2 and L3): The data of L1-L4 has been changed to exclude the L2 and L3 vertebral bodies, because degenerative changes at these levels may cause overestimation of lumbar spine density. Current: BMD 1.347 g/cm2, Z-score 3.0, T-score 1.5, normal, 0.9% decrease from baseline (<5% change is not significant). Baseline: BMD 1.359 g/cm2. RIGHT FEMUR, NECK: Current: BMD 0.822 g/cm2, Z-score -0.2, T-score -1.6, osteopenia. RIGHT FEMUR, TOTAL: Current: BMD 0.860 g/cm2, Z-score 0.0, T-score -1.2, osteopenia. IDENTIFIED RISK FACTORS: Secondary osteoporosis, rheumatoid arthritis, osteoporosis, recurrent falls, height loss, history of fracture (adult), anticonvulsant, glucocorticoids (chronic), thiazide, menopause. HISTORY OF FRACTURE: Lower leg. MEDICATIONS: Calcium supplements or multivitamin, vitamin D. MM/XR DEXA axial skeleton IMPRESSION: 1. DIAGNOSIS: Osteopenia based on the lowest T-score value of -1.6 in the femoral neck applying World Health Organization criteria.? ? 2. 10-YEAR FRACTURE RISK PREDICTION, FRAX: Major osteoporotic fracture (clinical spine, forearm, hip or shoulder) 28.7%. Hip fracture 4.3%. Assessment & Plan Assessment & Plan (1) Seropositive rheumatoid arthritis: Comment: ++RF++CCP Sulfasalazine: 05/10- present Prednisone: 10/04- present Methotrexate: 05/05-02/04-no improvement in symptoms Enbrel: 09/04- 10/05 -stopped due to precancerous lesion on Vulva Arava:10/05-01/05-stopped due to elevated LFTs Code(s): M05.9 - Rheumatoid arthritis with rheumatoid factor, unspecified Plan: This is a 66-year-old female with seropositive RA who presents for a [facility] health follow-up visit. Patient is having cold symptoms and she did not want to come into the office. Continues to have diffuse pain on sulfasalazine 500 mg Twice daily and prednisone 5 mg daily. Advised patient to hold the sulfasalazine for a few days until the infection resolves. Patient is worried about side effects of prednisone. Advised patient to continue prednisone at 5 mg daily until her infection resolves then she can cut down to 2.5 mg daily until her next visit with me in 6 weeks Labs before next visit in 6 weeks (2) Osteoporosis: Code(s): M81.0 - Age-related osteoporosis without current pathological fracture Qualifiers: Osteoporosis type: age-related Presence of current pathological fracture: without current pathological fracture Qualified Code(s): M81.0 - Age-related osteoporosis without current pathological fracture Plan: bone density 07/29/2022 with Osteopenia based on the lowest T-score of-1.6 in the femoral neck. Major osteoporotic fracture risk 28.7%. Hip fracture risk 4.3 %. Alendronate was started 08/09. Patient side effects with diffuse pain and fatigue with alendronate. She discontinued it. Will discuss alternatives next visit (3) Bilateral carpal tunnel syndrome: Code(s): G56.03 - Carpal tunnel syndrome, bilateral upper limbs Plan: Scheduled for EMG 02/2023. I prescribed bilateral wrist splints (4) High risk medication use: Code(s): Z79.899 - Other prison (current) drug therapy Plan: On sulfasalazine. Monitor safety labs Plan I spent 15 minutes on the phone with patient, additional 15 minutes were spent reviewing patient's chart and documenting Orders: Orders Complete Blood Count Auto Diff 6 Weeks M05.9 - Rheumatoid arthritis with rheumatoid factor, unspecified Comprehensive Met. Panel 6 Weeks M05.9 - Rheumatoid arthritis with rheumatoid factor, unspecified C Reactive Protein 6 Weeks M05.9 - Rheumatoid arthritis with rheumatoid factor, unspecified Erythrocyte Sedimentation Rate 6 Weeks M05.9 - Rheumatoid arthritis with rheumatoid factor, unspecified Immunofixation Pnl, Serum 6 Weeks M05.9 - Rheumatoid arthritis with rheumatoid factor, unspecified Hepatitis A,B,C Profile 6 Weeks Z11.59 - Encounter for screening for other viral diseases Protein Electrophoresis, Serum 6 Weeks M05.9 - Rheumatoid arthritis with rheumatoid factor, unspecified T Spot TB 6 Weeks Z11.7 - Encounter for testing for latent tuberculosis infection Medications: New [wrist splint] Wear nightly and as much as possible throughout the day 2 ea 0RF G56.03 - Carpal tunnel syndrome, bilateral upper limbs Telehealth Telehealth Location of provider rendering services: practice address Location of patient: address on file Patient Identification confirmed using: Name, : Yes Telehealth method: voice only Patient verbally consented to treatment: Yes Patient verbally consented to billing insurance company: Yes Patient informed of any privacy concerns related to visit: Yes Coding Level of Care Code Tele Est Pt Level 4 (42919) Diagnoses Seropositive rheumatoid arthritis M05.9 Osteoporosis M81.0 Osteoporosis type: age-related Presence of current pathological fracture: without current pathological fracture Bilateral carpal tunnel syndrome G56.03 High risk medication use Z79.899
== END 2022-11-11 12:34 | disposition home or self-care (01) ==
LOC: HO.RHE 11:18
PROVIDERS: PCP Internal Medicine; Visit Provider Student in an Organized Health Care Education/Training Program
DX: M05.79 Rheumatoid arthritis with rheumatoid factor of multiple sites without organ or systems involvement (principal); M81.0 Age-related osteoporosis without current pathological fracture; G56.03 Carpal tunnel syndrome, bilateral upper limbs; Z79.899 Other long term (current) drug therapy
CPT/HCPCS: 99214

== ENCOUNTER → 2022-11-11 11:18 | Outpatient (BNVA) | payer MEDICAID, SELFPAY | PROVIDERS: PCP Internal Medicine; Visit Provider Student in an Organized Health Care Education/Training Program ==

== ENCOUNTER 2022-12-23 15:16 | Outpatient (REF) | payer MEDICAID, SELFPAY | END 2022-12-23 15:17 | disposition home or self-care (01) | LOC: HO.LAB 15:16 | PROVIDERS: PCP Internal Medicine; Visit Provider Student in an Organized Health Care Education/Training Program | DX: Z11.7 Encounter for testing for latent tuberculosis infection (principal); Z11.59 Encounter for screening for other viral diseases; M05.9 Rheumatoid arthritis with rheumatoid factor, unspecified; M81.0 Age-related osteoporosis without current pathological fracture; G56.03 Carpal tunnel syndrome, bilateral upper limbs; Z79.899 Other long term (current) drug therapy | CPT/HCPCS: 36415; 80053; 82784; 84165; 85025; 85652; 86140; 86334; 86481; 86704; 86706; 86709; 86803; 87340; 99212 ==

== ENCOUNTER 2022-12-23 15:48 | Outpatient (AMB) | payer MEDICAID, SELFPAY ==
--- NOTE | 2022-12-23 15:49 | MHC.OFFVIS ---
Intake Vital Signs 12/23/22 15:50 Height 5 ft 1 in Weight 156 lb 4.924 oz BMI 29.5 BP 128/82 Blood Pressure Location Rt brachial Position Sitting Pulse 53 Pulse Source Pulse Oximeter Temp 98.1 F Temp Source Skin Pulse Oximetry (%) 97 Intake Visit Reasons: RA Intake Note: Pt seen today for RA follow up. 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 Accompanied by: Spouse Allergies metoclopramide [From REGLAN] Allergy (Severe, Verified 12/23/22 15:53) Anxiety Penicillins [PENICILLINS] Allergy (Severe, Verified 12/23/22 15:53) swelling tramadol [From ULTRAM] Allergy (Severe, Verified 12/23/22 15:53) Vomiting codeine [Tylenol-Codeine] Allergy (Intermediate, Verified 12/23/22 15:53) vomiting Medication List - Last Reconciled 12/23/22 by Brandon Nguyen MD aspirin (Adult Low Dose Aspirin) 81 mg PO DAILY atorvastatin 80 mg PO BEDTIME buspirone 7.5 mg PO BID cholecalciferol (vitamin D3) 25 mcg PO BID dicyclomine 20 mg PO QID docusate sodium (Colace) 100 mg PO DAILY ezetimibe (Zetia) 10 mg PO DAILY ferrous sulfate 325 mg PO DAILY fluticasone propionate 50 mcg/actuation 2 sprays intranasal DAILY fluticasone propionate 110 mcg/actuation (Flovent HFA) 2 puffs inhalation BID gabapentin (Neurontin) 300 mg PO TID hydrochlorothiazide 25 mg PO DAILY insulin degludec (Tresiba FlexTouch U-200 insulin) 64 units subcut BEDTIME levothyroxine 250 mcg PO DAILY lisinopril 2.5 mg PO DAILY lorazepam 1 mg PO BID PRN magnesium citrate 250 mg PO DAILY melatonin 5 mg PO BEDTIME metoprolol succinate ER 50 mg PO DAILY nitroglycerin 0.4 mg sublingual Q5M PRN nystatin 1 appl topical BID omeprazole 20 mg PO BID prednisone 2.5 mg PO DAILY sulfasalazine 500 mg PO BID ticagrelor (Brilinta) 90 mg PO BID tiotropium bromide (Spiriva with HandiHaler) 1 cap inhalation DAILY trazodone 100 mg PO BID [wrist splint Wear nightly and as much as possible throughout the day] HPI HPI Comments History of Present Illness Details 67-year-old female with seropositive RA presents follow-up visit. She is on the sizing 500 mg Twice daily and prednisone 5 mg daily. She states that her overall joint pain and swelling is well controlled. Two weeks ago she had a fall and she continues to complain of left hip pain, low back pain and left rib pain. She did not get evaluated at the hospital. States that she is going to have nerve conduction test for bilateral carpal tunnel syndrome at [facility]. [facility] Medical History Exposure to hepatitis B Lesion of vulva Hepatitis C Ulcerative colitis Edema Ventral hernia COPD (chronic obstructive pulmonary disease) Essential hypertension Type 2 diabetes mellitus with unspecified complications Atherosclerotic cardiovascular disease Coronary artery disease Seropositive rheumatoid arthritis Surgical History History of hip replacement History of partial hysterectomy Hx of colonoscopy Hx laparoscopic cholecystectomy Hx of appendectomy History of surgery on lower extremity Hx of hernia repair Hx of partial thyroidectomy History of heart artery stent (~2005) Family History Father CVD (cardiovascular disease) Mother CVD (cardiovascular disease) Heart attack Social History Household Members: Spouse Housing: House Housing Other:: mobile home Are you a primary multi care technician to a significant other at home: No Do you presently have visiting nurse or other home services: No Alcohol intake: former Patient Tobacco Use Status: Never used Tobacco Cigarettes Per Day: 20 Years Smoked: 15 e-Cigarette/Vaping Use: Never Used Substance Use Type: Marijuana service: No Current occupational status: disabled Review of Systems Musc Reports back pain, Reports arthralgias, Denies joint swelling and Reports numbness Neuro Reports numbness Physical Exam Vital Signs: Last Vital Signs Temp 98.1 F 12/23/22 15:50 Pulse 53 12/23/22 15:50 BP 128/82 12/23/22 15:50 Pulse Ox 97 12/23/22 15:50 BMI result Body Mass Index 29.5 Const Other: thrush General: cooperative Orientation/consciousness: patient oriented x3 Limitations: ambulation with cane HEENT Mouth: moist mucous membranes Resp Effort & Inspection: normal respiratory effort and able to speak in complete sentences Auscultation: clear to auscultation bilaterally Cardio Rate: regular rate Rhythm: regular rhythm Skin Other: Fragile skin General skin exam: no rashes or lesions noted and dry skin Neuro General: patient oriented x3 Extrem Other: No active synovitis Results Reviewed Results Reviewed: Laboratory Tests 03/28/22 06/06/22 06/06/22 12:56 14:02 14:02 06/06/22 14:02 Date of Service: 07/29/22 Procedure(s): XR DEXA axial skeleton Accession Number(s): [id number] EXAMINATION: BONE DENSITOMETRY CLINICAL INDICATION: Age-related osteoporosis without current pathological fracture. COMPARISON: Baseline BD dated 05/29/2020, spine. This is the patient's baseline examination for the right hip. TECHNIQUE: Using a [employer] DXA System (software version: 13.1) manufactured by [employer], dual-energy x-ray absorptiometry was performed of the lumbar spine and right hip. The images are of good technical quality. Summary results are attached. FINDINGS: AP SPINE L1-L4 (excluding L2 and L3): The data of L1-L4 has been changed to exclude the L2 and L3 vertebral bodies, because degenerative changes at these levels may cause overestimation of lumbar spine density. Current: BMD 1.347 g/cm2, Z-score 3.0, T-score 1.5, normal, 0.9% decrease from baseline (<5% change is not significant). Baseline: BMD 1.359 g/cm2. RIGHT FEMUR, NECK: Current: BMD 0.822 g/cm2, Z-score -0.2, T-score -1.6, osteopenia. RIGHT FEMUR, TOTAL: Current: BMD 0.860 g/cm2, Z-score 0.0, T-score -1.2, osteopenia. IDENTIFIED RISK FACTORS: Secondary osteoporosis, rheumatoid arthritis, osteoporosis, recurrent falls, height loss, history of fracture (adult), anticonvulsant, glucocorticoids (chronic), thiazide, menopause. HISTORY OF FRACTURE: Lower leg. MEDICATIONS: Calcium supplements or multivitamin, vitamin D. MM/XR DEXA axial skeleton IMPRESSION: 1. DIAGNOSIS: Osteopenia based on the lowest T-score value of -1.6 in the femoral neck applying World Health Organization criteria.? ? 2. 10-YEAR FRACTURE RISK PREDICTION, FRAX: Major osteoporotic fracture (clinical spine, forearm, hip or shoulder) 28.7%. Hip fracture 4.3%. Assessment & Plan Assessment & Plan (1) Seropositive rheumatoid arthritis: Comment: ++RF++CCP Methotrexate: 05/05-02/04-no improvement in symptoms Enbrel: 09/04- 10/05 -stopped due to precancerous lesion on Vulva Arava:10/05-01/05-stopped due to elevated LFTs Prednisone: 10/04- present Sulfasalazine: 05/10- present Code(s): M05.9 - Rheumatoid arthritis with rheumatoid factor, unspecified Plan: This is a 67-year-old female with seropositive RA who presents for follow-up visit. She has no active synovitis on sulfasalazine 500 mg Twice daily and prednisone 5 mg daily. Reduce prednisone to 2.5 mg daily for 1 month then stop Continue sulfasalazine 500 mg Twice daily Will re-evaluate patient, can consider increasing sulfasalazine dose. 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 Follow-up in 2 months (2) Osteoporosis: Code(s): M81.0 - Age-related osteoporosis without current pathological fracture Qualifiers: Osteoporosis type: age-related Presence of current pathological fracture: without current pathological fracture Qualified Code(s): M81.0 - Age-related osteoporosis without current pathological fracture Plan: bone density 07/29/2022 with Osteopenia based on the lowest T-score of-1.6 in the femoral neck. Major osteoporotic fracture risk 28.7%. Hip fracture risk 4.3 %. Alendronate was started 08/09. Patient could not tolerate alendronate due to diffuse pain, arthralgias and fatigue. Discussed risks and benefits of Reclast. Patient agreed to proceed. Will start prior authorization for Reclast (3) Bilateral carpal tunnel syndrome: Code(s): G56.03 - Carpal tunnel syndrome, bilateral upper limbs Plan: Scheduled for EMG 02/2023. I prescribed bilateral wrist splints (4) High risk medication use: Code(s): Z79.899 - Other [facility] (current) drug therapy Plan: On sulfasalazine. Monitor safety labs (5) Fall: Code(s): W19.XXXA - Unspecified fall, initial encounter Qualifiers: Encounter type: initial encounter Qualified Code(s): W19.XXXA - Unspecified fall, initial encounter Plan: Patient had a fall 2 weeks ago. Will check x-rays of affected areas to rule out fracture. She stated that she had a left hip replacement last year, worried about misplacement of hip prosthesis Plan I spent 46 minutes reviewing patient's chart, evaluating patient, ordering diagnostic workup, counseling patient and documenting in the chart Orders: Orders XR hip LT min 2V Today W19.XXXA - Unspecified fall, initial encounter XR lumbar spine 4V min Today W19.XXXA - Unspecified fall, initial encounter XR hip RT min 2V Today W19.XXXA - Unspecified fall, initial encounter XR ribs BI min 4V w CXR1V Today W19.XXXA - Unspecified fall, initial encounter Medications: Changed From prednisone 5 mg (2 x 2.5 mg) PO DAILY 60 tabs 2RF M05.9 - Rheumatoid arthritis with rheumatoid factor, unspecified To prednisone 2.5 mg PO DAILY M05.9 - Rheumatoid arthritis with rheumatoid factor, unspecified Coding Level of Care Code Est Pt Level 5 (37934) Diagnoses Seropositive rheumatoid arthritis M05.9 Age-related osteoporosis without current pathological fracture M81.0 Osteoporosis type: age-related Presence of current pathological fracture: without current pathological fracture Bilateral carpal tunnel syndrome G56.03 High risk medication use Z79.899 Fall, initial encounter W19.XXXA Encounter type: initial encounter
[2022-12-23 15:50] VITALS: BP 128/82; PULSE 53; TEMP 36.7; O2SAT 97; BMI 29.5
== END 2022-12-23 16:28 | disposition home or self-care (01) ==
PROVIDERS: PCP Internal Medicine; Visit Provider Student in an Organized Health Care Education/Training Program
DX: M05.79 Rheumatoid arthritis with rheumatoid factor of multiple sites without organ or systems involvement (principal); M81.0 Age-related osteoporosis without current pathological fracture; G56.03 Carpal tunnel syndrome, bilateral upper limbs; Z79.899 Other long term (current) drug therapy; W19.XXXA Unspecified fall, initial encounter
CPT/HCPCS: 99215

== ENCOUNTER 2023-02-24 13:51 | Outpatient (AMB) | payer MEDICAID, SELFPAY ==
--- NOTE | 2023-02-24 13:56 | MHC.OFFVIS ---
Intake Vital Signs 02/24/23 14:06 Height 5 ft 1 in Weight 151 lb 10.848 oz BMI 28.7 BP 150/80 H Blood Pressure Location Rt brachial Position Sitting Pulse 64 Pulse Source Pulse Oximeter Temp 97.6 F Temp Source Skin Pulse Oximetry (%) 96 Oxygen Delivery Method Room Air Intake Visit Reasons: RA Intake Note: Pt last seen 12/23/22, presents today for follow up and test results. c/o right elbow pain, magda knee pain, CTS flare Reports [facility] visit, last week. 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 Accompanied by: Spouse Allergies metoclopramide [From REGLAN] Allergy (Severe, Verified 02/24/23 14:07) Anxiety Penicillins [PENICILLINS] Allergy (Severe, Verified 02/24/23 14:07) swelling tramadol [From ULTRAM] Allergy (Severe, Verified 02/24/23 14:07) Vomiting codeine [Tylenol-Codeine] Allergy (Intermediate, Verified 02/24/23 14:07) vomiting Medication List - Last Reconciled 02/24/23 by Brandon Nguyen MD aspirin (Adult Low Dose Aspirin) 81 mg PO DAILY atorvastatin 80 mg PO BEDTIME buspirone 7.5 mg PO BID cholecalciferol (vitamin D3) 25 mcg PO BID dicyclomine 20 mg PO QID docusate sodium (Colace) 100 mg PO DAILY ezetimibe (Zetia) 10 mg PO DAILY ferrous sulfate 325 mg PO DAILY fluticasone propionate 50 mcg/actuation 2 sprays intranasal DAILY fluticasone propionate 110 mcg/actuation (Flovent HFA) 2 puffs inhalation BID gabapentin (Neurontin) 300 mg PO TID hydrochlorothiazide 25 mg PO DAILY insulin degludec (Tresiba FlexTouch U-200 insulin) 64 units subcut BEDTIME levothyroxine 250 mcg PO DAILY lisinopril 2.5 mg PO DAILY lorazepam 1 mg PO BID PRN magnesium citrate 250 mg PO DAILY melatonin 5 mg PO BEDTIME metoprolol succinate ER 50 mg PO DAILY nitroglycerin 0.4 mg sublingual Q5M PRN nystatin 1 appl topical BID omeprazole 20 mg PO BID prednisone 40 mg PO DAILY sulfasalazine 500 mg PO BID ticagrelor (Brilinta) 90 mg PO BID tiotropium bromide (Spiriva with HandiHaler) 1 cap inhalation DAILY trazodone 100 mg PO BID [wrist splint Wear nightly and as much as possible throughout the day] HPI HPI Comments History of Present Illness Details 67-year-old female with seropositive RA presents follow-up visit. She states that she went to the ER at [facility] last week, was told she has bronchitis. She also states that her troponins were elevated but does not recall whether any specific treatment was given. She is currently on prednisone 40 mg daily for 5 days. She states that she continues to have tingling and significant numbness of her hands, worse on the left. Continues to have joint pain especially in her ankles and feet, worse on the left. Stated that the prednisone prescribed for bronchitis helped her arthritic symptoms. States that she is going to have nerve conduction test for bilateral carpal tunnel syndrome at [facility]. [facility] Medical History (Updated 02/24/23 @ 15:13 by Brandon Nguyen MD) Hepatitis C Exposure to hepatitis B Lesion of vulva Ulcerative colitis Edema Ventral hernia COPD (chronic obstructive pulmonary disease) Essential hypertension Type 2 diabetes mellitus with unspecified complications Atherosclerotic cardiovascular disease Coronary artery disease Seropositive rheumatoid arthritis Surgical History History of hip replacement History of partial hysterectomy Hx of colonoscopy Hx laparoscopic cholecystectomy Hx of appendectomy History of surgery on lower extremity Hx of hernia repair Hx of partial thyroidectomy History of heart artery stent (~2005) Family History Father CVD (cardiovascular disease) Mother CVD (cardiovascular disease) Heart attack Social History Household Members: Spouse Housing: House Housing Other:: mobile home Are you a primary patient care coordinator to a significant other at home: No Do you presently have visiting nurse or other home services: No Alcohol intake: former Patient Tobacco Use Status: Never used Tobacco Cigarettes Per Day: 20 Years Smoked: 15 e-Cigarette/Vaping Use: Never Used Substance Use Type: Marijuana service: No Current occupational status: disabled Review of Systems Musc Reports arthralgias, Reports joint swelling, Reports numbness and Reports stiffness Neuro Reports numbness Physical Exam Vital Signs: Last Vital Signs Temp 97.6 F 02/24/23 14:06 Pulse 64 02/24/23 14:06 BP 150/80 H 02/24/23 14:06 Pulse Ox 96 02/24/23 14:06 Oxygen Delivery Method Room Air 02/24/23 14:06 BMI result Body Mass Index 28.7 Const General: cooperative Orientation/consciousness: patient oriented x3 Limitations: ambulation with cane HEENT Mouth: moist mucous membranes Resp Effort & Inspection: normal respiratory effort and able to speak in complete sentences Cardio Rate: regular rate Rhythm: regular rhythm Skin Other: Fragile skin General skin exam: no rashes or lesions noted and dry skin Neuro Other: Significant numbness of her fingers bilaterally General: patient oriented x3 Extrem Other: Mild left 2nd and 3rd MCP puffiness without significant tenderness Pitting edema of left ankle Left ankle tenderness to palpation Few tender MTP joints bilaterally Results Reviewed Results Reviewed: Laboratory Tests 03/28/22 06/06/22 06/06/22 12:56 14:02 14:02 06/06/22 14:02 Date of Service: 07/29/22 Procedure(s): XR DEXA axial skeleton Accession Number(s): [id number] EXAMINATION: BONE DENSITOMETRY CLINICAL INDICATION: Age-related osteoporosis without current pathological fracture. COMPARISON: Baseline BD dated 05/29/2020, spine. This is the patient's baseline examination for the right hip. TECHNIQUE: Using a [employer] DXA System (software version: 13.1) manufactured by [employer], dual-energy x-ray absorptiometry was performed of the lumbar spine and right hip. The images are of good technical quality. Summary results are attached. FINDINGS: AP SPINE L1-L4 (excluding L2 and L3): The data of L1-L4 has been changed to exclude the L2 and L3 vertebral bodies, because degenerative changes at these levels may cause overestimation of lumbar spine density. Current: BMD 1.347 g/cm2, Z-score 3.0, T-score 1.5, normal, 0.9% decrease from baseline (<5% change is not significant). Baseline: BMD 1.359 g/cm2. RIGHT FEMUR, NECK: Current: BMD 0.822 g/cm2, Z-score -0.2, T-score -1.6, osteopenia. RIGHT FEMUR, TOTAL: Current: BMD 0.860 g/cm2, Z-score 0.0, T-score -1.2, osteopenia. IDENTIFIED RISK FACTORS: Secondary osteoporosis, rheumatoid arthritis, osteoporosis, recurrent falls, height loss, history of fracture (adult), anticonvulsant, glucocorticoids (chronic), thiazide, menopause. HISTORY OF FRACTURE: Lower leg. MEDICATIONS: Calcium supplements or multivitamin, vitamin D. MM/XR DEXA axial skeleton IMPRESSION: 1. DIAGNOSIS: Osteopenia based on the lowest T-score value of -1.6 in the femoral neck applying World Health Organization criteria.? ? 2. 10-YEAR FRACTURE RISK PREDICTION, FRAX: Major osteoporotic fracture (clinical spine, forearm, hip or shoulder) 28.7%. Hip fracture 4.3%. Assessment & Plan Assessment & Plan (1) Seropositive rheumatoid arthritis: Comment: ++RF++CCP Methotrexate: 05/05-02/04-no improvement in symptoms Enbrel: 09/04- 10/05 -stopped due to precancerous lesion on Vulva Arava:10/05-01/05-stopped due to elevated LFTs Prednisone: 10/04- present Sulfasalazine: 05/10- present Code(s): M05.9 - Rheumatoid arthritis with rheumatoid factor, unspecified Plan: This is a 67-year-old female with seropositive RA who presents for follow-up visit. On exam patient has few swollen and tender joints. Currently on prednisone 40 mg daily prescribed for bronchitis Continue sulfasalazine 500 mg Twice daily Check labs, will consider increasing sulfasalazine to 1000 mg Twice daily Labs before next visit in 3 months (2) Osteoporosis: Code(s): M81.0 - Age-related osteoporosis without current pathological fracture Qualifiers: Osteoporosis type: age-related Presence of current pathological fracture: without current pathological fracture Qualified Code(s): M81.0 - Age-related osteoporosis without current pathological fracture Plan: bone density 07/29/2022 with Osteopenia based on the lowest T-score of-1.6 in the femoral neck. Major osteoporotic fracture risk 28.7%. Hip fracture risk 4.3 %. Alendronate was started 08/09. Patient could not tolerate alendronate due to diffuse pain, arthralgias and fatigue. Discussed risks and benefits of Reclast. Patient agreed to proceed. Will start prior authorization for Reclast (3) Bilateral carpal tunnel syndrome: Code(s): G56.03 - Carpal tunnel syndrome, bilateral upper limbs Plan: Scheduled for EMG 02/2023. I prescribed bilateral wrist splints (4) High risk medication use: Code(s): Z79.899 - Other care home (current) drug therapy Plan: On sulfasalazine. Monitor safety labs (5) Lesion of vulva: Comment: March 2021 -MARKETING PROJECT COORDINATOR/oncology at [facility] confirmed that patient had a Precancerous lesion on her vulva resected in 2018. Last visit was in 2019. No cancer. Per Dr Marques with [facility] 2nd pressman/oncology Code(s): N90.89 - Other specified noninflammatory disorders of vulva and perineum Plan: Will request records from [facility] oncology (6) Exposure to hepatitis B: Comment: Evidence of hepatitis B exposure with antibody on March 2021 labs Code(s): Z20.5 - Contact with and (suspected) exposure to viral hepatitis Plan: Check hep B viral load (7) Hepatitis C: Code(s): B19.20 - Unspecified viral hepatitis C without hepatic coma Qualifiers: Viral hepatitis chronicity: chronic Hepatic coma status: without hepatic coma Qualified Code(s): B18.2 - Chronic viral hepatitis C Plan: Check hepatitis C viral load Plan I spent 46 minutes reviewing patient's chart, evaluating patient, ordering diagnostic workup, counseling patient and documenting in the chart Orders: Orders Complete Blood Count Auto Diff Today M05.9 - Rheumatoid arthritis with rheumatoid factor, unspecified Comprehensive Met. Panel Today M05.9 - Rheumatoid arthritis with rheumatoid factor, unspecified Complete Blood Count Auto Diff 3 Months Z89 - Other care home (current) drug therapy C Reactive Protein 3 Months Z.89 - Other service delivery management consultant (current) drug therapy C Reactive Protein Today M05.9 - Rheumatoid arthritis with rheumatoid factor, unspecified Erythrocyte Sedimentation Rate Today M05.9 - Rheumatoid arthritis with rheumatoid factor, unspecified Hepatitis C Viral Load Today B19.20 - Unspecified viral hepatitis C without hepatic coma Hepatitis B Viral DNA Qn Today B19.10 - Unspecified viral hepatitis B without hepatic coma Comprehensive Met. Panel 3 Months Z79.899 - Other care home (current) drug therapy Erythrocyte Sedimentation Rate 3 Months Z79.899 - Other care home (current) drug therapy Medications: Refilled [wrist splint] Wear nightly and as much as possible throughout the day 2 ea 0RF G56.03 - Carpal tunnel syndrome, bilateral upper limbs sulfasalazine 500 mg PO BID 60 tabs 2RF Coding Level of Care Code Est Pt Level 5 (88199) Diagnoses Seropositive rheumatoid arthritis M05.9 Age-related osteoporosis without current pathological fracture M81.0 Osteoporosis type: age-related Presence of current pathological fracture: without current pathological fracture Bilateral carpal tunnel syndrome G56.03 High risk medication use Z79.899 Lesion of vulva N90.89 Exposure to hepatitis B Z20.5 Chronic hepatitis C without hepatic coma B18.2 Viral hepatitis chronicity: chronic Hepatic coma status: without hepatic coma
[2023-02-24 14:06] VITALS: BP 150/80; PULSE 64; TEMP 36.4; O2SAT 96; BMI 28.7
== END 2023-02-24 14:35 | disposition home or self-care (01) ==
PROVIDERS: PCP Internal Medicine; Visit Provider Student in an Organized Health Care Education/Training Program
DX: M05.79 Rheumatoid arthritis with rheumatoid factor of multiple sites without organ or systems involvement (principal); M81.0 Age-related osteoporosis without current pathological fracture; G56.03 Carpal tunnel syndrome, bilateral upper limbs; Z79.899 Other long term (current) drug therapy; N90.89 Other specified noninflammatory disorders of vulva and perineum; Z20.5 Contact with and (suspected) exposure to viral hepatitis; B18.2 Chronic viral hepatitis C
CPT/HCPCS: 99215

== ENCOUNTER → 2023-02-24 13:51 | Outpatient (BNVA) | payer MEDICAID, SELFPAY | PROVIDERS: PCP Internal Medicine; Visit Provider Student in an Organized Health Care Education/Training Program | DX: M05.9 Rheumatoid arthritis with rheumatoid factor, unspecified (principal); M81.0 Age-related osteoporosis without current pathological fracture; G56.03 Carpal tunnel syndrome, bilateral upper limbs; N90.89 Other specified noninflammatory disorders of vulva and perineum; B18.2 Chronic viral hepatitis C; Z20.5 Contact with and (suspected) exposure to viral hepatitis; Z79.899 Other long term (current) drug therapy | CPT/HCPCS: 99212 ==

== ENCOUNTER 2023-08-17 13:02 | Outpatient (AMB) | payer MEDICAID, SELFPAY ==
[2023-08-17 13:09] VITALS: BP 120/74; PULSE 65; BMI 27.1
--- NOTE | 2023-08-17 13:09 | MHC.OFFVIS ---
Vital Signs 08/17/23 13:09 Height 5 ft 1 in Weight 143 lb 4.807 oz BMI 27.1 BP 120/74 Blood Pressure Location Lt brachial Position Sitting Pulse 65 Intake Visit Reasons: Pre-op/N.E. Ortho/Iván carpal tunnel surgery Intake Note: Pre-op clearance bilateral carpal tunney surgery not till the fall c/o chest pain x 3 days Net Sql Developer Required: No Allergies metoclopramide [From REGLAN] Allergy (Severe, Verified 02/24/23 14:07) Anxiety Penicillins [PENICILLINS] Allergy (Severe, Verified 02/24/23 14:07) swelling tramadol [From ULTRAM] Allergy (Severe, Verified 02/24/23 14:07) Vomiting codeine [Tylenol-Codeine] Allergy (Intermediate, Verified 02/24/23 14:07) vomiting Medication List - Last Reconciled 08/17/23 by Dimitrios Choudhary MD aspirin (Adult Low Dose Aspirin) 81 mg PO DAILY atorvastatin 80 mg PO BEDTIME 30 days buspirone 7.5 mg PO BID cholecalciferol (vitamin D3) 25 mcg PO BID dicyclomine 20 mg PO QID docusate sodium (Colace) 100 mg PO BID ezetimibe (Zetia) 10 mg PO DAILY ferrous sulfate 325 mg PO DAILY fluticasone propionate 50 mcg/actuation 2 sprays intranasal DAILY fluticasone propionate 110 mcg/actuation (Flovent HFA) 2 puffs inhalation BID gabapentin (Neurontin) 300 mg PO TID hydrochlorothiazide 25 mg PO DAILY 90 days insulin degludec (Tresiba FlexTouch U-200 insulin) 64 units subcut BEDTIME levothyroxine 250 mcg PO DAILY lisinopril 2.5 mg PO DAILY lorazepam 1 mg PO BID PRN magnesium citrate 250 mg PO DAILY melatonin 5 mg PO BEDTIME metoprolol succinate ER 50 mg PO DAILY nitroglycerin 0.4 mg sublingual Q5M PRN nystatin 1 appl topical BID omeprazole 20 mg PO BID prednisone 40 mg PO DAILY sulfasalazine 1 g (2 x 500 mg) PO BID tiotropium bromide (Spiriva with HandiHaler) 1 cap inhalation DAILY trazodone 100 mg PO BID [wrist splint Wear nightly and as much as possible throughout the day] HPI Comments Details: Lynda returns for follow-up. In 2021, she had NSTEMI in the setting of hip surgery. At that time, she underwent right coronary artery stenting. It seems that she has had a couple of recent admissions to [facility]. Records reviewed. Per discharge summary, thought to have acute respiratory failure/hypoxia/COPD exacerbation and some diastolic heart failure. She also had some chest pain and borderline troponin elevation but stable and it was thought to be rather pleuritic. Then one more admission where it seems that she had recurrent falls and thought to have cord compression. From cardiac, she still has some nonspecific chest pains but nothing clear-cut anginal. It seems that she has still wheezing a lot. [facility] Medical History (Updated 02/24/23 @ 15:13 by Brnadon Nguyen MD) Hepatitis C Exposure to hepatitis B Lesion of vulva Ulcerative colitis Edema Ventral hernia COPD (chronic obstructive pulmonary disease) Essential hypertension Type 2 diabetes mellitus with unspecified complications Atherosclerotic cardiovascular disease Coronary artery disease Seropositive rheumatoid arthritis Surgical History History of hip replacement History of partial hysterectomy Hx of colonoscopy Hx laparoscopic cholecystectomy Hx of appendectomy History of surgery on lower extremity Hx of hernia repair Hx of partial thyroidectomy History of heart artery stent (~2005) Family History Father CVD (cardiovascular disease) Mother CVD (cardiovascular disease) Heart attack Social History Household Members: Spouse Housing: House Housing Other:: mobile home Are you a primary director long term care to a significant other at home: No Do you presently have visiting nurse or other home services: No Alcohol intake: former Patient Tobacco Use Status: Never used Tobacco Cigarettes Per Day: 20 Years Smoked: 15 e-Cigarette/Vaping Use: Never Used Substance Use Type: Marijuana service: No Current occupational status: disabled Review of Systems Const Denies chills, Denies fatigue, Denies fever(s), Denies frequent falls, Denies weakness, Denies weight gain and Denies weight loss ENT Denies dizziness Card Denies chest pain, Denies leg edema, Denies lightheadedness, Denies palpitations, Denies dyspnea, Denies dyspnea on exertion, Denies orthopnea and Denies other (loss of consciousness) Resp Denies cough, Denies dyspnea and Denies dyspnea on exertion GI Denies hematochezia and Denies change in stool character Musc Denies abnormal gait, Denies muscle weakness, Denies numbness, Denies radiating pain into limb and Denies tingling Neuro Denies abnormal gait, Denies dizziness, Denies frequent falls, Denies numbness, Denies tingling and Denies weakness Endo Denies fatigue and Denies palpitations Physical Exam Vital Signs: Last Vital Signs Pulse 65 08/17/23 13:09 BP 120/74 08/17/23 13:09 BMI result Body Mass Index 27.1 Const General: comfortable and no acute distress Orientation/consciousness: patient oriented x3 HEENT Other: Unremarkable Head: Yes normal to inspection Neck Neck: Yes normal visual inspection Chest Chest palpation & inspection: normal inspection of the chest Resp Other: Bilateral wheezing Cardio Palpation: normal PMI Heart sounds: S1 normal heart sound present, S2 normal heart sound present, no gallops, no murmurs and no rubs GI Palpation (GI): Soft to palpation Back/Spine/Pelvis Other: unremarkable Skin General skin exam: no rashes or lesions noted Neuro General: patient oriented x3 Extrem General: Yes normal to inspection Psych Mental Status: mental status grossly normal Office Procedures EKG Details: EKG with sinus rhythm at 65/Min; leftward axis; minimal criteria for LVH, possible normal variant; [place]. [id number], Complete Assessment & Plan Assessment & Plan (1) Atherosclerotic cardiovascular disease: Code(s): I25.10 - Atherosclerotic heart disease of [place] coronary artery without angina pectoris Category: Medical Plan: Per [facility] documentation, underwent SPENCER to LAD in 2004. Repeat catheterization from 2011-diffuse moderate luminal irregularities in LAD but no significant InStent restenosis in prior stent; nonsignificant disease in circumflex and RCA with moderate disease in PDA. Cardiac catheterization 2021 revealed distal right coronary artery stenosis status post PCI. Patent LAD stent with mild ISR. In the recent echo at [facility], LVEF is 50-55%; no wall motion abnormalities; no significant valvular findings; otherwise unremarkable. Her chest pains do not clearly suggest angina and could be rather pleuritic. Also she is quite wheezy on exam. Overall, continue aspirin, beta-blockers, statins, Zetia. Recent LDL from [facility] 37 mg/dL. Triglycerides 139 mg/dL. (2) Type 2 diabetes mellitus with unspecified complications: Code(s): E11.8 - Type 2 diabetes mellitus with unspecified complications Category: Medical Plan: On insulin. Last hemoglobin A1c is 7.5%. (3) Essential hypertension: Code(s): I10 - Essential (primary) hypertension Category: Medical Plan: Stable. No changes. (4) Preoperative cardiovascular examination: Code(s): Z01.810 - Encounter for preprocedural cardiovascular examination Category: Medical Plan: Plans for carpal tunnel surgery noted. Of note, she had an NSTEMI after hip surgery in the past. She has many comorbidities and has concerning lung exam with wheezing. There is a risk of recurrent NSTEMI after noncardiac surgery. If able, try to do under local anesthesia. Plan Discussed with patient and significant other. Medications: Changed From docusate sodium (Colace) 100 mg PO DAILY 30 caps 0RF To docusate sodium (Colace) 100 mg PO BID Coding Level of Care Code Est Pt Level 4 (95423) Diagnoses Atherosclerotic cardiovascular disease I25.10 Type 2 diabetes mellitus with unspecified complications E11.8 Essential hypertension I10 Preoperative cardiovascular examination Z01.810 CPT Codes EKG - CPT: 47615-[id number], Complete ([id number])
== END 2023-08-17 13:55 | disposition home or self-care (01) ==
PROVIDERS: PCP Internal Medicine; Visit Provider Internal Medicine
DX: I25.10 Atherosclerotic heart disease of native coronary artery without angina pectoris (principal); E11.8 Type 2 diabetes mellitus with unspecified complications; I10 Essential (primary) hypertension; Z01.810 Encounter for preprocedural cardiovascular examination
CPT/HCPCS: 93010; 99214

== ENCOUNTER → 2023-08-17 13:02 | Outpatient (BNVA) | payer MEDICAID, SELFPAY | PROVIDERS: PCP Internal Medicine; Visit Provider Internal Medicine | DX: Z01.810 Encounter for preprocedural cardiovascular examination (principal); I25.10 Atherosclerotic heart disease of native coronary artery without angina pectoris; I10 Essential (primary) hypertension; E11.9 Type 2 diabetes mellitus without complications | CPT/HCPCS: 93005; 99212 ==

== ENCOUNTER 2023-10-16 10:34 | Outpatient (REF) | payer MEDICAID, SELFPAY ==
[2023-10-16 14:26] LABS: MANUAL DIFF FLAG NO
[2023-10-16 14:30] LABS: Basophils Absolute Auto 0.1 X10*3/uL (0.0-0.2); Basophils Percent Auto 1.1 % (0-2); Eosinophils Absolute Auto 0.9 X10*3/uL (0.0-0.4); Eosinophils Percent Auto 10.5 % (0-4); Hematocrit 42.1 % (37.0-47.0); Hemoglobin 14.2 g/dl (12.0-16.0); Imm Gran Abs Auto 0.02 X10*3/uL (0.00-0.03); Imm Gran Pct Auto 0.2 % (0.0-0.4); Lymphocytes Absolute Auto 2.3 X10*3/uL (1.2-4.9); Lymphocytes Percent Auto 27.1 % (20-40); Mean Corpuscular HGB Conc 33.7 g/dl (31.0-35.0); Mean Corpuscular Hemoglobin 30.7 pg (27.0-33.0); Mean Corpuscular Volume 91.1 fL (80.0-98.0); Mean Platelet Volume 10.4 fL (9.4-12.3); Monocytes Absolute Auto 0.7 X10*3/uL (0.1-1.2); Monocytes Percent Auto 7.8 % (2-11); Neutrophils Absolute Auto 4.5 x10*3/uL (2.0-8.3); Neutrophils Percent Auto 53.3 % (45-73); Platelet Count 153 X10*3/uL (160-400); Red Blood Count 4.62 X10*6/uL (4.20-5.50); Red Cell Distribution Width 12.3 % (11.0-16.0); White Blood Count 8.4 X10*3/uL (4.8-10.8)
[2023-10-16 14:57] LABS: Alanine Aminotransferase 31 U/L (0-31); Albumin Level 3.5 g/dL (3.5-5.0); Alkaline Phosphatase 93 U/L (39-117); Anion Gap 12 (12-20); Aspartate Amino Transferase 48 U/L (5-31); Bilirubin Total 0.4 mg/dL (0.0-1.0); Blood Urea Nitrogen 34 mg/dL (9-16); C Reactive Protein 0.23 mg/dL (< or = 0.50); Calcium 9.4 mg/dL (8.4-10.2); Carbon Dioxide 27 mmol/L (22-29); Chloride 105 mmol/L (96-108); Estimated Glomerular Filt Rate 49; Glucose Random 63 mg/dL (60-115); Potassium 4.7 mmol/L (3.3-5.1); Sodium 139 mmol/L (135-145); Total Protein 6.5 g/dL (6.5-8.0)
[2023-10-16 15:08] LABS: Erythrocyte Sedimentation Rate 10 MM/HR (0-20)
[2023-10-17 12:04] LABS: Hepatitis B Viral DNA Qn - cp NOT DETECTED Log IU/mL (NOT DETECTED); Hepatitis B Viral DNA Qn-IU/mL NOT DETECTED (NOT DETECTED)
[2023-10-17 13:34] LABS: HCV Log PCR <1.18 NOT DETECTED Log IU/mL (NOT DETECTED); HepC Viral Load <15 NOT DETECTED IU/mL (NOT DETECTED)
== END 2023-10-16 10:35 | disposition home or self-care (01) ==
LOC: HO.WFDLDS 10:34
PROVIDERS: Visit Provider Student in an Organized Health Care Education/Training Program
DX: M05.9 Rheumatoid arthritis with rheumatoid factor, unspecified (principal); B19.20 Unspecified viral hepatitis C without hepatic coma; B19.10 Unspecified viral hepatitis B without hepatic coma; Z79.899 Other long term (current) drug therapy
CPT/HCPCS: 36415; 80053; 85025; 85652; 86140; 87517; 87522

== ENCOUNTER 2023-10-27 11:02 | Outpatient (AMB) | payer MEDICAID, SELFPAY ==
--- NOTE | 2023-10-27 11:04 | A.OFFVIS_ITS ---
Vital Signs 10/27/23 11:12 Height 5 ft 1 in Weight 146 lb 2.664 oz BMI 27.6 BP 122/70 Blood Pressure Location Lt brachial Position Sitting Pulse 48 L Pulse Source Pulse Oximeter Pulse Oximetry (%) 97 Oxygen Delivery Method Room Air Intake Visit Reasons: RA Intake Note: Patient presents for RA. Allergies metoclopramide [From REGLAN] Allergy (Severe, Verified 10/27/23 11:11) Anxiety Penicillins [PENICILLINS] Allergy (Severe, Verified 10/27/23 11:11) swelling tramadol [From ULTRAM] Allergy (Severe, Verified 10/27/23 11:11) Vomiting codeine [Tylenol-Codeine] Allergy (Intermediate, Verified 10/27/23 11:11) vomiting Medication List - Last Reconciled 10/27/23 by Brandon Nguyen MD aspirin (Adult Low Dose Aspirin) 81 mg PO DAILY atorvastatin 80 mg PO BEDTIME 30 days buspirone 7.5 mg PO BID cholecalciferol (vitamin D3) 25 mcg PO BID dicyclomine 20 mg PO QID docusate sodium (Colace) 100 mg PO BID ezetimibe (Zetia) 10 mg PO DAILY ferrous sulfate 325 mg PO DAILY fluticasone propionate 50 mcg/actuation 2 sprays intranasal DAILY fluticasone propionate 110 mcg/actuation (Flovent HFA) 2 puffs inhalation BID gabapentin 300 mg PO TID hydrochlorothiazide 25 mg PO DAILY 90 days inhalational spacing device (BreatheRite MDI Spacer) As directed insulin degludec (Tresiba FlexTouch U-200 insulin) 64 units subcut BEDTIME levothyroxine 250 mcg PO DAILY lisinopril 2.5 mg PO DAILY lorazepam 1 mg PO BID PRN magnesium citrate 250 mg PO DAILY melatonin 5 mg PO BEDTIME metoprolol succinate ER 50 mg PO DAILY nitroglycerin 0.4 mg sublingual Q5M PRN nystatin 1 appl topical BID omeprazole 20 mg PO BID sulfasalazine 0.5 grams PO BID tiotropium bromide (Spiriva with HandiHaler) 1 cap inhalation DAILY trazodone TAKE 1 TABLET BY MOUTH TWICE DAILY [wrist splint Wear nightly and as much as possible throughout the day] HPI Comments Details: 67-year-old female with seropositive RA presents follow-up visit. She states that she has pain in her right 2nd MCP, her neck, knees. She does not have good muscle strength and balance. She does not take the sulfasalazine as prescribed, she only takes 500 mg Twice daily as higher doses caused GI upset. She is doing reasonably well otherwise [facility] Medical History Hepatitis C Exposure to hepatitis B Lesion of vulva Ulcerative colitis Edema Ventral hernia COPD (chronic obstructive pulmonary disease) Essential hypertension Type 2 diabetes mellitus with unspecified complications Atherosclerotic cardiovascular disease Coronary artery disease Seropositive rheumatoid arthritis Surgical History History of hip replacement History of partial hysterectomy Hx of colonoscopy Hx laparoscopic cholecystectomy Hx of appendectomy History of surgery on lower extremity Hx of hernia repair Hx of partial thyroidectomy History of heart artery stent (~2005) Family History Father CVD (cardiovascular disease) Mother CVD (cardiovascular disease) Heart attack Social History Household Members: Spouse Housing: House Housing Other:: mobile home Are you a primary career placement services counselor to a significant other at home: No Do you presently have visiting nurse or other home services: No Alcohol intake: former Patient Tobacco Use Status: Never used Tobacco Cigarettes Per Day: 20 Years Smoked: 15 e-Cigarette/Vaping Use: Never Used Substance Use Type: Marijuana service: No Current occupational status: disabled Review of Systems Musc Reports arthralgias, Reports joint swelling and Reports stiffness Physical Exam Vital Signs: Last Vital Signs Pulse 48 L 10/27/23 11:12 BP 122/70 10/27/23 11:12 Pulse Ox 97 10/27/23 11:12 Oxygen Delivery Method Room Air 10/27/23 11:12 BMI result Body Mass Index 27.6 Const General: cooperative Orientation/consciousness: patient oriented x3 Limitations: ambulation with cane HEENT Mouth: moist mucous membranes Resp Effort & Inspection: normal respiratory effort and able to speak in complete sentences Cardio Rate: regular rate Rhythm: regular rhythm Skin Other: Fragile skin General skin exam: no rashes or lesions noted and dry skin Neuro Other: Significant numbness of her fingers bilaterally General: patient oriented x3 Extrem Other: Right 2nd MCP swelling and tenderness No active synovitis otherwise Pitting edema of left ankle Results Reviewed Results Reviewed: Laboratory Tests 03/28/22 06/06/22 06/06/22 12:56 14:02 14:02 06/06/22 14:02 Date of Service: 07/29/22 Procedure(s): XR DEXA axial skeleton Accession Number(s): [id number] EXAMINATION: BONE DENSITOMETRY CLINICAL INDICATION: Age-related osteoporosis without current pathological fracture. COMPARISON: Baseline BD dated 05/29/2020, spine. This is the patient's baseline examination for the right hip. TECHNIQUE: Using a [employer] DXA System (software version: 13.1) manufactured by [employer], dual-energy x-ray absorptiometry was performed of the lumbar spine and right hip. The images are of good technical quality. Summary results are attached. FINDINGS: AP SPINE L1-L4 (excluding L2 and L3): The data of L1-L4 has been changed to exclude the L2 and L3 vertebral bodies, because degenerative changes at these levels may cause overestimation of lumbar spine density. Current: BMD 1.347 g/cm2, Z-score 3.0, T-score 1.5, normal, 0.9% decrease from baseline (<5% change is not significant). Baseline: BMD 1.359 g/cm2. RIGHT FEMUR, NECK: Current: BMD 0.822 g/cm2, Z-score -0.2, T-score -1.6, osteopenia. RIGHT FEMUR, TOTAL: Current: BMD 0.860 g/cm2, Z-score 0.0, T-score -1.2, osteopenia. IDENTIFIED RISK FACTORS: Secondary osteoporosis, rheumatoid arthritis, osteoporosis, recurrent falls, height loss, history of fracture (adult), anticonvulsant, glucocorticoids (chronic), thiazide, menopause. HISTORY OF FRACTURE: Lower leg. MEDICATIONS: Calcium supplements or multivitamin, vitamin D. MM/XR DEXA axial skeleton IMPRESSION: 1. DIAGNOSIS: Osteopenia based on the lowest T-score value of -1.6 in the femoral neck applying World Health Organization criteria.? ? 2. 10-YEAR FRACTURE RISK PREDICTION, FRAX: Major osteoporotic fracture (clinical spine, forearm, hip or shoulder) 28.7%. Hip fracture 4.3%. Assessment & Plan Assessment & Plan (1) Seropositive rheumatoid arthritis: Comment: ++[id number]++CCP Methotrexate: 05/05-02/04-no improvement in symptoms Enbrel: 09/04- 10/05 -stopped due to precancerous lesion on Vulva Arava:10/05-01/05-stopped due to elevated LFTs Prednisone: 10/04- present Sulfasalazine: 05/10- (500 mg bid higher doses caused GI upset) present Code(s): M05.9 - Rheumatoid arthritis with rheumatoid factor, unspecified Category: Medical Plan: This is a 67-year-old female with seropositive RA who presents for follow-up visit. On exam today patient has 1 swollen and tender joint, no active synovitis otherwise. Her RA is well controlled Patient is unable to tolerate more than 500 mg of sulfasalazine Twice daily Continue sulfasalazine 500 mg Twice daily. I think patient should do some resistance exercises to strengthen her upper and lower extremities, this may help her balance. Advised patient to get a squeeze ball and strengthen her patented [employer] before next visit in 4 months (2) Osteoporosis: Code(s): M81.0 - Age-related osteoporosis without current pathological fracture Category: Medical Qualifiers: Osteoporosis type: age-related Presence of current pathological fracture: without current pathological fracture Qualified Code(s): M81.0 - Age- related osteoporosis without current pathological fracture Plan: bone density 07/29/2022 with Osteopenia based on the lowest T-score of-1.6 in the femoral neck. Major osteoporotic fracture risk 28.7%. Hip fracture risk 4.3 %. Alendronate was started 08/09. Patient could not tolerate alendronate due to diffuse pain, arthralgias and fatigue. Discussed risks and benefits of Reclast. Patient agreed to Reclast last visit. We will arrange for Reclast infusion (3) High risk medication use: Code(s): Z79.899 - Other watermelon inspector (current) drug therapy Category: Medical Plan: On sulfasalazine. Monitor safety labs (4) Exposure to hepatitis B: Comment: Code(s): Z20.5 - Contact with and (suspected) exposure to viral hepatitis Category: Medical Plan: Likely exposed to hepatitis-B, hepatitis-B viral load is negative. Hepatitis-B core antibody is positive. If patient requires biologic DMARD, she will need a referral to Infectious Disease (5) Hepatitis C: Code(s): B19.20 - Unspecified viral hepatitis C without hepatic coma Category: Medical Qualifiers: Viral hepatitis chronicity: chronic Hepatic coma status: without hepatic coma Qualified Code(s): B18.2 - Chronic viral hepatitis C Plan: Positive antibody with negative viral load Plan I spent 46 minutes reviewing patient's chart, evaluating patient, ordering diagnostic workup, counseling patient and documenting in the chart Orders: Orders C Reactive Protein 4 Months M05.9 - Rheumatoid arthritis with rheumatoid factor, unspecified, Z79.899 - Other watermelon inspector (current) drug therapy Complete Blood Count Auto Diff 4 Months M05.9 - Rheumatoid arthritis with rheumatoid factor, unspecified, Z79.899 - Other nursing home (current) drug therapy Comprehensive Met. Panel 4 Months M05.9 - Rheumatoid arthritis with rheumatoid factor, unspecified, Z79.899 - Other watermelon inspector (current) drug therapy Erythrocyte Sedimentation Rate 4 Months M05.9 - Rheumatoid arthritis with rheumatoid factor, unspecified, Z79.899 - Other watermelon inspector (current) drug therapy Coding Level of Care Code Est Pt Level 5 (87877) Complex EM visit Add On G2211 Diagnoses Seropositive rheumatoid arthritis M05.9 Age-related osteoporosis without current pathological fracture M81.0 Osteoporosis type: age-related Presence of current pathological fracture: without current pathological fracture High risk medication use Z79.899 Exposure to hepatitis B Z20.5 Chronic hepatitis C without hepatic coma B18.2 Viral hepatitis chronicity: chronic Hepatic coma status: without hepatic coma
[2023-10-27 11:12] VITALS: BP 122/70; PULSE 48; O2SAT 97; BMI 27.6
== END 2023-10-27 11:50 | disposition home or self-care (01) ==
PROVIDERS: PCP Internal Medicine; Visit Provider Student in an Organized Health Care Education/Training Program
DX: M05.70 Rheumatoid arthritis with rheumatoid factor of unspecified site without organ or systems involvement (principal); M81.0 Age-related osteoporosis without current pathological fracture; Z79.899 Other long term (current) drug therapy; Z20.5 Contact with and (suspected) exposure to viral hepatitis; B18.2 Chronic viral hepatitis C
CPT/HCPCS: 99215

== ENCOUNTER → 2023-10-27 11:02 | Outpatient (BNVA) | payer MEDICAID, SELFPAY | PROVIDERS: PCP Internal Medicine; Visit Provider Student in an Organized Health Care Education/Training Program | DX: M05.9 Rheumatoid arthritis with rheumatoid factor, unspecified (principal); M81.0 Age-related osteoporosis without current pathological fracture; B18.2 Chronic viral hepatitis C; Z20.5 Contact with and (suspected) exposure to viral hepatitis; Z79.899 Other long term (current) drug therapy | CPT/HCPCS: 99212 ==

== ENCOUNTER 2024-01-31 12:06 | Outpatient (AMB) | payer MEDICAID, SELFPAY ==
[2024-01-31 12:32] VITALS: BP 118/60; PULSE 68; BMI 27.6
--- NOTE | 2024-01-31 12:32 | A.OFFVIS_ITS ---
Vital Signs 01/31/24 12:32 Height 5 ft 1 in Weight 146 lb BMI 27.6 BP 118/60 Blood Pressure Location Lt brachial Position Sitting Pulse 68 Pulse Source Pulse Oximeter Intake Visit Reasons: 6m follow up Allergies metoclopramide [From REGLAN] Allergy (Severe, Verified 10/27/23 11:11) Anxiety Penicillins [PENICILLINS] Allergy (Severe, Verified 10/27/23 11:11) swelling tramadol [From ULTRAM] Allergy (Severe, Verified 10/27/23 11:11) Vomiting codeine [Tylenol-Codeine] Allergy (Intermediate, Verified 10/27/23 11:11) vomiting Medication List - Last Reconciled 01/31/24 by Dimitrios Choudhary MD aspirin 81 mg PO DAILY atorvastatin 80 mg PO BEDTIME 30 days buspirone 7.5 mg PO BID cholecalciferol (vitamin D3) 25 mcg PO BID dicyclomine 20 mg PO QID docusate sodium (Colace) 100 mg PO BID ezetimibe (Zetia) 10 mg PO DAILY ferrous sulfate 325 mg PO DAILY fluticasone propionate 50 mcg/actuation 2 sprays intranasal DAILY fluticasone propionate 110 mcg/actuation (Flovent HFA) 2 puffs inhalation BID gabapentin 300 mg PO TID hydrochlorothiazide 25 mg PO DAILY 90 days inhalational spacing device (BreatheRite MDI Spacer) As directed insulin degludec (Tresiba FlexTouch U-200 insulin) 40 units (0.2 mL) subcut BEDTIME levothyroxine 250 mcg PO DAILY lisinopril 2.5 mg (1/2 x 5 mg) PO DAILY lorazepam 1 mg PO BID PRN magnesium citrate 250 mg PO DAILY melatonin 5 mg PO BEDTIME metoprolol succinate ER 50 mg PO DAILY nitroglycerin 0.4 mg sublingual Q5M PRN nystatin 1 appl topical BID omeprazole 20 mg PO BID sulfasalazine 0.5 grams PO BID tiotropium bromide (Spiriva with HandiHaler) 1 cap inhalation DAILY trazodone TAKE 1 TABLET BY MOUTH TWICE DAILY [wrist splint Wear nightly and as much as possible throughout the day] HPI Comments Details: Lynda returns for follow-up. In 2021, she had NSTEMI in the setting of hip surgery. At that time, she underwent right coronary artery stenting. Otherwise, it seems she had a recent admission to [facility] for pancreatitis r elated epigastric/upper abdominal pain but otherwise, nothing clearly cardiac. Her pain is mainly in the right upper quadrant at this time. She states that is bothering her a lot. REPLACED BY [facility] Medical History (Updated 01/31/24 @ 16:08 by Dimitrios Choudhary MD) Cirrhosis Chronic pancreatitis Hepatitis C Exposure to hepatitis B Lesion of vulva Ulcerative colitis Edema Ventral hernia COPD (chronic obstructive pulmonary disease) Essential hypertension Type 2 diabetes mellitus with unspecified complications Atherosclerotic cardiovascular disease Coronary artery disease Seropositive rheumatoid arthritis Surgical History History of hip replacement History of partial hysterectomy Hx of colonoscopy Hx laparoscopic cholecystectomy Hx of appendectomy History of surgery on lower extremity Hx of hernia repair Hx of partial thyroidectomy History of heart artery stent (~2005) Family History Father CVD (cardiovascular disease) Mother CVD (cardiovascular disease) Heart attack Social History Household Members: Spouse Housing: House Housing Other:: mobile home Are you a primary intensive care unit nurse to a significant other at home: No Do you presently have visiting nurse or other home services: No Alcohol intake: former Patient Tobacco Use Status: Never used Tobacco Cigarettes Per Day: 20 Years Smoked: 15 e-Cigarette/Vaping Use: Never Used Substance Use Type: Marijuana service: No Current occupational status: disabled Review of Systems Const Denies weakness ENT Denies dizziness Card Denies chest pain, Denies chest pain with activity, Denies syncope, Denies rapid heart rate, Denies pedal edema, Denies edema, Denies leg edema, Denies lightheadedness, Denies palpitations, Denies dyspnea, Denies dyspnea on exertion and Denies orthopnea Resp Denies cough, Denies dyspnea and Denies dyspnea on exertion GI Denies hematochezia and Denies change in stool character Musc Denies abnormal gait, Denies muscle cramps, Denies muscle weakness, Denies numbness, Denies radiating pain into limb and Denies tingling Neuro Denies abnormal gait, Denies dizziness, Denies syncope, Denies numbness, Denies tingling and Denies weakness Endo Denies palpitations Physical Exam Vital Signs: Last Vital Signs Pulse 68 01/31/24 12:32 BP 118/60 01/31/24 12:32 BMI result Body Mass Index 27.6 Const General: comfortable and no acute distress Orientation/consciousness: patient oriented x3 HEENT Other: Unremarkable Head: Yes normal to inspection Neck Neck: Yes normal visual inspection Chest Chest palpation & inspection: normal inspection of the chest Resp Auscultation: clear to auscultation bilaterally Cardio Palpation: normal PMI Heart sounds: S1 normal heart sound present, S2 normal heart sound present, no gallops, no murmurs and no rubs GI Palpation (GI): Soft to palpation Back/Spine/Pelvis Other: unremarkable Skin General skin exam: no rashes or lesions noted Neuro General: patient oriented x3 Extrem General: Yes normal to inspection Psych Mental Status: mental status grossly normal Assessment & Plan Assessment & Plan (1) Atherosclerotic cardiovascular disease: Code(s): I25.10 - Atherosclerotic heart disease of [place] coronary artery without angina pectoris Category: Medical Plan: Per [facility] documentation, underwent SPENCER to LAD in 2004. Repeat catheterization from 2011-diffuse moderate luminal irregularities in LAD but no significant InStent restenosis in prior stent; nonsignificant disease in circumflex and RCA with moderate disease in PDA. Cardiac catheterization 2021 revealed distal right coronary artery stenosis status post PCI. Patent LAD stent with mild ISR. Echo at [facility], 05/2023, LVEF 50-55%; no wall motion abnormalities; no significant valvular findings; otherwise unremarkable. Overall, stable coronary disease. Overall, continue aspirin, beta-blockers, statins, Zetia. Recent LDL from [facility] 37 mg/dL. Triglycerides 139 mg/dL. (2) Type 2 diabetes mellitus with unspecified complications: Code(s): E11.8 - Type 2 diabetes mellitus with unspecified complications Category: Medical Plan: On insulin. Per [facility] notes, hemoglobin A1c is 7.8%. Higher than ideal. (3) Essential hypertension: Code(s): I10 - Essential (primary) hypertension Category: Medical Plan: Stable. No changes. Plan Discussed with patient and significant other. Coding Level of Care Code Est Pt Level 4 (92096) Diagnoses Atherosclerotic cardiovascular disease I25.10 Type 2 diabetes mellitus with unspecified complications E11.8 Essential hypertension I10
== END 2024-01-31 13:03 | disposition home or self-care (01) ==
PROVIDERS: PCP Internal Medicine; Visit Provider Internal Medicine
DX: I25.10 Atherosclerotic heart disease of native coronary artery without angina pectoris (principal); E11.8 Type 2 diabetes mellitus with unspecified complications; I10 Essential (primary) hypertension
CPT/HCPCS: 99214

== ENCOUNTER → 2024-01-31 12:06 | Outpatient (BNVA) | payer MEDICAID, SELFPAY | PROVIDERS: PCP Internal Medicine; Visit Provider Internal Medicine | DX: I25.10 Atherosclerotic heart disease of native coronary artery without angina pectoris (principal); I25.2 Old myocardial infarction; I10 Essential (primary) hypertension; E11.8 Type 2 diabetes mellitus with unspecified complications | CPT/HCPCS: 99212 ==

== ENCOUNTER 2024-03-12 11:04 | Outpatient (AMB) | payer MEDICAID, SELFPAY ==
--- NOTE | 2024-03-12 11:13 | A.OFFPC_ITS ---
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 Intake Note: New patient visit Software Licensing Specialist Required: No Allergies metoclopramide [From REGLAN] Allergy (Severe, Verified 03/12/24 11:16) Anxiety Penicillins [PENICILLINS] Allergy (Severe, Verified 03/12/24 11:16) swelling tramadol [From ULTRAM] Allergy (Severe, Verified 03/12/24 11:16) Vomiting codeine [Tylenol-Codeine] Allergy (Intermediate, Verified 03/12/24 11:16) vomiting Tobacco use date assessed: 03/12/24 Fall risk assessment: No Falls in past year Last assessed Fall Risk: 03/12/24 Dental Screening Dental Screen Date: 03/12/24 Did you have a dental visit in the last 12 months?: No Did you have a dental problem in the last 6 months where you did not have access to dental care?: No Was dental information given to patient?: Patient declined (has dentures) HPI HPI Comments History of Present Illness Details The patient is a 68 year old female with a past medical history of type 2 diabetes, CAD s/p [place] and PCI 2004 & 2021, chronic recurrent pancreatitis, anxiety, UC, RA, hyperlipidemia, hypertension, hypothyroid, bipolar disorder, COPD, hep C-treated, history of DVT, osteoporosis, history of DVT presenting for follow up CV: history of SPENCER in 2004, NSTEMI with SPENCER 08/2021. Following with cardiology. Has chronic LE swelling. Denies chest pain, shortness of breath. Endocrine: -Diabetes-insulin dependent. She is foll owing with endocrine. +neuropathy +ophtho compications -Hypothyroid-History of hypothyroid s/p thyroidectomy. On levothyroxine. Lobulated thyroglossal duct cyst. Has seen Dr Fulton MSK: RA/OA. Continues on prednisone and sulfasalazine. Underwent LTHR. [place] [facility] [place] Dr Robles and [place], Dr Hernandez for tib/fib/ankle GI: Follows with pancreatic gycnbtu-[facility]-uer seen [facility] Follows with manager gyn for precancerous vulvar lesions Refuses colonoscopy ROS CONSTITUTIONAL: Denies weight loss, fever and chills. HEENT: Denies changes in vision and hearing. RESPIRATORY: Denies SOB and cough. CV: Denies palpitations and CP GI: Denies abdominal pain, nausea, vomiting and diarrhea. : Denies dysuria and urinary frequency. MSK: Denies new myalgia and joint pain. SKIN: Denies rash and pruritus. NEUROLOGICAL: Denies headache PSYCHIATRIC: Denies recent changes in mood. PHYSICAL EXAM: GENERAL: Alert and oriented x 3. NAD EYES: EOMI. Anicteric. HENT: Moist mucous membranes. No scleral icterus. No cervical lymphadenopathy. LUNGS: Clear to auscultation bilaterally. CARDIOVASCULAR: Regular rate and rhythm. No murmur. No JVD. ABDOMEN: Soft, non-tender +bs EXTREMITIES: No edema. Non-tender. SKIN: No rashes or lesions. Warm. NEUROLOGIC: No focal neurological deficits. CN II-XII grossly intact PSYCHIATRIC: Cooperative. Appropriate mood and affect [facility] Medical History (Updated 03/24/24 @ 20:03 by Cassia Templeton MD) Cirrhosis Chronic pancreatitis Hepatitis C Exposure to hepatitis B Lesion of vulva Ulcerative colitis Edema Ventral hernia COPD (chronic obstructive pulmonary disease) Essential hypertension Type 2 diabetes mellitus with unspecified complications Atherosclerotic cardiovascular disease Coronary artery disease Seropositive rheumatoid arthritis Surgical History History of hip replacement History of partial hysterectomy Hx of colonoscopy Hx laparoscopic cholecystectomy Hx of appendectomy History of surgery on lower extremity Hx of hernia repair Hx of partial thyroidectomy History of heart artery stent (~2005) Family History Father CVD (cardiovascular disease) Mother CVD (cardiovascular disease) Heart attack Social History (Updated 03/12/24 @ 11:22 by Christi Mead CMA) Household Members: Spouse Housing: House Housing Other:: mobile home Are you a primary plant care worker to a significant other at home: No Do you presently have visiting nurse or other home services: No Alcohol intake: former Comment: recovering alcoholic Patient Tobacco Use Status: Former Tobacco user Cigarettes Per Day: 20 Years Smoked: 15 e-Cigarette/Vaping Use: Never Used Substance Use Type: Marijuana service: No Current occupational status: disabled Cognitive needs: Yes (sometimes forgets what shes talking about) Hearing needs: No Vision needs: No Questionnaire PHQ-9 Over the last 2 weeks, how often have you been bothered by any of the following problems? 1. Little interest or pleasure in doing things: several days 2. Feeling down, depressed, or hopeless: not at all 3. Trouble falling or staying asleep, or sleeping too much: more than half the days 4. Feeling tired or having little energy: several days 5. Poor appetite or overeating: several days 6. Feeling bad about yourself - or that you are a failure or have let yourself or your family down: not at all 7. Trouble concentrating on things, such as reading the newspaper or watching television: several days 8. Moving or speaking so slowly that other people could have noticed. Or the opposite - being so fidgety or restless that you have been moving around a lot more than usual: not at all 9. Thoughts that you would be better off or of hurting yourself in some way: not at all Total score: 6 Depression Screening Interpretation: Positive Depression Screening Done: Yes 71647 - PHQ-9 Billing: Yes Source: Developed by Drs. Jeffrey Crawley, Josette Soto, Ketan Carney and colleagues, with an educational pamela from [employer]. Thrive Questionnaire Date Thrive assessed: 03/10/24 I am a: Patient What is your living situation today?: I have a steady place to live Within the past 12 months, did the food you bought not last and you didn't have the money to get more?: Often true Within the past 12 months, did you worry whether your food would run out before you got money to buy more?: Often true Do you have trouble paying for medicines?: No Do you have trouble getting transportation to medical appointments?: Yes Do you have trouble paying your heating and electricity bill?: Yes Do you have trouble taking care of your child, family member or friend?: No Do you have trouble with day-to-day activities such as bathing, preparing meals, shopping, managing finances, etc.?: Yes Are you currently unemployed and looking for a job?: I choose not to answer this question Are you interested in more education?: I choose not to answer this question Please select the resources that you would like help with: Food, Utilities, Care for elder or disabled and Daily support Currently or been in a relationship where the following occur: I choose not to answer THRIVE Score: 4 AUDIT C Alcohol Use Questionnaire (AUDIT-C) 1. How often do you have a drink containing alcohol?: Never 3. How often do you have six or more drinks on one occasion?: Never Total Score: 0 ORTIZ-7 AMB Questionnaire ORTIZ-7 Date ORTIZ - 7 assessed: 03/12/24 Feeling nervous, anxious, or on edge: 1 = Several days Not being able to stop or control worryin = Several days Worrying too much about different things: 1 = Several days Trouble relaxin = Not at all Being so restless that it is hard to sit still: 0 = Not at all Becoming easily annoyed or irritable: 3 = Nearly every day Feeling afraid as if something awful might happen: 3 = Nearly every day Total ORTIZ-7 score (0-4 normal; 5-9 mild; 10-14 moderate; 15-21 severe): 9 Source: Developed by Drs. Jeffrey Crawley, Josette Soto, Ketan Carney and colleagues, with an educational pamela from [employer]. ORTIZ-7 Assessment Billing ORTIZ-7 Assessment Tool: ORTIZ-7 Assessment 41603 Physical exam (Primary Care) Vital Signs: Last Vital Signs Pulse 49 L 03/12/24 11:24 BP 108/78 03/12/24 11:24 Pulse Ox 98 03/12/24 11:24 Oxygen Delivery Method Room Air 03/12/24 11:24 BMI result Body Mass Index 26.4 Tobacco/Smoking Status: Tobacco use Status Tobacco use date assessed 03/12/24 03/12/24 11:30 Patient Tobacco Use Status Former Tobacco user 03/12/24 11:30 Tobacco use type 06/30/22 11:37 e-Cigarette/Vaping Use Never Used 03/12/24 11:22 PHQ-9: PHQ-9 Score PHQ-9: Total score 6 03/14/24 08:57 Depression Screening Interpretation: Positive Thrive Assessment: Date of Thrive Assessment Date Thrive assessed 03/10/24 03/12/24 11:15 Currently or been in a relationship where the following occur: I choose not to answer Coding Level of Care Code Est Pt Level 5 (08363) Diagnoses Type 2 diabetes mellitus with diabetic polyneuropathy, with long-term current use of insulin E11.42; Z79.4 Diabetes mellitus type: type 2 Diabetes mellitus superintendent marine oil terminal insulin use: with intermediate use Diabetes mellitus complication status: with neurologic complications Diabetes mellitus complication detail: with polyneuropathy Chronic obstructive pulmonary disease, unspecified COPD type J44.9 COPD type: unspecified COPD Coronary artery disease involving [place] coronary artery of [place] heart without angina pectoris I25.10 Coronary Disease-Associated Artery/Lesion type: [place] artery [place] vs. transplanted heart: [place] heart Associated angina: without angina Seropositive rheumatoid arthritis M05.9 Additional Codes ORTIZ-7 Assessment Billing - ORTIZ-7 Assessment Tool: ORTIZ-7 Assessment 55803 ([id number]) PHQ-9 - 20197 - PHQ-9 Billing: Yes ([id number]) Time Spent (min) 45 Assessment & Plan Assessment & Plan (1) Diabetes: Code(s): E11.9 - Type 2 diabetes mellitus without complications Category: Medical Qualifiers: Diabetes mellitus type: type 2 Diabetes mellitus superintendent marine [employer] insulin use: with superintendent [employer] use Diabetes mellitus complication status: with neurologic complications Diabetes mellitus complication detail: with polyneuropathy Qualified Code(s): E11.42 - Type 2 diabetes mellitus with diabetic polyneuropathy; Z79.4 - remote computer terminal operator (current) use of insulin Plan: Controlled on current medications (2) COPD (chronic obstructive pulmonary disease): Code(s): J44.9 - Chronic obstructive pulmonary disease, unspecified Category: Medical Qualifiers: COPD type: unspecified COPD Qualified Code(s): J44.9 - Chronic obstructive pulmonary disease, unspecified Plan: controlled on current medication (3) Coronary artery disease: Comment: S/p stent placement 2004, SPENCER 2021 Code(s): I25.10 - Atherosclerotic heart disease of [place] coronary artery without angina pectoris Category: Medical Qualifiers: Coronary Disease-Associated Artery/Lesion type: [place] artery [place] vs. transplanted heart: [place] heart Associated angina: without angina Qualified Code(s): I25.10 - Atherosclerotic heart disease of [place] coronary artery without angina pectoris Plan: Secondary prevention (4) Seropositive rheumatoid arthritis: Comment: ++RF++CCP Methotrexate: 05/05-02/04-no improvement in symptoms Enbrel: 09/04- 10/05 -stopped due to precancerous lesion on Vulva Arava:10/05-01/05-stopped due to elevated LFTs Prednisone: 10/04- present Sulfasalazine: 05/10- (500 mg bid higher doses caused GI upset) present Code(s): M05.9 - Rheumatoid arthritis with rheumatoid factor, unspecified Category: Medical Plan: continue rheumatology follow up Orders: Referrals Gastroenterology Referral D49.0 - Neoplasm of unspecified behavior of digestive system, K29.70 - Gastritis, unspecified, without bleeding Medications: New oxycodone Partial Fill upon patient request. 5 mg PO Q6H PRN 112 tabs 0RF pain pen needle, diabetic (CareTouch Pen Needle) As directed 1,200 ea 3RF Changed From insulin degludec 40 units (0.2 mL) subcut BEDTIME 18 mL 11RF To insulin degludec (Tresiba FlexTouch U-200 insulin) 40 units (0.2 mL) subcut BEDTIME 18 mL 11RF
[2024-03-12 11:24] VITALS: BP 108/78; PULSE 49; O2SAT 98; BMI 26.4
== END 2024-03-12 12:02 | disposition home or self-care (01) ==
PROVIDERS: PCP Internal Medicine; Visit Provider Internal Medicine
DX: E11.42 Type 2 diabetes mellitus with diabetic polyneuropathy (principal); Z79.4 Long term (current) use of insulin; J44.9 Chronic obstructive pulmonary disease, unspecified; I25.10 Atherosclerotic heart disease of native coronary artery without angina pectoris; M05.9 Rheumatoid arthritis with rheumatoid factor, unspecified

== ENCOUNTER → 2024-03-12 11:04 | Outpatient (BNVA) | payer MEDICAID, SELFPAY | PROVIDERS: PCP Internal Medicine; Visit Provider Internal Medicine | DX: E11.42 Type 2 diabetes mellitus with diabetic polyneuropathy (principal); J44.9 Chronic obstructive pulmonary disease, unspecified; I25.10 Atherosclerotic heart disease of native coronary artery without angina pectoris; I10 Essential (primary) hypertension; M05.9 Rheumatoid arthritis with rheumatoid factor, unspecified; E89.0 Postprocedural hypothyroidism; I25.2 Old myocardial infarction; Z79.4 Long term (current) use of insulin; Z79.899 Other long term (current) drug therapy; D49.0 Neoplasm of unspecified behavior of digestive system; K29.70 Gastritis, unspecified, without bleeding | CPT/HCPCS: 96127; 99212 ==

== ENCOUNTER 2024-08-26 14:58 | Outpatient (AMB) | payer MEDICARE, MEDICAID, SELFPAY ==
--- NOTE | 2024-08-26 15:25 | MHC.PC.OV ---
Vital Signs 08/26/24 15:31 Height 5 ft 1 in Weight 133 lb 2 oz BMI 25.2 BP 126/66 Blood Pressure Location Lt brachial Position Sitting Respiration 14 Pulse 46 L Pulse Source Pulse Oximeter Temp 97.3 F Temp Source Oral Pulse Oximetry (%) 97 Oxygen Delivery Method Room Air Intake Visit Reasons: Discharge Follow-Up Intake Note: Hospital follow up Milking Machine Technician Required: No Allergies metoclopramide (From REGLAN) Allergy (Severe, Verified 08/26/24 15:26) Anxiety Penicillins (PENICILLINS) Allergy (Severe, Verified 08/26/24 15:26) swelling tramadol (From ULTRAM) Allergy (Severe, Verified 08/26/24 15:26) Vomiting codeine (Tylenol-Codeine) Allergy (Intermediate, Verified 08/26/24 15:26) vomiting Medication List - Last Reconciled 08/26/24 by Cassia Templeton MD amlodipine 10 mg (2 x 5 mg) PO DAILY aspirin 81 mg PO DAILY atorvastatin 80 mg PO BEDTIME 30 days buspirone 7.5 mg PO BID dicyclomine 20 mg PO QID docusate sodium 100 mg PO BID PRN ezetimibe 10 mg PO DAILY ferrous sulfate 325 mg PO DAILY fluticasone propionate 50 mcg/actuation 2 sprays intranasal DAILY fluticasone propionate 110 mcg/actuation (Flovent HFA) 2 puffs inhalation BID gabapentin 300 mg PO TID hydrocortisone valerate 0.2% 1 appl topical BID PRN inhalational spacing device (BreatheRite MDI Spacer) As directed levothyroxine 250 mcg (2 x 125 mcg) PO DAILY lisinopril 2.5 mg (1/2 x 5 mg) PO DAILY lorazepam 1 mg PO BID PRN losartan 50 mg (2 x 25 mg) PO DAILY magnesium citrate 250 mg PO DAILY melatonin 10 mg (2 x 5 mg) PO BEDTIME PRN metoprolol succinate ER 50 mg PO DAILY nitroglycerin 0.4 mg sublingual Q5M PRN oxycodone 5 mg PO Q6H PRN 28 days pantoprazole 40 mg PO BID pen needle, diabetic (CareTouch Pen Needle) As directed sucralfate 1 g PO QIDACHS sulfasalazine 1,000 mg PO QID trazodone TAKE 1 TABLET BY MOUTH TWICE DAILY Tresiba FlexTouch U-200 (insulin degludec) 32 units (0.16 mL) subcut BEDTIME NS Tridacaine XL 5% (lidocaine) 1 patch topical DAILY NS [wrist splint Wear nightly and as much as possible throughout the day] Tobacco use date assessed: 03/12/24 Dental Screening Dental Screen Date: 03/12/24 HPI HPI Comments History of Present Illness Details The patient is a 68 year old female with a past medical history of type 2 diabetes, CAD s/p [place] and PCI 2004 & 2021, chronic recurrent pancreatitis, anxiety, UC, RA, hyperlipidemia, hypertension, hypothyroid, bipolar disorder, COPD, hep C-treated, history of DVT, osteoporosis, history of DVT presenting for hospital follow up She was hospitalized at [facility] for chest and abdominal pain from August 10-August 11. CT abd/pelvis-chronic pancreatitis as well as some gastric wall edema (seen in prior imaging in 2023). Labs normal. Patient was started on dilaudid during stay. GI consulted and recommened outpatient follow up. BP was high during hospitalization. She was started on losartan 50 and norvasc 10. She has resumed her usual opioid therapy since disharge. She is taking carafate as prescribed on discharge. PHQ high but patient denies increased symptoms. CV: history of SPENCER in 2004, NSTEMI with SPENCER 08/2021. Following with cardiology. Has chronic LE swelling. Denies chest pain, shortness of breath. Endocrine: -Diabetes-insulin dependent. She is following with endocrine. +neuropathy +ophtho compications -Hypothyroid-History of hypothyroid s/p thyroidectomy. On levothyroxine. Lobulated thyroglossal duct cyst. Has seen Dr Fulton MSK: RA/OA. Continues on prednisone and sulfasalazine. Underwent LTHR. [place] [facility] [place] Dr Robles and [place], Dr Hernandez for tib/fib/ankle GI: Follows with pancreatic [id number] seen [facility]in GI BH: Anxiety, depression. On lorazepam, trazodone, buspar. She feels stable despite elevated PHQ9 Follows with head housekeeper for precancerous vulvar lesions Refuses colonoscopy ROS CONSTITUTIONAL: Denies weight loss, fever and chills. HEENT: Denies changes in vision and hearing. RESPIRATORY: Denies SOB and cough. CV: Denies palpitations and CP GI: Denies abdominal pain, nausea, vomiting and diarrhea. : Denies dysuria and urinary frequency. MSK: Denies new myalgia and joint pain. SKIN: Denies rash and pruritus. NEUROLOGICAL: Denies headache PSYCHIATRIC: Denies recent changes in mood. PHYSICAL EXAM: GENERAL: Alert and oriented x 3. NAD EYES: EOMI. Anicteric. HENT: Moist mucous membranes. No scleral icterus. No cervical lymphadenopathy. LUNGS: Clear to auscultation bilaterally. CARDIOVASCULAR: Regular rate and rhythm. No murmur. No JVD. ABDOMEN: Soft, non-tender +bs EXTREMITIES: No edema. Non-tender. SKIN: No rashes or lesions. Warm. NEUROLOGIC: No focal neurological deficits. CN II-XII grossly intact PSYCHIATRIC: Cooperative. Appropriate mood and affect [facility] Medical History (Updated 09/04/24 @ 13:32 by Cassia Templeton MD) Cirrhosis Chronic pancreatitis Hepatitis C Exposure to hepatitis B Lesion of vulva Ulcerative colitis Edema Ventral hernia COPD (chronic obstructive pulmonary disease) Essential hypertension Type 2 diabetes mellitus with unspecified complications Atherosclerotic cardiovascular disease Coronary artery disease Seropositive rheumatoid arthritis Surgical History History of hip replacement History of partial hysterectomy Hx of colonoscopy Hx laparoscopic cholecystectomy Hx of appendectomy History of surgery on lower extremity Hx of hernia repair Hx of partial thyroidectomy History of heart artery stent (~2005) Family History Father CVD (cardiovascular disease) Mother CVD (cardiovascular disease) Heart attack Social History Household Members: Spouse Housing: House Housing Other:: mobile home Are you a primary healthcare administration internship to a significant other at home: No Do you presently have visiting nurse or other home services: No Alcohol intake: former Comment: recovering alcoholic Patient Tobacco Use Status: Former Tobacco user Cigarettes Per Day: 20 Years Smoked: 15 e-Cigarette/Vaping Use: Never Used Substance Use Type: Marijuana service: No Current occupational status: disabled Cognitive needs: Yes (sometimes forgets what shes talking about) Hearing needs: No Vision needs: No Questionnaire PHQ-9 Over the last 2 weeks, how often have you been bothered by any of the following problems? 1. Little interest or pleasure in doing things: more than half the days 2. Feeling down, depressed, or hopeless: more than half the days 3. Trouble falling or staying asleep, or sleeping too much: more than half the days 4. Feeling tired or having little energy: more than half the days 5. Poor appetite or overeating: more than half the days 6. Feeling bad about yourself - or that you are a failure or have let yourself or your family down: more than half the days 7. Trouble concentrating on things, such as reading the newspaper or watching television: more than half the days 8. Moving or speaking so slowly that other people could have noticed. Or the opposite - being so fidgety or restless that you have been moving around a lot more than usual: more than half the days 9. Thoughts that you would be better off or of hurting yourself in some way: more than half the days Total score: 18 Depression Screening Interpretation: Positive Depression Screening Follow-up: Existing condition and Other (On medication) Depression Screening Done: Yes 37815 - PHQ-9 Billing: Yes Source: Developed by Drs. Jeffrey Crawley, Josette Soto, Ketan Carney and colleagues, with an educational pamela from [employer]. Thrive Questionnaire Date Thrive assessed: 08/21/24 I am a: Patient What is your living situation today?: I have a steady place to live Within the past 12 months, did the food you bought not last and you didn't have the money to get more?: I choose not to answer this question Within the past 12 months, did you worry whether your food would run out before you got money to buy more?: I choose not to answer this question Do you have trouble paying for medicines?: I choose not to answer this question Do you have trouble getting transportation to medical appointments?: Yes Do you have trouble paying your heating and electricity bill?: Yes Do you have trouble taking care of your child, family member or friend?: I choose not to answer this question Do you have trouble with day-to-day activities such as bathing, preparing meals, shopping, managing finances, etc.?: I choose not to answer this question Are you currently unemployed and looking for a job?: I choose not to answer this question Are you interested in more education?: No Please select the resources that you would like help with: None Currently or been in a relationship where the following occur: I choose not to answer THRIVE Score: 2 AUDIT C Alcohol Use Questionnaire (AUDIT-C) 1. How often do you have a drink containing alcohol?: Never Total Score: 0 ORTIZ-7 AMB Questionnaire ORTIZ-7 Date ORTIZ - 7 assessed: 03/12/24 Feeling nervous, anxious, or on edge: 1 = Several days Not being able to stop or control worryin = Several days Worrying too much about different things: 1 = Several days Trouble relaxin = Several days Being so restless that it is hard to sit still: 0 = Not at all Becoming easily annoyed or irritable: 1 = Several days Feeling afraid as if something awful might happen: 1 = Several days Total ORTIZ-7 score (0-4 normal; 5-9 mild; 10-14 moderate; 15-21 severe): 6 Source: Developed by Drs. Jeffrey Crawley, Josette Soto, Ketan Carney and colleagues, with an educational pamela from [employer]. Physical exam (Primary Care) Vital Signs: Last Vital Signs Temp 97.3 F 08/26/24 15:31 Pulse 46 L 08/26/24 15:31 Resp 14 08/26/24 15:31 BP 126/66 08/26/24 15:31 Pulse Ox 97 08/26/24 15:31 Oxygen Delivery Method Room Air 08/26/24 15:31 BMI result Body Mass Index 25.2 Tobacco/Smoking Status: Tobacco use Status Tobacco use date assessed 03/12/24 08/26/24 15:29 Patient Tobacco Use Status Former Tobacco user 08/26/24 15:29 Tobacco use type 07/25/24 13:38 e-Cigarette/Vaping Use Never Used 08/26/24 15:29 PHQ-9: PHQ-9 Score PHQ-9: Total score 18 09/03/24 07:00 Depression Screening Interpretation: Positive Depression Screening Follow-up: Existing condition and Other (On medication) Thrive Assessment: Date of Thrive Assessment Date Thrive assessed 08/21/24 08/26/24 15:29 Currently or been in a relationship where the following occur: I choose not to answer Coding Level of Care Code Est Pt Level 4 (04635) Complex EM visit Add On G2211 Diagnoses Hospital discharge follow-up Z09 Atherosclerotic cardiovascular disease I25.10 Gastritis, presence of bleeding unspecified, unspecified chronicity, unspecified gastritis type K29.70 Gastritis type: unspecified gastritis Chronicity: unspecified Gastritis bleeding: presence of bleeding unspecified Seropositive rheumatoid arthritis M05.9 Additional Codes PHQ-9 - 05093 - PHQ-9 Billing: Yes ([id number]) Assessment & Plan Assessment & Plan (1) Hospital discharge follow-up: Code(s): Z09 - Encounter for follow-up examination after completed treatment for conditions other than malignant neoplasm Category: Medical (2) Atherosclerotic cardiovascular disease: Code(s): I25.10 - Atherosclerotic heart disease of [place] coronary artery without angina pectoris Category: Medical (3) Gastritis: Code(s): K29.70 - Gastritis, unspecified, without bleeding Category: Medical Qualifiers: Gastritis type: unspecified gastritis Chronicity: unspecified Gastritis bleeding: presence of bleeding unspecified Qualified Code(s): K29.70 - Gastritis, unspecified, without bleeding (4) Seropositive rheumatoid arthritis: Comment: ++RF++CCP Methotrexate: 05/05-02/04-no improvement in symptoms Enbrel: 09/04- 10/05 -stopped due to precancerous lesion on Vulva Arava:10/05-01/05-stopped due to elevated LFTs Prednisone: 10/04- present Sulfasalazine: 05/10- (500 mg bid higher doses caused GI upset) present Code(s): M05.9 - Rheumatoid arthritis with rheumatoid factor, unspecified Category: Medical Plan 68 year old for hospital follow up Hospitalization course reviewed. medications reconciled HTN well controlled Chronic pain-she has resumed usual home medications Needs follow up GI Medications: New pantoprazole 40 mg PO BID 180 tabs RYLAN Templeton MD sucralfate 1 g PO QIDACHS 120 tabs RYLAN Templeton MD amlodipine 10 mg (2 x 5 mg) PO DAILY 180 tabs RYLAN Templeton MD losartan 50 mg (2 x 25 mg) PO DAILY 180 tabs RYLAN Templeton MD Creon 12,000-38,000 -60,000 unit ([id number]) administer with meals and/or snacks 2 caps PO TID 540 caps 0RF NS Cassia Templeton MD Changed From sulfasalazine 1,000 mg (2 x 500 mg) PO BID 120 tabs 2RF To sulfasalazine 1,000 mg PO QID Brandon Nguyen MD From Tresiba FlexTouch U-200 40 units (0.2 mL) subcut BEDTIME 18 mL 3RF NS E11.9 - Type 2 diabetes mellitus without complications To Tresiba FlexTouch U-200 (insulin degludec) 32 units (0.16 mL) subcut BEDTIME 18 mL 3RF NS E11.9 - Type 2 diabetes mellitus without complications Cassia Templeton MD Discontinued omeprazole Discontinued Reason: Doctor's Order 20 mg PO BID 60 caps 5RF
[2024-08-26 15:31] VITALS: BP 126/66; PULSE 46; RESP 14; TEMP 36.3; O2SAT 97; BMI 25.2
--- OUTSIDE RECORDS SUMMARY | 2024-08-26 16:45 | XMS_ITS | Encounter Summary ---
Author Organization [facility] Address [address] [place] [address] Care Team Providers Care Shuttlecock Feather Trimmer Name Role Phone Elder, Patricia Marques MD Primary Care Provider + Encounter Details Date Type Department Care Team (Latest Contact Info) Description 01/20/[address] [facility] - Main Lab [address] [facility] [place] [address] Rona Vu PA [address] [place] [id number] Type 2 diabetes mellitus with hyperglycemia (CMS/HCC V24, CMS/HCC V28); Other specified hypothyroidism; Urinary tract infection, site not specified Social History Tobacco Use Types Packs/Day Years Used Date Smoking Tobacco: Never Assessed Comments Unknown Sex and Gender Information Value Date Recorded Sex Assigned at Not on file Legal Sex Female 2:57 AM EST Gender Identity Not on file Sexual Orientation Not on file documented as of this encounter Plan of Treatment Not on file documented as of this encounter Procedures Procedure Name Priority Date/Time Associated Diagnosis Comments TRAVEL PHLEBOTOMY FEE Routine 01/20/2024 6:02 AM EDT Type 2 diabetes mellitus with hyperglycemia (CMS/HCC) Other specified hypothyroidism Urinary tract infection, site not specified COMPLETE BLOOD COUNT Routine 01/20/2024 6:02 AM EDT Type 2 diabetes mellitus with hyperglycemia (CMS/HCC) Other specified hypothyroidism Urinary tract infection, site not specified THYROID STIMULATING HORMONE Routine 01/20/2024 6:02 AM EDT Type 2 diabetes mellitus with hyperglycemia (CMS/HCC) Other specified hypothyroidism Urinary tract infection, site not specified HEMOGLOBIN A1C Routine 01/20/2024 6:02 AM EDT Type 2 diabetes mellitus with hyperglycemia (CMS/HCC) Other specified hypothyroidism Urinary tract infection, site not specified BASIC METABOLIC PANEL Routine 01/20/2024 6:02 AM EDT Type 2 diabetes mellitus with hyperglycemia (CMS/HCC) Other specified hypothyroidism Urinary tract infection, site not specified documented in this encounter Results * Travel phlebotomy fee (01/20/2024 6:02 AM EDT) [facility] TRAVEL PHLEBOTOMY FEE Completed 01/20/2024 9:01 AM EDT [facility] Blood Venous blood specimen / Unknown Venipuncture / Unknown 01/20/2024 6:02 AM EDT 01/20/2024 8:55 AM EDT us Rona SMITH LAB BLOOD ORDERABLES Final Res ult Performing Organization Address City/[facility]/ZIP Co de Phone Number [facility] [address] [place] [address], [place] [phone] * (ABNORMAL) Hemoglobin A1c (01/20/2024 6:02 AM EDT) [facility] Hemoglobin A1C 8.1(H) <6.5 % LAB CHEMISTRY METHOD 01/21/2024 10:42 AM EST [facility] Mean Bld Glu Estim. 186 mg/dL LAB CHEMISTRY METHOD 01/21/2024 10:42 AM [facility] Comment:Unable to calculate due to HgB A1C being outside of the reportable range Blood Venous blood specimen / Unknown Venipuncture / Unknown 01/20/2024 6:02 AM EDT 01/20/2024 8:55 AM EDT Rona SMITH LAB BLOOD ORDERABLES Final Res ult [facility] [address] [place] [address], [place] [phone] * Thyroid stimulating hormone (01/20/2024 6:02 AM EDT) Pathologist [facility] TSH 1.57 0.40 - 4.00 mcIU/mL LAB CHEMISTRY METHOD 01/20/2024 12:09 PM EDT [facility] Blood Venous blood specimen / Unknown Venipuncture / Unknown 01/20/2024 6:02 AM EDT 01/20/2024 8:55 AM EDT us Rona SMITH LAB BLOOD ORDERABLES Final Res ult [facility] [address] [place] [address], * (ABNORMAL) Basic metabolic panel (01/20/2024 6:02 AM EDT) Pathologist [facility] Sodium 140 133 - 145 mmol/L LAB CHEMISTRY METHOD 01/20/2024 9:45 AM [facility] Potassium 3.9 3.5 - 5.5 mmol/L LAB CHEMISTRY METHOD 01/20/2024 9:45 AM [facility] Chloride 108 96 - 110 mmol/L LAB CHEMISTRY METHOD 01/20/2024 9:45 AM [facility] CO2 25 21 - 32 mmol/L LAB CHEMISTRY METHOD 01/20/2024 9:45 AM [facility] Anion Gap 7 3 - 11 LAB CHEMISTRY METHOD 01/20/2024 9:45 AM [facility] Glucose 90 70 - 100 mg/dL LAB CHEMISTRY METHOD 01/20/2024 9:45 AM [facility] BUN 17 5 - 25 mg/dL LAB CHEMISTRY METHOD 01/20/2024 9:45 AM [facility] Creatinine 1.20(H) 0.50 - 1.10 mg/dL LAB CHEMISTRY METHOD 01/20/2024 9:45 AM EDT [facility] eGFR 50(L) >=60 mL/min/1. 73m2 LAB CHEMISTRY METHOD 01/20/2024 9:45 AM EDT [facility] Comment:Calculation based on the??Chronic Kidney Disease Epidemiology Collaboration (CKD-EPI) equation refit??without adjustment for race. BUN/Creatinine Ratio 14.2 LAB CHEMISTRY METHOD 01/20/2024 9:45 AM EDT [facility] Calcium 8.9 8.5 - 10.5 mg/dL LAB CHEMISTRY METHOD 01/20/2024 9:45 AM EDT [facility] Blood Venous blood specimen / Unknown Venipuncture / Unknown 01/20/2024 6:02 AM EDT 01/20/2024 8:55 AM EDT us Rona SMITH LAB BLOOD ORDERABLES Final Res ult [facility] [address] [place] [address], * (ABNORMAL) Complete blood count (01/20/2024 6:02 AM EDT) WBC 8.4 4.8 - 10.8 K/mcL LAB HEMETOLOGY METHOD 01/20/2024 3:33 PM EDT [facility] RBC 3.90 3.80 - 4.80 M/mcL LAB HEMETOLOGY METHOD 01/20/2024 3:33 PM EDT [facility] Hemoglobin 12.0 11.5 - 16.0 g/dL LAB HEMETOLOGY METHOD 01/20/2024 3:33 PM EDT [facility] Hematocrit 39.2 35.0 - 47.0 % LAB HEMETOLOGY METHOD 01/20/2024 3:33 PM EDT [facility] MCV 101.8(H) 79.0 - 98.0 FL LAB HEMETOLOGY METHOD 01/20/2024 3:33 PM EDT [facility] MCH 31.2 27.0 - 32.0 pcg LAB HEMETOLOGY METHOD 01/20/2024 3:33 PM EDT [facility] MCHC 30.6(L) 32.0 - 37.0 g/dL LAB HEMETOLOGY METHOD 01/20/2024 3:33 PM EDT [facility] RDW 13.2 11.0 - 15.0 % LAB HEMETOLOGY METHOD 01/20/2024 3:33 PM EDT [facility] Platelets 180 130 - 400 K/mcL LAB HEMETOLOGY METHOD 01/20/2024 3:33 PM EDT [facility] MPV 10.3 7.0 - 11.0 FL LAB HEMETOLOGY METHOD 01/20/2024 3:33 PM EDT [facility] NRBC 0.0 <1.0 % LAB HEMETOLOGY METHOD 01/20/2024 3:33 PM EDT [facility] NRBC Absolute 0.00 <0.10 K/mcL LAB HEMETOLOGY METHOD 01/20/2024 3:33 PM EDT [facility] Blood Venous blood specimen / Unknown Venipuncture / Unknown 01/20/2024 6:02 AM EDT 01/20/2024 8:55 AM EDT us Rona SMITH LAB BLOOD ORDERABLES Final Res ult [facility] [address] [place] [address], documented in this encounter Visit Diagnoses Diagnosis Type 2 diabetes mellitus with hyperglycemia (CMS/HCC V24, CMS/HCC V28) Other specified hypothyroidism Urinary tract infection, site not specified documented in this encounter Care Teams Shuttlecock Feather Trimmer Relationship Specialty Start Date End Date Patricia Nagy MD [address] [place] [id number] PCP - General Family Medicine 06/27/24 documented as of this encounter
== END 2024-08-26 16:08 | disposition home or self-care (01) ==
LOC: HO.HMCFM 14:59
PROVIDERS: PCP Internal Medicine; Visit Provider Internal Medicine
DX: Z09 Encounter for follow-up examination after completed treatment for conditions other than malignant neoplasm (principal); I25.10 Atherosclerotic heart disease of native coronary artery without angina pectoris; K29.70 Gastritis, unspecified, without bleeding; M05.9 Rheumatoid arthritis with rheumatoid factor, unspecified

== ENCOUNTER → 2024-08-26 14:58 | Outpatient (BNVA) | payer MEDICARE, MEDICAID, SELFPAY | PROVIDERS: PCP Internal Medicine; Visit Provider Internal Medicine | DX: Z09 Encounter for follow-up examination after completed treatment for conditions other than malignant neoplasm (principal); I25.10 Atherosclerotic heart disease of native coronary artery without angina pectoris; K29.70 Gastritis, unspecified, without bleeding; M05.9 Rheumatoid arthritis with rheumatoid factor, unspecified; I10 Essential (primary) hypertension | CPT/HCPCS: 96127; 99212 ==

== ENCOUNTER → 2024-10-01 23:59 | Outpatient (BNV) | payer MEDICARE, MEDICAID, SELFPAY | PROVIDERS: PCP Internal Medicine; Visit Provider Internal Medicine | DX: J44.1 Chronic obstructive pulmonary disease with (acute) exacerbation (principal); J96.01 Acute respiratory failure with hypoxia; E11.22 Type 2 diabetes mellitus with diabetic chronic kidney disease; N18.2 Chronic kidney disease, stage 2 (mild) | CPT/HCPCS: G0180 ==

== ENCOUNTER 2024-12-03 13:43 | Outpatient (AMB) | payer MEDICARE, MEDICAID, SELFPAY ==
--- NOTE | 2024-12-03 13:55 | MHC.PC.OV ---
Vital Signs 12/03/24 13:59 Height 5 ft 1 in Weight 130 lb 8 oz BMI 24.7 BP 114/54 L Blood Pressure Location Rt brachial Position Sitting Respiration 14 Pulse 55 Pulse Source Pulse Oximeter Pulse Oximetry (%) 99 Oxygen Delivery Method Room Air Intake Visit Reasons: follow up Intake Note: Follow up Door Builder Required: No Allergies metoclopramide (From REGLAN) Allergy (Severe, Verified 12/03/24 13:58) Anxiety Penicillins (PENICILLINS) Allergy (Severe, Verified 12/03/24 13:58) swelling tramadol (From ULTRAM) Allergy (Severe, Verified 12/03/24 13:58) Vomiting codeine (Tylenol-Codeine) Allergy (Intermediate, Verified 12/03/24 13:58) vomiting Tobacco use date assessed: 12/03/24 Fall risk assessment: 2 + Falls in past year Last assessed Fall Risk: 12/03/24 Dental Screening Dental Screen Date: 12/03/24 Did you have a dental visit in the last 12 months?: No Did you have a dental problem in the last 6 months where you did not have access to dental care?: No Was dental information given to patient?: Patient declined (Has dentures) HPI HPI Comments History of Present Illness Details The patient is a 69 year old female with a past medical history of type 2 diabetes, CAD s/p DE and PCI 2004 & 2021, chronic recurrent pancreatitis, cirrhosis, treated hep C anxiety, UC, RA, hyperlipidemia, hypertension, hypothyroid, bipolar disorder, COPD, history of DVT, osteoporosis, history of DVT presenting for follow up. Hospitalized again in September at [facility]-september 30-october 01 2024-presenting with AMS, elevated potassium, QING, elevated TSH. Head CT, CTA negative for CVA. QING, elevated K resolved. She was hospitalized at [facility] for chest and abdominal pain from August 10-August 11. CT abd/pelvis-chronic pancreatitis as well as some gastric wall edema (seen in prior imaging in 2023). Labs normal. Patient was started on dilaudid during stay. GI consulted and recommened outpatient follow up. CV: history of SPENCER in 2004, NSTEMI with SPENCER 08/2021. Following with cardiology. Has chronic LE swelling. Denies chest pain, shortness of breath. Endocrine: -Diabetes-insulin dependent. She was following with endocrine. +neuropathy +ophtho compications-now says she hs not been -Hypothyroid-History of hypothyroid s/p thyroidectomy. On levothyroxine. Lobulated thyroglossal duct cyst. Has seen Dr Fulton MSK: RA/OA. Continues on prednisone and sulfasalazine. Underwent LTHR. Follows with rheumatology at [facility], ortho Dr Robles and [place], Dr Hernandez for tib/fib/ankle GI: Follows with pancreatic vpecgka-[facility]-wga seen [facility] in the past. BH: Anxiety, depression. On lorazepam, trazodone, buspar. She feels stable despite elevated PHQ9 Follows with museum preparator for precancerous vulvar lesions Refuses colonoscopy ROS CONSTITUTIONAL: Denies weight loss, fever and chills. HEENT: Denies changes in vision and hearing. RESPIRATORY: Denies SOB and cough. CV: Denies palpitations and CP GI: Denies abdominal pain, nausea, vomiting and diarrhea. : Denies dysuria and urinary frequency. MSK: Denies new myalgia and joint pain. SKIN: Denies rash and pruritus. NEUROLOGICAL: Denies headache PSYCHIATRIC: Denies recent changes in mood. PHYSICAL EXAM: GENERAL: Alert and oriented x 3. NAD EYES: EOMI. Anicteric. HENT: Moist mucous membranes. No scleral icterus. No cervical lymphadenopathy. LUNGS: Clear to auscultation bilaterally. CARDIOVASCULAR: Regular rate and rhythm. No murmur. No JVD. ABDOMEN: Soft, non-tender +bs EXTREMITIES: No edema. Non-tender. SKIN: No rashes or lesions. Warm. NEUROLOGIC: No focal neurological deficits. CN II-XII grossly intact PSYCHIATRIC: Cooperative. Appropriate mood and affect [facility] Medical History Cirrhosis Chronic pancreatitis Hepatitis C Exposure to hepatitis B Lesion of vulva Ulcerative colitis Edema Ventral hernia COPD (chronic obstructive pulmonary disease) Essential hypertension Type 2 diabetes mellitus with unspecified complications Atherosclerotic cardiovascular disease Coronary artery disease Seropositive rheumatoid arthritis Surgical History History of hip replacement History of partial hysterectomy Hx of colonoscopy Hx laparoscopic cholecystectomy Hx of appendectomy History of surgery on lower extremity Hx of hernia repair Hx of partial thyroidectomy History of heart artery stent (~2005) Family History Father CVD (cardiovascular disease) Mother CVD (cardiovascular disease) Heart attack Social History Household Members: Spouse Housing: House Housing Other:: mobile home Are you a primary childcare provider to a significant other at home: No Do you presently have visiting nurse or other home services: No Alcohol intake: former Comment: recovering alcoholic Patient Tobacco Use Status: Former Tobacco user Cigarettes Per Day: 20 Years Smoked: 15 e-Cigarette/Vaping Use: Never Used Substance Use Type: Marijuana service: No Current occupational status: disabled Cognitive needs: Yes (sometimes forgets what shes talking about) Hearing needs: No Vision needs: No Questionnaire Thrive Questionnaire Date Thrive assessed: 08/21/24 I am a: Patient What is your living situation today?: I have a steady place to live Within the past 12 months, did the food you bought not last and you didn't have the money to get more?: I choose not to answer this question Within the past 12 months, did you worry whether your food would run out before you got money to buy more?: I choose not to answer this question Do you have trouble paying for medicines?: I choose not to answer this question Do you have trouble getting transportation to medical appointments?: Yes Do you have trouble paying your heating and electricity bill?: Yes Do you have trouble taking care of your child, family member or friend?: I choose not to answer this question Do you have trouble with day-to-day activities such as bathing, preparing meals, shopping, managing finances, etc.?: I choose not to answer this question Are you currently unemployed and looking for a job?: I choose not to answer this question Are you interested in more education?: No Please select the resources that you would like help with: None Currently or been in a relationship where the following occur: I choose not to answer THRIVE Score: 2 AUDIT C Alcohol Use Questionnaire (AUDIT-C) 1. How often do you have a drink containing alcohol?: Never 3. How often do you have six or more drinks on one occasion?: Never Total Score: 0 ORTIZ-7 AMB Questionnaire ORTIZ-7 Date ORTIZ - 7 assessed: 12/24/24 Source: Developed by Drs. Jeffrey Crawley, Josette Soto, Ketan Carney and colleagues, with an educational pamela from [employer]. Physical exam (Primary Care) Vital Signs: Last Vital Signs Pulse 55 12/03/24 13:59 Resp 14 12/03/24 13:59 BP 114/54 L 12/03/24 13:59 Pulse Ox 99 12/03/24 13:59 Oxygen Delivery Method Room Air 12/03/24 13:59 BMI result Body Mass Index 24.7 Tobacco/Smoking Status: Tobacco use Status Tobacco use date assessed 12/03/24 12/03/24 14:00 Patient Tobacco Use Status Former Tobacco user 12/03/24 14:03 Tobacco use type 07/25/24 13:38 e-Cigarette/Vaping Use Never Used 12/03/24 14:03 Thrive Assessment: Date of Thrive Assessment Date Thrive assessed 08/21/24 12/03/24 13:56 Currently or been in a relationship where the following occur: I choose not to answer Coding Level of Care Code Est Pt Level 4 (23704) Complex EM visit Add On G2211 Diagnoses Coronary artery disease involving [place] coronary artery of [place] heart without angina pectoris I25.10 Associated angina: without angina Coronary Disease-Associated Artery/Lesion type: [place] artery [place] vs. transplanted heart: [place] heart Type 2 diabetes mellitus with diabetic polyneuropathy, with long-term current use of insulin E11.42; Z79.4 Diabetes mellitus complication detail: with polyneuropathy Diabetes mellitus complication status: with neurologic complications Diabetes mellitus petroleum terminal plant operator insulin use: with petroleum terminal plant operator use Diabetes mellitus type: type 2 Hypothyroidism, unspecified type E03.9 Hypothyroidism type: unspecified Chronic pancreatitis, unspecified pancreatitis type K86.1 Pancreatitis type: unspecified pancreatitis type Seropositive rheumatoid arthritis M05.9 Chronic obstructive pulmonary disease, unspecified COPD type J44.9 COPD type: unspecified COPD Assessment & Plan Assessment & Plan (1) Coronary artery disease: Comment: S/p stent placement 2004, SPENCER 2021 Code(s): I25.10 - Atherosclerotic heart disease of [place] coronary artery without angina pectoris Category: Medical Qualifiers: Associated angina: without angina Coronary Disease-Associated Artery/Lesion type: [place] artery [place] vs. transplanted heart: [place] heart Qualified Code(s): I25.10 - Atherosclerotic heart disease of [place] coronary artery without angina pectoris (2) Diabetes: Code(s): E11.9 - Type 2 diabetes mellitus without complications Category: Medical Qualifiers: Diabetes mellitus complication detail: with polyneuropathy Diabetes mellitus complication status: with neurologic complications Diabetes mellitus detention insulin use: with detention use Diabetes mellitus type: type 2 Qualified Code(s): E11.42 - Type 2 diabetes mellitus with diabetic polyneuropathy; Z79.4 - MCC (current) use of insulin (3) Hypothyroidism: Code(s): E03.9 - Hypothyroidism, unspecified Category: Medical Qualifiers: Hypothyroidism type: unspecified Qualified Code(s): E03.9 - Hypothyroidism, unspecified (4) Chronic pancreatitis: Code(s): K86.1 - Other chronic pancreatitis Category: Medical Qualifiers: Pancreatitis type: unspecified pancreatitis type Qualified Code(s): K86.1 - Other chronic pancreatitis (5) Seropositive rheumatoid arthritis: Comment: ++RF++CCP Methotrexate: 05/05-02/04-no improvement in symptoms Enbrel: 09/04- 10/05 -stopped due to precancerous lesion on Vulva Arava:10/05-01/05-stopped due to elevated LFTs Prednisone: 10/04- present Sulfasalazine: 05/10- (500 mg bid higher doses caused GI upset) present Code(s): M05.9 - Rheumatoid arthritis with rheumatoid factor, unspecified Category: Medical (6) COPD (chronic obstructive pulmonary disease): Code(s): J44.9 - Chronic obstructive pulmonary disease, unspecified Category: Medical Qualifiers: COPD type: unspecified COPD Qualified Code(s): J44.9 - Chronic obstructive pulmonary disease, unspecified Plan 69 year old for follow up hospital course reviewed. Recheck labs DM-due for A1C Hypothyroid-check TSH CAD-bp controlled Orders: Orders Lipid Panel 12/03/24 E03.9 - Hypothyroidism, unspecified, E11.42 - Type 2 diabetes mellitus with diabetic polyneuropathy, I10 - Essential (primary) hypertension, I25.10 - Atherosclerotic heart disease of [place] coronary artery without angina pectoris, Z79.4 - termite technician (current) use of insulin TSH reflex Free T4 12/03/24 E03.9 - Hypothyroidism, unspecified, E11.42 - Type 2 diabetes mellitus with diabetic polyneuropathy, I10 - Essential (primary) hypertension, I25.10 - Atherosclerotic heart disease of [place] coronary artery without angina pectoris, Z79.4 - termite technician (current) use of insulin Hemoglobin A1c 12/03/24 E03.9 - Hypothyroidism, unspecified, E11.42 - Type 2 diabetes mellitus with diabetic polyneuropathy, I10 - Essential (primary) hypertension, I25.10 - Atherosclerotic heart disease of [place] coronary artery without angina pectoris, Z79.4 - termite technician (current) use of insulin Medications: New lorazepam 1 mg PO BID PRN 60 tabs 0RF anxiety Refilled gabapentin 300 mg PO BID 180 caps 3RF
[2024-12-03 13:59] VITALS: BP 114/54; PULSE 55; RESP 14; O2SAT 99; BMI 24.7
--- OUTSIDE RECORDS SUMMARY | 2024-12-03 17:36 | XMS_ITS | Encounter Summary ---
Author Organization [facility] Address [address] [place] [address] Care Team Providers Care Turf Farmer Name Role Phone Elder, Patricia Marques MD Primary Care Provider + Encounter Details Date Type Department Care Team (Latest Contact Info) Description 01/20/2024 Lab Requisition [facility] - Main Lab [address] [facility] [place] [place] [address] Rona Vu PA [address] [place] [id number] Type 2 diabetes mellitus with hyperglycemia (CMS/HCC [...] Travel phlebotomy fee (01/20/2024 6:02 AM EDT) [facility] TRAVEL PHLEBOTOMY FEE Completed 01/20/2024 9:01 AM EDT [facility] Blood Venous blood specimen / Unknown Venipuncture / Unknown 01/20/2024 6:02 AM EDT 01/20/2024 8:55 AM EDT us Rona SMITH LAB BLOOD ORDERABLES Final Res ult Performing Organization Address City/[facility]/ZIP Co de Phone Number [facility] [address] [place] [address], [place] [phone] * (ABNORMAL) Hemoglobin A1c (01/20/2024 6:02 AM EDT) [facility] Hemoglobin A1C 8.1(H) <6.5 % LAB CHEMISTRY METHOD 01/21/2024 10:42 AM EST [facility] Mean Bld Glu Estim. 186 mg/dL LAB CHEMISTRY METHOD 01/21/2024 10:42 AM [facility] Comment:Unable to calculate due to HgB A1C being outside of the reportable range Blood Venous blood specimen / Unknown Venipuncture / Unknown 01/20/2024 6:02 AM EDT 01/20/2024 8:55 AM EDT Rona SMITH LAB BLOOD ORDERABLES Final Res ult [facility] [address] [place] [address], [place] [phone] * Thyroid stimulating hormone (01/20/2024 6:02 AM EDT) Pathologist [facility] TSH 1.57 0.40 - 4.00 mcIU/mL LAB CHEMISTRY METHOD 01/20/2024 12:09 PM EDT [facility] Blood Venous blood specimen / Unknown Venipuncture / Unknown 01/20/2024 6:02 AM EDT 01/20/2024 8:55 AM EDT us Rona SMITH LAB BLOOD ORDERABLES Final Res ult [facility] [address] [place] [address], * (ABNORMAL) Basic metabolic panel (01/20/2024 6:02 AM EDT) Pathologist [facility] Sodium 140 133 - 145 mmol/L LAB CHEMISTRY METHOD 01/20/2024 9:45 AM [facility] Potassium 3.9 3.5 - 5.5 mmol/L LAB CHEMISTRY METHOD 01/20/2024 9:45 AM [facility] Chloride 108 96 - 110 mmol/L LAB CHEMISTRY METHOD 01/20/2024 9:45 AM [facility] CO2 25 21 - 32 mmol/L LAB CHEMISTRY METHOD 01/20/2024 9:45 AM [facility] Anion Gap 7 3 - 11 LAB CHEMISTRY METHOD 01/20/2024 9:45 AM [facility] Glucose 90 70 - 100 mg/dL LAB CHEMISTRY METHOD 01/20/2024 9:45 AM [facility] BUN 17 5 - 25 mg/dL LAB CHEMISTRY METHOD 01/20/2024 9:45 AM [facility] Creatinine 1.20(H) 0.50 - 1.10 mg/dL LAB CHEMISTRY METHOD 01/20/2024 9:45 AM EDT [facility] eGFR 50(L) >=60 mL/min/1. 73m2 LAB CHEMISTRY METHOD 01/20/2024 9:45 AM EDT [facility] Comment:Calculation based on the Chronic Kidney Disease Epidemiology Collaboration (CKD-EPI) equation refit without adjustment for race. BUN/Creatinine Ratio 14.2 LAB CHEMISTRY METHOD 01/20/2024 9:45 AM EDT [facility] Calcium 8.9 8.5 - 10.5 mg/dL LAB CHEMISTRY METHOD 01/20/2024 9:45 AM EDT [facility] Blood Venous blood specimen / Unknown Venipuncture / Unknown 01/20/2024 6:02 AM EDT 01/20/2024 8:55 AM EDT us Rona SMITH LAB BLOOD ORDERABLES Final Res ult [facility] [address] [place] [address], [place] [phone] * (ABNORMAL) Complete blood count (01/20/2024 6:02 AM EDT) WBC 8.4 4.8 - 10.8 K/mcL LAB HEMETOLOGY METHOD 01/20/2024 3:33 PM EDT [facility] RBC 3.90 3.80 - 4.80 M/mcL LAB HEMETOLOGY METHOD 01/20/2024 3:33 PM EDT [facility] Hemoglobin 12.0 11.5 - 16.0 g/dL LAB HEMETOLOGY METHOD 01/20/2024 3:33 PM EDT [facility] Hematocrit 39.2 35.0 - 47.0 % LAB HEMETOLOGY METHOD 01/20/2024 3:33 PM EDT [facility] MCV 101.8(H) 79.0 - 98.0 FL LAB HEMETOLOGY METHOD 01/20/2024 3:33 PM EDT [facility] MCH 31.2 27.0 - 32.0 pcg LAB HEMETOLOGY METHOD 01/20/2024 3:33 PM EDT [facility] MCHC 30.6(L) 32.0 - 37.0 g/dL LAB HEMETOLOGY METHOD 01/20/2024 3:33 PM EDT [facility] RDW 13.2 11.0 - 15.0 % LAB HEMETOLOGY METHOD 01/20/2024 3:33 PM EDT [facility] Platelets 180 130 - 400 K/mcL LAB HEMETOLOGY METHOD 01/20/2024 3:33 PM EDT [facility] MPV 10.3 7.0 - 11.0 FL LAB HEMETOLOGY METHOD 01/20/2024 3:33 PM EDT [facility] NRBC 0.0 <1.0 % LAB HEMETOLOGY METHOD 01/20/2024 3:33 PM EDT [facility] NRBC Absolute 0.00 <0.10 K/mcL LAB HEMETOLOGY METHOD 01/20/2024 3:33 PM EDT [facility] Blood Venous blood specimen / Unknown Venipuncture / Unknown 01/20/2024 6:02 AM EDT 01/20/2024 8:55 AM EDT us Rona SMITH LAB BLOOD ORDERABLES Final Res ult [facility] [address] [place] [address], documented in this encounter Visit Diagnoses Diagnosis Type 2 diabetes mellitus with hyperglycemia (CMS/HCC V24, CMS/HCC V28) Other specified hypothyroidism Urinary tract infection, site not specified documented in this encounter Care Teams Turf Farmer Relationship Specialty Start Date End Date Patricia Nagy MD [address] [place] [id number] PCP - General Family Medicine 06/27/24 documented as of this encounter
--- OUTSIDE RECORDS SUMMARY | 2024-12-03 17:36 | XMS_ITS | Clinical Summary ---
Author Organization [address] Address [address] [place] [address] Phone Care Team Providers Care Oxygen Equipment Technician Name Role Phone Elder, Patricia Marques MD Primary Care Provider + Social History Tobacco Use Types Packs/Day Years Used Date Smoking Tobacco: Never Assessed Comments Unknown Sex and Gender Information Value Date Recorded Sex Assigned at Not on file Legal Sex Female 2:57 AM EST Gender Identity Not on file Sexual Orientation Not on file Plan of Treatment Health Maintenance Due Date Last Done Comments Breast Cancer Screening 1955 DTaP,Tdap,and Td Vaccines (1 - Tdap) 12/04/1975 Pneumococcal Vaccine: 50+ Ye ars (1 of 2 - PCV) 12/04/1975 Zoster Vaccines (1 of 2) 2006 Colorectal Cancer Screening: Colonoscopy 01/24/2024 Falls Risk Assessment 01/24/2024 Hepatitis C Screening 01/24/2024 Medicare Annual Wellness Visit 01/24/2024 Osteoporosis Screening (Bone Density Screening) 01/24/2024 Social Influencers of Health Screening 01/24/2024 Depression Screening 03/20/2024 COVID-19 Vaccine ( - 2023-2 5 season) 2024 Influenza Vaccine (#1) 2024 RSV Immunization Adult Patie nts (1 - 1-dose 75+ series) 12/04/2031 HIB Vaccines Aged Out No longer eligi ble based on patient's age to complete this topic HPV Vaccines Aged Out No longer eligi ble based on patient's age to complete this topic Hepatitis A Vaccines Aged Out No long er eligible based on patient's age to complete this topic Hepatitis B Vaccines Aged Out No long er eligible based on patient's age to complete this topic IPV Vaccines Aged Out No longer eligi ble based on patient's age to complete this topic MMR Vaccines Aged Out No longer eligi ble based on patient's age to complete this topic Meningococcal ACWY Vaccine Aged Out N o longer eligible based on patient's age to complete this topic Meningococcal B Vaccine Aged Out No l onger eligible based on patient's age to complete this topic RSV Immunization Patients Un tristan 20 months Aged Out No longer eligible b ased on patient's age to complete this topic Varicella Vaccines Aged Out No longer eligible based on patient's age to complete this topic Insurance MEDICAID - [place] MEDICARE Care Teams Oxygen Equipment Technician Relationship Specialty Start Date End Date Patricia Nagy MD [address] [place] [address] PCP - General Family Medicine 06/27/24
--- OUTSIDE RECORDS SUMMARY | 2024-12-03 17:36 | XMS_ITS | Encounter Summary ---
Author Organization [facility] Address [address] [place] [address] Care Team Providers Care Clinical Faculty Name Role Phone Patricia Nagy MD Primary Care Provider + Encounter Details Date Type Department Care Team (Late st Contact Info) Description 07/12/2024 Lab Requisition [facility] - Main Lab [address] [facility] [place] [address] Patricia Nagy MD [address] [address] Other chronic pancreatitis (CMS/HCC V24, CMS/HCC V28); Type 2 diabetes mellitus without complications (CMS/HCC V24, CMS/HCC V28) Social History Tobacco Use Types Packs/Day Years Used Date Smoking Tobacco: Never Assessed Comments Unknown Sex and Gender Information Value Date Recorded Sex Assigned at Not on file Legal Sex Female 2:57 AM EST Gender Identity Not on file Sexual Orientation Not on file documented as of this encounter Plan of Treatment Not on file documented as of this encounter Visit Diagnoses Diagnosis Other chronic pancreatitis (CMS/HCC V24, CMS/HCC V28) Type 2 diabetes mellitus without complications (CMS/HCC V24, CMS/HCC V28) documented in this encounter Care Teams Clinical Faculty Relationship Specialty Start Date End Date Patricia Nagy MD [address] [address] PCP - General Family Medicine 06/27/24 documented as of this encounter
--- OUTSIDE RECORDS SUMMARY | 2024-12-03 17:36 | XMS_ITS | Encounter Summary ---
Author Organization [facility] Address [address] [place] [address] Care Team Providers Care Fitness Management Director Name Role Phone Patricia Nagy MD Primary Care Provider + Encounter Details Date Type Department Care Team (Late st Contact Info) Description 07/08/[address] [facility] - Main Lab [address] [facility] [place] [address] Patricia Nagy MD [address] [facility] 1 [place] [address] Type 2 diabetes mellitus without complications (CMS/HCC V24, CMS/HCC V28); Other chronic pancreatitis (CMS/HCC V24, CMS/HCC V28) Social History Tobacco [...] Procedure Name Priority Date/Time Associated Diagnosis Comments COMPLETE BLOOD COUNT Routine 07/08/2024 5:24 AM EDT Type 2 diabetes mellitus without complications (CMS/HCC V24, CMS/HCC V28) Other chronic pancreatitis (CMS/HCC V24, CMS/HCC V28) BASIC METABOLIC PANEL Routine 07/08/2024 5:24 AM EDT Type 2 diabetes mellitus without complications (CMS/HCC V24, CMS/HCC V28) Other chronic pancreatitis (CMS/HCC V24, CMS/HCC V28) documented in this encounter Results * (ABNORMAL) Basic metabolic panel (07/08/2024 5:24 AM EDT) Sodium 137 133 - 145 mmol/L LAB CHEMISTRY METHOD 07/08/2024 2:39 PM [facility] Potassium 4.7 3.5 - 5.5 mmol/L LAB CHEMISTRY METHOD 07/08/2024 2:39 PM [facility] Comment:Hemolysis present Chloride 104 96 - 110 mmol/L LAB CHEMISTRY METHOD 07/08/2024 2:39 PM [facility] CO2 24 21 - 32 mmol/L LAB CHEMISTRY METHOD 07/08/2024 2:39 PM [facility] Anion Gap 9 3 - 11 LAB CHEMISTRY METHOD 07/08/2024 2:39 PM [facility] Glucose 163(H) 70 - 100 mg/dL LAB CHEMISTRY METHOD 07/08/2024 2:39 PM [facility] BUN 20 5 - 25 mg/dL LAB CHEMISTRY METHOD 07/08/2024 2:39 PM [facility] Creatinine 1.37(H) 0.50 - 1.10 mg/dL LAB CHEMISTRY METHOD 07/08/2024 2:39 PM [facility] eGFR 42(L) >=60 mL/min/1. 73m2 LAB CHEMISTRY METHOD 07/08/2024 2:39 PM [facility] Comment:Calculation based on the Chronic Kidney Disease Epidemiology Collaboration (CKD-EPI) equation refit without adjustment for race. BUN/Creatinine Ratio 14.6 LAB CHEMISTRY METHOD 07/08/2024 2:39 PM [facility] Calcium 8.5 8.5 - 10.5 mg/dL LAB CHEMISTRY METHOD 07/08/2024 2:39 PM [facility] Blood Venous blood specimen / Unknown Venipuncture / Unknown 07/08/2024 5:24 AM EDT 07/08/2024 9:55 AM EDT Patricia Nagy MD LAB BLOOD ORDERABLES Fin al Result [facility] [address] [place] [address], * (ABNORMAL) Complete blood count (07/08/2024 5:24 AM EDT) WBC 5.6 4.8 - 10.8 K/mcL LAB HEMETOLOGY METHOD 07/08/2024 11:43 AM EDT [facility] RBC 3.20(L) 3.80 - 4.80 M/mcL LAB HEMETOLOGY METHOD 07/08/2024 11:43 AM EDT [facility] Hemoglobin 9.8(L) 11.5 - 16.0 g/dL LAB HEMETOLOGY METHOD 07/08/2024 11:43 AM [facility] Hematocrit 30.5(L) 35.0 - 47.0 % LAB HEMETOLOGY METHOD 07/08/2024 11:43 AM EDT [facility] MCV 95.0 79.0 - 98.0 FL LAB HEMETOLOGY METHOD 07/08/2024 11:43 AM EDT [facility] MCH 30.5 27.0 - 32.0 pcg LAB HEMETOLOGY [facility] MCHC 32.1 32.0 - 37.0 g/dL LAB HEMETOLOGY METHOD 07/08/2024 11:43 AM EDT [facility] RDW 13.2 11.0 - 15.0 % LAB HEMETOLOGY METHOD 07/08/2024 11:43 AM EDT [facility] Platelets 157 130 - 400 K/mcL LAB HEMETOLOGY METHOD 07/08[facility]2024 11[facility] MPV 10.8 7.0 - 11.0 FL LAB HEMETOLOGY METHOD 07/08/2024 11:43 AM EDT [facility] NRBC 0.7 <1.0 % LAB HEMETOLOGY METHOD 07/08/2024 11:43 AM EDT [facility] NRBC Absolute 0.04 <0.10 K/mcL LAB HEMETOLOGY METHOD 07/08/2024 11:43 AM EDT [facility] Blood Venous blood specimen / Unknown Venipuncture / Unknown 07/08/2024 5:24 AM EDT 07/08/2024 9:55 AM EDT us Patricia Nagy MD LAB BLOOD ORDERABLES Fin al Result [facility] [address] [place] [address], documented in this encounter Visit Diagnoses Diagnosis Type 2 diabetes mellitus without complications (CMS/HCC V24, CMS/HCC V28) Other chronic pancreatitis (CMS/HCC V24, CMS/HCC V28) documented in this encounter Care Teams Fitness Management Director Relationship Specialty Start Date End Date Patricia Nagy MD [address] [place] [id number] PCP - General Family Medicine 06/27/24 documented as of this encounter
--- OUTSIDE RECORDS SUMMARY | 2024-12-03 17:36 | XMS_ITS | Encounter Summary ---
Author Organization [facility] Address [address] [place] [address] Care Team Providers Care Crew Leader Name Role Phone Patricia Nagy MD Primary Care Provider + Encounter Details Date Type Department Care Team (Late st Contact Info) Description 07/01/2024 Lab Requisition [facility] - Main Lab 299 [facility] [place] [address] Patricia Nagy MD [address] [phone] Liver disease, unspecified; Urinary tract infection, site not specified; Chronic kidney disease, unspecified; Unspecified viral hepatitis C without hepatic coma Social History Tobacco Use Types Packs/Day Years Used Date Smoking Tobacco: Never Assessed Comments Unknown Sex and Gender Information Value Date Recorded Sex Assigned at Not on file Legal Sex Female 2:57 AM EST Gender Identity Not on file Sexual Orientation Not on file documented as of this encounter Plan of Treatment Not on file documented as of this encounter Visit Diagnoses Diagnosis Liver disease, unspecified Urinary tract infection, site not specified Chronic kidney disease, unspecified Unspecified viral hepatitis C without hepatic coma documented in this encounter Care Teams Crew Leader Relationship Specialty Start Date End Date Patricia Nagy MD [address] [phone] PCP - General Family Medicine 06/27/24 documented as of this encounter
--- OUTSIDE RECORDS SUMMARY | 2024-12-03 17:36 | XMS_ITS | Encounter Summary ---
Author Organization [facility] Address [address] [place] [address] Care Team Providers Care Material Expediter Name Role Phone Patricia Nagy MD Primary Care Provider + Encounter Details Date Type Department Care Team (Late st Contact Info) Description 06/27/2024 Lab Requisition [facility] - Main Lab 299 [facility] [place] [address] Patricia Nagy MD [address] [facility] 1 [place] [address] Urinary tract infection, site not specified; Chronic kidney disease, unspecified; Type 2 diabetes mellitus without complications (CMS/HCC V24, CMS/HCC V28); Liver disease, unspecified Social History Tobacco Use Types Packs/Day Years [...] Associated Diagnosis Comments COMPLETE BLOOD COUNT Routine 06/27/2024 6:55 AM EDT Urinary tract infection, site not specified Chronic kidney disease, unspecified Type 2 diabetes mellitus without complications (CMS/HCC V24, CMS/HCC V28) Liver disease, unspecified ALANINE AMINOTRANSFERASE Routine 06/27/2024 6:55 AM EDT Urinary tract infection, site not specified Chronic kidney disease, unspecified Type 2 diabetes mellitus without complications (CMS/HCC V24, CMS/HCC V28) Liver disease, unspecified ASPARTATE AMINOTRANSFERASE Routine 06/27/2024 6:55 AM EDT Urinary tract infection, site not specified Chronic kidney disease, unspecified Type 2 diabetes mellitus without complications (CMS/HCC V24, CMS/HCC V28) Liver disease, unspecified HEMOGLOBIN A1C Routine 06/27/2024 6:55 AM EDT Urinary tract infection, site not specified Chronic kidney disease, unspecified Type 2 diabetes mellitus without complications (CMS/HCC V24, CMS/HCC V28) Liver disease, unspecified AMMONIA Routine 06/27/2024 6:55 AM EDT Urinary tract infection, site not specified Chronic kidney disease, unspecified Type 2 diabetes mellitus without complications (CMS/HCC V24, CMS/HCC V28) Liver disease, unspecified BASIC METABOLIC PANEL Routine 06/27/2024 6:55 AM EDT Urinary tract infection, site not specified Chronic kidney disease, unspecified Type 2 diabetes mellitus without complications (CMS/HCC V24, CMS/HCC V28) Liver disease, unspecified documented in this encounter Results * Ammonia (06/27/2024 6:55 AM EDT) Ammonia 31 11 - 35 mcmol/L LAB CHEMISTRY METHOD 06/27/2024 8:39 AM EDT [facility] Blood Venous blood specimen / Unknown Venipuncture / Unknown 06/27/2024 6:55 AM EDT 06/27/2024 8:10 AM EDT us Patricia Nagy MD LAB BLOOD ORDERABLES Fin al Result [facility] [address] [place] [address], * Alanine aminotransferase (06/27/2024 6:55 AM EDT) ALT (SGPT) 13 10 - 60 unit/L LAB CHEMISTRY METHOD 06/27/2024 9:42 AM EDT [facility] Blood Venous blood specimen / Unknown Venipuncture / Unknown 06/27/2024 6:55 AM EDT 06/27/2024 8:10 AM EDT Patricia Nagy MD LAB BLOOD ORDERABLES Fin al Result [facility] [address] [place] [address], [place] [phone] * Aspartate aminotransferase (06/27/2024 6:55 AM EDT) Pathologist [facility] AST (SGOT) 20 10 - 42 unit/L LAB CHEMISTRY METHOD 06/27/2024 9:42 AM EDT [facility] Blood Venous blood specimen / Unknown Venipuncture / Unknown 06/27/2024 6:55 AM EDT 06/27/2024 8:10 AM EDT Patricia Nagy MD LAB BLOOD ORDERABLES Fin al Result Performing Organization Address [facility]/ZIP Co de Phone Number [facility] [address] [place] [address], [place] [phone] * (ABNORMAL) Hemoglobin A1c (06/27/2024 6:55 AM EDT) [facility] Hemoglobin A1C 7.1(H) <6.5 % LAB CHEMISTRY METHOD 06/27/2024 10:50 AM EDT [facility] Mean Bld Glu Estim. 157 mg/dL LAB CHEMISTRY METHOD 06/27/2024 10:50 AM EDT [facility] Blood Venous blood specimen / Unknown Venipuncture / Unknown 06/27/2024 6:55 AM EDT 06/27/2024 8:10 AM EDT Patricia Nagy MD LAB BLOOD ORDERABLES Fin al Result [facility] [address] [place] [address], * (ABNORMAL) Basic metabolic panel (06/27/2024 6:55 AM EDT) Sodium 138 133 - 145 mmol/L LAB CHEMISTRY METHOD 06/27/2024 9:48 AM [facility] Potassium 4.3 3.5 - 5.5 mmol/L LAB CHEMISTRY METHOD 06/27/2024 9:48 AM [facility] Chloride 105 96 - 110 mmol/L LAB CHEMISTRY METHOD 06/27/2024 9:48 AM [facility] CO2 21 21 - 32 mmol/L LAB CHEMISTRY METHOD 06/27/2024 9:48 AM [facility] Anion Gap 12(H) 3 - 11 LAB CHEMISTRY METHOD 06/27/2024 9:48 AM [facility] Glucose 160(H) 70 - 100 mg/dL LAB CHEMISTRY METHOD 06/27/2024 9:48 AM [facility] BUN 39(H) 5 - 25 mg/dL LAB CHEMISTRY METHOD 06/27/2024 9:48 AM [facility] Creatinine 1.63(H) 0.50 - 1.10 mg/dL LAB CHEMISTRY METHOD 06/27/2024 9:48 AM [facility] eGFR 34(L) >=60 mL/min/1. 73m2 LAB CHEMISTRY METHOD 06/27/2024 9:48 AM [facility] Comment:Calculation based on the Chronic Kidney Disease Epidemiology Collaboration (CKD-EPI) equation refit without adjustment for race. BUN/Creatinine Ratio 23.9 LAB CHEMISTRY METHOD 06/27/2024 9:48 AM [facility] Calcium 7.7(L) 8.5 - 10.5 mg/dL LAB CHEMISTRY METHOD 06/27/2024 9:48 AM [facility] Blood Venous blood specimen / Unknown Venipuncture / Unknown 06/27/2024 6:55 AM EDT 06/27/2024 8:10 AM EDT Patricia Nagy MD LAB BLOOD ORDERABLES Fin al Result [facility] [address] [place] [address], * (ABNORMAL) Complete blood count (06/27/2024 6:55 AM EDT) [facility] WBC 7.2 4.8 - 10.8 K/mcL LAB HEMETOLOGY METHOD 06/27/2024 9:10 AM EDT [facility] RBC 3.20(L) 3.80 - 4.80 M/mcL LAB HEMETOLOGY METHOD 06/27/2024 9:10 AM [facility] Hemoglobin 9.8(L) 11.5 - 16.0 g/dL LAB HEMETOLOGY METHOD 06/27/2024 9:10 AM [facility] Hematocrit 30.2(L) 35.0 - 47.0 % LAB HEMETOLOGY METHOD 06/27/2024 9:10 AM [facility] MCV 94.7 79.0 - 98.0 FL LAB HEMETOLOGY METHOD 06/27/2024 9:10 AM [facility] MCH 30.7 27.0 - 32.0 pcg LAB HEMETOLOGY METHOD 06/27/2024 9:10 AM [facility] MCHC 32.5 32.0 - 37.0 g/dL LAB HEMETOLOGY METHOD 06/27/2024 9:10 AM [facility] RDW 13.0 11.0 - 15.0 % LAB HEMETOLOGY METHOD 06/27/2024 9:10 AM [facility] Platelets 124(L) 130 - 400 K/mcL LAB HEMETOLOGY METHOD 06/27/2024 9:10 AM EDT [facility] MPV 10.9 7.0 - 11.0 FL LAB HEMETOLOGY METHOD 06/27/2024 9:10 AM EDT [facility] NRBC 0.0 <1.0 % LAB HEMETOLOGY METHOD 06/27/2024 9:10 AM EDT [facility] NRBC Absolute 0.00 <0.10 K/mcL LAB HEMETOLOGY METHOD 06/27/2024 9:10 AM EDT [facility] Blood Venous blood specimen / Unknown Venipuncture / Unknown 06/27/2024 6:55 AM EDT 06/27/2024 8:10 AM EDT us Patricia Nagy MD LAB BLOOD ORDERABLES Fin al Result [facility] [address] [place] [address], documented in this encounter Visit Diagnoses Diagnosis Urinary tract infection, site not specified Chronic kidney disease, unspecified Type 2 diabetes mellitus without complications (CMS/HCC V24, CMS/HCC V28) Liver disease, unspecified documented in this encounter Care Teams Material Expediter Relationship Specialty Start Date End Date Patricia Nagy MD [address] [place] [phone] PCP - General Family Medicine 06/27/24 documented as of this encounter
== END 2024-12-03 14:16 | disposition home or self-care (01) ==
LOC: HO.HMCFM 13:44
PROVIDERS: PCP Internal Medicine; Visit Provider Internal Medicine
DX: I25.10 Atherosclerotic heart disease of native coronary artery without angina pectoris (principal); E11.42 Type 2 diabetes mellitus with diabetic polyneuropathy; Z79.4 Long term (current) use of insulin; K86.1 Other chronic pancreatitis; M05.9 Rheumatoid arthritis with rheumatoid factor, unspecified; J44.9 Chronic obstructive pulmonary disease, unspecified; E03.9 Hypothyroidism, unspecified

== ENCOUNTER → 2024-12-03 13:43 | Outpatient (BNVA) | payer OTHER, SELFPAY | PROVIDERS: PCP Internal Medicine; Visit Provider Internal Medicine | DX: I25.10 Atherosclerotic heart disease of native coronary artery without angina pectoris (principal); E11.42 Type 2 diabetes mellitus with diabetic polyneuropathy; E03.9 Hypothyroidism, unspecified; K86.1 Other chronic pancreatitis; M05.9 Rheumatoid arthritis with rheumatoid factor, unspecified; J44.9 Chronic obstructive pulmonary disease, unspecified; F41.9 Anxiety disorder, unspecified; F32.A Depression, unspecified; I25.2 Old myocardial infarction; Z86.718 Personal history of other venous thrombosis and embolism; Z79.4 Long term (current) use of insulin; Z79.899 Other long term (current) drug therapy | CPT/HCPCS: 99212 ==

== ENCOUNTER 2024-12-23 13:05 | Outpatient (REF) | payer OTHER, SELFPAY ==
[2024-12-23 14:26] LABS: MANUAL DIFF FLAG NO
[2024-12-23 14:53] LABS: Hematocrit 39.7 % (37.0-47.0); Hemoglobin 13.0 g/dl (12.0-16.0); Imm Gran Abs Auto 0.02 X10*3/uL (0.00-0.03); Imm Gran Pct Auto 0.2 % (0.0-0.4); Lymphocytes Absolute Auto 1.9 X10*3/uL (1.2-4.9); Mean Corpuscular HGB Conc 32.7 g/dl (31.0-35.0); Mean Corpuscular Hemoglobin 31.2 pg (27.0-33.0); Mean Corpuscular Volume 95.2 fL (80.0-98.0); NRBC Abs Auto 0.000 X10*3/uL (0.0-0.012); NRBC Pct Auto 0.0 /100WBC (0.0-0.2); Platelet Count 182 X10*3/uL (160-400); Red Blood Count 4.17 X10*6/uL (4.20-5.50); White Blood Count 8.1 X10*3/uL (4.8-10.8)
[2024-12-23 15:41] LABS: Alanine Aminotransferase 18 U/L (0-31); Albumin Level 3.7 g/dL (3.5-5.0); Alkaline Phosphatase 81 U/L (39-117); Anion Gap 10 (12-20); Aspartate Amino Transferase 45 U/L (5-31); Blood Urea Nitrogen 19 mg/dL (9-16); Calcium 8.7 mg/dL (8.4-10.2); Carbon Dioxide 31 mmol/L (22-29); Chloride 100 mmol/L (96-108); Cholesterol 136 mg/dL (<200); Estimated Glomerular Filt Rate 43; HDL Cholesterol 38 mg/dL (>40); Potassium 5.1 mmol/L (3.3-5.1); Sodium 136 mmol/L (135-145); Total Protein 6.6 g/dL (6.5-8.0); Triglycerides 141 mg/dL (<150)
[2024-12-23 15:43] LABS: Erythrocyte Sedimentation Rate 17 MM/HR (0-20)
[2024-12-23 16:51] LABS: Free T4 (Free Thyroxine) 1.41 ng/dL (0.71-1.85)
[2024-12-24 08:16] LABS: HBS Num1 87.35 mIU/mL (0-7.99); HBc Num1 10.43 S/CO (0.00-0.79); HBsAGNum1 0.43 S/CO (0.00-0.99); Hepatitis B Surface Antigen Negative (Negative); ~HepC Num1 8.07 S/CO (0.00-0.79); ~Hepatitis B Surface Antibody REACTIVE (Nonreactive); ~Hepatitis C Antibody Reactive (Nonreactive)
[2024-12-24 10:52] LABS: HBc Num2 10.66 S/CO; HBc Num3 10.61 S/CO
[2024-12-26 05:40] LABS: TS Negative Control Passed; TS Panel A 0; TS Panel B 0; TS Positive Control Passed; TSpotTB Negative (Negative)
== END 2024-12-23 13:06 | disposition home or self-care (01) ==
LOC: HO.WFDLDS 13:05
PROVIDERS: Student in an Organized Health Care Education/Training Program; PCP Internal Medicine; Visit Provider Internal Medicine
DX: Z09 Encounter for follow-up examination after completed treatment for conditions other than malignant neoplasm (principal); K86.1 Other chronic pancreatitis; K74.60 Unspecified cirrhosis of liver; I10 Essential (primary) hypertension; I25.10 Atherosclerotic heart disease of native coronary artery without angina pectoris; E11.42 Type 2 diabetes mellitus with diabetic polyneuropathy; E03.9 Hypothyroidism, unspecified; M05.9 Rheumatoid arthritis with rheumatoid factor, unspecified; Z79.4 Long term (current) use of insulin; Z79.899 Other long term (current) drug therapy
CPT/HCPCS: 36415; 80053; 80061; 83036; 84439; 84443; 84450; 84460; 85025; 85652; 86140; 86481; 86704; 86705; 86706; 86803; 87340; 99212

== ENCOUNTER 2024-12-23 13:05 | Outpatient (AMB) | payer OTHER, SELFPAY ==
--- NOTE | 2024-12-23 14:31 | A.OFFPC_ITS ---
Vital Signs 12/23/24 15:09 Respiration 14 Pulse 50 Pulse Source Pulse Oximeter Pulse Oximetry (%) 91 L Oxygen Delivery Method Room Air Intake Visit Reasons: Discharge Follow-Up /Earl /12/10 Intake Note: Hostpital follow up Caddy Master Required: No Allergies metoclopramide (From REGLAN) Allergy (Severe, Verified 12/23/24 14:32) Anxiety Penicillins (PENICILLINS) Allergy (Severe, Verified 12/23/24 14:32) swelling tramadol (From ULTRAM) Allergy (Severe, Verified 12/23/24 14:32) Vomiting codeine (Tylenol-Codeine) Allergy (Intermediate, Verified 12/23/24 14:32) vomiting Tobacco use date assessed: 12/23/24 Dental Screening Dental Screen Date: 12/03/24 HPI HPI Comments History of Present Illness Details The patient is a 69 year old female with a past medical history of type 2 diabetes, CAD s/p KS and PCI 2004 & 2021, chronic recurrent pancreatitis, cirrhosis, treated hep C anxiety, UC, RA, hyperlipidemia, hypertension, hypothyroid, bipolar disorder, COPD, history of DVT, osteoporosis, history of DVT presenting for hospital follow up. The patient was hospitalized from 12/09-12/10/2024 at [facility]. She presenting with right sided flank pain, chills, dysuria. UA 3+hemoglobin, 2 wbc (-) nitrite (-) LE. , CT-mild bladder wall thickening likely secondary to under distention, changes of chronic pancreatitis with chronic biliary ductal dilation, no kidney stones. CT simple partial exophytic renal cyst. UA remained negative. ID consulted. No treatment recommended. Pain thought secondary to chronic pancreatitis. She continues to have chronic right flank pain. She was referred to and is awaiting urology appt. Hospitalized again in September at [facility]-september 30-october 01 2024-presenting with AMS, elevated potassium, QING, elevated TSH. Head CT, CTA negative for CVA. QING, elevated K resolved. She was hospitalized at [facility] for chest and abdominal pain from August 10- August 11. CT abd/pelvis-chronic pancreatitis as well as some gastric wall edema (seen in prior imaging in 2023). Labs normal. Patient was started on dilaudid during stay. GI consulted and recommend outpatient follow up. Referred to GI CV: history of SPENCER in 2004, NSTEMI with SPENCER 08/2021. Following with cardiology. Has chronic LE swelling. Denies chest pain, shortness of breath. Endocrine: -Diabetes-insulin dependent. A1C 6.0%. S he was following with endocrine. +neuropathy +ophtho compications-now says she hs not been -Hypothyroid-History of hypothyroid s/p thyroidectomy. On levothyroxine. Lobulated thyroglossal duct cyst. Has seen Dr Fulton MSK: RA/OA. Continues sulfasalazine. Underwent LTHR. Follows with rheumatology at [facility], ortho Dr Robles and [facility], Dr Hernandez for tib/fib/ankle GI History of cirrhosis, pancreatic [id number] seen [facility] in the past. Referred placed to [facility]: Anxiety, depression. On lorazepam, trazodone, buspar. She feels stable Follows with [facility]uler for precancerous vulvar lesions Refuses colonoscopy ROS CONSTITUTIONAL: Denies weight loss, fever and chills. HEENT: Denies changes in vision and hearing. RESPIRATORY: Denies SOB and cough. CV: Denies palpitations and CP GI: Denies abdominal pain, nausea, vomiting and diarrhea. : Denies dysuria and urinary frequency. MSK: Denies new myalgia and joint pain. SKIN: Denies rash and pruritus. NEUROLOGICAL: Denies headache PSYCHIATRIC: Denies recent changes in mood. PHYSICAL EXAM: GENERAL: Alert and oriented x 3. NAD EYES: EOMI. Anicteric. HENT: Moist mucous membranes. No scleral icterus. No cervical lymphadenopathy. LUNGS: Clear to auscultation bilaterally. CARDIOVASCULAR: Regular rate and rhythm. No murmur. No JVD. ABDOMEN: Soft, non-tender +bs EXTREMITIES: No edema. Non-tender. SKIN: No rashes or lesions. Warm. NEUROLOGIC: No focal neurological deficits. CN II-XII grossly intact PSYCHIATRIC: Cooperative. Appropriate mood and affect [facility] Medical History Cirrhosis Chronic pancreatitis Hepatitis C Exposure to hepatitis B Lesion of vulva Ulcerative colitis Edema Ventral hernia COPD (chronic obstructive pulmonary disease) Essential hypertension Type 2 diabetes mellitus with unspecified complications Atherosclerotic cardiovascular disease Coronary artery disease Seropositive rheumatoid arthritis Surgical History History of hip replacement History of partial hysterectomy Hx of colonoscopy Hx laparoscopic cholecystectomy Hx of appendectomy History of surgery on lower extremity Hx of hernia repair Hx of partial thyroidectomy History of heart artery stent (~2005) Family History Father CVD (cardiovascular disease) Mother CVD (cardiovascular disease) Heart attack Social History Household Members: Spouse Housing: House Housing Other:: mobile home Are you a primary career development coordinator/teacher to a significant other at home: No Do you presently have visiting nurse or other home services: No Alcohol intake: former Comment: recovering alcoholic Patient Tobacco Use Status: Former Tobacco user Cigarettes Per Day: 20 Years Smoked: 15 e-Cigarette/Vaping Use: Never Used Substance Use Type: Marijuana service: No Current occupational status: disabled Cognitive needs: Yes (sometimes forgets what shes talking about) Hearing needs: No Vision needs: No Questionnaire Thrive Questionnaire Date Thrive assessed: 08/21/24 I am a: Patient What is your living situation today?: I have a steady place to live Within the past 12 months, did the food you bought not last and you didn't have the money to get more?: I choose not to answer this question Within the past 12 months, did you worry whether your food would run out before you got money to buy more?: I choose not to answer this question Do you have trouble paying for medicines?: I choose not to answer this question Do you have trouble getting transportation to medical appointments?: Yes Do you have trouble paying your heating and electricity bill?: Yes Do you have trouble taking care of your child, family member or friend?: I choose not to answer this question Do you have trouble with day-to-day activities such as bathing, preparing meals, shopping, managing finances, etc.?: I choose not to answer this question Are you currently unemployed and looking for a job?: I choose not to answer this question Are you interested in more education?: No Please select the resources that you would like help with: None Currently or been in a relationship where the following occur: I choose not to answer THRIVE Score: 2 ORTIZ-7 AMB Questionnaire ORTIZ-7 Date ORTIZ - 7 assessed: 03/12/24 Source: Developed by Drs. Jeffrey Crawley, Josette Soto, Ketan Carney and colleagues, with an educational pamela from [employer]. Physical exam (Primary Care) Vital Signs: Last Vital Signs Pulse 50 12/23/24 15:09 Resp 14 12/23/24 15:09 Pulse Ox 91 L 12/23/24 15:09 Oxygen Delivery Method Room Air 12/23/24 15:09 BMI result Body Mass Index 25.2 Tobacco/Smoking Status: Tobacco use Status Tobacco use date assessed 12/23/24 12/23/24 15:16 Patient Tobacco Use Status Former Tobacco user 12/23/24 14:31 Tobacco use type 07/25/24 13:38 e-Cigarette/Vaping Use Never Used 12/23/24 14:31 Thrive Assessment: Date of Thrive Assessment Date Thrive assessed 08/21/24 12/23/24 14:31 Currently or been in a relationship where the following occur: I choose not to answer Coding Level of Care Code Est Pt Level 4 (30873) Complex EM visit Add On G2211 Diagnoses Hospital discharge follow-up Z09 Essential hypertension I10 Type 2 diabetes mellitus with diabetic polyneuropathy, with long-term current use of insulin E11.42; Z79.4 Diabetes mellitus complication detail: with polyneuropathy Diabetes mellitus complication status: with neurologic complications Diabetes mellitus tank terminal gauger insulin use: with tank terminal gauger use Diabetes mellitus type: type 2 Hypothyroidism, unspecified type E03.9 Hypothyroidism type: unspecified Chronic pancreatitis, unspecified pancreatitis type K86.1 Pancreatitis type: unspecified pancreatitis type Hepatic cirrhosis, unspecified hepatic cirrhosis type, unspecified whether ascites present K74.60 Ascites presence: unspecified Hepatic cirrhosis type: unspecified hepatic cirrhosis Assessment & Plan Assessment & Plan (1) Hospital discharge follow-up: Code(s): Z09 - Encounter for follow-up examination after completed treatment for conditions other than malignant neoplasm Category: Medical (2) Essential hypertension: Code(s): I10 - Essential (primary) hypertension Category: Medical (3) Diabetes: Code(s): E11.9 - Type 2 diabetes mellitus without complications Category: Medical Qualifiers: Diabetes mellitus complication detail: with polyneuropathy Diabetes mellitus complication status: with neurologic complications Diabetes mellitus tank terminal gauger insulin use: with penitentiary use Diabetes mellitus type: type 2 Qualified Code(s): E11.42 - Type 2 diabetes mellitus with diabetic polyneuropathy; Z79.4 - senior living (current) use of insulin (4) Hypothyroidism: Code(s): E03.9 - Hypothyroidism, unspecified Category: Medical Qualifiers: Hypothyroidism type: unspecified Qualified Code(s): E03.9 - Hypothyroidism, unspecified (5) Chronic pancreatitis: Code(s): K86.1 - Other chronic pancreatitis Category: Medical Qualifiers: Pancreatitis type: unspecified pancreatitis type Qualified Code(s): K86.1 - Other chronic pancreatitis (6) Cirrhosis: Code(s): K74.60 - Unspecified cirrhosis of liver Category: Medical Qualifiers: Ascites presence: unspecified Hepatic cirrhosis type: unspecified hepatic cirrhosis Qualified Code(s): K74.60 - Unspecified cirrhosis of liver Plan 69 year old for hospital follow up Multiple ER/hospitalizations Chronic flank pain. Chronic pancreatitis, cirrhosis. Lost to GI follow up- referred RA/OA-follow up with rheumatology as scheduled CAD/HTN-adequately controlled on current medications Orders: Referrals Gastroenterology Referral K86.1 - Other chronic pancreatitis Medications: New lidocaine 5% 1 appl topical BEDTIME 50 grams 3RF R10.A0 - Flank pain, unspecified side Refilled oxycodone 5 mg PO Q6H PRN 112 tabs 0RF pain 28 days
[2024-12-23 15:09] VITALS: PULSE 50; RESP 14; O2SAT 91
--- OUTSIDE RECORDS SUMMARY | 2024-12-23 15:30 | XMS_ITS | Encounter Summary ---
Author Organization [facility] Address [address] [place] [address] Care Team Providers Care Sap Senior Developer Name Role Phone Patricia Nagy MD Primary Care Provider + Encounter Details Date Type Department Care Team (Late st Contact Info) Description 07/08/2024 Lab Requisition [facility] - Main Lab [address] [facility] [place] [address] Patricia Nagy MD 8[address] [facility] 1 [place] [address] Type 2 diabetes mellitus without [...] mmol/L LAB CHEMISTRY METHOD 07/08/2024 2:39 PM [facility] Potassium 4.7 3.5 - 5.5 mmol/L LAB CHEMISTRY METHOD 07/08/2024 2:39 PM [facility] Comment:Hemolysis present Chloride 104 96 - 110 mmol/L LAB CHEMISTRY METHOD 07/08/2024 2:39 PM [facility] CO2 24 21 - 32 mmol/L LAB CHEMISTRY METHOD 07/08/2024 2:39 PM [facility] Anion Gap 9 3 - 11 LAB CHEMISTRY METHOD 07/08/2024 2:39 PM [facility] Glucose 163(H) 70 - 100 mg/dL LAB CHEMISTRY METHOD 07/08/2024 2:39 PM [facility] BUN 20 5 - 25 mg/dL LAB CHEMISTRY METHOD 07/08/2024 2:39 PM [facility] Creatinine 1.37(H) 0.50 - 1.10 mg/dL LAB CHEMISTRY METHOD 07/08/2024 2:39 PM [facility] eGFR 42(L) >=60 mL/min/1. 73m2 LAB CHEMISTRY METHOD 07/08/2024 2:39 PM [facility] Comment:Calculation based on the Chronic Kidney Disease Epidemiology Collaboration (CKD-EPI) equation refit without adjustment for race. BUN/Creatinine Ratio 14.6 LAB CHEMISTRY METHOD 07/08/2024 2:39 PM [facility] Calcium 8.5 8.5 - 10.5 mg/dL LAB CHEMISTRY METHOD 07/08/2024 2:39 PM [facility] Blood Venous blood specimen / Unknown Venipuncture / Unknown 07/08/2024 5:24 AM EDT 07/08/2024 9:55 AM EDT Patricia Nagy MD LAB BLOOD ORDERABLES Fin al Result [facility] [address] [place] [address], * (ABNORMAL) Complete blood count (07/08/2024 5:24 AM EDT) WBC 5.6 4.8 - 10.8 K/mcL LAB HEMETOLOGY METHOD 07/08/2024 11:43 AM EDT [facility] RBC 3.20(L) 3.80 - 4.80 M/mcL LAB HEMETOLOGY METHOD 07/08/2024 11:43 AM EDT [facility] Hemoglobin 9.8(L) 11.5 - 16.0 g/dL LAB HEMETOLOGY METHOD 07/08/2024 11:43 AM [facility] Hematocrit 30.5(L) 35.0 - 47.0 % LAB HEMETOLOGY METHOD 07/08/2024 11:43 AM EDT [facility] MCV 95.0 79.0 - 98.0 FL LAB HEMETOLOGY METHOD 07/08/2024 11:43 AM EDT [facility] MCH 30.5 27.0 - 32.0 pcg LAB HEMETOLOGY METHOD 07/08[facility]24 [facility] MCHC 32.1 32.0 - 37.0 g/dL LAB HEMETOLOGY METHOD 07/08/2024 11:43 AM EDT [facility] RDW 13.2 11.0 - 15.0 % LAB HEMETOLOGY METHOD 07/08/2024 11:43 AM EDT [facility] Platelets 157 130 - 400 K/mcL LAB HEMETOLOGY METHOD 07/08/2024 11:[facility] MPV 10.8 7.0 - 11.0 FL LAB HEMETOLOGY METHOD 07/08/2024 11:43 AM EDT [facility] NRBC 0.7 <1.0 % LAB HEMETOLOGY METHOD 07/08/2024 11:43 AM EDT [facility] NRBC Absolute 0.04 <0.10 K/mcL LAB HEMETOLOGY METHOD 07/08/2024 11:43 AM EDT [facility] Blood Venous blood specimen / Unknown Venipuncture / Unknown 07/08/2024 5:24 AM EDT 07/08/2024 9:55 AM EDT us Patricia Nagy MD LAB BLOOD ORDERABLES Fin al Result [facility] [address] [place] [address], documented in this encounter Visit Diagnoses Diagnosis Type 2 diabetes mellitus without complications (CMS/HCC V24, CMS/HCC V28) Other chronic pancreatitis (CMS/HCC V24, CMS/HCC V28) documented in this encounter Care Teams Sap Senior Developer Relationship Specialty Start Date End Date Patricia Nagy MD [address] [place] [id number] PCP - General Family Medicine 06/27/24 documented as of this encounter
--- OUTSIDE RECORDS SUMMARY | 2024-12-23 15:30 | XMS_ITS | Encounter Summary ---
Author Organization [facility] Address [address] [place] [address] Care Team Providers Care Weight Engineer Name Role Phone Patricia Nagy MD Primary Care Provider + Encounter Details Date Type Department Care Team (Late st Contact Info) Description 06/27/2024 Lab Requisition [facility] - Main Lab [address] [facility] [place] [address] Patricia Nagy MD 8[address] [facility] 1 [place] [address] Urinary tract infection, site not [...] LAB CHEMISTRY METHOD 06/27/2024 8:39 AM EDT [facility] Blood Venous blood specimen / Unknown Venipuncture / Unknown 06/27/2024 6:55 AM EDT 06/27/2024 8:10 AM EDT us Patricia Nagy MD LAB BLOOD ORDERABLES Fin al Result [facility] [address] [place] [address], * Alanine aminotransferase (06/27/2024 6:55 AM EDT) ALT (SGPT) 13 10 - 60 unit/L LAB CHEMISTRY METHOD 06/27/2024 9:42 AM EDT [facility] Blood Venous blood specimen / Unknown Venipuncture / Unknown 06/27/2024 6:55 AM EDT 06/27/2024 8:10 AM EDT Patricia Nagy MD LAB BLOOD ORDERABLES Fin al Result [facility] [address] [place] [address], [place] [phone] * Aspartate aminotransferase (06/27/2024 6:55 AM EDT) Pathologist [facility] AST (SGOT) 20 10 - 42 unit/L LAB CHEMISTRY METHOD 06/27/2024 9:42 AM EDT [facility] Blood Venous blood specimen / Unknown Venipuncture / Unknown 06/27/2024 6:55 AM EDT 06/27/2024 8:10 AM EDT Patricia Nagy MD LAB BLOOD ORDERABLES Fin al Result Performing Organization Address [facility]/ZIP Co de Phone Number [facility] [address] [place] [address], [place] [phone] * (ABNORMAL) Hemoglobin A1c (06/27/2024 6:55 AM EDT) [facility] Hemoglobin A1C 7.1(H) <6.5 % LAB CHEMISTRY METHOD 06/27/2024 10:50 AM EDT [facility] Mean Bld Glu Estim. 157 mg/dL LAB CHEMISTRY METHOD 06/27/2024 10:50 AM EDT [facility] Blood Venous blood specimen / Unknown Venipuncture / Unknown 06/27/2024 6:55 AM EDT 06/27/2024 8:10 AM EDT Patricia Nagy MD LAB BLOOD ORDERABLES Fin al Result [facility] [address] [place] [address], * (ABNORMAL) Basic metabolic panel (06/27/2024 6:55 AM EDT) Sodium 138 133 - 145 mmol/L LAB CHEMISTRY METHOD 06/27/2024 9:[address] [facility] Potassium 4.3 3.5 - 5.5 mmol/L LAB CHEMISTRY METHOD 06/27/2024 9:[address] [facility] Chloride 105 96 - 110 mmol/L LAB CHEMISTRY METHOD 06/27/2024 9:[address] [facility] CO2 21 21 - 32 mmol/L LAB CHEMISTRY METHOD 06/27/2024 9:[address] [facility] Anion Gap 12(H) 3 - 11 LAB CHEMISTRY METHOD 06/27/2024 9:[address] [facility] Glucose 160(H) 70 - 100 mg/dL LAB CHEMISTRY METHOD 06/27/2024 9:[address] [facility] BUN 39(H) 5 - 25 mg/dL LAB CHEMISTRY METHOD 06/27/2024 9:[address] [facility] Creatinine 1.63(H) 0.50 - 1.10 mg/dL LAB CHEMISTRY METHOD 06/27/2024 9:[address] [facility] eGFR 34(L) >=60 mL/min/1. 73m2 LAB CHEMISTRY METHOD 06/27/2024 9:[address] [facility] Comment:Calculation based on the Chronic Kidney Disease Epidemiology Collaboration (CKD-EPI) equation refit without adjustment for race. BUN/Creatinine Ratio 23.9 LAB CHEMISTRY METHOD 06/27/2024 9:[address] [facility] Calcium 7.7(L) 8.5 - 10.5 mg/dL LAB CHEMISTRY METHOD 06/27/2024 9:[address] [facility] Blood Venous blood specimen / Unknown Venipuncture / Unknown 06/27/2024 6:55 AM EDT 06/27/2024 8:10 AM EDT Patricia Nagy MD LAB BLOOD ORDERABLES Fin al Result [facility] [address] [place] [address], * (ABNORMAL) Complete blood count (06/27/2024 6:55 AM EDT) [facility] WBC 7.2 4.8 - 10.8 K/mcL LAB HEMETOLOGY METHOD 06/27/2024 9:10 AM EDT [facility] RBC 3.20(L) 3.80 - 4.80 M/mcL LAB HEMETOLOGY METHOD 06/27/2024 9:[address] [facility] Hemoglobin 9.8(L) 11.5 - 16.0 g/dL LAB HEMETOLOGY METHOD 06/27/2024 9:[address] [facility] Hematocrit 30.2(L) 35.0 - 47.0 % LAB HEMETOLOGY METHOD 06/27/2024 9:[address] [facility] MCV 94.7 79.0 - 98.0 FL LAB HEMETOLOGY METHOD 06/27/2024 9:[address] [facility] MCH 30.7 27.0 - 32.0 pcg LAB HEMETOLOGY METHOD 06/27/2024 9:[address] [facility] MCHC 32.5 32.0 - 37.0 g/dL LAB HEMETOLOGY METHOD 06/27/2024 9:[address] [facility] RDW 13.0 11.0 - 15.0 % LAB HEMETOLOGY METHOD 06/27/2024 9:[address] [facility] Platelets 124(L) 130 - 400 K/mcL LAB HEMETOLOGY METHOD 06/27/2024 9:10 AM EDT [facility] MPV 10.9 7.0 - 11.0 FL LAB HEMETOLOGY METHOD 06/27/2024 9:10 AM EDT [facility] NRBC 0.0 <1.0 % LAB HEMETOLOGY METHOD 06/27/2024 9:10 AM EDT [facility] NRBC Absolute 0.00 <0.10 K/mcL LAB HEMETOLOGY METHOD 06/27/2024 9:10 AM EDT [facility] Blood Venous blood specimen / Unknown Venipuncture / Unknown 06/27/2024 6:55 AM EDT 06/27/2024 8:10 AM EDT us Patricia Nagy MD LAB BLOOD ORDERABLES Fin al Result [facility] [address] [place] [address], documented in this encounter Visit Diagnoses Diagnosis Urinary tract infection, site not specified Chronic kidney disease, unspecified Type 2 diabetes mellitus without complications (CMS/HCC V24, CMS/HCC V28) Liver disease, unspecified documented in this encounter Care Teams Weight Engineer Relationship Specialty Start Date End Date Patricia Nagy MD [address] [place] [phone] PCP - General Family Medicine 06/27/24 documented as of this encounter
--- OUTSIDE RECORDS SUMMARY | 2024-12-23 15:30 | XMS_ITS | Clinical Summary ---
Author Organization [address] Address [address] [place] [address] Phone Care Team Providers Care Manager Truck Name Role Phone Elder, Patricia Marques MD [...] Last Done Comments Breast Cancer Screening 1955 Colorectal Cancer Screening: Colonoscopy 1955 DTaP,Tdap,and Td Vaccines (1 - Tdap) 12/04/1975 Pneumococcal Vaccine: 50+ Ye ars (1 of 2 - PCV) 12/04/1975 Zoster Vaccines (1 of 2) 2006 Falls Risk Assessment 01/24/2024 Hepatitis C Screening [...] Insurance MEDICAID - [place] MEDICARE Care Teams Manager Truck Relationship Specialty Start Date End Date Patricia Nagy MD [address] [place] [address] PCP - General Family Medicine 06/27/24
--- OUTSIDE RECORDS SUMMARY | 2024-12-23 15:30 | XMS_ITS | Encounter Summary ---
Author Organization [facility] Address [address] [place] [address] Care Team Providers Care Yard Engineer Name Role Phone Elder, Patricia Marques MD Primary Care Provider + Encounter Details Date Type Department Care Team (Latest Contact Info) Description 01/20/2024 Lab Requisition [facility] - Main Lab [address] [facility] [place] [address] Rona Vu PA [address] [place] [id number] Type 2 diabetes mellitus with hyperglycemia (CMS/HCC [...] Travel phlebotomy fee (01/20/2024 6:02 AM EDT) [facility] TRAVEL PHLEBOTOMY FEE Completed 01/20/2024 9:01 AM EDT [facility] Blood Venous blood specimen / Unknown Venipuncture / Unknown 01/20/2024 6:02 AM EDT 01/20/2024 8:55 AM EDT us Rona SMITH LAB BLOOD ORDERABLES Final Res ult Performing Organization Address City/[facility]/ZIP Co de Phone Number [facility] [address] [place] [address], [place] [phone] * (ABNORMAL) Hemoglobin A1c (01/20/2024 6:02 AM EDT) [facility] Hemoglobin A1C 8.1(H) <6.5 % LAB CHEMISTRY METHOD 01/21/2024 10:42 AM EST [facility] Mean Bld Glu Estim. 186 mg/dL LAB CHEMISTRY METHOD 01/21/2024 10:42 AM [facility] Comment:Unable to calculate due to HgB A1C being outside of the reportable range Blood Venous blood specimen / Unknown Venipuncture / Unknown 01/20/2024 6:02 AM EDT 01/20/2024 8:55 AM EDT Rona SMITH LAB BLOOD ORDERABLES Final Res ult [facility] [address] [place] [address], [place] [phone] * Thyroid stimulating hormone (01/20/2024 6:02 AM EDT) Pathologist [facility] TSH 1.57 0.40 - 4.00 mcIU/mL LAB CHEMISTRY METHOD 01/20/2024 12:09 PM EDT [facility] Blood Venous blood specimen / Unknown Venipuncture / Unknown 01/20/2024 6:02 AM EDT 01/20/2024 8:55 AM EDT us Rona SMITH LAB BLOOD ORDERABLES Final Res ult [facility] [address] [place] [address], * (ABNORMAL) Basic metabolic panel (01/20/2024 6:02 AM EDT) Pathologist [facility] Sodium 140 133 - 145 mmol/L LAB CHEMISTRY METHOD 01/20/2024 9:[address] [facility] Potassium 3.9 3.5 - 5.5 mmol/L LAB CHEMISTRY METHOD 01/20/2024 9:[address] [facility] Chloride 108 96 - 110 mmol/L LAB CHEMISTRY METHOD 01/20/2024 9:[address] [facility] CO2 25 21 - 32 mmol/L LAB CHEMISTRY METHOD 01/20/2024 9:[address] [facility] Anion Gap 7 3 - 11 LAB CHEMISTRY METHOD 01/20/2024 9:[address] [facility] Glucose 90 70 - 100 mg/dL LAB CHEMISTRY METHOD 01/20/2024 9:[address] [facility] BUN 17 5 - 25 mg/dL LAB CHEMISTRY METHOD 01/20/2024 9:[address] [facility] Creatinine 1.20(H) 0.50 - 1.10 mg/dL LAB CHEMISTRY METHOD 01/20/2024 9:45 AM EDT [facility] eGFR 50(L) >=60 mL/min/1. 73m2 LAB CHEMISTRY METHOD 01/20/2024 9:45 AM EDT [facility] Comment:Calculation based on the Chronic Kidney Disease Epidemiology Collaboration (CKD-EPI) equation refit without adjustment for race. BUN/Creatinine Ratio 14.2 LAB CHEMISTRY METHOD 01/20/2024 9:45 AM EDT [facility] Calcium 8.9 8.5 - 10.5 mg/dL LAB CHEMISTRY METHOD 01/20/2024 9:45 AM EDT [facility] Blood Venous blood specimen / Unknown Venipuncture / Unknown 01/20/2024 6:02 AM EDT 01/20/2024 8:55 AM EDT us Rona SMITH LAB BLOOD ORDERABLES Final Res ult [facility] [address] [place] [address], [place] [phone] * (ABNORMAL) Complete blood count (01/20/2024 6:02 AM EDT) WBC 8.4 4.8 - 10.8 K/mcL LAB HEMETOLOGY METHOD 01/20/2024 3:33 PM EDT [facility] RBC 3.90 3.80 - 4.80 M/mcL LAB HEMETOLOGY METHOD 01/20/2024 3:33 PM EDT [facility] Hemoglobin 12.0 11.5 - 16.0 g/dL LAB HEMETOLOGY METHOD 01/20/2024 3:33 PM EDT [facility] Hematocrit 39.2 35.0 - 47.0 % LAB HEMETOLOGY METHOD 01/20/2024 3:33 PM EDT [facility] MCV 101.8(H) 79.0 - 98.0 FL LAB HEMETOLOGY METHOD 01/20/2024 3:33 PM EDT [facility] MCH 31.2 27.0 - 32.0 pcg LAB HEMETOLOGY METHOD 01/20/2024 3:33 PM EDT [facility] MCHC 30.6(L) 32.0 - 37.0 g/dL LAB HEMETOLOGY METHOD 01/20/2024 3:33 PM EDT [facility] RDW 13.2 11.0 - 15.0 % LAB HEMETOLOGY METHOD 01/20/2024 3:33 PM EDT [facility] Platelets 180 130 - 400 K/mcL LAB HEMETOLOGY METHOD 01/20/2024 3:33 PM EDT [facility] MPV 10.3 7.0 - 11.0 FL LAB HEMETOLOGY METHOD 01/20/2024 3:33 PM EDT [facility] NRBC 0.0 <1.0 % LAB HEMETOLOGY METHOD 01/20/2024 3:33 PM EDT [facility] NRBC Absolute 0.00 <0.10 K/mcL LAB HEMETOLOGY METHOD 01/20/2024 3:33 PM EDT [facility] Blood Venous blood specimen / Unknown Venipuncture / Unknown 01/20/2024 6:02 AM EDT 01/20/2024 8:55 AM EDT us Rona SMITH LAB BLOOD ORDERABLES Final Res ult [facility] [address] [place] [address], documented in this encounter Visit Diagnoses Diagnosis Type 2 diabetes mellitus with hyperglycemia (CMS/HCC V24, CMS/HCC V28) Other specified hypothyroidism Urinary tract infection, site not specified documented in this encounter Care Teams Yard Engineer Relationship Specialty Start Date End Date Patricia Nagy MD [address] [place] [phone] PCP - General Family Medicine 06/27/24 documented as of this encounter
--- OUTSIDE RECORDS SUMMARY | 2024-12-23 15:30 | XMS_ITS | Encounter Summary ---
Author Organization [facility] Address [address] [place] [address] Care Team Providers Care Payroll Tax Specialist Name Role Phone Patricia Nagy MD Primary Care Provider + Encounter Details Date Type Department Care Team (Late st Contact Info) Description 07/01/2024 Lab Requisition [facility] - Main Lab 299 [facility] [place] [address] Patricia Nagy MD [address] [phone] Liver disease, unspecified; Urinary tract infection, site [...] coma documented in this encounter Care Teams Payroll Tax Specialist Relationship Specialty Start Date End Date Patricia Nagy MD [address] [phone] PCP - General Family Medicine 06/27/24 documented as of this encounter
--- OUTSIDE RECORDS SUMMARY | 2024-12-23 15:30 | XMS_ITS | Encounter Summary ---
[facility] Address [address] [place] [address] Care Team Providers Care Sap Integration Architect Name Role Phone Patricia Nagy MD Primary Care Provider + Encounter Details Date Type Department Care Team (Late st Contact Info) Description 07/12/[address] [facility] - Main Lab [address] [facility] [place] [address] Patricia Nagy MD [address] [address] Other chronic pancreatitis (CMS/HCC V24, CMS/HCC V28); [...] documented in this encounter Care Teams Sap Integration Architect Relationship Specialty Start Date End Date Patricia Nagy MD [address] [phone] PCP - General Family Medicine 06/27/24 documented as of this encounter
== END 2024-12-23 15:51 | disposition home or self-care (01) ==
LOC: HO.HMCFM 13:06
PROVIDERS: PCP Internal Medicine; Visit Provider Internal Medicine
DX: E11.42 Type 2 diabetes mellitus with diabetic polyneuropathy (principal); Z79.4 Long term (current) use of insulin; K86.1 Other chronic pancreatitis; K74.60 Unspecified cirrhosis of liver; Z09 Encounter for follow-up examination after completed treatment for conditions other than malignant neoplasm; I10 Essential (primary) hypertension; E03.9 Hypothyroidism, unspecified

== ENCOUNTER → 2025-01-13 23:59 | Outpatient (BNV) | payer OTHER, SELFPAY | PROVIDERS: PCP Internal Medicine; Visit Provider Internal Medicine | DX: K86.1 Other chronic pancreatitis (principal); R30.0 Dysuria | CPT/HCPCS: G0180 ==